=== PATIENT | female | born 1960 | race Caucasian/White ===

== ENCOUNTER → 2018-06-28 07:56 | Outpatient (CLI) | payer BC, SELFPAY ==
--- NOTE | 2018-06-28 08:00 | BI_ITS ---
MAMMOGRAPHY - BILATERAL SCREENING REASON FOR EXAM: Female, 57 years old. Routine annual screening examination. PERTINENT HISTORY: Grandmother with breast cancer. TECHNIQUE: Digital bilateral breast delmy (3D mammographic acquisition) in the CC and MLO projections. 2-D mediolateral oblique (MLO) and craniocaudad (CC) views of both breasts were obtained. CAD: Full Field Digital Mammography with Computer Added Detection was performed. COMPARISON: Comparison is made with prior study dated December 21, 2016 and December 08, 2015. FINDINGS: Breast Composition: The breasts are extremely dense, which lowers the sensitivity of mammography. There are no dominant masses or suspicious calcifications. Once again, a tissue clip marker is seen in the superior retroareolar region of the left breast. Stable appearing right axillary lymph node. No other significant abnormalities are identified. There has been no significant change since the prior study. BI/SCREENING MAMM (CAD), BILAT IMPRESSION: Stable bilateral screening mammogram. Yearly follow-up mammogram recommended. (A) ASSESSMENT CATEGORY: BIRADS Category 2: Benign. A letter regarding these results will be sent to the patient by the facility within 30 days. Approximately 10% of breast cancers are not detected by mammography. A normal mammogram should not delay biopsy of a clinically suspicious abnormality. [id number] Electronically Signed: Adolfo Huynh MD at 9:33 EST Tel [phone], Service support ,
== END ==
PROVIDERS: Family Provider Family Medicine; PCP Family Medicine; Referring Provider Family Medicine; Visit Provider Family Medicine
DX: Z12.31 Encounter for screening mammogram for malignant neoplasm of breast (principal)
CPT/HCPCS: 77063; 77067

== ENCOUNTER → 2018-09-05 14:40 | Outpatient (CLI) | payer BC, SELFPAY ==
[2018-09-05 15:34] LABS: Iron 66 ug/dL (50-170); Iron Binding Capacity,Total 307 ug/dL (250-450); PERCENT IRON SATURATION 21.5 % (15.0-55.0)
== END ==
PROVIDERS: Family Provider Family Medicine; PCP Family Medicine; Referring Provider Family Medicine; Visit Provider Family Medicine
DX: D50.9 Iron deficiency anemia, unspecified (principal)
CPT/HCPCS: 36415; 83540; 83550

== ENCOUNTER → 2018-09-14 09:53 | Outpatient (CLI) | payer BC, SELFPAY ==
--- NOTE | 2018-09-14 09:57 | US_ITS ---
STUDY: ULTRASOUND TRANSVAGINAL CLINICAL: Female, 57 years old. Postmenopausal bleeding TECHNIQUE: Transvaginal COMPARISON: None. FINDINGS: Normal uterine size measuring 8.1 cm in maximal craniocaudal dimension. There are multiple fibroids, the parts consultant notes at least 3. Largest measures 2.6 x 2.2 x 1.9 cm, others measure 1.9 x 1.9 x 1.2 cm, and 1.5 x 1.3 x 1.1 cm. Normal endometrial thickness measuring 5 mm. There are no endometrial masses, and there is no fluid in the endometrial cavity. Normal uterine cervix. Right ovary not visualized. Normal left ovary, measuring 3.0 x 2.5 x 1.7 cm. There are multiple follicles without a dominant cyst. There is no free fluid in the pelvis. Polycystic ovary disease: No. US/Transvaginal Non- IMPRESSION: Sonographically normal endometrium at 5 mm. 3 uterine fibroids No suspicious adnexal mass or free fluid Electronically Signed: Anton Gaspar MD at 12:44 EST , Service support ,
== END ==
PROVIDERS: Family Provider Family Medicine; PCP Family Medicine; Referring Provider Obstetrics & Gynecology Gynecology; Visit Provider Obstetrics & Gynecology Gynecology
DX: N95.0 Postmenopausal bleeding (principal)
CPT/HCPCS: 76830

== ENCOUNTER → 2019-07-26 10:39 | Outpatient (CLI) | payer BC, SELFPAY ==
--- NOTE | 2019-07-26 10:49 | BI_ITS ---
MAMMOGRAPHY - BILATERAL SCREENING 3-D TOMOSYNTHESIS REASON FOR EXAM: Female, 58 years old. FM HX PAT GMA AGE?, CURRENT OTC ESTROVEN AND VAG CREAM USE X 1 MTH, LT NEEDLE BX 10 YRS AGO PERTINENT HISTORY: No significant family history. TECHNIQUE: 2-D mammograms and 3-D Tomosynthesis of the breast (s) were performed. CAD was performed. COMPARISON: June 28, 2018 FINDINGS: The breast composition is heterogeneously dense that can obscure small breast masses. There is a new area of asymmetry with potential mild to moderate associated architectural distortion within the mid to deep slightly outer right breast seen only on right CC tomographic views positioned 6.7 cm deep to the nipple. Recommend further evaluation with conventional focal compression of this region at the posterior fibroglandular margin on the right CC views. Sonographic evaluation may also be needed potentially. There are no suspicious clustered microcalcifications. BI/SCREEN MAMM (CAD) W/MIGUELITO BILAT IMPRESSION: New region of asymmetry with potential associated architectural distortion within the right breast as above. ASSESSMENT CATEGORY: BIRADS Category 0: Incomplete. Need additional imaging evaluation as above. A letter regarding these results will be sent to the patient by the facility within 30 days. FOLLOW UP RECOMMENDATION: Yearly follow up mammogram recommended. (A) Approximately 10% of breast cancers are not detected by mammography. A normal mammogram should not delay biopsy of a clinically suspicious abnormality. Electronically Signed: Cristino Pruitt MD at 15:05 EST , Service support ,
== END ==
PROVIDERS: Family Provider Family Medicine; PCP Family Medicine; Referring Provider Obstetrics & Gynecology Gynecology; Visit Provider Obstetrics & Gynecology Gynecology
DX: Z12.31 Encounter for screening mammogram for malignant neoplasm of breast (principal)
CPT/HCPCS: 77063; 77067

== ENCOUNTER → 2019-07-30 13:57 | Outpatient (CLI) | payer BC, SELFPAY ==
--- NOTE | 2019-07-30 13:59 | BI_ITS ---
MAMMOGRAPHY - UNILATERAL DIAGNOSTIC: RIGHT BREAST REASON FOR EXAM: Female, 58 years old. Abnormal screening mammogram. PERTINENT HISTORY: Non-contributory. TECHNIQUE: Compression spot views of the right breast were obtained in the mediolateral and craniocaudad views. CAD: Full Field Digital Mammography with Computer Added Detection was performed. COMPARISON: Comparison is made with prior mammogram dated July 26, 2011. FINDINGS: Breast Composition: The breasts are heterogeneously dense, which may obscure small masses. There are no dominant masses or suspicious calcifications. No other significant abnormalities are identified. BI/DIAG MAMM W/CAD, UNILAT IMPRESSION: Stable unilateral diagnostic mammogram. One year follow-up mammogram recommended. (A) ASSESSMENT CATEGORY: BIRADS Category 2: Benign. A letter regarding these results will be sent to the patient by the facility within 30 days. Approximately 10% of breast cancers are not detected by mammography. A normal mammogram should not delay biopsy of a clinically suspicious abnormality. Electronically Signed: Adolfo Huynh, at 15:32 EST , Service support ,
--- NOTE | 2019-07-30 13:59 | US_ITS ---
STUDY: ULTRASOUND BREAST - RIGHT REASON FOR EXAM: Female, 58 years old. Right breast asymmetry. TECHNIQUE: Axial and longitudinal images of the RIGHT breast were performed with a high resolution ultrasound transducer. # OF IMAGES: 70 COMPARISON: Comparison is made with prior mammogram done earlier in the day. FINDINGS: RIGHT Breast: There is a 4 mm x 4 mm x 3 mm cyst at the 12:00 position of the breast at 3 cm from the nipple. US/Breast Limited Unilateral IMPRESSION: 4 mm x 4 mm x 3 mm cyst at the 12:00 position of the breast at 3 cm from the nipple. ASSESSMENT CATEGORY: BIRADS Category 2: Benign. A letter regarding these results will be sent to the patient by the facility within 30 days. Electronically Signed: Adolfo Huynh, at 15:35 EST , Service support ,
== END ==
PROVIDERS: Family Provider Family Medicine; PCP Family Medicine; Referring Provider Obstetrics & Gynecology Gynecology; Visit Provider Obstetrics & Gynecology Gynecology
DX: N64.89 Other specified disorders of breast (principal)
CPT/HCPCS: 76641; 76642; 77065

== ENCOUNTER → 2019-09-04 08:39 | Outpatient (CLI) | payer BC, SELFPAY ==
[2019-09-04 09:31] LABS: Absolute Lymphocyte Count 1.71 X10^3/uL (0.83-4.51); Absolute Neutrophil Count 5.4 X10^3/uL (2.0-7.7); Basophil# 0.03 X10^3/uL; Basophil% 0.4 % (0-1); Eosinophil# 0.08 X10^3/uL; Hematocrit 40.1 % (37-47); Hemoglobin 12.6 g/dL (12.0-15.0); Lymphocyte # 1.71 X10^3/ul (4.0); Lymphocyte % 21.5 % (19-41); Mean Corp Hgb Conc 31.4 g/dL (32-36); Mean Corpuscular Hgb 27.9 pg (27.0-32.0); Mean Corpuscular Volume 88.9 fL (81-99); Mean Platelet Vol. 10.9 fl (6.2-12.0); Monocyte% 8.8 % (0-10); NRBC Flagged by Analyzer 0 % (0-5); Neutrophil # 5.38 X10^3/uL (2.7-7.7); Neutrophil % 67.8 % (47-70); Platelet Count 228 K/mm3 (150-450); RBC Distribution Width CV 13.2 % (11.6-14.6); RBC Distribution Width SD 42.8 fl (35.1-43.9); Red Blood Count 4.51 M/mm3 (4.2-5.4); White Blood Count 7.9 K/mm3 (4.4-11.0)
[2019-09-04 10:00] LABS: Color, Urine Yellow (Yellow); Glucose, Dipstick Normal (Normal); Ketone-Dipstick Negative (Negative); Leukocyte Esterase-Dipstick Negative /ul (Negative); Nitrite-Dipstick Negative (Negative); Occult Blood-Urine 10 /ul (Negative); Protein-Dipstick Negative (Negative); Urine Bilirubin Dipstick Negative (Negative); Urine Clarity Clear (Clear); Urine Urobilinogen Normal (Normal)
[2019-09-04 10:03] LABS: AST(SGOT) 28 U/L (15-37); Alanine Aminotransfer ALT/SGPT 53 U/L (13-56); Albumin, Serum 3.6 g/dL (3.2-5.0); Alkaline Phosphatase 81 U/L (45-117); Anion Gap 5 (5-15); BUN 10 mg/dL (7-18); BUN/Creat Ratio 13.3 RATIO (10-20); Calcium,Total 9.2 mg/dL (8.5-10.1); Chloride 109 mmol/L (98-107); Cholesterol 183 mg/dL (200); Creatinine, Serum 0.75 mg/dL (0.55-1.02); EST Glomerular Filtration Rate 84 mL/min (>60); Est Glom Filt Rate - Afr Amer 102 mL/min (>60); Globulin 3.5 g/dL (2.2-4.2); Glucose 102 mg/dL (74-106); High Density Lipoprotein 45 mg/dL; Protein, Total 7.1 g/dL (6.4-8.2); Sodium Level 141 mmol/L (136-145); Triglycerides 118 mg/dL; Very Low Density Lipoprotein 24 mg/dL (5-40)
== END ==
PROVIDERS: PCP Family Medicine; Referring Provider Family Medicine; Visit Provider Family Medicine
DX: Z00.00 Encounter for general adult medical examination without abnormal findings (principal); D50.9 Iron deficiency anemia, unspecified; I10 Essential (primary) hypertension
CPT/HCPCS: 36415; 80053; 80061; 81002; 85025

== ENCOUNTER → 2020-09-10 09:02 | Outpatient (CLI) | payer BC, SELFPAY ==
[2020-09-10 09:59] LABS: Absolute Lymphocyte Count 1.81 X10^3/uL (0.83-4.51); Basophil# 0.03 X10^3/uL; Basophil% 0.4 % (0-1); Eosinophil# 0.08 X10^3/uL; Hematocrit 40.2 % (37-47); Hemoglobin 12.7 g/dL (12.0-15.0); Lymphocyte # 1.81 X10^3/ul (4.0); Lymphocyte % 23.8 % (19-41); Mean Corp Hgb Conc 31.6 g/dL (32-36); Mean Corpuscular Hgb 27.6 pg (27.0-32.0); Mean Corpuscular Volume 87.4 fL (81-99); Mean Platelet Vol. 10.8 fl (6.2-12.0); Monocyte# 0.62 X10^3/uL; Monocyte% 8.1 % (0-10); NRBC Flagged by Analyzer 0 % (0-5); Neutrophil # 5.02 X10^3/uL (2.7-7.7); Neutrophil % 65.9 % (47-70); Platelet Count 257 K/mm3 (150-450); RBC Distribution Width CV 13.2 % (11.6-14.6); RBC Distribution Width SD 42.5 fl (35.1-43.9); White Blood Count 7.6 K/mm3 (4.4-11.0)
[2020-09-10 11:03] LABS: ALB/GLOB Ratio 1.1 RATIO (0.9-2.4); AST(SGOT) 30 U/L (15-37); Alanine Aminotransfer ALT/SGPT 62 U/L (13-56); Albumin, Serum 3.9 g/dL (3.2-5.0); Alkaline Phosphatase 95 U/L (45-117); Anion Gap 6 (5-15); BUN 11 mg/dL (7-18); BUN/Creat Ratio 15.2 RATIO (10-20); Calcium,Total 8.9 mg/dL (8.5-10.1); Chloride 104 mmol/L (98-107); Creatinine, Serum 0.72 mg/dL (0.55-1.02); EST Glomerular Filtration Rate 88 mL/min (>60); Est Glom Filt Rate - Afr Amer 106 mL/min (>60); Globulin 3.5 g/dL (2.2-4.2); Glucose 108 mg/dL (74-106); Potassium 4.1 mmol/L (3.5-5.1); Protein, Total 7.4 g/dL (6.4-8.2); Sodium Level 137 mmol/L (136-145)
== END ==
PROVIDERS: PCP Family Medicine; Visit Provider Family Medicine
DX: D50.9 Iron deficiency anemia, unspecified (principal); I10 Essential (primary) hypertension
CPT/HCPCS: 36415; 80053; 84443; 85025

== ENCOUNTER → 2020-12-30 15:57 | Outpatient (CLI) | payer BC, SELFPAY ==
--- NOTE | 2020-12-30 15:59 | BI_ITS ---
MAMMOGRAPHY - BILATERAL SCREENING REASON FOR EXAM: Female, 60 years old. Routine annual screening examination. PERTINENT HISTORY: Grandmother with breast cancer. History of remote left needle breast biopsy. TECHNIQUE: Digital bilateral breast miguelito (3D mammographic acquisition) in the CC and MLO projections. 2-D mediolateral oblique (MLO) and craniocaudad (CC) views of both breasts were obtained. CAD: Full Field Digital Mammography with Computer Added Detection was performed. COMPARISON: Comparison is made with prior study dated 07/26/2019 and 06/28/2018. FINDINGS: Breast Composition: The breasts are heterogeneously dense, which may obscure small masses. There are no dominant masses or suspicious calcifications. Stable benign-appearing bilateral axillary lymph nodes. No other significant abnormalities are identified. There has been no significant change since the prior study. BI/SCRN MAMM (CAD)W/MIGUELITO BILAT IMPRESSION: Stable bilateral screening mammogram. Yearly follow-up mammogram recommended. (A) ASSESSMENT CATEGORY: BIRADS Category 2: Benign. A letter regarding these results will be sent to the patient by the facility within 30 days. Approximately 10% of breast cancers are not detected by mammography. A normal mammogram should not delay biopsy of a clinically suspicious abnormality. [id number] Electronically Signed: Adolfo Huynh MD at 8:48 EDT , Service support ,
== END ==
PROVIDERS: PCP Family Medicine; Referring Provider Obstetrics & Gynecology Gynecology; Visit Provider Obstetrics & Gynecology Gynecology
DX: Z01.419 Encounter for gynecological examination (general) (routine) without abnormal findings (principal); Z12.31 Encounter for screening mammogram for malignant neoplasm of breast; Z12.4 Encounter for screening for malignant neoplasm of cervix; N90.4 Leukoplakia of vulva; Z80.3 Family history of malignant neoplasm of breast
CPT/HCPCS: 77063; 77067

== ENCOUNTER 2021-08-24 11:08 | Outpatient (CLI) | payer BC, SELFPAY ==
[2021-08-24 13:18] LABS: Absolute Lymphocyte Count 1.83 X10^3/uL (0.83-4.51); Absolute Neutrophil Count 4.1 X10^3/uL (2.0-7.7); Basophil# 0.03 X10^3/uL; Basophil% 0.5 % (0-1); Eosinophil# 0.09 X10^3/uL; Eosinophils% 1.4 % (0-5); Hematocrit 41.3 % (37-47); Lymphocyte # 1.83 X10^3/ul (0.83-4.51); Lymphocyte % 27.8 % (19-41); Mean Corp Hgb Conc 31.5 g/dL (32-36); Monocyte# 0.54 X10^3/uL; Monocyte% 8.2 % (0-10); NRBC Flagged by Analyzer 0 % (0-5); Neutrophil # 4.08 X10^3/uL (2.7-7.7); Neutrophil % 61.8 % (47-70); Platelet Count 264 K/mm3 (150-450); RBC Distribution Width CV 13.3 % (11.6-14.6); RBC Distribution Width SD 43.4 fl (35.1-43.9); Red Blood Count 4.64 M/mm3 (4.2-5.4); White Blood Count 6.6 K/mm3 (4.4-11.0)
[2021-08-24 13:52] LABS: AST(SGOT) 27 U/L (15-37); Alanine Aminotransfer ALT/SGPT 45 U/L (13-56); Alkaline Phosphatase 81 U/L (45-117); Anion Gap 5 (5-15); BUN 10 mg/dL (7-18); BUN/Creat Ratio 14.4 RATIO (10-20); Calcium,Total 9.4 mg/dL (8.5-10.1); Chloride 104 mmol/L (98-107); Cholesterol 172 mg/dL (200); Creatinine, Serum 0.69 mg/dL (0.55-1.02); EST Glomerular Filtration Rate 92 mL/min (>60); Est Glom Filt Rate - Afr Amer 111 mL/min (>60); Globulin 3.9 g/dL (2.2-4.2); Glucose 103 mg/dL (74-106); High Density Lipoprotein 51 mg/dL; Potassium 4.6 mmol/L (3.5-5.1); Protein, Total 7.9 g/dL (6.4-8.2); Sodium Level 139 mmol/L (136-145); Triglycerides 82 mg/dL; Very Low Density Lipoprotein 16 mg/dL (5-40)
== END 2021-08-24 23:59 | disposition short-term general hospital (02) ==
LOC: LAB 11:09
PROVIDERS: PCP Family Medicine; Visit Provider Family Medicine
DX: Z00.00 Encounter for general adult medical examination without abnormal findings (principal); I10 Essential (primary) hypertension; D50.9 Iron deficiency anemia, unspecified
CPT/HCPCS: 36415; 80053; 80061; 85025

== ENCOUNTER → 2022-04-12 | Outpatient (CLI) | payer BC, SELFPAY ==
--- NOTE | 2022-04-12 14:17 | BI_ITS ---
MAMMOGRAPHY - BILATERAL SCREENING 3-D TOMOSYNTHESIS REASON FOR EXAM: Female, 61 years old. SCREENING PERTINENT HISTORY: No significant family history. TECHNIQUE: 2-D mammograms and 3-D Tomosynthesis of the breast (s) were performed. CAD was performed. COMPARISON: [id number] FINDINGS: The breast composition is Extermely dense tissue. Scattered benign calcifications are seen. No dense spiculated masses or suspicious microcalcifications are identified. No architectural distortion is identified. There is no skin thickening or retraction. There has been no significant change since the prior study. BI/SCRN MAMM (CAD)W/MIGUELITO BILAT IMPRESSION: No mammographic signs of malignancy. Routine yearly mammograms recommended. ASSESSMENT CATEGORY: BIRADS Category 1: Negative. A letter regarding these results will be sent to the patient by the facility within 30 days. FOLLOW UP RECOMMENDATION: Yearly follow up mammogram recommended. (A) Approximately 10% of breast cancers are not detected by mammography. A normal mammogram should not delay biopsy of a clinically suspicious abnormality. Electronically Signed: Emmanuel Martinez MD at 15:03 EDT ,
== END | disposition home or self-care (01) ==
LOC: OPBI 14:14
PROVIDERS: PCP Family Medicine; Visit Provider Obstetrics & Gynecology Gynecology
DX: Z01.419 Encounter for gynecological examination (general) (routine) without abnormal findings (principal); Z12.31 Encounter for screening mammogram for malignant neoplasm of breast
CPT/HCPCS: 77063; 77067

== ENCOUNTER 2022-05-26 16:22 | Emergency (ER) | payer BC, SELFPAY ==
[2022-05-26] VITALS (8 sets, daily range): BP systolic 130–167; BP diastolic 68–103; PULSE 91–109; RESP 16–21; TEMP 36.2–37.5; O2SAT 96–99; BMI 29.9
--- NOTE | 2022-05-26 16:50 | EKG12_ITS ---
Test Reason : BACK PAIN/CHEST HEAVINESS Blood Pressure : / mmHG Vent. Rate : 099 BPM Atrial Rate : 099 BPM P-R Int : 158 ms QRS Dur : 084 ms QT Int : 326 ms P-R-T Axes : 045 007 018 degrees QTc Int : 418 ms Normal sinus rhythm Cannot rule out Inferior infarct , age undetermined Cannot rule out Anterior infarct , age undetermined Abnormal ECG Confirmed by KALYAN CARDONA, KELLEY ([id number]), assignment desk editor DB ACOSTA ([id number]) on 05/30/2022 1:16:12 PM Referred By: CARYN Confirmed By:KELLEY BIGGS MD
--- NOTE | 2022-05-26 17:00 | RAD_ITS ---
STUDY: X-RAY CHEST REASON FOR EXAM: Female, 61 years old. Chest pain. Cold for 2 weeks. Coughing today. Weakness and chest heaviness. TECHNIQUE: Single AP portable view of the chest. COMPARISON: None. FINDINGS: The lungs are clear and expanded. There is no demonstrated pleural abnormality. Normal size heart. Normal mediastinum and cecile. Normal visualized pulmonary arteries. Normal visualized aortic arch and descending thoracic aorta. Mild dextroscoliosis of the thoracic spine. Normal visualized ribs, clavicles, and shoulders. There is no demonstrated abnormality of the visualized soft tissue structures of the upper abdomen. RAD/Chest 1 View (Portable) IMPRESSION: No acute cardiopulmonary disease. Electronically Signed: Ozzy Ladd DO at 17:10 EDT ,
[2022-05-26 17:06] LABS: Absolute Lymphocyte Count 2.36 X10^3/uL (0.83-4.51); Basophil# 0.04 X10^3/uL; Basophil% 0.7 % (0-1); Eosinophils% 1.6 % (0-5); Hematocrit 33.3 % (37-47); Hemoglobin 10.9 g/dL (12.0-15.0); Lymphocyte # 2.36 X10^3/ul (0.83-4.51); Lymphocyte % 38.7 % (19-41); Mean Corp Hgb Conc 32.7 g/dL (32-36); Mean Corpuscular Hgb 27.9 pg (27.0-32.0); Mean Corpuscular Volume 85.4 fL (81-99); Mean Platelet Vol. 10.2 fl (6.2-12.0); Monocyte# 0.56 X10^3/uL; Monocyte% 9.2 % (0-10); NRBC Flagged by Analyzer 0 % (0-5); Neutrophil # 2.98 X10^3/uL (2.7-7.7); Neutrophil % 48.8 % (47-70); POSITIVE MORPHOLOGY YES; Platelet Count 170 K/mm3 (150-450); RBC Distribution Width SD 43.5 fl (35.1-43.9); White Blood Count 6.1 K/mm3 (4.4-11.0)
[2022-05-26 17:15] LABS: Differential Indicated SCAN CRITERIA MET
[2022-05-26 17:23] LABS: Anion Gap 6 (5-15); BUN 9 mg/dL (7-18); BUN/Creat Ratio 10.4 RATIO (10-20); Calcium,Total 8.8 mg/dL (8.5-10.1); Chloride 103 mmol/L (98-107); Creatinine, Serum 0.87 mg/dL (0.55-1.02); EST Glomerular Filtration Rate 71 mL/min (>60); Est Glom Filt Rate - Afr Amer 86 mL/min (>60); Estimated Creatinine Clearance 61.88 ml/min; Glucose 111 mg/dL (74-106); Potassium 3.9 mmol/L (3.5-5.1); Sodium Level 137 mmol/L (136-145); Troponin-I HS (w/2H Reflex) 3 pg/mL (3.0-54.0)
--- NOTE | 2022-05-26 17:30 | EDS_ITS ---
HPI History of Present Illness Chief Complaint: General Illness Informant: patient Onset/Context/Timing Onset: Weeks (2) Context: Gradual Onset Timing: Continuous Quality: Weakness Location: Generalized Worsened by: Nothing Relieved by: Nothing Narrative Narrative: Patient presents with generalized weakness that has been getting worse over the last couple weeks. Patient states it is gotten worse over the last day or so. Patient states she feels weak all over. Patient states nothing makes it better and nothing makes it worse. Patient does admit to a cough and some pain in her chest. Patient mitts to some nausea and decreased appetite. Patient denies any vomiting or diarrhea. Patient states she has some pain going up into her neck and into her back. Patient also admits to a headache. Patient denies any fevers or chills. Patient is concerned that this may be pneumonia. [facility] Medical History (Updated 05/26/22 @ 20:[address] Calderon Quinonez DO) Fibromyalgia GERD (gastroesophageal reflux disease) Hypertension Pneumonia Home Medications bupropion HCl 75 mg tablet 75 mg PO BID 02/12/16 [History Last Taken Unknown] duloxetine 60 mg capsule,delayed release (Cymbalta) 30 mg PO DAILY 02/12/16 [History Last Taken Unknown] hydrocodone-acetaminophen 5-325mg 5mg-325mg 1 - 2 tab PO Q4H PRN PRN Pain ##20 02/12/16 [Rx Last Taken Unknown] lansoprazole 30 mg capsule,delayed release (Prevacid) 30 mg PO DAILY 02/12/16 [History Last Taken Unknown] losartan 100 mg tablet 100 mg PO DAILY 02/12/16 [History Last Taken Unknown] Allergy/AdvReac Type Severity Reaction Status Date / Time clarithromycin [From Biaxin] Allergy Other Verified 05/26/22 16:23 Surgical History (Updated 05/26/22 @ 17:[address] Calderon Quinonez DO) History of endometrial ablation Hx of tonsillectomy Hx of tubal ligation Social History Smoking Status: Never smoker ROS ROS ED Constitutional Constitutional ED: Denies chills or fever(s) Eyes Eyes: Denies blurry vision or change in vision ENT ENT ED: Reports rhinorrhea; Denies sore throat Cardiovascular Cardiovascular: Reports chest pain; Denies palpitations Respiratory/Chest Respiratory/Chest: Reports cough; Denies dyspnea Gastrointestinal Gastrointestinal: Reports nausea; Denies vomiting Genitourinary Genitourinary ED: Denies dysuria or hematuria Musculoskeletal Musculoskeletal: Reports back pain and neck pain Integumentary Denies abscess or rash Neurologic Neurologic: Reports headache(s); Denies weakness Allergic/Immunologic Allergic/Immunologic ED: Denies mouth swelling or urticaria EXAM Physical Exam Const Vital Signs: 05/26/22 16:24 05/26/22 17:13 05/26/22 17:14 Temperature 99.5 F H Temperature Source Temporal Pulse Rate 109 H 99 Respiratory Rate 18 18 Respiratory Effort Short of Breath Respiratory Pattern Normal Blood Pressure 167/103 H 144/80 H Blood Pressure Mean 124 101 Pulse Ox 99 98 Oxygen Delivery Method Room Air Room Air 05/26/22 17:55 05/26/22 18:03 05/26/22 18:15 Temperature 97.5 F L 97.2 F L Temperature Source Temporal Temporal Pulse Rate 91 95 97 Respiratory Rate 16 16 16 Respiratory Effort Respiratory Pattern Blood Pressure 149/92 H 130/68 H Blood Pressure Mean 111 88 Pulse Ox 97 98 Oxygen Delivery Method Room Air Room Air 05/26/22 20:00 Temperature Temperature Source Pulse Rate 100 Respiratory Rate 21 H Respiratory Effort Respiratory Pattern Blood Pressure 140/81 H Blood Pressure Mean 100 Pulse Ox 96 Oxygen Delivery Method Room Air Positive well nourished and well developed General Appearance ED: well developed HEENT Reports moist mucous membranes Neck supple and no JVD Resp normal respiratory effort and clear to auscultation bilaterally Cardio regular rate, regular rhythm and no murmurs GI normal to inspection, nondistended, normoactive bowel sounds and non-tender Palpation: soft Extremity normal to inspection General Extremety ED: Negative for edema or tenderness General Extremity: Negative for edema Neuro oriented x3, CN's II-XII intact bilaterally and no sensory deficits noted Sensorium / Orientation: alert Motor Exam: strength 5/5 throughout Psych mental status grossly normal Skin no rashes or lesions noted MDM MDM MDM Narrative Medical decision making narrative: Patient was given a DuoNeb aerosol here. Patient was given IV fluids. EKG was obtained. On my interpretation, it showed a normal sinus rhythm with a rate of 99. IN interval, QRS interval, and QTc intervals were all normal. Fletcher was normal. There are no acute ST or T wave changes. COVID-19 rapid antigen was obtained and was negative. Influenza A and influenza B antigens were obtained and were negative. Portable 1 view chest x-ray was obtained. On my interpretation, lung singh are clear. There is normal cardiac silhouette. Bony thorax is normal. There is no acute process noted. Radiologist also interpreted the x-ray and agrees. CBC shows a mild anemia with a hemoglobin of 10.9 and hematocrit 33.3. Basic metabolic profile was within normal limits. High-sensitivity troponin was 3. 2-hour repeat high-sensitivity troponin was less than 3. Patient has a HEART score of 2. Patient was advised that this is low risk for acute cardiac event. Patient is feeling better on reevaluation. Patient was advised of her findings. Patient was instructed to follow-up with her primary care physician in 5 to 7 days. Patient understood and was agreeable with the plan. All questions were answered. Lab Data Attestation: I reviewed the patient's lab results. Labs: Laboratory Results - last 24 hr 05/26/22 05/26/22 05/26/22 16:51 16:51 19:15 WBC 6.1 RBC 3.90 L Hgb 10.9 L Hct 33.3 L MCV 85.4 MCH 27.9 MCHC 32.7 RDW Std Deviation 43.5 RDW Coeff of Silvio 14.0 Plt Count 170 MPV 10.2 Immature Gran % (Auto) 1.000 H Neut % (Auto) 48.8 Lymph % (Auto) 38.7 Lagrange % (Auto) 9.2 Eos % (Auto) 1.6 Baso % (Auto) 0.7 Absolute Neuts (auto) 3.0 Absolute Lymphs (auto) 2.36 Nucleated RBC % 0 Differential Comment SCANNED Atypical Lymphocytes RARE Sodium 137 Potassium 3.9 Chloride 103 Carbon Dioxide 28.0 Anion Gap 6 BUN 9 Creatinine 0.87 Estim Creat Clear Calc 61.88 Est GFR (MDRD) Af Amer 86 Est GFR (MDRD) Non-Af 71 BUN/Creatinine Ratio 10.4 Glucose 111 H Calcium 8.8 Troponin I High Sens 3 < 3 L Radiography Chest X-Ray - ED: 1 View, Read by ED Physician, Read by Radiologist and No Acute Disease Diagnostic Testing: Clinical Impression(s) from Imaging Studies Chest X-Ray 05/26/22 17:00 IMPRESSION: No acute cardiopulmonary disease. Electronically Signed: Ozzy Ladd DO at 17:10 EDT Reading Location ID and State: [address] [place] [address] Tel [phone], Service support , Discharge Plan Triage Chief Complaint: General Illness ED Provider: Calderon Quinonez Dx/Rx/DC Orders Clinical Impression: Chest pain, Viral illness Instructions: ED Chest Pain, Uncertain Cause, ED Viral Syndrome (Adult) Prescriptions: No Action duloxetine [Cymbalta] 60 MG capsule,delayed release(DR/EC) 30 mg PO DAILY Label Comments: lansoprazole [Prevacid] 30 MG capsule 30 mg PO DAILY bupropion HCl 75 MG tablet 75 mg PO BID losartan 100 MG tablet 100 mg PO DAILY Label Comments: hydrocodone-acetaminophen 1 TABLET tablet 1 - 2 tab PO Q4H PRN PRN (Reason: Pain) Qty: 20 0RF Primary Care Provider: David Nguyễn Referrals: David Nguyễn MD [Primary Care Provider] - 5-7 Days Disposition Disposition: Home, Self Care
[2022-05-26 17:37] LABS: Atypical Lymphocyte RARE %; Differential Comment SCANNED
[2022-05-26] MEDS: Ipratropium/Albuterol Sulfate 3 ML AMPUL.NEB INHALATION (18:01)
[2022-05-26] MEDS: 0.9% Normal Saline 1,000 ML 1000 ML IV (18:05)
[2022-05-26 19:00] LABS: Reflex Troponin-HS? (from REC) Y
[2022-05-26 20:02] LABS: Troponin-I HS < 3 pg/mL (3.0-54.0)
== END 2022-05-26 21:26 | disposition home or self-care (01) ==
PROVIDERS: Emergency Provider Emergency Medicine; PCP Family Medicine; Visit Provider Emergency Medicine
DX: R07.9 Chest pain, unspecified (principal); B34.9 Viral infection, unspecified
CPT/HCPCS: 71045; 80048; 84484; 85025; 87428; 93005; 94640; 96360; 96361; 99285; J7030; A4216

== ENCOUNTER → 2022-05-31 | Outpatient (CLI) | payer BC, SELFPAY ==
[2022-05-31 10:11] LABS: Mucous, Urine 0 SEEN /hpf (<or=2+)
[2022-05-31 12:54] LABS: Color, Urine Yellow (Yellow); Glucose, Dipstick Normal (Normal); Ketone-Dipstick 5 mg/dl (Negative); Leukocyte Esterase-Dipstick 25 /ul (Negative); Nitrite-Dipstick Negative (Negative); Occult Blood-Urine 10 /ul (Negative); Protein-Dipstick 30 mg/dl (Negative); Urine Bilirubin Dipstick Negative (Negative); Urine Clarity Sl. Cloudy (Clear); Urine Urobilinogen Normal (Normal)
[2022-05-31 12:57] LABS: Absolute Lymphocyte Count 4.47 X10^3/uL (0.83-4.51); Absolute Neutrophil Count 3.3 X10^3/uL (2.0-7.7); Basophil# 0.09 X10^3/uL; Basophil% 1.1 % (0-1); Eosinophil# 0.09 X10^3/uL; Eosinophils% 1.1 % (0-5); Hematocrit 36.8 % (37-47); Hemoglobin 11.6 g/dL (12.0-15.0); Lymphocyte # 4.47 X10^3/ul (0.83-4.51); Lymphocyte % 53.1 % (19-41); Mean Corp Hgb Conc 31.5 g/dL (32-36); Mean Corpuscular Volume 85.8 fL (81-99); Mean Platelet Vol. 10.8 fl (6.2-12.0); Monocyte# 0.44 X10^3/uL; Monocyte% 5.2 % (0-10); NRBC Flagged by Analyzer 0 % (0-5); Neutrophil # 3.26 X10^3/uL (2.7-7.7); Neutrophil % 38.7 % (47-70); POSITIVE MORPHOLOGY YES; Platelet Count 200 K/mm3 (150-450); RBC Distribution Width CV 14.5 % (11.6-14.6); Red Blood Count 4.29 M/mm3 (4.2-5.4); White Blood Count 8.4 K/mm3 (4.4-11.0)
[2022-05-31 12:59] LABS: ALB/GLOB Ratio 0.8 RATIO (0.9-2.4); AST(SGOT) 102 U/L (15-37); Alanine Aminotransfer ALT/SGPT 161 U/L (13-56); Albumin, Serum 3.4 g/dL (3.2-5.0); Alkaline Phosphatase 120 U/L (45-117); Anion Gap 8 (5-15); BUN 5 mg/dL (7-18); BUN/Creat Ratio 5.7 RATIO (10-20); Calcium,Total 8.6 mg/dL (8.5-10.1); Chloride 100 mmol/L (98-107); Creatinine, Serum 0.87 mg/dL (0.55-1.02); EST Glomerular Filtration Rate 70 mL/min (>60); Est Glom Filt Rate - Afr Amer 85 mL/min (>60); Globulin 4.2 g/dL (2.2-4.2); Glucose 157 mg/dL (74-106); Potassium 3.5 mmol/L (3.5-5.1); Protein, Total 7.6 g/dL (6.4-8.2); Sodium Level 134 mmol/L (136-145)
[2022-05-31 13:04] LABS: Differential Indicated SCAN CRITERIA MET; Red Blood Cells-Urine 0-5 SEEN /hpf (0-5); Squamous Epithelial Cells - UA 0-5 SEEN /hpf (5-10); White Blood Cells 0-5 SEEN /hpf (0-5)
[2022-05-31 13:05] LABS: Bacteria 1+ /hpf (None Seen)
[2022-05-31 14:20] LABS: Differential Comment SCANNED; Reactive Lymphocyte 1+
== END | disposition home or self-care (01) ==
LOC: BIMLAB 10:10
PROVIDERS: PCP Family Medicine; Visit Provider Physician Assistant
DX: R05.9 Cough, unspecified (principal); B34.9 Viral infection, unspecified; R07.9 Chest pain, unspecified; M54.50 Low back pain, unspecified
CPT/HCPCS: 36415; 80053; 81001; 85025; 87070; 87086; 87205

== ENCOUNTER 2022-06-07 13:17 | Emergency (ER) | payer BC, SELFPAY ==
[2022-06-07 13:18] VITALS: BP 124/79; PULSE 110; RESP 16; TEMP 36.7; O2SAT 96; BMI 33.0
--- NOTE | 2022-06-07 14:29 | CT_ITS ---
STUDY: CT ABDOMEN AND PELVIS WITH CONTRAST REASON FOR EXAM: Female, 61 years old. Elevated LFTs RADIATION DOSAGE (If Supplied By Facility): CTDIvol = ( 15.04 ) mGy, DLP = ( 1088.27 ) mGycm TECHNIQUE: Transaxial images were obtained from the dome of the diaphragm to the symphysis pubis without oral contrast. IV 100mL Isovue-300 was administered. Sagittal and coronal images were reconstructed. Individualized dose optimization techniques were used for this CT. COMPARISON: None. FINDINGS: The visualized lung bases are unremarkable. The visualized portions of the heart are within normal limits. Multiple simple hepatic cysts or small to characterize. Normal gallbladder and extrahepatic biliary system. Prominent spleen. Normal pancreas. Normal bilateral adrenal glands. Multiple simple bilateral renal cortical cysts measuring up to 5.6 cm on the right. No further follow-up required as it appears simple/benign. Normal visualized stomach. Normal small intestine. Increased stool throughout the colon. The appendix is visualized and appears normal. Normal abdominal aorta. Normal inferior vena cava. Normal retroperitoneum. Normal urinary bladder. Uterus normal. There is a small umbilical hernia containing fat. Bilateral pseudoarticulation L5-S1. CT/Abdomen/Pelvis W IV Cont ONLY IMPRESSION: Increased stool. Prominent spleen. Electronically Signed: Cornell Call MD at 16:55 [facility] ,
--- NOTE | 2022-06-07 14:29 | ED.VIS.GI ---
HPI HPI - GI History of Present Illness Chief Complaint: Abd Pain Narrative Narrative: Patient presents from her primary care providers suggestion because of elevated LFTs. She states she was seen in the emergency department for viral illness about a week and a half ago. She has been feeling fatigued and malaise. Her LFTs were elevated at that time. She went to see her primary care provider in follow-up today who told her that her LFTs have been elevated. She complains of left upper quadrant abdominal pain on occasion that has improved. She had a low-grade fever last week. She denies any nausea or vomiting. No exacerbating or alleviating factors to her abdominal pain. However, she has states that she has improved. She denies other symptoms and states she is here for evaluation of her elevated LFTs. [facility] Medical History Arthritis Breast lump Fibromyalgia GERD (gastroesophageal reflux disease) History of blood transfusion Hypertension Overactive bladder Pneumonia Skin cancer Home Medications lansoprazole 30 mg capsule,delayed release (Prevacid) 30 mg PO DAILY 02/12/16 [History Last Taken Unknown] benzonatate 200 mg capsule 200 mg PO TID PRN cough #30 caps 05/31/22 [Rx Last Taken Unknown] levofloxacin 500 mg tablet 500 mg PO DAILY #7 tabs 05/31/22 [Rx Last Taken Unknown] losartan 100 mg-hydrochlorothiazide 12.5 mg tablet 1 tab PO DAILY 05/31/22 [History Last Taken Unknown] phenylephrine HCl 10 mg tablet 10 mg PO Q6H PRN congestion #20 tabs 05/31/22 [Rx Last Taken Unknown] duloxetine 60 mg capsule,delayed release (Cymbalta) 60 mg PO DAILY 06/07/22 [History Last Taken Unknown] Allergy/AdvReac Type Severity Reaction Status Date / Time clarithromycin [From Biaxin] Allergy Other Verified 06/07/22 13:17 Family History Father Alcoholism Arthritis High cholesterol Mother Arthritis High cholesterol Thyroid disorder Grandmother Breast cancer Brother Myocardial infarction Uncle Myocardial infarction Grandfather Myocardial infarction Grandmother Leukemia Surgical History History of endometrial ablation Hx of tonsillectomy Hx of tubal ligation Social History household members: spouse current occupational status: employed 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 Positive malaise and fatigue. HEENT: No sore throat. No neck pain. No loss of vision. No rhinorrhea. Cardiovascular: No chest pain. No palpitations. No pedal edema. Respiratory: No cough, no shortness of breath. Abdominal: Left upper quadrant abdominal pain. No nausea. No vomiting. Genitourinary: No dysuria. No hematuria. Musculoskeletal: No myalgias. No arthralgias. Neurologic: No headaches. No dizziness. No lightheadedness. Skin: No rash. No change in color. Psychiatric: No depression. No anxiety. EXAM Physical Exam Narrative Exam Narrative: Afebrile. Vital signs noted. HEENT: Normocephalic. Atraumatic. PERRL, EOMI. Neck soft and supple. No point tenderness or step off. No scleral icterus. Cardiovascular: Regular rate and rhythm with intermittent tachycardia. No murmurs, rubs, or gallops appreciated. Respiratory: No tachypnea. Lungs clear to auscultation bilaterally. Gastrointestinal: Abdomen soft, nontender, with normoactive bowel sounds. No rebound or guarding. Neurological: Awake. Alert. Nonfocal, nonlateralizing. Skin: No rash. Normal color. No pallor. No jaundice. Musculoskeletal: No pedal edema. Full range of motion extremities. Const Vital Signs: 06/07/22 13:18 Temperature 98.1 F Temperature Source Temporal Pulse Rate 110 H Respiratory Rate 16 Blood Pressure 124/79 H Blood Pressure Mean 94 Pulse Ox 96 Oxygen Delivery Method Room Air MDM MDM MDM Narrative Medical decision making narrative: Comprehensive work-up was pursued. I will obtain CT imaging with IV contrast to evaluate her liver for elevated LFTs. She has slightly elevated white count of 11.1 which I think is nonspecific, hemoglobin stable at 10.5, hematocrit 32.3. Platelet count normal at 222. Electrolyte panel is grossly unremarkable except for her AST elevated at 101 and ALT of 268. Normal alk phos. Lipase normal at 99. Urinalysis is negative for infection. CT of the abdomen and pelvis with IV contrast does show a prominent spleen along with hepatic cysts. At this point in time, I feel she be discharged safely home to follow-up with her primary care provider. She may require other imaging. I feel this can be done as an outpatient. She did mention that given her malaise and fatigue and prominent spleen that she might have mononucleosis. Given that she has had at least 2 weeks of this, I do feel that treatment is still the same with symptomatic treatment and follow-up with her primary care provider. Return instructions to the emergency department were reviewed. Disposition is discharged home in stable condition. Lab Data Attestation: I reviewed the patient's lab results. Labs: Laboratory Results - last 24 hr 06/07/22 06/07/22 06/07/22 14:45 14:45 14:50 WBC 11.1 H RBC 3.81 L Hgb 10.5 L Hct 32.3 L MCV 84.8 MCH 27.6 MCHC 32.5 RDW Std Deviation 46.2 H RDW Coeff of Silvio 15.1 H Plt Count 222 MPV 9.6 Immature Gran % (Auto) 1.200 H Neut % (Auto) 26.0 L Lymph % (Auto) 65.0 H [place] % (Auto) 6.4 Eos % (Auto) 0.6 Baso % (Auto) 0.8 Absolute Neuts (auto) 2.9 Absolute Lymphs (auto) 7.22 H Nucleated RBC % 0 Differential Comment SCANNED Atypical Lymphocytes RARE Reactive Lymphocytes 1+ Sodium 136 Potassium 4.0 Chloride 100 Carbon Dioxide 29.0 Anion Gap 7 BUN 8 Creatinine 0.80 Estim Creat Clear Calc 67.29 Est GFR (MDRD) Af Amer 93 Est GFR (MDRD) Non-Af 77 BUN/Creatinine Ratio 10.0 Glucose 128 H Calcium 8.5 Total Bilirubin 0.40 AST 101 H ALT 268 H Alkaline Phosphatase 113 Total Protein 6.8 Albumin 2.9 L Globulin 3.9 Albumin/Globulin Ratio 0.7 L Lipase 99 Urine Color Yellow Urine Clarity Clear Urine pH 7.0 Ur Specific [place] 1.010 Urine Protein Negative Urine Glucose (UA) Normal Urine Ketones Negative Urine Occult Blood Negative Urine Nitrite Negative Urine Bilirubin Negative Urine Urobilinogen Normal Ur Leukocyte Esterase Negative Urine RBC 0 SEEN Urine WBC 0 SEEN Ur Squamous Epith Cells 0 SEEN Urine Bacteria 0 SEEN Urine Mucus 0 SEEN Radiography Diagnostic Testing: Clinical Impression(s) from Imaging Studies Abdomen/Pelvis CT 06/07/22 14:29 IMPRESSION: Increased stool. Prominent spleen. Electronically Signed: Cornell Call MD at 16:55 EST Reading Location ID and State: [address] [place] [address] , Service support , Discharge Plan Triage Chief Complaint: Abd Pain ED Provider: Thanh Juan Dx/Rx/DC Orders Clinical Impression: Hepatic cyst, Elevated LFTs, Spleen enlargement, Malaise and fatigue Instructions: Tests for Liver Disease, ED Abdominal Pain Unkn Cause Fem Prescriptions: No Action losartan-hydrochlorothiazide 100-12.5 mg tablet 1 tab PO DAILY Label Comments: TAKE 1 TABLET BY MOUTH ONCE DAILY benzonatate 200 mg capsule 200 mg PO TID PRN (Reason: cough) Qty: 30 1RF phenylephrine HCl 10 mg tablet 10 mg PO Q6H PRN (Reason: congestion) Qty: 20 0RF levofloxacin 500 mg tablet 500 mg PO DAILY Qty: 7 0RF lansoprazole [Prevacid] 30 MG capsule 30 mg PO DAILY duloxetine [Cymbalta] 60 mg capsule,delayed release(DR/EC) 60 mg PO DAILY Label Comments: Primary Care Provider: Xiomy Schaffer Referrals: Xiomy Schaffer MD [Primary Care Provider] - 3-5 Days Disposition Disposition: Home, Self Care
[2022-06-07] MEDS: 0.9% Normal Saline 1,000 ML 1000 ML IV (14:47)
[2022-06-07 14:56] LABS: Bacteria 0 SEEN /hpf (None Seen); Mucous, Urine 0 SEEN /hpf (<or=2+); Red Blood Cells-Urine 0 SEEN /hpf (0-5); Squamous Epithelial Cells - UA 0 SEEN /hpf (5-10); White Blood Cells 0 SEEN /hpf (0-5)
[2022-06-07 15:08] LABS: Absolute Lymphocyte Count 7.22 X10^3/uL (0.83-4.51); Absolute Neutrophil Count 2.9 X10^3/uL (2.0-7.7); Basophil# 0.09 X10^3/uL; Basophil% 0.8 % (0-1); Eosinophil# 0.07 X10^3/uL; Eosinophils% 0.6 % (0-5); Hematocrit 32.3 % (37-47); Hemoglobin 10.5 g/dL (12.0-15.0); Lymphocyte # 7.22 X10^3/ul (0.83-4.51); Mean Corp Hgb Conc 32.5 g/dL (32-36); Mean Corpuscular Hgb 27.6 pg (27.0-32.0); Mean Corpuscular Volume 84.8 fL (81-99); Mean Platelet Vol. 9.6 fl (6.2-12.0); Monocyte# 0.71 X10^3/uL; Monocyte% 6.4 % (0-10); NRBC Flagged by Analyzer 0 % (0-5); Neutrophil # 2.88 X10^3/uL (2.7-7.7); POSITIVE DIFFERENTIAL YES; POSITIVE MORPHOLOGY YES; Platelet Count 222 K/mm3 (150-450); RBC Distribution Width CV 15.1 % (11.6-14.6); RBC Distribution Width SD 46.2 fl (35.1-43.9); Red Blood Count 3.81 M/mm3 (4.2-5.4); White Blood Count 11.1 K/mm3 (4.4-11.0)
[2022-06-07 15:08] LABS: Color, Urine Yellow (Yellow); Glucose, Dipstick Normal (Normal); Ketone-Dipstick Negative (Negative); Leukocyte Esterase-Dipstick Negative /ul (Negative); Nitrite-Dipstick Negative (Negative); Occult Blood-Urine Negative /ul (Negative); Protein-Dipstick Negative (Negative); Urine Bilirubin Dipstick Negative (Negative); Urine Clarity Clear (Clear); Urine Urobilinogen Normal (Normal)
[2022-06-07 15:10] LABS: Differential Indicated SCAN CRITERIA MET
[2022-06-07 15:20] LABS: ALB/GLOB Ratio 0.7 RATIO (0.9-2.4); AST(SGOT) 101 U/L (15-37); Alanine Aminotransfer ALT/SGPT 268 U/L (13-56); Albumin, Serum 2.9 g/dL (3.2-5.0); Alkaline Phosphatase 113 U/L (45-117); Anion Gap 7 (5-15); BUN 8 mg/dL (7-18); Calcium,Total 8.5 mg/dL (8.5-10.1); Chloride 100 mmol/L (98-107); EST Glomerular Filtration Rate 77 mL/min (>60); Est Glom Filt Rate - Afr Amer 93 mL/min (>60); Estimated Creatinine Clearance 67.29 ml/min; Globulin 3.9 g/dL (2.2-4.2); Glucose 128 mg/dL (74-106); Lipase 99 U/L (73-393); Protein, Total 6.8 g/dL (6.4-8.2); Sodium Level 136 mmol/L (136-145)
[2022-06-07 16:01] LABS: Atypical Lymphocyte RARE %; Differential Comment SCANNED; Reactive Lymphocyte 1+
== END 2022-06-07 17:41 | disposition home or self-care (01) ==
PROVIDERS: Emergency Provider Emergency Medicine; PCP Internal Medicine; Visit Provider Emergency Medicine
DX: K76.89 Other specified diseases of liver (principal); R16.1 Splenomegaly, not elsewhere classified; R79.89 Other specified abnormal findings of blood chemistry; R53.81 Other malaise; I10 Essential (primary) hypertension; R53.83 Other fatigue
CPT/HCPCS: 74177; 80053; 81001; 83690; 85025; 99283; Q9967

== ENCOUNTER → 2022-06-07 | Outpatient (CLI) | payer BC, SELFPAY ==
[2022-06-07 11:59] LABS: Absolute Lymphocyte Count 8.77 X10^3/uL (0.83-4.51); Absolute Neutrophil Count 3.5 X10^3/uL (2.0-7.7); Basophil% 0.7 % (0-1); Eosinophil# 0.09 X10^3/uL; Eosinophils% 0.7 % (0-5); Hematocrit 36.4 % (37-47); Hemoglobin 11.4 g/dL (12.0-15.0); Lymphocyte # 8.77 X10^3/ul (0.83-4.51); Lymphocyte % 64.6 % (19-41); Mean Corp Hgb Conc 31.3 g/dL (32-36); Mean Corpuscular Hgb 27.4 pg (27.0-32.0); Mean Corpuscular Volume 87.5 fL (81-99); Monocyte# 0.88 X10^3/uL; Monocyte% 6.5 % (0-10); NRBC Flagged by Analyzer 0 % (0-5); Neutrophil # 3.54 X10^3/uL (2.7-7.7); Neutrophil % 26.1 % (47-70); POSITIVE DIFFERENTIAL YES; POSITIVE MORPHOLOGY YES; Platelet Count 232 K/mm3 (150-450); RBC Distribution Width CV 15.3 % (11.6-14.6); RBC Distribution Width SD 48.3 fl (35.1-43.9); Red Blood Count 4.16 M/mm3 (4.2-5.4); White Blood Count 13.6 K/mm3 (4.4-11.0)
[2022-06-07 12:02] LABS: Differential Indicated SCAN CRITERIA MET
[2022-06-07 12:15] LABS: ALB/GLOB Ratio 0.8 RATIO (0.9-2.4); AST(SGOT) 114 U/L (15-37); Alanine Aminotransfer ALT/SGPT 296 U/L (13-56); Albumin, Serum 3.3 g/dL (3.2-5.0); Alkaline Phosphatase 124 U/L (45-117); Anion Gap 6 (5-15); BUN 7 mg/dL (7-18); BUN/Creat Ratio 9.3 RATIO (10-20); Chloride 99 mmol/L (98-107); Creatinine, Serum 0.75 mg/dL (0.55-1.02); EST Glomerular Filtration Rate 84 mL/min (>60); Est Glom Filt Rate - Afr Amer 101 mL/min (>60); Globulin 4.2 g/dL (2.2-4.2); Glucose 114 mg/dL (74-106); Potassium 4.5 mmol/L (3.5-5.1); Protein, Total 7.5 g/dL (6.4-8.2); Sodium Level 135 mmol/L (136-145)
[2022-06-07 12:30] LABS: Reactive Lymphocyte 1+
== END | disposition home or self-care (01) ==
LOC: BIMLAB 09:46
PROVIDERS: PCP Internal Medicine; Referring Provider Internal Medicine; Visit Provider Internal Medicine
DX: R74.8 Abnormal levels of other serum enzymes (principal); R10.84 Generalized abdominal pain
CPT/HCPCS: 36415; 80053; 85025

== ENCOUNTER → 2022-12-08 | Outpatient (CLI) | payer BC, SELFPAY ==
[2022-12-08 15:49] LABS: Absolute Lymphocyte Count 2.44 X10^3/uL (0.83-4.51); Absolute Neutrophil Count 3.3 X10^3/uL (2.0-7.7); Basophil# 0.03 X10^3/uL; Basophil% 0.5 % (0-1); Eosinophil# 0.06 X10^3/uL; Eosinophils% 0.9 % (0-5); Hematocrit 40.9 % (37-47); Hemoglobin 12.7 g/dL (12.0-15.0); Lymphocyte # 2.44 X10^3/ul (0.83-4.51); Lymphocyte % 37.7 % (19-41); Mean Corp Hgb Conc 31.1 g/dL (32-36); Mean Corpuscular Hgb 27.8 pg (27.0-32.0); Mean Corpuscular Volume 89.5 fL (81-99); Mean Platelet Vol. 10.5 fl (6.2-12.0); Monocyte# 0.59 X10^3/uL; Monocyte% 9.1 % (0-10); NRBC Flagged by Analyzer 0 % (0-5); Neutrophil # 3.33 X10^3/uL (2.7-7.7); Neutrophil % 51.5 % (47-70); Platelet Count 291 K/mm3 (150-450); RBC Distribution Width CV 12.9 % (11.6-14.6); RBC Distribution Width SD 42.2 fl (35.1-43.9); Red Blood Count 4.57 M/mm3 (4.2-5.4); White Blood Count 6.5 K/mm3 (4.4-11.0)
[2022-12-08 16:16] LABS: AST(SGOT) 27 U/L (15-37); Alanine Aminotransfer ALT/SGPT 59 U/L (13-56); Albumin, Serum 3.8 g/dL (3.2-5.0); Alkaline Phosphatase 84 U/L (45-117); Anion Gap 9 (5-15); BUN 9 mg/dL (7-18); BUN/Creat Ratio 12.2 RATIO (10-20); Calcium,Total 9.1 mg/dL (8.5-10.1); Chloride 104 mmol/L (98-107); Creatinine, Serum 0.74 mg/dL (0.55-1.02); EST Glomerular Filtration Rate 85 mL/min (>60); Est Glom Filt Rate - Afr Amer 103 mL/min (>60); Globulin 3.7 g/dL (2.2-4.2); Glucose 109 mg/dL (74-106); Potassium 3.9 mmol/L (3.5-5.1); Protein, Total 7.5 g/dL (6.4-8.2); Sodium Level 138 mmol/L (136-145)
[2022-12-08 16:35] LABS: Vitamin D,25 Hydroxy 32.8 ng/mL
[2022-12-12 15:08] LABS: Anti-Centromere B Ab <0.2 AI (0.0-0.9); Anti-Chromatin <0.2 AI (0.0-0.9); Anti-Jo <0.2 AI (0.0-0.9); Anti-Mitochondrial AB <20.0 Units (0.0-20.0); Anti-Scleroderma-70 AB <0.2 AI (0.0-0.9); Anti-dsDNA Ab 1 IU/mL (0-9); CCP IgG Antibodies 0 units (0-19); Cytoplasmic Ab (C-ANCA) <1:20 titer (Neg:<1:20); Perinuclear Ab (P-ANCA) <1:20 titer (Neg:<1:20); RNP Ab <0.2 AI (0.0-0.9); SJOGREN'S Anti-SS-A test < 0.2 AI (0.0-0.9); SJOGREN'S Anti-SS-B test < 0.2 AI (0.0-0.9); Smith Ab <0.2 AI (0.0-0.9)
== END | disposition home or self-care (01) ==
LOC: BIMLAB 14:09
PROVIDERS: PCP Internal Medicine; Referring Provider Internal Medicine; Visit Provider Internal Medicine
DX: R76.8 Other specified abnormal immunological findings in serum (principal); M79.7 Fibromyalgia; I10 Essential (primary) hypertension; R74.8 Abnormal levels of other serum enzymes
CPT/HCPCS: 36415; 80053; 82306; 83516; 85025; 86200; 86225; 86235; 86256

== ENCOUNTER → 2023-05-01 | Outpatient (CLI) | payer SELFPAY ==
[2023-05-01 14:09] LABS: Bacteria 0 SEEN /hpf (None Seen); Mucous, Urine 0 SEEN /hpf (<or=2+); Red Blood Cells-Urine 0 SEEN /hpf (0-5); Squamous Epithelial Cells - UA 0 SEEN /hpf (5-10); White Blood Cells 0 SEEN /hpf (0-5)
[2023-05-01 15:06] LABS: Color, Urine Straw (Yellow); Glucose, Dipstick Normal (Normal); Ketone-Dipstick Negative (Negative); Leukocyte Esterase-Dipstick Negative /ul (Negative); Nitrite-Dipstick Negative (Negative); Occult Blood-Urine Negative /ul (Negative); Protein-Dipstick Negative (Negative); Urine Bilirubin Dipstick Negative (Negative); Urine Clarity Clear (Clear); Urine Urobilinogen Normal (Normal)
== END | disposition home or self-care (01) ==
PROVIDERS: PCP Internal Medicine; Referring Provider Internal Medicine; Visit Provider Internal Medicine
DX: R35.0 Frequency of micturition (principal)
CPT/HCPCS: 81001; 87077; 87086; 87088; 87186

== ENCOUNTER → 2023-11-30 | Outpatient (CLI) | payer BC, SELFPAY ==
[2023-11-30 16:13] LABS: Absolute Lymphocyte Count 2.18 X10^3/uL (0.83-4.51); Absolute Neutrophil Count 4.1 X10^3/uL (2.0-7.7); Basophil# 0.04 X10^3/uL; Basophil% 0.6 % (0-1); Eosinophil# 0.09 X10^3/uL; Eosinophils% 1.3 % (0-5); Hematocrit 39.2 % (37-47); Lymphocyte # 2.18 X10^3/ul (0.83-4.51); Lymphocyte % 30.5 % (19-41); Mean Corp Hgb Conc 30.6 g/dL (32-36); Mean Corpuscular Hgb 27.3 pg (27.0-32.0); Mean Corpuscular Volume 89.1 fL (81-99); Mean Platelet Vol. 10.8 fl (6.2-12.0); Monocyte# 0.66 X10^3/uL; Monocyte% 9.2 % (0-10); NRBC Flagged by Analyzer 0 % (0-5); Neutrophil # 4.14 X10^3/uL (2.7-7.7); Platelet Count 277 K/mm3 (150-450); RBC Distribution Width CV 13.8 % (11.6-14.6); RBC Distribution Width SD 44.9 fl (35.1-43.9); White Blood Count 7.1 K/mm3 (4.4-11.0)
[2023-11-30 16:37] LABS: Vitamin D,25 Hydroxy 31.7 ng/mL
[2023-11-30 16:52] LABS: ALB/GLOB Ratio 1.2 RATIO (0.9-2.4); AST(SGOT) 22 U/L (15-37); Alanine Aminotransfer ALT/SGPT 43 U/L (13-56); Alkaline Phosphatase 82 U/L (45-117); Anion Gap 5 (5-15); BUN 9 mg/dL (7-18); BUN/Creat Ratio 13.2 RATIO (10-20); Calcium,Total 9.4 mg/dL (8.5-10.1); Chloride 103 mmol/L (98-107); Cholesterol 182 mg/dL (200); Creatinine, Serum 0.68 mg/dL (0.55-1.02); EST Glomerular Filtration Rate 93 mL/min (>60); Est Glom Filt Rate - Afr Amer 113 mL/min (>60); Globulin 3.4 g/dL (2.2-4.2); Glucose 107 mg/dL (74-106); High Density Lipoprotein 42 mg/dL; Potassium 3.8 mmol/L (3.5-5.1); Protein, Total 7.4 g/dL (6.4-8.2); Sodium Level 138 mmol/L (136-145); Triglycerides 182 mg/dL; Very Low Density Lipoprotein 36 mg/dL (5-40)
== END | disposition home or self-care (01) ==
LOC: BIMLAB 14:11
PROVIDERS: PCP Internal Medicine; Visit Provider Internal Medicine
DX: I10 Essential (primary) hypertension (principal); R53.82 Chronic fatigue, unspecified; M79.7 Fibromyalgia
CPT/HCPCS: 36415; 80053; 80061; 82306; 85025

== ENCOUNTER → 2023-12-26 | Outpatient (CLI) | payer BC, SELFPAY ==
--- NOTE | 2023-12-26 13:33 | BI_ITS ---
MAMMOGRAPHY - BILATERAL SCREENING REASON FOR EXAM: Female, 63 years old. Routine annual screening examination. PERTINENT HISTORY: Grandmother with breast cancer. History of remote left needle biopsy. TECHNIQUE: Digital bilateral breast miguelito (3D mammographic acquisition) in the CC and MLO projections. 2-D mediolateral oblique (MLO) and craniocaudad (CC) views of both breasts were obtained. CAD: Full Field Digital Mammography with Computer Added Detection was performed. COMPARISON: Comparison is made with prior study of April 12, 2022 and December 30, 2020. FINDINGS: Breast Composition: The breasts are extremely dense, which lowers the sensitivity of mammography. There are no dominant masses or suspicious calcifications. A tissue clip marker is seen in the anterior upper central portion of the left breast. Stable appearance of the fat-containing bilateral axillary lymph nodes. No other significant abnormalities are identified. There has been no significant change since the prior study. BI/SCRN MAMM (CAD)W/MIGUELITO BILAT IMPRESSION: Stable bilateral screening mammogram. Yearly follow-up mammogram recommended. (A) ASSESSMENT CATEGORY: BIRADS Category 2: Benign. A letter regarding these results will be sent to the patient by the facility within 30 days. Approximately 10% of breast cancers are not detected by mammography. A normal mammogram should not delay biopsy of a clinically suspicious abnormality. [id number] Electronically Signed: Adolfo Huynh MD at 14:23 EDT ,
== END | disposition home or self-care (01) ==
LOC: OPBI 13:31
PROVIDERS: PCP Internal Medicine; Referring Provider Obstetrics & Gynecology Gynecology; Visit Provider Obstetrics & Gynecology Gynecology
DX: Z12.31 Encounter for screening mammogram for malignant neoplasm of breast (principal)
CPT/HCPCS: 77063; 77067

== ENCOUNTER → 2024-06-25 | Outpatient (CLI) | payer BC, SELFPAY ==
[2024-06-25 12:10] LABS: Absolute Neutrophil Count 4.3 X10^3/uL (2.0-7.7); Basophil# 0.03 X10^3/uL; Basophil% 0.4 % (0-1); Eosinophil# 0.09 X10^3/uL; Eosinophils% 1.3 % (0-5); Hematocrit 38.6 % (37-47); Lymphocyte % 27.4 % (19-41); Mean Corp Hgb Conc 31.1 g/dL (32-36); Mean Corpuscular Hgb 27.4 pg (27.0-32.0); Mean Corpuscular Volume 88.1 fL (81-99); Monocyte# 0.59 X10^3/uL; Monocyte% 8.5 % (0-10); NRBC Flagged by Analyzer 0 % (0-5); Neutrophil # 4.29 X10^3/uL (2.7-7.7); Neutrophil % 61.8 % (47-70); Platelet Count 272 K/mm3 (150-450); RBC Distribution Width CV 13.3 % (11.6-14.6); RBC Distribution Width SD 43.1 fl (35.1-43.9); Red Blood Count 4.38 M/mm3 (4.2-5.4); White Blood Count 6.9 K/mm3 (4.4-11.0)
[2024-06-25 12:25] LABS: Vitamin B12 382 pg/mL (211-911); Vitamin D,25 Hydroxy 27.2 ng/mL
[2024-06-25 12:36] LABS: ALB/GLOB Ratio 1.1 RATIO (0.9-2.4); AST(SGOT) 27 U/L (15-37); Alanine Aminotransfer ALT/SGPT 62 U/L (13-56); Albumin, Serum 3.9 g/dL (3.2-5.0); Alkaline Phosphatase 87 U/L (45-117); Anion Gap 6 (5-15); BUN 14 mg/dL (7-18); BUN/Creat Ratio 19.3 RATIO (10-20); Calcium,Total 9.2 mg/dL (8.5-10.1); Chloride 106 mmol/L (98-107); Creatinine, Serum 0.72 mg/dL (0.55-1.02); EST Glomerular Filtration Rate 87 mL/min (>60); Est Glom Filt Rate - Afr Amer 105 mL/min (>60); Ferritin 43 ng/mL (8-252); Globulin 3.6 g/dL (2.2-4.2); Glucose 157 mg/dL (74-106); Iron 55 ug/dL (50-170); Iron Binding Capacity,Total 328 ug/dL (250-450); PERCENT IRON SATURATION 16.8 % (15.0-55.0); Potassium 4.2 mmol/L (3.5-5.1); Protein, Total 7.5 g/dL (6.4-8.2); Sodium Level 140 mmol/L (136-145)
[2024-06-25 16:05] LABS: Hemoglobin A1c 6.8 % (3.8-5.6)
== END | disposition home or self-care (01) ==
PROVIDERS: PCP Internal Medicine; Referring Provider Internal Medicine; Visit Provider Internal Medicine
DX: R53.83 Other fatigue (principal); M79.7 Fibromyalgia; K21.9 Gastro-esophageal reflux disease without esophagitis; R73.09 Other abnormal glucose
CPT/HCPCS: 36415; 80053; 82306; 82607; 82728; 83036; 83540; 83550; 84443; 85025

== ENCOUNTER → 2024-07-16 | Outpatient (CLI) | payer BC, SELFPAY | END | disposition home or self-care (01) | PROVIDERS: PCP Internal Medicine; Referring Provider Internal Medicine; Visit Provider Internal Medicine | DX: G47.10 Hypersomnia, unspecified (principal) | CPT/HCPCS: 95806 ==

== ENCOUNTER → 2024-08-13 | Outpatient (CLI) | payer BC, SELFPAY | END | disposition home or self-care (01) | LOC: SL 13:40 | PROVIDERS: PCP Internal Medicine; Visit Provider Internal Medicine | DX: Z00.00 Encounter for general adult medical examination without abnormal findings (principal) ==

== ENCOUNTER → 2024-12-25 | Outpatient (CLI) | payer BC, SELFPAY ==
[2024-12-25 15:49] LABS: Absolute Lymphocyte Count 1.11 X10^3/uL (0.83-4.51); Absolute Neutrophil Count 8.3 X10^3/uL (2.0-7.7); Basophil# 0.02 X10^3/uL; Basophil% 0.2 % (0-1); Eosinophil# 0.01 X10^3/uL; Eosinophils% 0.1 % (0-5); Hematocrit 37.3 % (37-47); Lymphocyte # 1.11 X10^3/ul (0.83-4.51); Lymphocyte % 11.5 % (19-41); Mean Corp Hgb Conc 32.2 g/dL (32-36); Mean Corpuscular Hgb 28.1 pg (27.0-32.0); Mean Corpuscular Volume 87.4 fL (81-99); Mean Platelet Vol. 10.8 fl (6.2-12.0); Monocyte# 0.17 X10^3/uL; Monocyte% 1.8 % (0-10); NRBC Flagged by Analyzer 0 % (0-5); Neutrophil # 8.27 X10^3/uL (2.7-7.7); Neutrophil % 85.6 % (47-70); Platelet Count 286 K/mm3 (150-450); RBC Distribution Width CV 13.5 % (11.6-14.6); RBC Distribution Width SD 42.9 fl (35.1-43.9); Red Blood Count 4.27 M/mm3 (4.2-5.4); White Blood Count 9.7 K/mm3 (4.4-11.0)
[2024-12-25 16:30] LABS: ALB/GLOB Ratio 1.6 RATIO (0.9-2.4); AST(SGOT) 23 U/L (<=31); Alanine Aminotransfer ALT/SGPT 39 U/L (<=34); Albumin, Serum 4.6 g/dL (3.4-4.8); Alkaline Phosphatase 85 U/L (35-104); Anion Gap 14 (5-15); BUN 14 mg/dL (4-19); BUN/Creat Ratio 18.8 RATIO (10-20); Calcium,Total 9.7 mg/dL (7.6-11.0); Carbon Dioxide 22.7 mmol/L (21.0-32.0); Chloride 100 mmol/L (98-108); Creatinine, Serum 0.74 mg/dL (0.70-1.20); EST Glomerular Filtration Rate 90 (>60); Globulin 2.9 g/dL (2.2-4.2); Glucose 242 mg/dL (70-99); Potassium 4.4 mmol/L (3.3-5.1); Protein, Total 7.5 g/dL (5.9-8.4); Sodium Level 136 mmol/L (133-145); Total Bilirubin 0.24 mg/dL (0.00-1.30)
--- OUTSIDE RECORDS SUMMARY | 2024-12-25 21:01 | XMS RPT_ITS | CCD ---
Author Organization [facility] Care Team Providers Care Regulatory Affairs Assistant Name Role Phone David Torres Unavailable Unavailable David Torres Unavailable Unavailable David Torres MD Primary Care Provider David Torres MD Primary Care Provider Dr. David Torres Primary Care Provider Dr. David Torres Referring Provider ROSCOE Fernández Attending Provider Unavailab Dr. Xiomy Munguia Attending Provider Dr. Xiomy Schaffer Primary Care Provider Dr. Xiomy Schaffer Attending Provider [phone] Dr. Xiomy Schaffer Referring Provider DR DAVID TORRES MD Primary Care Physician CHARLIE CARDONA, MIRANDA Attending Unavailable DR DAVID TORRES MD Primary Care Unavailable Dr. Xiomy Schaffer MD Primary Care Provider [phone] Dr. Xiomy Schaffer MD Referring Provider Noreen Travis Attending Provider Steve Han Attending Provider Xiomy Schaffer Attending Unavailable Xiomy Schaffer Referring Unavailable Xiomy Schaffer Primary Care Unavailable Xiomy Schaffer Referring Unavailable Xiomy Schaffer Attending Unavailable Xiomy Schaffer Primary Care Unavailable [place], Xiomy Primary Care Unavailable Sarbjit, Xiomy Attending Unavailable Sarbjit, Xiomy Referring Unavailable Steve Han Attending Unavailable [place], Xiomy Primary Care Unavailable Sarbjit, Xiomy Primary Care Unavailable [place], Xiomy Referring Unavailable Steve Han Attending Unavailable Sarbjit, Xiomy Primary Care Unavailable Sarbjit, Xiomy Referring Unavailable Noreen Bhakta Attending Unavailable [place], Xiomy Primary Care Unavailable [place], Xiomy Attending Unavailable Charlie, Miranda Referring Unavailable Charlie, Miranda Attending Unavailable [place], Xiomy Primary Care Unavailable [place], Xiomy Referring Unavailable Sarbjit, Xiomy Attending Unavailable [place], Xiomy Primary Care Unavailable Allergies Allergy Classification Reported Allergen(s) Allergy Type Date of Onset Reaction(s) Facility (12 sources) Clarithromycin; Translations: [clarithromycin] Drug Allergy 6 Unknown, GI Upset, Nausea and vomiting (disorder) [facility] (1 source) Clarithromycin Drug Allergy [facility] Repository Medications Current Medications Medication Drug Class(es) Dates Sig (Normalized) Sig (Original) celecoxib 50 mg oral capsule (1 source) Nonsteroidal Anti-inflammatory Drug Start: 02-12-2016 Celecoxib (Celebrex) 50 MG capsule Active 50 MG PO NEEDED February 12, 2016 12:00am clobetasol propionate 0.0005 mg/mg topical ointment (1 source) Corticosteroid Start: 11-30-2021 Temovate 0.05% topical ointment Apply 1 felicia, Topical, BID, apply a thin film twice daily for 2 wks then twice a week., # 30 gram(s), 0 Refill(s), Pharmacy: [id number], Ointment, 164, cm, 11/30/21 14:39:00 EDT, Height, 86.6 Start Date: 11/30/21 Status: Ordered DULoxetine 60 mg delayed release oral capsule (20 sources) Serotonin and Norepinephrine Reuptake Inhibitor Start: 11-30-2023 End: 08-12-2024 take 1 capsule by mouth once daily Duloxetine (Cymbalta) 60 mg capsule,delayed release(DR/EC) Active 60 mg PO DAILY August 12, 2024 11:49am Start: 03-16-2022 End: 11-30-2023 DULoxetine 60 mg oral delaye d release capsule Dose : 60 mg = 1 cap(s), Oral, qDay, 0 Refill(s) Start Date: 10/25/23 Status: Ordered Start: 02-28-2022 End: 03-30-2022 take 1 capsule by mouth once daily DULoxetine (CYMBALTA) 30 mg capsule Take 1 capsule by mouth once daily. 30 capsule 0 02/28/2022 03/16/2022 Discontinued Start: 12-02-2021 End: 02-28-2022 DULoxetine (CYMBALTA) 60 mg capsule Start: 02-12-2016 End: 06-07-2022 Duloxetine (Cymbalta) 60 MG capsule,delayed release(DR/EC) Discontinued 30 mg PO DAILY February 12, 2016 12:00am June 07, 2022 10:21am Comment on above: Take 1 capsule by mo [facility] once daily. hydroCHLOROthiazide 12.5 mg / losartan potassium 100 mg oral tablet (15 sources) Thiazide Diuretic, Angiotensin 2 Receptor Janessa Start: 05-31-2022 End: 09-13-2024 Losartan-Hydrochlor othiazide 100-12.5 mg tablet Active 1 {tbl} PO DAILY 90 September 13, 2024 11:09am Start: 05-31-2022 take 1 tablet by phoebe once daily Losartan-Hydrochlorothiazide Active 1 TA BLET PO DAILY May 31, 2022 1:00am Start: 11-24-2020 End: 02-21-2022 take 1 tablet by mouth once daily losartan-hydroCHLOROthiazide (HYZAAR) 100-12.5 mg per tablet Take 1 tablet by mouth once daily 90 tablet 3 02/21/2022 Active Comment on above: Take 1 tablet by phoebe once daily. Take 1 tablet by phoebe once daily lansoprazole 30 mg delayed release oral capsule (18 sources) Proton Pump Inhibitor Start: End: take 1 capsule by mouth once daily Lansoprazole (Prevacid) 30 mg capsule,delayed release(DR/EC) Active 30 mg PO DAILY December 05, 2024 2:27pm Comment on above: Take one(1) capsule daily. Lidocaine (1 source) Antiarrhythmic, Amide Local Anesthetic Start: lidocaine 4% topical cream Apply 1 felicia, Topical, BID, not to exceed 3 applications in 24 hours, thin film, # 15 gram(s), 0 Refill(s), Pharmacy: [id number], Cream, 165.1, cm, 10/25/23 13:51:00 EDT, Height, 89.7, kg, 10/25/23 13:51:00 EDT, Dosing Weight Start Date: 10/26/23 Status: Ordered predniSONE 10 mg oral tablet (2 sources) Start: take 4 tablets by mouth once daily, then take 3 tablets by mouth once daily, then take 2 tablets by mouth once daily, then take 1 tablet by mouth once daily Prednisone 10 mg tablet Active 10 mg PO DAILY December 23, 2024 12:00am 4 tablets daily x3 days, then 3 tablets daily x3 days, then 2 tablets daily x3 days, then 1 tablet daily x3 days Start: 04-02-2024 End: 06-25-2024 take 4 tablets by mouth once daily, then take 3 tablets by mouth once daily, then take 2 tablets by mouth once daily, then take 1 tablet by mouth once daily Prednisone 10 mg tablet Discontinued 10 mg PO DAILY April 02, 2024 12:00am June 25, 2024 9:26am 4 tablets daily x3 days, then 3 tablets daily x3 days, then 2 tablets daily x3 days, then 1 tablet daily x3 days Completed/Discontinued Medications Medication Drug Class(es) Dates Sig (Normalized) Sig (Original) acetaminophen 325 mg / HYDROcodone bitartrate 5 mg oral tablet (6 sources) Opioid Agonist Start: 02-12-2016 End: 05-31-2022 Hydrocodone-Acetami nophen 1 TABLET tablet Discontinued 1 - 2 {tbl} PO EVERY 4 HOURS NEEDED as needed for Pain February 12, 2016 12:00am May 31, 2022 10:38am Start: 02-12-2016 End: 05-31-2022 take 1 tablet by mouth every four hours as needed Hydrocodone-Acetaminophen Discontinued 1 - 2 TABLET PO EVERY 4 HOURS NEEDED February 12, 2016 12:00am May 31, 2022 10:38am amoxicillin 875 mg / clavulanate 125 mg oral tablet (4 sources) Penicillin-class Antibacterial Start: 05-31-2022 End: 05-31-2022 Amoxicillin-Pot Clavulanate 875-125 mg tablet Discontinued 1 {tbl} PO Q12H May 31, 2022 1:00am May 31, 2022 3:57pm Start: 05-31-2022 End: 05-31-2022 take 1 tablet by mouth every twelve hours Amoxicillin-Pot Clavulanate Discontinued 1 TABLET PO Q12H May 31, 2022 1:00am May 31, 2022 3:57pm azithromycin 250 mg oral tablet (5 sources) Macrolide Antimicrobial Start: 03-25-2021 azithromycin (ZITHROMAX) 250 mg tablet Take by mouth. 0 03/25/2021 Active Comment on above: Take by mouth. benzonatate 200 mg oral capsule (4 sources) Non-narcotic Antitussive Start: 05-31-2022 End: 12-06-2022 take 1 capsule by mouth three times daily as needed for cough Benzonatate 200 mg capsule Discontinued 200 mg PO THREE TIMES A DAY as needed for cough May 31, 2022 1:00am December 06, 2022 4:28pm buPROPion hydrochloride 75 mg oral tablet (6 sources) Aminoketone Start: 02-12-2016 End: 05-31-2022 take 1 tablet by mouth twice daily Bupropion Hcl 75 MG tablet Discontinued 75 mg PO TWICE A DAY February 12, 2016 12:00am May 31, 2022 10:39am escitalopram 5 mg oral tablet (2 sources) Serotonin Reuptake Inhibitor Start: 05-01-2023 End: 06-26-2023 take 1 tablet by mouth once daily, then take 2 tablets by mouth once daily Escitalopram Oxalate (Lexapro) 5 mg tablet Discontinued 0 PO DAILY May 01, 2023 12:00am June 26, 2023 12:11pm orally daily; take 5mg daily for 1 week, then increase 10mg daily hydrOXYzine hydrochloride 25 mg oral tablet (1 source) Antihistamine Start: 11-30-2023 End: 06-25-2024 take 1 tablet by mouth three times daily as needed Hydroxyzine Hcl 25 mg tablet Discontinued 25 mg PO THREE TIMES A DAY as needed for itching November 30, 2023 12:00am June 25, 2024 9:26am levoFLOXacin 500 mg oral tablet (4 sources) Quinolone Antimicrobial Start: 05-31-2022 End: 12-06-2022 take 1 tablet by mouth once daily Levofloxacin 500 mg tablet Discontinued 500 mg PO DAILY May 31, 2022 1:00am December 06, 2022 4:28pm losartan potassium 100 mg oral tablet (6 sources) Angiotensin 2 Receptor Janessa Start: 02-12-2016 End: 05-31-2022 take 1 tablet by mouth once daily Losartan 100 MG tablet Discontinued 100 mg PO DAILY February 12, 2016 12:00am May 31, 2022 10:39am naproxen 500 mg oral tablet (5 sources) Nonsteroidal Anti-inflammatory Drug Start: 10-28-2008 NAPROXEN 500 MG TAB Take one(1) tablet twice daily as needed for pain, with food. 0 10/28/2008 Active Comment on above: Take one(1) tablet t wice daily as needed for pain, with food. nitrofurantoin, macrocrystals 25 mg / nitrofurantoin, monohydrate 75 mg oral capsule (2 sources) Nitrofuran Antibacterial Start: 05-03-2023 End: 05-08-2023 take 1 capsule by mouth every twelve hours at mealtime Nitrofurantoin Monohyd/M-Cryst (Macrobid) 100 mg capsule Discontinued 100 mg PO Q12H 10 May 03, 2023 12:00am May 07, 2023 12:00am May 08, 2023 12:04am must administer with a meal/food phenylephrine hydrochloride 10 mg oral tablet (4 sources) alpha-1 Adrenergic Agonist Start: 05-31-2022 End: 12-06-2022 take 1 tablet by mouth every six hours as needed for congestion Phenylephrine Hcl 10 mg tablet Discontinued 10 mg PO EVERY 6 HOURS as needed for congestion May 31, 2022 1:00am December 06, 2022 4:28pm solifenacin succinate 5 mg oral tablet (2 sources) Cholinergic Muscarinic Antagonist Start: 12-06-2022 End: 11-30-2023 take 1 tablet by mouth once daily Solifenacin 5 mg tablet Discontinued 5 mg PO DAILY December 06, 2022 12:00am November 30, 2023 1:36pm valACYclovir 1000 mg oral tablet (1 source) Herpesvirus Nucleoside Analog DNA Polymerase Inhibitor, Herpes Simplex Virus Nucleoside Analog DNA Polymerase Inhibitor, Herpes Zoster Virus Nucleoside Analog DNA Polymerase Inhibitor Start: 10-25-2023 Valtrex 1 g oral tablet Dose : 1 gram(s) = 1 tab(s), Oral, BID, # 20 tab(s), 0 Refill(s), Pharmacy: [id number], Vulvar ulcer Lichen sclerosus of female genitalia, 165.1, cm, 10/25/23 13:51:00 EDT, Height, 89.7, kg, 10/25/23 13:51:00 EDT, Dosing Weight Start Date: 10/25/23 Status: Ordered Problems Active Problems Problem Classification Problem Date Documented Da te Episodic/Chronic Abdominal pain (1 source) Generalized abdominal pain; Translations: [Abdominal pain, generalized] Episodic Administrative/social admission (1 source) Persons encountering health services in other specified circumstances; Translations: [Other reasons for seeking consultation] Episodic Anxiety disorders (6 sources) Anxiety; Translations: [Anxiety disorder, unspecified] Onset: 9 12-10-2021 Chronic Deficiency and other anemia (2 sources) Anemia, unspecified; Translations: [Anemia, unspecified] Episodic Deficiency and other anemia (1 source) Anemia 11-23-2020 Episodic Esophageal disorders (12 sources) Gastroesophageal reflux disease; Translations: [Gastro-esophageal reflux disease without esophagitis] Onset: 7 12-10-2021 Chronic Essential hypertension (13 sources) Benign essential hypertension; Translations: [Essential (primary) hypertension] Onset: 7 12-10-2021 Chronic Genitourinary symptoms and ill-defined conditions (1 source) Frequency of micturition; Translations: [Urinary frequency] 05-01-2023 Episodic Inflammatory diseases of female pelvic organs (2 sources) Ulceration of vulva; Translations: [Ulceration of vulva] Onset: Episodic Malaise and fatigue (2 sources) Chronic fatigue, unspecified; Translations: [Other malaise and fatigue] Onset: 4 05-01-2023 Chronic Mood disorders (1 source) Mood disorders; Translations: [Depression, unspecified] Onset: Nonspecific chest pain (8 sources) Tight chest; Translations: [Other chest pain] Onset: 9 12-10-2021 Episodic Other connective tissue disease (11 sources) Fibromyalgia; Translations: [Fibromyalgia] Onset: 7 12-10-2021 Episodic Other diseases of bladder and urethra (4 sources) Overactive bladder; Translations: [Overactive bladder] 06-01-2022 Chronic Other diseases of bladder and urethra (5 sources) Overactive bladder; Translations: [Hypertonicity of bladder] Onset: 4 Chronic Other female genital disorders (1 source) Lichen sclerosus of female genitalia 11-24-2020 Episodic Other female genital disorders (2 sources) Leukoplakia of vulva; 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] Onset: 4 Episodic Other gastrointestinal disorders (3 sources) Splenomegaly; Translations: [Splenomegaly, not elsewhere classified] 06-15-2022 Episodic Other liver diseases (3 sources) Liver cyst; Translations: [Other specified diseases of liver] 06-15-2022 Chronic Other liver diseases (3 sources) Abnormal levels of other serum enzymes; Translations: [Other nonspecific abnormal serum enzyme levels] Episodic Other skin disorders (1 source) Other seborrheic keratosis; Translations: [Other seborrheic keratosis] Episodic Other upper respiratory disease (2 sources) Nasal discharge; Translations: [Other specified disorders of nose and nasal sinuses] 09-14-2024 Episodic Other upper respiratory disease (2 sources) Nasal congestion; Translations: [Nasal congestion] 09-14-2024 Episodic Other upper respiratory infections (15 sources) Acute pharyngitis; Translations: [Acute pharyngitis, unspecified] Onset: 9 12-10-2021 Episodic Residual codes; unclassified (1 source) Hypersomnia, unspecified; Translations: [Hypersomnia, unspecified] Onset: 5 Chronic Residual codes; unclassified (1 source) Family history of breast cancer 11-24-2020 Episodic Spondylosis; intervertebral disc disorders; other back problems (6 sources) Low back pain; Translations: [Low back pain] Onset: 9 12-10-2021 Episodic Unclassified (1 source) Unknown / UNK(Unknown) Onset: 7 Viral infection (11 sources) Verruca vulgaris; Translations: [Viral wart, unspecified] Onset: 7 04-23-2007 Episodic Past or Other Problems Problem Classification Problem Date Documented Date Episodic/Chronic Allergic reactions (3 sources) Radiation-induced dermatosis; Translations: [Other skin changes due to chronic exposure to nonionizing radiation] Onset: 09-12-2006 09-12-2006 Episodic Deficiency and other anemia (6 sources) Iron deficiency anemia; Translations: [Iron deficiency anemia, unspecified] Onset: 04-04-2017 12-10-2021 Episodic Malaise and fatigue (9 sources) Fatigue; Translations: [Other fatigue] Onset: 09-07-2020 12-10-2021 Episodic Neoplasms of unspecified nature or uncertain behavior (3 sources) Neoplasm of uncertain behavior of skin; Translations: [Neoplasm of uncertain behavior of skin] Onset: 09-12-2006 09-12-2006 Episodic Other and unspecified benign neoplasm (3 sources) Benign neoplasm of skin of trunk; Translations: [Other benign neoplasm of skin of trunk] Onset: 09-12-2006 09-12-2006 Episodic Other circulatory disease (5 sources) Non-neoplastic nevus; Translations: [Nevus, non-neoplastic] Onset: 09-12-2006 09-12-2006 Episodic Other connective tissue disease (4 sources) Fibromyalgia; Translations: [Myalgia and myositis, unspecified] Onset: 10-25-2023 Episodic Other connective tissue disease (1 source) Other symptoms and signs involving the nervous system; Translations: [Other symptoms and signs involving the nervous system] Onset: 06-25-2024 Episodic Other injuries and conditions due to external causes (3 sources) Open wound; Translations: [Other injury of unspecified body region, initial encounter] Onset: 10-24-2006 10-24-2006 Episodic Other lower respiratory disease (1 source) Shortness of breath; Translations: [Shortness of breath] Onset: 06-25-2024 Episodic Other non-epithelial cancer of skin (5 sources) History of malignant neoplasm of skin; Translations: [Personal history of other malignant neoplasm of skin] Onset: 09-12-2006 09-12-2006 Episodic Other screening for suspected conditions (not mental disorders or infectious disease) (9 sources) Patient encounter status; Translations: [Encounter for screening mammogram for malignant neoplasm of breast] Onset: 01-08-2018 12-10-2021 Episodic Other skin disorders (5 sources) Scar conditions and fibrosis of skin; Translations: [Scar conditions and fibrosis of skin] Onset: 09-12-2006 09-12-2006 Episodic Other skin disorders (5 sources) Disorder of skin pigmentation; Translations: [Disorder of pigmentation, unspecified] Onset: 09-12-2006 09-12-2006 Episodic Other skin disorders (5 sources) Actinic keratosis; Translations: [Actinic keratosis] Onset: 04-23-2007 04-23-2007 Episodic Other skin disorders (3 sources) Disorder of skin; Translations: [Hypertrophic disorder of the skin, unspecified] Onset: 04-23-2007 04-23-2007 Episodic Other skin disorders (5 sources) Seborrheic keratosis; Translations: [Other seborrheic keratosis] Onset: 04-23-2007 04-23-2007 Episodic Residual codes; unclassified (5 sources) History of colonoscopy; Translations: [Other specified postprocedural states] Onset: 01-08-2018 12-10-2021 Episodic Unclassified (1 source) D50.9,R05,COUGH Onset: 04-04-2017 Urinary tract infections (3 sources) Urinary tract infectious disease; Translations: [Urinary tract infection, site not specified] Onset: 11-07-2018 12-10-2021 Episodic Results Test Name Value Interpretation Reference Range Facility Urgent Care Visit Reporton 0 12-23-2024 Urgent Care Visit Report [facility] [address], [address] [place] [address] OFFICE VISIT Date of Service: 12/23/24 MR#: [id number] Acct: [id number] Name: VIGNESH YOUNG BRIANNE Rep #: [id number] : 1960 Provider: ROSCOE Vega Age/Sex: 64/F [place] [facility] [place]: Signed Intake Vital Signs 06/25/24 08:26 12/23/24 08:58 Height 5 ft 5 in BP 120/84 H Position Sitting Pulse 91 Temp 97.9 F Temp Source Oral Pulse Oximetry (%) 97 Oxygen Delivery Method room air Intake Visit Reasons: POISON JOSLYN Accompanied by: Self Allergies clarithromycin (From Biaxin) Allergy (Verified 12/23/24 08:57) Other Nurse's Note: Patient has Poison Joslyn that is all over both her arms. Patient states this has been going on for a week. Patient states they are bubbling. [facility] Medical History Skin cancer Breast lump History of blood transfusion Arthritis Overactive bladder GERD (gastroesophageal reflux disease) Fibromyalgia Hypertension Pneumonia Surgical History History of endometrial ablation Hx of tonsillectomy Hx of tubal ligation Family History Father Alcoholism Arthritis High cholesterol Mother Arthritis High cholesterol Thyroid disorder Grandmother Breast cancer Brother Myocardial infarction Uncle Myocardial infarction Grandfather Myocardial infarction Grandmother Leukemia Social History household members: spouse current occupational status: employed 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 Patient states she has used multiple [id number]-hmfizps topical applications without relief of symptoms. She notes pruritic rash to BUE, BLE with excoriations. No complaints of constricted/pruriti c airway or chest pain/shortness of breath/wheeze/dyspn ea on exertion. No other associated symptoms and no other alleviating/aggrava ting factors. ROS Const Constitutional: No other (As above) Exam Const General: cooperative, healthy appearing and no acute distress Nutritional Appearance: average body habitus Orientation: alert, awake and oriented x3 HENMT Head: normal to inspection Ears: hearing grossly normal bilaterally, external ears normal, TM's normal bilaterally and EAC's normal Nose: external nose normal, nares normal, septum normal and no nasal discharge Face and sinus: normal facial exam, sinuses nontender and face symmetric Mouth: oral mucosae normal, lip normal, tongue normal and oropharynx normal Throat: posterior oropharynx normal, tonsils normal, uvula midline and no postnasal drainage Eyes General: appearance normal, both eyes and all related structures Neck Neck: normal visual inspection, full ROM, no lymphadenopathy, no meningeal signs and supple Neck mass: No Thyroid: thyroid normal Lymphatic: no lymphadenopathy noted Chest Chest palpation inspection: normal inspection of the chest Resp Effort Inspection: normal respiratory effort and able to speak in complete sentences Auscultation: Bilateral: Clear to Auscultation Cardio Palpation: normal PMI Rate: regular rate Rhythm: regular rhythm Heart Sounds: S1 normal, S2 normal, no gallops, no murmurs and no rubs Pulses: radial pulses present GI Inspection: normal to inspection Skin General: no rashes or lesions noted Other: Except clustered vesicular rash to BUE, BLE Neuro General: patient alert, patient awake and patient oriented x3 Cognition: normal cognition Speech: speech normal Extrem General: normal to inspection Psych Appearance: grossly normal Mental Status: mental status grossly normal Mood: congruent mood Affect: normal affect Speech and Movement: speech and movement normal Attitude: cooperative Diagnoses Contact dermatitis due to poison joslyn L23.7 Assessment and Plan Assessment and Plan (1) Contact dermatitis due to poison joslyn: Status: Acute Plan: Prednisone as prescribed today. Supportive measures as instructed today. Follow-up with PCP in 3 to 5 days should symptoms not improve, ED sooner should symptoms worsen or any other concerns develop. Patient states acknowledging understanding all the above Coding Level of Care Code Off vis,est,level 3 Assessment and (more content not included)... Normal [facility] - Microbiology an d Antimicrobial susceptibilityOrdered By: Noreen Bhakta on 09-14-2024 SARS-CoV-2 (COVID-19) RNA KIARA+probe Ql (Unsp spec) Not detected [facility] No Panel InformationOrdered By: Noreen Bhakta on 09-14-2024 Influenza Types A,B Rapid (Clinic) Not detected [facility] Urgent Care Visit Reporton 0 09-14-2024 Urgent Care Visit Report [facility] [address], [address] [place] [address] OFFICE VISIT Date of Service: 09/14/24 MR#: [id number] Acct: [id number] Name: VIGNESH YOUNG Rep #: [id number] : 1960 Provider: RAMONA Bhakta Age/Sex: 63/F [place] [facility] [facility] [place] Status: Signed Intake Vital Signs 06/25/24 08:26 09/14/24 13:00 Height 5 ft 5 in BP 140/74 H Blood Pressure Location Lt brachial Position Sitting Respiration 15 Pulse 108 H Pulse Source NIBP Temp 98.1 F Temp Source Oral Pulse Oximetry (%) 97 Oxygen Delivery Method room air Intake Visit Reasons: COUGH, SORE THROAT Chief Complaint: cough, ST, congest, LAZAR, BA Apparel Patternmaker Required: No Is patient in pain?: No Allergies clarithromycin (From Biaxin) Allergy (Verified 09/14/24 13:08) Other Medications ???Medication ???Instructions ???Recorded ???Confirmed ???Type duloxetine 60 mg capsule,delayed 60 mg PO DAILY #90 caps 08/12/24 Rx release (Cymbalta) lansoprazole 30 mg capsule,delayed 30 mg PO DAILY #90 caps 09/13/24 Rx release (Prevacid) losartan 100 1 tab PO DAILY #90 tabs 09/13/24 Rx mg-hydrochlorothiaz sherie 12.5 mg tablet Is last menstrual period known: No Post menopausal: Yes Patient : No Have you fallen in the past year?: No Nurse's Note: cough, ST, congest, LAZAR, BA x 3 days. denies fever PFSH Medical History Skin cancer Breast lump History of blood transfusion Arthritis Overactive bladder GERD (gastroesophageal reflux disease) Fibromyalgia Hypertension Pneumonia Surgical History History of endometrial ablation Hx of tonsillectomy Hx of tubal ligation Family History Father Alcoholism Arthritis High cholesterol Mother Arthritis High cholesterol Thyroid disorder Grandmother Breast cancer Brother Myocardial infarction Uncle Myocardial infarction Grandfather Myocardial infarction Grandmother Leukemia Social History household members: spouse current occupational status: employed 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 [employer] Smoking Status: Never smoker Electronic Cigarette Use: not used alcohol intake: never substance use type: does not use what type of physical activity do you participate in: none do you feel safe at home: Yes HPI HPI Chief Complaint: cough, ST, congest, LAZAR, BA Details: VIGNESH YOUNG, is a 63 F who presents to the office today for cold sx -in office testing covid and flu negative -sx start on Monday -sx ST on Monday really bad, hoarseness, congestion, cough is wet with sputum unsure of color -no fever or chills, sob, myalgias -tried so far otc cough, aleve cold and sx, vicks ROS Const Constitutional: Positive for other (ROS negative x6 except what was placed in HPI) Exam Const General: cooperative, comfortable and no acute distress Orientation: alert, awake and oriented x3 HENMT Head: normal to inspection and normocephalic Ears: hearing grossly normal bilaterally, external ears normal and TM's normal bilaterally Nose: external nose normal and other (+ congestion and rhinorrhea- moderate ) Face and sinus: normal facial exam, sinuses nontender and face symmetric Mouth: oral mucosae normal, lip normal, tongue normal, oropharynx normal and moist mucous membranes Throat: posterior oropharynx normal, tonsils normal, uvula midline and postnasal drainage Neck Neck: normal visual inspection, full ROM and no lymphadenopathy Resp Effort Inspection: normal respiratory effort, able to speak in complete sentences and symmetric chest movement Auscultation: Bilateral: Clear to Auscultation, Left: Clear to Auscultation and Right: Clear to Auscultation Cardio Rate: regular rate Rhythm: regular rhythm Heart Sounds: S1 normal and S2 normal GI Auscultation: normal bowel sounds Palpation: soft Skin General: no rashes or lesions noted and turgor normal Neuro General: patient alert, patient awake and patient oriented x3 Cognition: normal cognition Speech: speech normal Psych Appearance: grossly normal Mental Status: mental status grossly normal Attitude: cooperative Thought Process: normal Thought Content: normal Coding Level of Care Code Off vis,est,level 3 Diagnoses Viral URI with cough J06.9 Nasal congestion R09.81 Rhinorrhea J34.89 PND (post-nasal drip) R09.82 Assessment and Plan Assessment and Plan (1) Viral URI with cough: Status: Acute Plan: -Warm salt water gargles, warm tea with honey, increase fluids, saline nasal spray 2 squirts each nostril every 2 hours as needed, Flonase (more content not included)... Normal [facility] CBC W/Diff, Automatedon 12-0 -2023 Absolute Lymph 1.90 X10 3/uL Normal 0.83-4.51 [facility] Comment on above: Performed By: #### L 501.9520, L503.6550, L506.1000, L100.0100, L503.0105, L503.6030, L500.4050 #### [facility] [address] [place], [address] Absolute Neut 4.3 X10 3/uL Normal 2.0-7.7 [facility] Comment on above: Performed By: #### L 501.9520, L503.6550, L506.1000, L100.0100, L503.0105, L503.6030, L500.4050 #### [facility] [address] [place], [address] Basophils/100 WBC (Bld) 0.4 % Normal 0-1 [facility] Comment on above: Performed By: #### L 501.9520, L503.6550, L506.1000, L100.0100, L503.0105, L503.6030, L500.4050 #### [facility] [address] [place], [address] Eosinophils/100 WBC (Bld) 1.3 % Normal 0-5 [facility] Comment on above: Performed By: #### L 501.9520, L503.6550, L506.1000, L100.0100, L503.0105, L503.6030, L500.4050 #### [facility] [address] [place], [address] Erythrocyte distribution width (RBC) [Ratio] 13.3 % Normal 11.6-14.6 [facility] Comment on above: Performed By: #### L 501.9520, L503.6550, L506.1000, L100.0100, L503.0105, L503.6030, L500.4050 #### [facility] [address] [place], [address] Hematocrit (Bld) [Volume fraction] 38.6 % Normal 37-47 [facility] Comment on above: Performed By: #### L 501.9520, L503.6550, L506.1000, L100.0100, L503.0105, L503.6030, L500.4050 #### [facility] [address] [place], [address] Hemoglobin (Bld) [Mass/Vol] 12.0 g/dL Normal 12.0-15.0 [facility] Comment on above: Performed By: #### L 501.9520, L503.6550, L506.1000, L100.0100, L503.0105, L503.6030, L500.4050 #### [facility] [address] [place], [address] IG% 0.600 Normal 0.0-0.9 [facility] Comment on above: Result Comment: IG% - Immature Granulocytes (promyelocytes, myelocytes and metamyelocytes) > 1% indicates that a LEFT SHIFT is Present. Performed By: #### L 501.9520, L503.6550, L506.1000, L100.0100, L503.0105, L503.6030, L500.4050 #### [facility] [address] [place], [address] Lymphocytes/100 WBC (Bld) 27.4 % Normal 19-41 [facility] Comment on above: Performed By: #### L 501.9520, L503.6550, L506.1000, L100.0100, L503.0105, L503.6030, L500.4050 #### [facility] [address] [place], [address] MCH (RBC) [Entitic mass] 27.4 pg Normal 27.0-32.0 [facility] Comment on above: Performed By: #### L 501.9520, L503.6550, L506.1000, L100.0100, L503.0105, L503.6030, L500.4050 #### [facility] [address] [place], [address] MCHC (RBC) [Mass/Vol] 31.1 g/dL Low 32-36 [facility] Comment on above: Performed By: #### L 501.9520, L503.6550, L506.1000, L100.0100, L503.0105, L503.6030, L500.4050 #### [facility] [address] [place], [address] MCV (RBC) [Entitic vol] 88.1 fL Normal 81-99 [facility] Comment on above: Performed By: #### L 501.9520, L503.6550, L506.1000, L100.0100, L503.0105, L503.6030, L500.4050 #### [facility] [address] [place], [address] Monocytes/100 WBC (Bld) 8.5 % Normal 0-10 [facility] Comment on above: Performed By: #### L 501.9520, L503.6550, L506.1000, L100.0100, L503.0105, L503.6030, L500.4050 #### [facility] [address] [place], [address] Neutrophils/100 WBC (Bld) 61.8 % Normal 47-70 [facility] Comment on above: Performed By: #### L 501.9520, L503.6550, L506.1000, L100.0100, L503.0105, L503.6030, L500.4050 #### [facility] [address] [place], [address] Nucleated RBC (Bld) [#/Vol] 0 10*3/uL Normal 0-5 [facility] Comment on above: Performed By: #### L 501.9520, L503.6550, L506.1000, L100.0100, L503.0105, L503.6030, L500.4050 #### [facility] [address] [place], [address] Platelet mean volume (Bld) [Entitic vol] 11.0 fL Normal 6.2-12.0 [facility] Comment on above: Performed By: #### L 501.9520, L503.6550, L506.1000, L100.0100, L503.0105, L503.6030, L500.4050 #### [facility] [address] [place], [address] Platelets (Bld) [#/Vol] 272 10*3/uL Normal 150-450 [facility] Comment on above: Performed By: #### L 501.9520, L503.6550, L506.1000, L100.0100, L503.0105, L503.6030, L500.4050 #### [facility] [address] [place], [address] RBC (Bld) [#/Vol] 4.38 10*6/uL Normal 4.2-5.4 [facility] Comment on above: Performed By: #### L 501.9520, L503.6550, L506.1000, L100.0100, L503.0105, L503.6030, L500.4050 #### [facility] [address] [place], [address] RDW SD 43.1 fl Normal 35.1-43.9 [facility] Comment on above: Performed By: #### L 501.9520, L503.6550, L506.1000, L100.0100, L503.0105, L503.6030, L500.4050 #### [facility] [address] [place], [address] WBC (Bld) [#/Vol] 6.9 10*3/uL Normal 4.4-11.0 [facility] Comment on above: Performed By: #### L 501.9520, L503.6550, L506.1000, L100.0100, L503.0105, L503.6030, L500.4050 #### [facility] [address] [place], [address] Comprehensive Metabolic Prof ilon 06-25-2024 Albumin [Mass/Vol] 3.9 g/dL Normal 3.2-5.0 [facility] Comment on above: Performed By: #### L 501.9520, L503.6550, L506.1000, L100.0100, L503.0105, L503.6030, L500.4050 #### [facility] [address] [place], [address] Albumin/Globulin [Mass ratio] 1.1 {ratio} Normal 0.9-2.4 [facility] Comment on above: Performed By: #### L 501.9520, L503.6550, L506.1000, L100.0100, L503.0105, L503.6030, L500.4050 #### [facility] [address] [place], [address] ALK P 87 U/L Normal 45-117 [facility] Comment on above: Performed By: #### L 501.9520, L503.6550, L506.1000, L100.0100, L503.0105, L503.6030, L500.4050 #### [facility] [address] [place], [address] ALT [Catalytic activity/Vol] 62 U/L High 13-56 [facility] Comment on above: Performed By: #### L 501.9520, L503.6550, L506.1000, L100.0100, L503.0105, L503.6030, L500.4050 #### [facility] [address] [place], [address] AST [Catalytic activity/Vol] 27 U/L Normal 15-37 [facility] Comment on above: Performed By: #### L 501.9520, L503.6550, L506.1000, L100.0100, L503.0105, L503.6030, L500.4050 #### [facility] [address] [place], [address] Bilirubin [Mass/Vol] 0.40 mg/dL Normal 0.20-1.00 [facility] Comment on above: Result Comment: For patients on eltrombopag therapy, use of Dimension [place] TBIL is not recommended. Performed By: #### L 501.9520, L503.6550, L506.1000, L100.0100, L503.0105, L503.6030, L500.4050 #### [facility] [address] [place], [address] BUN/CRE 19.3 RATIO Normal 10-20 [facility] Comment on above: Performed By: #### L 501.9520, L503.6550, L506.1000, L100.0100, L503.0105, L503.6030, L500.4050 #### [facility] [address] [place], [address] CA,Total 9.2 mg/dL Normal 8.5-10.1 [facility] Comment on above: Performed By: #### L 501.9520, L503.6550, L506.1000, L100.0100, L503.0105, L503.6030, L500.4050 #### [facility] [address] [place], [address] Chloride [Moles/Vol] 106 mmol/L Normal 98-107 [facility] Comment on above: Performed By: #### L 501.9520, L503.6550, L506.1000, L100.0100, L503.0105, L503.6030, L500.4050 #### [facility] [address] [place], [address] CO2 [Moles/Vol] 28.0 mmol/L Normal 21.0-32.0 [facility] Comment on above: Performed By: #### L 501.9520, L503.6550, L506.1000, L100.0100, L503.0105, L503.6030, L500.4050 #### [facility] [address] [place], [address] Creatinine [Mass/Vol] 0.72 mg/dL Normal 0.55-1.02 [facility] Comment on above: Result Comment: The validity of the calculated GFR GFRAA in patients over 70 years has not been determined. Clinical correlation is essential. Performed By: #### L 501.9520, L503.6550, L506.1000, L100.0100, L503.0105, L503.6030, L500.4050 #### [facility] [address] [place], [address] EST GFR - AA 105 mL/min Normal >60 [facility] Comment on above: Result Comment: Afri can [place] GFR Calc Performed By: #### L 501.9520, L503.6550, L506.1000, L100.0100, L503.0105, L503.6030, L500.4050 #### [facility] [address] [place], [address] GAP 6 Normal 5-15 [facility] Comment on above: Performed By: #### L 501.9520, L503.6550, L506.1000, L100.0100, L503.0105, L503.6030, L500.4050 #### [facility] [address] [place], [address] GFR/1.73 sq M.predicted among non-blacks MDRD (S/P/Bld) [Vol rate/Area] 87 mL/min/{1.73_m2} Normal >60 [facility] Comment on above: Result Comment: Non- GFR Calc Performed By: #### L 501.9520, L503.6550, L506.1000, L100.0100, L503.0105, L503.6030, L500.4050 #### [facility] [address] [place], [address] Globulin (S) [Mass/Vol] 3.6 g/dL Normal 2.2-4.2 [facility] Comment on above: Performed By: #### L 501.9520, L503.6550, L506.1000, L100.0100, L503.0105, L503.6030, L500.4050 #### [facility] [address] [place], [address] Glucose [Mass/Vol] 157 mg/dL High 74-106 [facility] Comment on above: Result Comment: Fast ing Glucose result greater than or equal to 126 mg/dL suggests DIABETES MELLITUS per A.D.A. criteria. Performed By: #### L 501.9520, L503.6550, L506.1000, L100.0100, L503.0105, L503.6030, L500.4050 #### [facility] [address] [place], [address] Potassium [Moles/Vol] 4.2 mmol/L Normal 3.5-5.1 [facility] Comment on above: Performed By: #### L 501.9520, L503.6550, L506.1000, L100.0100, L503.0105, L503.6030, L500.4050 #### [facility] [address] [place], [address] Sodium [Moles/Vol] 140 mmol/L Normal 136-145 [facility] Comment on above: Performed By: #### L 501.9520, L503.6550, L506.1000, L100.0100, L503.0105, L503.6030, L500.4050 #### [facility] [address] [place], [address] T PROT 7.5 g/dL Normal 6.4-8.2 [facility] Comment on above: Performed By: #### L 501.9520, L503.6550, L506.1000, L100.0100, L503.0105, L503.6030, L500.4050 #### [facility] [address] [place], [address] Urea nitrogen [Mass/Vol] 14 mg/dL Normal 7-18 [facility] Comment on above: Performed By: #### L 501.9520, L503.6550, L506.1000, L100.0100, L503.0105, L503.6030, L500.4050 #### [facility] [address] [place], [address] Ferritinon 06-25-2024 Ferritin [Mass/Vol] 43 ng/mL Normal 8-252 [facility] Comment on above: Performed By: #### L 501.9520, L503.6550, L506.1000, L100.0100, L503.0105, L503.6030, L500.4050 ####[facility] [id number] [place], [address] Hemoglobin A1con 06-25-2024 HbA1c (Bld) [Mass fraction] 6.8 % High 3.8-5.6 [facility] Comment on above: Order Comment: ADD O N Result Comment: Norm al < 5.7 % Prediabetic 5.7 - 6.4 % Diabetic >or= 6.5 % Please note range changes. Performed By: #### L 501.9985 ####[facility] [id number] [place], [address] Iron+Iron Binding Capacityon 06-25-2024 Iron [Mass/Vol] 55 ug/dL Normal 50-170 [facility] Comment on above: Performed By: #### L 501.9520, L503.6550, L506.1000, L100.0100, L503.0105, L503.6030, L500.4050 #### [facility] [address] [place], [address] IRON SATURATION 16.8 Normal 15.0-55.0 [facility] Comment on above: Performed By: #### L 501.9520, L503.6550, L506.1000, L100.0100, L503.0105, L503.6030, L500.4050 #### [facility] [address] [place], [address] TIBC 328 ug/dL Normal 250-450 [facility] Comment on above: Performed By: #### L 501.9520, L503.6550, L506.1000, L100.0100, L503.0105, L503.6030, L500.4050 #### [facility] [address] [place], [address] Thyroid Stim Hormone (TSH)on 06-25-2024 TSH 1.370 uIU/mL Normal 0.358-3.740 [facility] Comment on above: Performed By: #### L 501.9520, L503.6550, L506.1000, L100.0100, L503.0105, L503.6030, L500.4050 #### [facility] [address] [place], [address] Vitamin B12on 06-25-2024 Cobalamin (Vitamin B12) [Mass/Vol] 382 pg/mL Normal 211-911 [facility] Comment on above: Performed By: #### L 501.9520, L503.6550, L506.1000, L100.0100, L503.0105, L503.6030, L500.4050 #### [facility] [address] [place], [address] Vitamin D,25 Hydroxyon 06-25 Vitamin D 25-OH 27.2 ng/mL Normal [facility] Comment on above: Result Comment: Lilia min D 25(OH) Status Range Deficiency <20 ng/mL (50nmol/L) Insufficiency 20 - 30 ng/mL (50 - 75 nmol/L) Sufficiency 30 - 100 ng/mL (75 - 250 nmol/L) Toxicity >100 ng/mL (>250 nmol/L) Performed By: #### L 501.9520, L503.6550, L506.1000, L100.0100, L503.0105, L503.6030, L500.4050 #### [facility] [address] [place], [address] Internal Medicine Office Vis itodarcy 06-24-2024 Internal Medicine Office Visit [facility] [place], [place] [address] OFFICE VISIT Date of Service: 06/25/24 MR#: [id number] Acct: [id number] Name: VIGNESH YOUNG BRIANNE Rep #: [id number] : 1960 Provider: Dr. 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 Accompanied by: Self Is patient in pain?: No Allergies clarithromycin (From Biaxin) Allergy (Verified 06/25/24 08:21) Other Medications ???Medication ???Instructions ???Recorded ???Confirmed ???Type duloxetine 60 mg capsule,delayed 60 mg PO DAILY #90 caps 11/30/23 06/25/24 Rx release (Cymbalta) losartan 100 1 tab PO DAILY #90 tabs 11/30/23 06/25/24 Rx mg-hydrochlorothiaz sherie 12.5 mg tablet lansoprazole 30 mg capsule,delayed 30 mg PO DAILY #90 caps 06/06/24 06/25/24 Rx release (Prevacid) PFSH Medical History Skin cancer Breast lump History of blood transfusion Arthritis Overactive bladder GERD (gastroesophageal reflux disease) Fibromyalgia Hypertension Pneumonia Surgical History History of endometrial ablation Hx of tonsillectomy Hx of tubal ligation Family History Father Alcoholism Arthritis High cholesterol Mother Arthritis High cholesterol Thyroid disorder Grandmother Breast cancer Brother Myocardial infarction Uncle Myocardial infarction Grandfather Myocardial infarction Grandmother Leukemia Social History household members: spouse current occupational status: employed 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 She is up to date on her routine blood work.??? She reports she is up to date on her screening. She isn't due for any immunizations.??? She doesn't smoke and does not need refills today.??? She reports she is trying to eat healthy and isn't very active due to fatigue. She doesn't check her blood pressure at home.??? She reports she misplaced her home cuff, but just ordered a new one. She is taking her medications as prescribed without any problems.??? She has not been watching her salt intake. She reports her heartburn is usually well controlled on her prevacid. She does still get occasional symptoms for which she will take a second dose or a tums which does help. It is typically related to what she ate or drank. She reports that she has been doing well on the cymbalta for her fibromyalgia and mood. She thinks the fibromyalgia may be getting a bit worse. She reports certain clothing seems to irritate her and she will get an occasional sharp pain throughout her body. She is hesitant to adjust her medication. She feels her mood has been doing alright. She does continue to grieve the loss of her son. She reports she does still have some urinary symptoms, but doesn't feel it is as bad as it was. She does feel that this is also related to her diet. She also continues to have itching, but states it isn't as bad as it was. The atarax did seem to help. The patient has concerns about fatigue. She reports it has been going on for about 1-2 months, but feels it is getting worse. She reports she is tried all day and just doesn't feel good. She reports she has been taking tylenol PM for a couple of weeks, which does help her sleep, but she is still tired when she wakes up. She states when she doesn't take it, she is up due to aching/pain. She doesn't nap, but reports in the afternoons, she will need to take some caffeine to feel better. She reports she has had to call off of work a couple of times. The patient does snore and does wake up gasping for air. She has had a sleep study many years ago, which was normal. She reports she does do better with sleeping on her side. ROS Const Constitutional: Positive for fatigue, snoring and weight change (7 pound weight gain); No body ache, chills, excessive sweating, fever(s), frequent falls, headache(s), weakness or change (more content not included)... Normal [facility] Urgent Care Visit Reporton 0 04-02-2024 Urgent Care Visit Report [facility] [address], [address] [place] [address] OFFICE VISIT Date of Service: 04/02/24 MR#: [id number] Acct: [id number] Name: VIGNESH YOUNG Rep #: [id number] : 1960 Provider: ROSCOE Vega Age/Sex: 63/F [place] [facility] [place] Status: Signed Intake Vital Signs 11/30/23 13:38 04/02/24 08:35 Height 5 ft 5 in 5 ft 5 in Weight: 197 lb 203 lb 2 oz BMI 32.8 33.7 BP 128/84 H 128/82 H Blood Pressure Location Lt brachial Position Sitting Respiration 14 Pulse 74 99 Pulse Source Monitor Temp 97.3 F L 98.4 F Temp Source Temporal Temporal Pulse Oximetry (%) 98 98 Oxygen Delivery Method room air room air Intake Visit Reasons: POISON JOSLYN Is patient in pain?: No Allergies clarithromycin (From Biaxin) Allergy (Verified 04/02/24 08:32) Other Medications ???Medication ???Instructions ???Recorded ???Confirmed ???Type duloxetine 60 mg capsule,delayed 60 mg PO DAILY #90 caps 11/30/23 04/02/24 Rx release (Cymbalta) hydroxyzine HCl 25 mg tablet 25 mg PO TID PRN itching #20 tabs 11/30/23 11/30/23 Rx lansoprazole 30 mg capsule,delayed 30 mg PO DAILY #90 caps 11/30/23 11/30/23 Rx release (Prevacid) losartan 100 1 tab PO DAILY #90 tabs 11/30/23 04/02/24 Rx mg-hydrochlorothiaz sherie 12.5 mg tablet prednisone 10 mg tablet 10 mg PO DAILY #30 tabs 04/02/24 04/02/24 Rx PFSH Medical History Arthritis Breast lump Fibromyalgia GERD (gastroesophageal reflux disease) History of blood transfusion Hypertension Overactive bladder Pneumonia Skin cancer Surgical History History of endometrial ablation Hx of tonsillectomy Hx of tubal ligation Family History Father Alcoholism Arthritis High cholesterol Mother Arthritis High cholesterol Thyroid disorder Grandmother Breast cancer Brother Myocardial infarction Uncle Myocardial infarction Grandfather Myocardial infarction Grandmother Leukemia Social History household members: spouse current occupational status: employed 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 Patient states she has used multiple mxab-qxe-xaxrunn topical applications as well as oral Benadryl without relief of symptoms. She notes pruritic rash to BUE, BLE with excoriations. No complaints of constricted/pruriti c airway or chest pain/shortness of breath/wheeze/dyspn ea on exertion. No other associated symptoms and no other alleviating/aggrava ting factors. ROS Const Constitutional: No other (As above) Exam Const General: cooperative, healthy appearing and no acute distress Nutritional Appearance: average body habitus Orientation: alert, awake and oriented x3 HENMT Head: normal to inspection Ears: hearing grossly normal bilaterally, external ears normal, TM's normal bilaterally and EAC's normal Nose: external nose normal, nares normal, septum normal and no nasal discharge Face and sinus: normal facial exam, sinuses nontender and face symmetric Mouth: oral mucosae normal, lip normal, tongue normal and oropharynx normal Throat: posterior oropharynx normal, tonsils normal, uvula midline and no postnasal drainage Eyes General: appearance normal, both eyes and all related structures Neck Neck: normal visual inspection, full ROM, no lymphadenopathy, no meningeal signs and supple Neck mass: No Thyroid: thyroid normal Lymphatic: no lymphadenopathy noted Chest Chest palpation inspection: normal inspection of the chest Resp Effort Inspection: normal respiratory effort and able to speak in complete sentences Auscultation: Bilateral: Clear to Auscultation Cardio Palpation: normal PMI Rate: regular rate Rhythm: regular rhythm Heart Sounds: S1 normal, S2 normal, no gallops, no murmurs and no rubs Pulses: radial pulses present GI Inspection: normal to inspection Skin General: no rashes or lesions noted Other: Except clustered vesicular rash to BUE, BLE Neuro General: patient alert, patient awake and patient oriented x3 Cognition: normal cognition Speech: speech normal Extrem General: normal to inspection Psych Appearance: grossly normal Mental Status: mental statu (more content not included)... Normal [facility] SCRN MAMM (CAD)W/KERWIN BILATo n 12-26-2023 SCRN MAMM (CAD)W/KERWIN BILAT [facility] Imaging Services [address] [place] [address] SCRN MAMM (CAD)W/KERWIN BILAT MR#: [id number] Acct: [id number] Name: VIGNESH YOUNG BRIANNE Rep #: [id number] : 1960 F 63 From: Adolfo araiza MD PCP: Dr. Xiomy Schaffer MD Status: REG [facility] Study: SCRN MAMM (CAD)W/KERWIN BILAT Date of Exam: 11/14 Exam# [id number] Ordering Dr: Miranda Guerra MD -[id number] MAMMOGRAPHY - BILATERAL SCREENING REASON FOR EXAM: Female, 63 years old. Routine annual screening examination. PERTINENT HISTORY: Grandmother with breast cancer. History of remote left needle biopsy. TECHNIQUE: Digital bilateral breast kerwin (3D mammographic acquisition) in the CC and MLO projections. 2-D mediolateral oblique (MLO) and craniocaudad (CC) views of both breasts were obtained. CAD: Full Field Digital Mammography with Computer Added Detection was performed. COMPARISON: Comparison is made with prior study of April 12, 2022 and December 30, 2020. FINDINGS: Breast Composition: The breasts are extremely dense, which lowers the sensitivity of mammography. There are no dominant masses or suspicious calcifications. A tissue clip marker is seen in the anterior upper central portion of the left breast. Stable appearance of the fat-containing bilateral axillary lymph nodes. No other significant abnormalities are identified. There has been no significant change since the prior study. BI/SCRN MAMM (CAD)W/KERWIN BILAT IMPRESSION: Stable bilateral screening mammogram. Yearly follow-up mammogram recommended. (A) ASSESSMENT CATEGORY: BIRADS Category 2: Benign. A letter regarding these results will be sent to the patient by the facility within 30 days. Approximately 10% of breast cancers are not detected by mammography. A normal mammogram should not delay biopsy of a clinically suspicious abnormality. [id number] Electronically Signed: Adolfo Huynh MD at 14:23 EDT Reading Location ID and State: [facility] / [place] , Service support , CC: Dr. Xiomy Schaffer MD; Dr. 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 It has not been cleared or approved by the U.S. Food and Drug Administration. The FDA has determined that such clearance or approval is not necessary. This test is used for clinical purposes. It should not be regarded as investigational or research. Performed At: [facility] [id number] Rah Hope MD Ph:[phone] Performed By: #### 1 [id number] #### [facility] [address] [address] LABORATORYOrdered By: Miner P CONTRIBUTOR_SYSTEM on 10-25-2023 HSV-1 DNA (LC) Positive Invalid Interpretation Code Negative AO Sendouts SS HSV-2 DNA (LC) Negative Invalid Interpretation Code Negative [facility] Comment on above: Result Comment: This test was developed and its performance characteristics determined by [facility]. It has not been cleared or approved by the U.S. Food and Drug Administration. The FDA has determined that such clearance or approval is not necessary. This test is used for clinical purposes. It should not be regarded as investigational or research. Performed At: [facility] [id number] Rah Hope MD Ph:[phone] Basophil percentageOrdered B y: Xiomy Sarbjit on 05-01-2023 Basophil percentage 0 SEEN /hpf 0-5 [facility] Bilirubin Test strip Ql (U)O rdered By: Xiomy Sarbjit on 05-01-2023 Bilirubin Ql (U) Negative Negative [facility] Culture, urineOrdered By: Al ycia Sarbjit on 05-01-2023 Bacteria identified Cx Nom (U) Staphylococcus epidermidis [facility] Ketones Test strip Ql (U)Ord ered By: Xiomy Sarbjit on 05-01-2023 Ketones Ql (U) Negative Negative [facility] Mucus LM Ql (Urine sed)Order ed By: Xiomy [place] on 05-01-2023 Mucus Ql (Urine sed) 0 SEEN /hpf [facility] Nitrite Test strip Ql (U)Ord ered By: Xiomy Sarbjit on 05-01-2023 Nitrite Ql (U) Negative Negative [facility] Protein Test strip Ql (U)Ord ered By: Xiomy [place] on 05-01-2023 Protein Ql (U) Negative Negative [facility] Squamous epithelial cells de tection in urine sediment by light microscopyOrdered By: Xiomy Schaffer on 05-01-2023 Epithelial cells.squamous LM Ql (Urine sed) 0 SEEN /hpf 5-10 [facility] Urine blood detectionOrdered By: Xiomy Schaffer on 05-01-2023 RBC Ql (U) Negative Negative [facility] RBC Ql (U) 0 SEEN /hpf 0-5 [facility] Urine clarityOrdered By: Buck Schaffer on 05-01-2023 Clarity (U) Clear Clear [facility] Urine color determinationOrd ered By: Xiomy Schaffer on 05-01-2023 Color (U) Straw Yellow [facility] Urine glucose detectionOrder ed By: Xiomy Schaffer on 05-01-2023 Glucose Ql (U) Normal mg/dl Normal [facility] Urine leukocyte esterase det ection by dipstickOrdered By: Xiomy Schaffer on 05-01-2023 Leukocyte esterase Test strip Ql (U) Negative Negative [facility] Urine pHOrdered By: Xiomy floyd on 05-01-2023 pH (U) 7.0 [pH] 5.0 - 8.0 [facility] Urine sediment bacteria coun t by microscopy (number/high power field)Ordered By: Xiomy Schaffer on 05-01-2023 Bacteria LM.HPF (Urine sed) [#/Area] 0 /[HPF] None Seen [facility] Urine specific gravity measu rementOrdered By: Xiomy Schaffer on 05-01-2023 Specific gravity (U) [Rel density] 1.010 1.002-1.030 [facility] Urobilinogen Auto test strip Ql (U)Ordered By: Xiomy Schaffer on 05-01-2023 Urobilinogen Ql (U) Normal mg/dl Normal [facility] Absolute lymphocyte counton 06-07-2022 Lymphocytes Auto (Unsp spec) [#/Vol] 7.22 10*3/uL 0.83-4.51 [facility] Work Phone: Lymphocytes Auto (Unsp spec) [#/Vol] 8.77 10*3/uL 0.83-4.51 [facility] Work Phone: [phone] Basophil percentageon 2021 Basophil percentage 0 SEEN /hpf 0-5 [facility] Work Phone: [phone] Basophils/100 WBC (Bld) 0.8 % 0-1 [facility] Work Phone: [phone] Bilirubin [Mass/Vol] 0.40 mg/dL 0.20-1.00 [facility] Work Phone: Comment on above: For patients on eltr ombopag therapy, use of Dimension [place] TBIL is not recommended. Chloride [Moles/Vol] 100 mmol/L 98-107 [facility] Work Phone: Eosinophils/100 WBC (Bld) 0.6 % 0-5 [facility] Work Phone: Glucose [Mass/Vol] 128 mg/dL 74-106 [facility] Work Phone: Comment on above: Fasting Glucose resu lt greater than or equal to 126 mg/dL suggests DIABETES MELLITUS per A.D.A. criteria. Neutrophils (Bld) [#/Vol] 2.9 10*3/uL 2.0-7.7 [facility] Work Phone: Neutrophils/100 WBC (Bld) 26.0 % 47-70 [facility] Work Phone: Potassium [Moles/Vol] 4.0 mmol/L 3.5-5.1 [facility] Work Phone: [phone] Protein [Mass/Vol] 6.8 g/dL 6.4-8.2 [facility] Work Phone: [phone] Sodium [Moles/Vol] 136 mmol/L 136-145 [facility] Work Phone: [phone] WBC (Bld) [#/Vol] 11.1 10*3/uL 4.4-11.0 [facility] Work Phone: Basophils/100 WBC (Bld) 0.7 % 0-1 [facility] Work Phone: Bilirubin [Mass/Vol] 0.50 mg/dL 0.20-1.00 [facility] Work Phone: Comment on above: For patients on eltr ombopag therapy, use of Dimension [place] TBIL is not recommended. Chloride [Moles/Vol] 99 mmol/L 98-107 [facility] Work Phone: Eosinophils/100 WBC (Bld) 0.7 % 0-5 [facility] Work Phone: Glucose [Mass/Vol] 114 mg/dL 74-106 [facility] Work Phone: Comment on above: Fasting Glucose resu lt from 100 to 125 mg/dL suggests IMPAIRED HOMEOSTASIS per A.D.A. criteria. Neutrophils (Bld) [#/Vol] 3.5 10*3/uL 2.0-7.7 [facility] Work Phone: Neutrophils/100 WBC (Bld) 26.1 % 47-70 [facility] Work Phone: Potassium [Moles/Vol] 4.5 mmol/L 3.5-5.1 [facility] Work Phone: Protein [Mass/Vol] 7.5 g/dL 6.4-8.2 [facility] Work Phone: Sodium [Moles/Vol] 135 mmol/L 136-145 [facility] Work Phone: [phone] WBC (Bld) [#/Vol] 13.6 10*3/uL 4.4-11.0 [facility] Work Phone: Bilirubin Test strip Ql (U)o n 06-07-2022 Bilirubin Ql (U) Negative Negative [facility] Work Phone: Blood erythrocytes count (nu mber/volume)on 06-07-2022 RBC (Bld) [#/Vol] 3.81 10*6/uL 4.2-5.4 [facility] Work Phone: RBC (Bld) [#/Vol] 4.16 10*6/uL 4.2-5.4 [facility] Work Phone: Blood hemoglobin measurement (mass/volume)on 06-07-2022 Hemoglobin (Bld) [Mass/Vol] 10.5 g/dL 12.0-15.0 [facility] Work Phone: Hemoglobin (Bld) [Mass/Vol] 11.4 g/dL 12.0-15.0 [facility] Work Phone: Blood lymphocytes/100 leukoc yteson 06-07-2022 Lymphocytes/100 WBC (Bld) 65.0 % - [facility] Work Phone: Lymphocytes/100 WBC (Bld) 64.6 % [facility] Work Phone: Blood manual differential co mment interpretation (narrative result)on 06-07-2022 Manual differential comment Sesar (Bld) [Interp] SCANNED [facility] Work Phone: Comment on above: LYMPHOCYTOSIS NOTED Manual differential comment Sesar (Bld) [Interp] COMMENT [facility] Work Phone: Comment on above: LYMPHOCYTOSIS. Blood monocytes/100 leukocyt eson 06-07-2022 Monocytes/100 WBC (Bld) 6.4 % 0-10 [facility] Work Phone: Monocytes/100 WBC (Bld) 6.5 % 0-10 [facility] Work Phone: Blood platelet mean volumeon 06-07-2022 Platelet mean volume (Bld) [Entitic vol] 9.6 fL 6.2-12.0 [facility] Work Phone: Platelet mean volume (Bld) [Entitic vol] 10.0 fL 6.2-12.0 [facility] Work Phone: Determination of erythrocyte mean corpuscular volume (MCV)on 06-07-2022 MCV (RBC) [Entitic vol] 84.8 fL 81-99 [facility] Work Phone: MCV (RBC) [Entitic vol] 87.5 fL 81-99 [facility] Work Phone: Hematocrit Auto (Bld) [Volum e fraction]on 06-07-2022 Hematocrit (Bld) [Volume fraction] 32.3 % 37-47 [facility] Work Phone: Hematocrit (Bld) [Volume fraction] 36.4 % 37-47 [facility] Work Phone: Ketones Test strip Ql (U)on 06-07-2022 Ketones Ql (U) Negative Negative [facility] Work Phone: Laboratory - Chemistry and C hemistry - challengeon 06-07-2022 ALP [Catalytic activity/Vol] 113 U/L 45-117 [facility] Work Phone: [phone] ALT [Catalytic activity/Vol] 268 U/L - [facility] Work Phone: CO2 [Moles/Vol] 29.0 mmol/L 21.0-32.0 [facility] Work Phone: Globulin (S) [Mass/Vol] 3.9 g/dL 2.2-4.2 [facility] Work Phone: [phone] Lipase [Catalytic activity/Vol] 99 U/L 73-393 [facility] Work Phone: Urea nitrogen/Creatinine [Mass ratio] 10.0 mg/mg 10-20 [facility] Work Phone: ALP [Catalytic activity/Vol] 124 U/L 45-117 [facility] Work Phone: ALT [Catalytic activity/Vol] 296 U/L 13-56 [facility] Work Phone: CO2 [Moles/Vol] 30.0 mmol/L 21.0-32.0 [facility] Work Phone: Globulin (S) [Mass/Vol] 4.2 g/dL 2.2-4.2 [facility] Work Phone: Urea nitrogen/Creatinine [Mass ratio] 9.3 mg/mg 10-20 [facility] Work Phone: Laboratory - Hematology and Cell countson 06-07-2022 Erythrocyte distribution width (RBC) [Entitic vol] 46.2 fL 35.1-43.9 [facility] Work Phone: [phone] Erythrocyte distribution width (RBC) [Ratio] 15.1 % 11.6-14.6 [facility] Work Phone: [phone] Immature granulocytes/100 WBC (Bld) 1.200 % 0.0-0.9 [facility] Work Phone: [phone] Comment on above: IG% - Immature Granu locytes (promyelocytes, myelocytes and metamyelocytes) > 1% indicates that a LEFT SHIFT is Present. MCH (RBC) [Entitic mass] 27.6 pg 27.0-32.0 [facility] Work Phone: [phone] Nucleated RBC/100 WBC (Bld) [Ratio] 0 % 0-5 [facility] Work Phone: [phone] Erythrocyte distribution width (RBC) [Entitic vol] 48.3 fL 35.1-43.9 [facility] Work Phone: [phone] Erythrocyte distribution width (RBC) [Ratio] 15.3 % 11.6-14.6 [facility] Work Phone: [phone] Immature granulocytes/100 WBC (Bld) 1.400 % 0.0-0.9 [facility] Work Phone: Comment on above: IG% - Immature Granu locytes (promyelocytes, myelocytes and metamyelocytes) > 1% indicates that a LEFT SHIFT is Present. MCH (RBC) [Entitic mass] 27.4 pg 27.0-32.0 [facility] Work Phone: Nucleated RBC/100 WBC (Bld) [Ratio] 0 % 0-5 [facility] Work Phone: MCHC Auto (RBC) [Mass/Vol]on 06-07-2022 MCHC (RBC) [Mass/Vol] 32.5 g/dL [facility] Work Phone: MCHC (RBC) [Mass/Vol] 31.3 g/dL [facility] Work Phone: Mucus LM Ql (Urine sed)on Mucus Ql (Urine sed) 0 SEEN /hpf [facility] Work Phone: Nitrite Test strip Ql (U)on 06-07-2022 Nitrite Ql (U) Negative Negative [facility] Work Phone: No Panel Informationon 06-07 Atypical Lymphocytes RARE % [facility] Work Phone: Estimated Creatinine Clearance Calc 67.29 ml/min [facility] Work Phone: Estimated GFR (MDRD) Amer 93 mL/min >60 [facility] Work Phone: Comment on above: GFR Calc Estimated GFR (MDRD) Non-Af Amer 77 mL/min >60 [facility] Work Phone: Comment on above: Non- GFR Calc Reactive Lymphocytes 1+ [facility] Work Phone: Estimated GFR (MDRD) Amer 101 mL/min >60 [facility] Work Phone: Comment on above: GFR Calc Estimated GFR (MDRD) Non-Af Amer 84 mL/min >60 [facility] Work Phone: Comment on above: Non- GFR Calc Reactive Lymphocytes 1+ [facility] Work Phone: Platelets bldon 06-07-2022 Platelets (Bld) [#/Vol] 222 10*3/uL 150-450 [facility] Work Phone: Platelets (Bld) [#/Vol] 232 10*3/uL 150-450 [facility] Work Phone: Protein Test strip Ql (U)on 06-07-2022 Protein Ql (U) Negative Negative [facility] Work Phone: Serum or plasma albumin zeeshan urement (mass/volume)on 06-07-2022 Albumin [Mass/Vol] 2.9 g/dL 3.2-5.0 [facility] Work Phone: Albumin [Mass/Vol] 3.3 g/dL 3.2-5.0 [facility] Work Phone: Serum or plasma albumin/glob ulin mass ratioon 06-07-2022 Albumin/Globulin [Mass ratio] 0.7 {ratio} 0.9-2.4 [facility] Work Phone: Albumin/Globulin [Mass ratio] 0.8 {ratio} 0.9-2.4 [facility] Work Phone: Serum or plasma calcium zeeshan urement (mass/volume)on 06-07-2022 Calcium [Mass/Vol] 8.5 mg/dL 8.5-10.1 [facility] Work Phone: Calcium [Mass/Vol] 9.0 mg/dL 8.5-10.1 [facility] Work Phone: Serum or plasma creatinine m easurement (mass/volume)on 06-07-2022 Creatinine [Mass/Vol] 0.80 mg/dL 0.55-1.02 [facility] Work Phone: Comment on above: The validity of the calculated GFR & GFRAA in patients over 70 years has not been determined. Clinical correlation is essential. Creatinine [Mass/Vol] 0.75 mg/dL 0.55-1.02 [facility] Work Phone: Comment on above: The validity of the calculated GFR & GFRAA in patients over 70 years has not been determined. Clinical correlation is essential. Serum or plasma urea nitroge n measurement (mass/volume)on 06-07-2022 Urea nitrogen [Mass/Vol] 8 mg/dL - [facility] Work Phone: Urea nitrogen [Mass/Vol] 7 mg/dL 02-07 [facility] Work Phone: Squamous epithelial cells de tection in urine sediment by light microscopyon 06-07-2022 Epithelial cells.squamous LM Ql (Urine sed) 0 SEEN /hpf 5-10 [facility] Work Phone: Thin prep Papanicolaou smear with manual screeningon 06-07-2022 Thin prep Papanicolaou smear with manual screening 101 U/L [facility] Work Phone: Thin prep Papanicolaou smear with manual screening 7 12-05 [facility] Work Phone: Thin prep Papanicolaou smear with manual screening 114 U/L [facility] Work Phone: Thin prep Papanicolaou smear with manual screening 6 12-05 [facility] Work Phone: Urine blood detectionon 05-24 RBC Ql (U) Negative Negative [facility] Work Phone: RBC Ql (U) 0 SEEN /hpf 0-5 [facility] Work Phone: Urine clarityon 06-07-2022 Clarity (U) Clear Clear [facility] Work Phone: Urine color determinationon 06-07-2022 Color (U) Yellow Yellow [facility] Work Phone: Urine glucose detectionon Glucose Ql (U) Normal mg/dl Normal [facility] Work Phone: Urine leukocyte esterase det ection by dipstickon 06-07-2022 Leukocyte esterase Test strip Ql (U) Negative Negative [facility] Work Phone: Urine pHon 06-07-2022 pH (U) 7.0 [pH] 5.0 - 8.0 [facility] Work Phone: Urine sediment bacteria coun t by microscopy (number/high power field)on 06-07-2022 Bacteria LM.HPF (Urine sed) [#/Area] 0 /[HPF] None Seen [facility] Work Phone: Urine specific gravity measu rementon 06-07-2022 Specific gravity (U) [Rel density] 1.010 1.002-1.030 [facility] Work Phone: Urobilinogen Auto test strip Ql (U)on 06-07-2022 Urobilinogen Ql (U) Normal mg/dl Normal [facility] Work Phone: Absolute lymphocyte counton 05-31-2022 Lymphocytes Auto (Unsp spec) [#/Vol] 4.47 10*3/uL 0.83-4.51 [facility] Work Phone: Basophil percentageon 2021 Basophil percentage 0-5 SEEN /hpf 0-5 [facility] Work Phone: Basophils/100 WBC (Bld) 1.1 % 0-1 [facility] Work Phone: Bilirubin [Mass/Vol] 0.40 mg/dL 0.20-1.00 [facility] Work Phone: Comment on above: For patients on eltr ombopag therapy, use of Dimension [place] TBIL is not recommended. Chloride [Moles/Vol] 100 mmol/L 98-107 [facility] Work Phone: Eosinophils/100 WBC (Bld) 1.1 % 0-5 [facility] Work Phone: Glucose [Mass/Vol] 157 mg/dL 74-106 [facility] Work Phone: Comment on above: Fasting Glucose resu lt greater than or equal to 126 mg/dL suggests DIABETES MELLITUS per A.D.A. criteria. Neutrophils (Bld) [#/Vol] 3.3 10*3/uL 2.0-7.7 [facility] Work Phone: Neutrophils/100 WBC (Bld) 38.7 % 47-70 [facility] Work Phone: Potassium [Moles/Vol] 3.5 mmol/L 3.5-5.1 [facility] Work Phone: [phone] Protein [Mass/Vol] 7.6 g/dL 6.4-8.2 [facility] Work Phone: Sodium [Moles/Vol] 134 mmol/L 136-145 [facility] Work Phone: WBC (Bld) [#/Vol] 8.4 10*3/uL 4.4-11.0 [facility] Work Phone: Bilirubin Test strip Ql (U)o n 05-31-2022 Bilirubin Ql (U) Negative Negative [facility] Work Phone: Blood erythrocytes count (nu mber/volume)on 05-31-2022 RBC (Bld) [#/Vol] 4.29 10*6/uL 4.2-5.4 [facility] Work [facility]: Blood hemoglobin measurement (mass/volume)on 05-31-2022 Hemoglobin (Bld) [Mass/Vol] 11.6 g/dL 12.0-15.0 [facility] Work Phone: Blood lymphocytes/100 leukoc yteson 05-31-2022 Lymphocytes/100 WBC (Bld) 53.1 % 19-41 [facility] Work Phone: Blood manual differential co mment interpretation (narrative result)on 05-31-2022 Manual differential comment Sesar (Bld) [Interp] SCANNED [facility] Work Phone: Blood monocytes/100 leukocyt eson 05-31-2022 Monocytes/100 WBC (Bld) 5.2 % 0-10 [facility] Work Phone: Blood platelet mean volumeon 05-31-2022 Platelet mean volume (Bld) [Entitic vol] 10.8 fL 6.2-12.0 [facility] Work Phone: Determination of erythrocyte mean corpuscular volume (MCV)on 05-31-2022 MCV (RBC) [Entitic vol] 85.8 fL 81-99 [facility] Work Phone: Hematocrit Auto (Bld) [Volum e fraction]on 05-31-2022 Hematocrit (Bld) [Volume fraction] 36.8 % 37-47 [facility] Work Phone: Ketones Test strip Ql (U)on 05-31-2022 Ketones Ql (U) 5 mg/dl Negative [facility] Work Phone: Laboratory - Chemistry and C hemistry - challengeon 05-31-2022 ALP [Catalytic activity/Vol] 120 U/L 45-117 [facility] Work Phone: ALT [Catalytic activity/Vol] 161 U/L 13-56 [facility] Work Phone: CO2 [Moles/Vol] 26.0 mmol/L 21.0-32.0 [facility] Work Phone: Globulin (S) [Mass/Vol] 4.2 g/dL 2.2-4.2 [facility] Work Phone: Urea nitrogen/Creatinine [Mass ratio] 5.7 mg/mg 10-20 [facility] Work Phone: Laboratory - Hematology and Cell countson 05-31-2022 Erythrocyte distribution width (RBC) [Entitic vol] 45.0 fL 35.1-43.9 [facility] Work Phone: Erythrocyte distribution width (RBC) [Ratio] 14.5 % 11.6-14.6 [facility] Work Phone: Immature granulocytes/100 WBC (Bld) 0.800 % 0.0-0.9 [facility] Work Phone: Comment on above: IG% - Immature Granu locytes (promyelocytes, myelocytes and metamyelocytes) > 1% indicates that a LEFT SHIFT is Present. MCH (RBC) [Entitic mass] 27.0 pg 27.0-32.0 [facility] Work Phone: Nucleated RBC/100 WBC (Bld) [Ratio] 0 % 0-5 [facility] Work Phone: MCHC Auto (RBC) [Mass/Vol]on 05-31-2022 MCHC (RBC) [Mass/Vol] 31.5 g/dL 32-36 [facility] Work Phone: Mucus LM Ql (Urine sed)on Mucus Ql (Urine sed) 0 SEEN /hpf [facility] Work Phone: Nitrite Test strip Ql (U)on 05-31-2022 Nitrite Ql (U) Negative Negative [facility] Work Phone: No Panel Informationon 05-31 Estimated GFR (MDRD) Amer 85 mL/min >60 [facility] Work Phone: Comment on above: GFR Calc Estimated GFR (MDRD) Non-Af Amer 70 mL/min >60 [facility] Work Phone: Comment on above: Non- GFR Calc Reactive Lymphocytes 1+ [facility] Work Phone: Platelets bldon 05-31-2022 Platelets (Bld) [#/Vol] 200 10*3/uL 150-450 [facility] Work Phone: Protein Test strip Ql (U)on 05-31-2022 Protein Ql (U) 30 mg/dl Negative [facility] Work Phone: Serum or plasma albumin zeeshan urement (mass/volume)on 05-31-2022 Albumin [Mass/Vol] 3.4 g/dL 3.2-5.0 [facility] Work Phone: Serum or plasma albumin/glob ulin mass ratioon 05-31-2022 Albumin/Globulin [Mass ratio] 0.8 {ratio} 0.9-2.4 [facility] Work Phone: Serum or plasma calcium zeeshan urement (mass/volume)on 05-31-2022 Calcium [Mass/Vol] 8.6 mg/dL 8.5-10.1 [facility] Work Phone: Serum or plasma creatinine m easurement (mass/volume)on 05-31-2022 Creatinine [Mass/Vol] 0.87 mg/dL 0.55-1.02 [facility] Work Phone: Comment on above: The validity of the calculated GFR & GFRAA in patients over 70 years has not been determined. Clinical correlation is essential. Serum or plasma urea nitroge n measurement (mass/volume)on 05-31-2022 Urea nitrogen [Mass/Vol] 5 mg/dL 7-18 [facility] Work Phone: Squamous epithelial cells de tection in urine sediment by light microscopyon 05-31-2022 Epithelial cells.squamous LM Ql (Urine sed) 0-5 SEEN /hpf 5-10 [facility] Work Phone: Thin prep Papanicolaou smear with manual screeningon 05-31-2022 Thin prep Papanicolaou smear with manual screening 102 U/L 15-37 [facility] Work Phone: Thin prep Papanicolaou smear with manual screening 8 5-15 [facility] Work Phone: Urine blood detectionon RBC Ql (U) 10 /ul Negative [facility] Work Phone: RBC Ql (U) 0-5 SEEN /hpf 0-5 [facility] Work Phone: Urine clarityon 05-31-2022 Clarity (U) Sl. Cloudy Clear [facility] Work Phone: Urine color determinationon 05-31-2022 Color (U) Yellow Yellow [facility] Work Phone: Urine glucose detectionon Glucose Ql (U) Normal mg/dl Normal [facility] Work Phone: Urine leukocyte esterase det ection by dipstickon 05-31-2022 Leukocyte esterase Test strip Ql (U) 25 /ul Negative [facility] Work Phone: Urine pHon 05-31-2022 pH (U) 7.0 [pH] 5.0 - 8.0 [facility] Work Phone: Urine sediment bacteria coun t by microscopy (number/high power field)on 05-31-2022 Bacteria LM.HPF (Urine sed) [#/Area] 1 /[HPF] None Seen [facility] Work Phone: Urine specific gravity measu rementon 05-31-2022 Specific gravity (U) [Rel density] 1.010 1.002-1.030 [facility] Work Phone: Urobilinogen Auto test strip Ql (U)on 05-31-2022 Urobilinogen Ql (U) Normal mg/dl Normal [facility] Work Phone: Absolute lymphocyte counton 05-26-2022 Lymphocytes Auto (Unsp spec) [#/Vol] 2.36 10*3/uL 0.83-4.51 [facility] Work Phone: Basophil percentageon 2021 Basophils/100 WBC (Bld) 0.7 % 0-1 [facility] Work Phone: Chloride [Moles/Vol] 103 mmol/L 98-107 [facility] Work Phone: Eosinophils/100 WBC (Bld) 1.6 % 0-5 [facility] Work Phone: Glucose [Mass/Vol] 111 mg/dL 74-106 [facility] Work Phone: Comment on above: Fasting Glucose resu lt from 100 to 125 mg/dL suggests IMPAIRED HOMEOSTASIS per A.D.A. criteria. Neutrophils (Bld) [#/Vol] 3.0 10*3/uL 2.0-7.7 [facility] Work Phone: Neutrophils/100 WBC (Bld) 48.8 % 47-70 [facility] Work Phone: Potassium [Moles/Vol] 3.9 mmol/L 3.5-5.1 [facility] Work Phone: Sodium [Moles/Vol] 137 mmol/L 136-145 [facility] Work Phone: WBC (Bld) [#/Vol] 6.1 10*3/uL 4.4-11.0 [facility] Work Phone: Blood erythrocytes count (nu mber/volume)on 05-26-2022 RBC (Bld) [#/Vol] 3.90 10*6/uL 4.2-5.4 [facility] Work [facility]: Blood hemoglobin measurement (mass/volume)on 05-26-2022 Hemoglobin (Bld) [Mass/Vol] 10.9 g/dL 12.0-15.0 [facility] Work Phone: Blood lymphocytes/100 leukoc yteson 05-26-2022 Lymphocytes/100 WBC (Bld) 38.7 % 19-41 [facility] Work Phone: Blood manual differential co mment interpretation (narrative result)on 05-26-2022 Manual differential comment Sesar (Bld) [Interp] SCANNED [facility] Work Phone: Blood monocytes/100 leukocyt eson 05-26-2022 Monocytes/100 WBC (Bld) 9.2 % 0-10 [facility] Work Phone: Blood platelet mean volumeon 05-26-2022 Platelet mean volume (Bld) [Entitic vol] 10.2 fL 6.2-12.0 [facility] Work Phone: Determination of erythrocyte mean corpuscular volume (MCV)on 05-26-2022 MCV (RBC) [Entitic vol] 85.4 fL 81-99 [facility] Work Phone: Hematocrit Auto (Bld) [Volum e fraction]on 05-26-2022 Hematocrit (Bld) [Volume fraction] 33.3 % 37-47 [facility] Work Phone: Laboratory - Chemistry and C hemistry - challengeon 05-26-2022 CO2 [Moles/Vol] 28.0 mmol/L 21.0-32.0 [facility] Work Phone: Urea nitrogen/Creatinine [Mass ratio] 10.4 mg/mg 10-20 [facility] Work Phone: Laboratory - Hematology and Cell countson 05-26-2022 Erythrocyte distribution width (RBC) [Entitic vol] 43.5 fL 35.1-43.9 [facility] Work Phone: Erythrocyte distribution width (RBC) [Ratio] 14.0 % 11.6-14.6 [facility] Work Phone: Immature granulocytes/100 WBC (Bld) 1.000 % 0.0-0.9 [facility] Work Phone: Comment on above: IG% - Immature Granu locytes (promyelocytes, myelocytes and metamyelocytes) > 1% indicates that a LEFT SHIFT is Present. MCH (RBC) [Entitic mass] 27.9 pg 27.0-32.0 [facility] Work Phone: Nucleated RBC/100 WBC (Bld) [Ratio] 0 % 0-5 [facility] Work Phone: MCHC Auto (RBC) [Mass/Vol]on 05-26-2022 MCHC (RBC) [Mass/Vol] 32.7 g/dL 32-36 [facility] Work [facility]: No Panel Informationon 05-26 Troponin I High Sensitivity < 3 pg/mL 3.0-54.0 [facility] Work Phone: Comment on above: Please Note: [place] t Units and Gender Specific Reference Ranges. For more information see Policy Stat Procedure [place] High Sensitivity Troponin (TNIH) and attachments. Atypical Lymphocytes RARE % [facility] Work Phone: Estimated Creatinine Clearance Calc 61.88 ml/min [facility] Work Phone: Estimated GFR (MDRD) Amer 86 mL/min >60 [facility] Work Phone: Comment on above: GFR Calc Estimated GFR (MDRD) Non-Af Amer 71 mL/min >60 [facility] Work Phone: Comment on above: Non- GFR Calc Platelets bldon 05-26-2022 Platelets (Bld) [#/Vol] 170 10*3/uL 150-450 [facility] Work Phone: Serum or plasma calcium zeeshan urement (mass/volume)on 05-26-2022 Calcium [Mass/Vol] 8.8 mg/dL 8.5-10.1 [facility] Work Phone: Serum or plasma creatinine m easurement (mass/volume)on 05-26-2022 Creatinine [Mass/Vol] 0.87 mg/dL 0.55-1.02 [facility] Work Phone: Comment on above: The validity of the calculated GFR & GFRAA in patients over 70 years has not been determined. Clinical correlation is essential. Serum or plasma urea nitroge n measurement (mass/volume)on 05-26-2022 Urea nitrogen [Mass/Vol] 9 mg/dL 7-18 [facility] Work Phone: Thin prep Papanicolaou smear with manual screeningon 05-26-2022 Thin prep Papanicolaou smear with manual screening 6 5-15 [facility] Work Phone: LIPID PANEL (OUTSIDE)on Cholesterol [Mass/Vol] 172 mg/dL [facility] Cholesterol in HDL [Mass/Vol] 51 mg/dL [facility] Cholesterol in LDL [Mass/Vol] 105 mg/dL [facility] LDL:HDL Ratio [facility] Non-HDL Cholesterol [facility] TC:HDL Ratio [facility] Triglyceride [Mass/Vol] 82 mg/dL C [facility] VLDL Cholesterol [facility] IRON PANELon 01-09-2018 Iron 52 ug/dL Normal 50-170 [facility] Comment on above: Result Comment: Shey ents treated with metal-binding drugs (e.g.deferoxamine)may have depressed iron values, as chelated iron may notproperly react in the Siemens iron assay. Performed By: #### L [id number] ####[facility] [id number] [place], [place] [address]Zy# [phone] IRON SAT 15 % Low 22-44 [facility]: Performed By: #### L 500.12757 ####[facility] [id number] [place], [place] [address]Bi# [phone] TIBC 356 UG/DL Normal 221-481 [facility] Comment on above: Performed By: #### L [id number] ####[facility] [id number] [place] [address]Hx# [phone] CBC W/DIFFon 01-08-2018 BASO ABS 0.00 K/CU MM Normal 0-0.2 [facility] Comment on above: Performed By: #### L [id number] ####[facility] [id number] [place], [place] [address]Rf# [phone] Basophils/100 WBC Auto (Bld) 0.5 % Normal 0-2 [facility] Comment [facility] above: Performed By: #### L [id number] ####[facility] [id number] [place], [place] [address]Li# [phone] EOS ABS 0.10 K/CU MM Normal 0-0.5 [facility] Comment on above: Performed By: #### L 200.56013 ####[facility] [id number] [place], [place] [address]Ok# [phone] Eosinophils/100 leukocytes 1.4 % Normal 0-5 [facility] Comment [facility] above: Performed By: #### L 200.15586 ####[facility] [id number] [place], [place] [address]An# [phone] Erythrocyte distribution width Auto Ratio (RBC) 12.8 % Normal 11-14.5 [facility] Comment on above: Performed By: #### L 200.66586 ####[facility] [id number] [place], [place] [address]Vp# [phone] Erythrocytes (RBC) 4.42 M/CU MM Normal 3.90-5.30 [facility] Comment on above: Performed By: #### L 200.78446 ####[facility] [id number] [place] [address]Td# [phone] Erythrocytes (RBC) 0.0 % Normal Less than 1 [facility] Comment on above: Performed By: #### L 200.73906 ####[facility] [id number] [place] [address]Hn# [phone] Hematocrit (HCT) 39.9 % Normal 35.0-47.0 [facility] Comment on above: Performed By: #### L 200.04335 ####[facility] [id number] [place] [address]Pm# [phone] Hemoglobin mass conc (Bld) 12.5 g/dL Normal 11.5-15.5 [facility] Comment on above: Performed By: #### L 200.92713 ####[facility] [id number] [place] [address]Au# [phone] IMMATR GRAN ABS 0.00 K/CU MM Normal Less than 2 [facility] Comment on above: Performed By: #### L 200.74135 ####[facility] [id number] [place] [address]Yz# [phone] IMMATURE GRAN % 0.3 % Normal Less than 2 [facility] Comment on above: Performed By: #### L 200.93489 ####[facility] [id number] [place] [address]Qb# [phone] Lymphocytes 1.90 K/CU MM Normal 0.9-4.4 [facility] Comment on above: Performed By: #### L 200.04543 ####[facility] [id number] [place], [place] [address]Vv# [phone] Lymphocytes/100 leukocytes 23.9 % Normal 20-40 [facility] Comment on above: Performed By: #### L 200.02955 ####[facility] [id number] [place], [place] [id number]# [phone] MCHC mass conc (RBC) 31.3 g/dL Low 32.0-36.0 [facility] Comment on above: Performed By: #### L 200.05871 ####[facility] [id number] [place] [address]Zr# [phone] MCV 90.3 fL Normal 80.0-99.0 [facility] Comment on above: Performed By: #### L 200.90857 ####[facility] [id number] [place], [place] [address]Ph# [phone] MONO ABS 0.80 K/CU MM Normal 0.1-1.1 [facility] Comment on above: Performed By: #### L 200.85932 ####[facility] [id number] [place], [place] [address]Lo# [phone] Monocytes/100 leukocytes 9.8 % Normal 2-10 [facility] Comment on above: Performed By: #### L 200.20437 ####[facility] [id number] [place] [address]Cd# [phone] Neutrophils 5.00 K/CU MM Normal 2.0-8.3 [facility] Comment on above: Performed By: #### L 200.32128 ####[facility] [id number] [place] [address]Vb# [phone] Neutrophils/100 WBC Auto (Bld) 64.1 % Normal 45-75 [facility] Comment on above: Performed By: #### L 200.04607 ####[facility] [id number] [place], [place] [address]Bt# [phone] Platelet mean volume (PMV) 11.2 fL Normal 9.4-12.4 [facility] Comment on above: Performed By: #### L 200.98172 ####[facility] [id number] [place], [place] [address]Ho# [phone] Platelets 242 K/CU MM Normal 150-450 [facility] Comment on above: Performed By: #### L 200.45472 ####[facility] [id number] [place], [place] [address]Uc# [phone] WBC (Leukocytes) 7.7 K/CU MM Normal 4.5-11.0 [facility] Comment on above: Performed By: #### L 200.37396 ####[facility] [id number] [place], [place] [address]Xl# [phone] CHEST PA/AP AND LATERALon [facility] CHEST PA/AP & LATERALOrdering Physician: David Torres MD04/04/2017 11:16 AMCHEST PA AND LATERALClinical Statement: Cough, chest heaviness, chest pain, shortness ofbreathComparison: NoneFINDINGS: The heart size and mediastinal contours are within normallimits. The lungs are clear and well-expanded. There is no acuteinfiltrate, venous congestion, or pleural effusion. There is mildthoracic scoliosis.IMPRESSIO N:No radiographically acute cardiopulmonary process. ---- Electronic Signature on File ----Signed By: Cas Young [email or web address].htmDictated: 04/04/2017 11:53 AMSigned: 04/04/2017 11:54 AM Reported By: CAS YOUNG M.D. Signed By: CAS YOUNG M.D. Normal [facility] IRONon 04-04-2017 Iron 91 ug/dL Normal 50-170 [facility] Comment on above: Result Comment: Shey ents treated with metal-binding drugs (e.g.deferoxamine)may have depressed iron values, as chelated iron may notproperly react in the Siemens iron assay. Performed By: #### L 500.83223 ####[facility] [id number] [place], [place] [address]Nh# [phone] Culture, urine Bacteria identified Cx Nom (U) Culture exhibits no growth. [facility] Work Phone: Gram stain for investigation of transfusion reaction Microscopic observation Gram stain Nom (Unsp spec) [facility] Work Phone: No Panel Information SARS-CoV-2 & FLU Antigen (Rapid) [facility] Work Phone: Vital Signs Date Time Vital Sign Value Performing Clinician Faci lity 12-23-2024 08:58-0400 Body temperature 97.9 [degF] Dr. Xiomy Schaffer MD Work Phone: [facility] 12-23-2024 08:58-0400 Diastolic blood pressure 84 mm[Hg] Dr. Xiomy Schaffer MD Work Phone: [facility] 12-23-2024 08:58-0400 Heart rate 91 /min Dr. Xiomy Schaffer MD Work Phone: [facility] 12-23-2024 08:58-0400 SaO2% (BldA) [Mass fraction] 97 % Dr. Xiomy Schaffer MD Work Phone: [facility] 12-23-2024 08:58-0400 Systolic blood pressure 120 mm[Hg] Dr. Xiomy Schaffer MD Work Phone: [facility] 09-14-2024 13:00-0500 Body temperature 98.1 [degF] Dr. Xiomy Schaffer MD Work Phone: [facility] 09-14-2024 13:00-0500 Diastolic blood pressure 74 mm[Hg] Dr. Xiomy Schaffer MD Work Phone: [facility] 09-14-2024 13:00-0500 Heart rate 108 /min Dr. Xiomy Schaffer MD Work Phone: [facility] 09-14-2024 13:00-0500 Respiratory rate 15 /min Dr. Xiomy Schaffer MD Work Phone: [facility] 09-14-2024 13:00-0500 SaO2% (BldA) [Mass fraction] 97 % Dr. Xiomy Schaffer MD Work Phone: [facility] 09-14-2024 13:00-0500 Systolic blood pressure 140 mm[Hg] Dr. Xiomy Schaffer MD Work Phone: [facility] 05-01-2023 12:59-0400 Body height 165.[address] Xiomy Schaffer Work Phone: [facility] 05-01-2023 12:59-0400 Body mass index (BMI) [Ratio] 33.1 kg/m2 Dr. Xiomy Schaffer Work Phone: [facility] 05-01-2023 12:59-0400 Body temperature 97.1 [degF] Dr. Xiomy Schaffer Work Phone: [facility] 05-01-2023 12:59-0400 Body weight 90.[address] Xiomy Schaffer Work Phone: [facility] 05-01-2023 12:59-0400 Diastolic blood pressure 74 mm[Hg] Dr. Xiomy Schaffer Work Phone: [facility] 05-01-2023 12:59-0400 Heart rate 84 /min Dr. Xiomy Schaffer Work Phone: [facility] 05-01-2023 12:59-0400 Respiratory rate 16 /min Dr. Xiomy Schaffer Work Phone: [facility] 05-01-2023 12:59-0400 SaO2% (BldA) [Mass fraction] 96 % Dr. Xiomy Schaffer Work Phone: [facility] 05-01-2023 12:59-0400 Systolic blood pressure 108 mm[Hg] Dr. Xiomy Schaffer Work Phone: [facility] 06-07-2022 13:18-0500 Body height 165.[address] David Torres Work Phone: [facility] Work Phone: 06-07-2022 13:18-0500 Body mass index (BMI) [Ratio] 33 kg/m2 Dr. David Torres Work Phone: [facility] Work Phone: 06-07-2022 13:18-0500 Body temperature 98.1 [degF] Dr. David Torres Work Phone: [facility] Work Phone: 06-07-2022 13:18-0500 Body weight [address] David Torres Work Phone: [facility] Work Phone: 06-07-2022 13:18-0500 Diastolic blood pressure 79 mm[Hg] Dr. David Torres Work Phone: [facility] Work Phone: 06-07-2022 13:18-0500 Heart rate 110 /min Dr. David Torres Work Phone: [facility] Work Phone: 06-07-2022 13:18-0500 Respiratory rate 16 /min Dr. David Torres Work Phone: [facility] Work Phone: 06-07-2022 13:18-0500 SaO2% (BldA) [Mass fraction] 96 % Dr. David Torres Work Phone: [facility] Work Phone: 06-07-2022 13:18-0500 Systolic blood pressure 124 mm[Hg] Dr. David Torres Work Phone: [facility] Work Phone: 06-07-2022 08:16-0500 Body temperature 95.6 [degF] Dr. David Torres Work Phone: [facility] Work Phone: 06-07-2022 08:16-0500 Body weight 90.[address] David Torres Work Phone: [facility] Work Phone: 06-07-2022 08:16-0500 Diastolic blood pressure 78 mm[Hg] Dr. David Torres Work Phone: [facility] Work Phone: 06-07-2022 08:16-0500 Heart rate 110 /min Dr. David Torres Work Phone: [facility] Work Phone: 06-07-2022 08:16-0500 Respiratory rate 16 /min Dr. David Torres Work Phone: [facility] Work Phone: 06-07-2022 08:16-0500 SaO2% (BldA) [Mass fraction] 97 % Dr. David Torres Work Phone: [facility] Work Phone: 06-07-2022 08:16-0500 Systolic blood pressure 116 mm[Hg] Dr. David Torres Work Phone: [facility] Work Phone: 05-31-2022 09:29-0500 Body height 165.[address] David Torres Work Phone: [facility] Work Phone: 05-31-2022 09:29-0500 Body mass index (BMI) [Ratio] 32.5 kg/m2 Dr. David Torres Work Phone: [facility] Work Phone: 05-31-2022 09:29-0500 Body temperature 97.7 [degF] Dr. Davdi Torres Work Phone: [facility] Work Phone: 05-31-2022 09:29-0500 Body weight 88.[address] David Torres Work Phone: [facility] Work Phone: 05-31-2022 09:29-0500 Diastolic blood pressure 64 mm[Hg] Dr. David Torres Work Phone: [facility] Work Phone: 05-31-2022 09:29-0500 Heart rate 111 /min Dr. David Torres Work Phone: [facility] Work Phone: 05-31-2022 09:29-0500 Respiratory rate 20 /min Dr. David Torres Work Phone: [facility] Work Phone: 05-31-2022 09:29-0500 SaO2% (BldA) [Mass fraction] 97 % Dr. David Torres Work Phone: [facility] Work Phone: 05-31-2022 09:29-0500 Systolic blood pressure 130 mm[Hg] Dr. David Torres Work Phone: [facility] Work Phone: 05-26-2022 21:25-0400 Diastolic blood pressure 81 mm[Hg] [facility] Work Phone: 05-26-2022 21:25-0400 Heart rate 104 /min [facility] Work Phone: 05-26-2022 21:25-0400 Respiratory rate 16 /min [facility] Work Phone: 05-26-2022 21:25-0400 SaO2% (BldA) [Mass fraction] 96 % [facility] Work Phone: 05-26-2022 21:25-0400 Systolic blood pressure 140 mm[Hg] [facility] Work Phone: 05-26-2022 18:15-0400 Body temperature 97.2 [degF] [facility] Work Phone: 05-26-2022 16:24-0400 Body height 165.1 cm [facility] Work Phone: 05-26-2022 16:24-0400 Body mass index (BMI) [Ratio] 29.9 kg/m2 [facility] Work Phone: 05-26-2022 16:24-0400 Body weight 81.64 kg [facility] Work Phone: 02-28-2022 15:24-0400 Body height 165.1 cm David Torres MD Work Phone: [facility] 02-28-2022 15:24-0400 Body temperature 97.3 [degF] David Torres MD Work Phone: [facility] 02-28-2022 15:24-0400 Body weight 88 kg David Torres MD Work Phone: [facility] 02-28-2022 15:24-0400 Diastolic blood pressure 80 mm[Hg] David Torres MD Work Phone: [facility] 02-28-2022 15:24-0400 Heart rate 102 /min David Torres MD Work Phone: [facility] 02-28-2022 15:24-0400 Respiratory rate 14 /min David Torres MD Work Phone: [facility] 02-28-2022 15:24-0400 SaO2% (BldA) [Mass fraction] 97 % David Torres MD Work Phone: [facility] 02-28-2022 15:24-0400 Systolic blood pressure 122 mm[Hg] David Torres MD Work Phone: [facility] 08-01-2019 13:45-0500 Body weight 82.56 kg David Torres MD Work Phone: [facility] 08-01-2019 13:45-0500 Diastolic blood pressure 80 mm[Hg] David Torres MD Work Phone: [facility] 08-01-2019 13:45-0500 Heart rate 78 /min David Torres MD Work Phone: [facility] 08-01-2019 13:45-0500 Respiratory rate 16 /min David Torres MD Work Phone: [facility] 08-01-2019 13:45-0500 SaO2% (BldA) [Mass fraction] 100 % David Torres MD Work Phone: [facility] 08-01-2019 13:45-0500 Systolic blood pressure 140 mm[Hg] David Torres MD Work Phone: [facility] Encounters Encounter Date Encounter Type Care Provider Facility Start: 12-23-2024 End: 12-23-2024 Patient encounter procedure Steve Cash PA [facility] Work Phone: Start: 12-23-2024 End: 12-23-[address] 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 -[facility] Work Phone: Start: 09-14-2024 End: 09-14-2024 ambulatory Xiomy Sarbjit Facility:[facility] Start: 09-05-2024 Encounter for genera l adult medical examination without abnormal findings Xiomy Schaffer [facility] Start: 08-13-2024 End: 08-13-2024 ambulatory Xiomy Sarbjit Facility:[facility] Start: 07-26-2024 ambulatory Xiomy Sarbjit Facility :[facility] Start: 07-16-2024 End: 07-16-2024 ambulatory Xiomy [place] Facility:[facility] Start: 06-25-2024 End: 06-25-2024 ambulatory Xiomy [place] Facility:[facility] Start: 06-25-2024 End: 06-25-2024 ambulatory Xiomy Schaffer Facility:[facility] Start: 04-02-2024 End: 04-02-2024 ambulatory Xiomy Schaffer Facility:[facility] Start: 12-26-2023 End: 12-26-2023 ambulatory Miranda Guerra Facility:[facility] Start: 10-25-2023 End: 10-30-2023 ambulatory MIRANDA GUERRA MD Facility:[facility] Start: 10-25-2023 End: 10-29-2023 Outreach Lab MIRANDA GUERRA MD [facility] Start: 05-01-2023 End: 05-01-[address] Xiomy Schaffer Work Phone: [facility] Work Phone: Start: 05-01-2023 End: 05-01-[address] Xiomy Schaffer Work Phone: [facility] Work Phone: Start: 06-07-2022 End: 06-07-2022 Emergency department patient visit Dr. David Torres Work Phone: [facility]Emergency Department Start: 06-07-[address] [facility] Start: 06-07-2022 End: 06-07-[address] David Torres Work Phone: [facility] Start: 05-31-2022 End: 05-31-[address] David Torres Work Phone: [facility] Work Phone: Start: 05-31-2022 End: 05-31-[address] [facility] Start: 05-31-2022 End: 05-31-[address] David Torres Work Phone: [facility] Start: 05-26-2022 End: 05-26-2022 Emergency department patient visit [facility] Start: 04-12-2022 End: 04-12-2022 ambulatory [facility] Work Phone: Start: 04-12-2022 End: 04-12-2022 Patient encounter procedure [facility]Outpatient Breast Imaging Start: 03-15-2022 Telephone encounter David Torres MD Work Phone: [facility] Comment on above: Patient Update Start: 02-28-2022 End: 02-28-2022 Office outpatient visit 15 minutes David Torres MD Work Phone: [facility] Comment on above: Benign essential HTN (Primary Dx); Fibromyalgia; Other iron deficiency anemia Start: 02-25-2022 Chart abstracting David Torres MD Work Phone: [facility] Start: 02-21-2022 Refill David Byrd MD Work Phone: [facility] Comment on above: Refill Request Start: 12-10-2021 Chart abstracting David Torres MD Work Phone: [facility] Start: 01-08-2018 Ambulatory David Torres Facilit y:[facility] Start: 04-04-2017 Ambulatory David Torres Facilit y:[facility] Procedures Date Procedure Procedure Detail Performing Clinician Start: 05-01-[address] Roberto Schaffer Work Phone: Start: 06-07-2022 Computed tomography of abdomen and pelvis with intravenous contrast Dr. David Torres Work Phone: Start: 05-26-2022 Plain chest X-ray Start: 04-12-2022 Screening mammography Start: 08-24-2021 Lipid panel David Torres MD Work Phone: Start: 04-16-2018 Colonoscopy David galeas MD Work Phone: Biopsy of vulva MIRANDA GUERRA MD Dilation and curettage STEVO GUERRA MD Endometrial ablation MIRANDA GUERRA MD Investigation of transfusion reaction Dr. David Torres Work Phone: Ligation of fallopian tube Kim GUERRA MD Respiratory microbia l culture Dr. David Torres Work Phone: SARS-CoV-2 & FLU Ant igen (Rapid) Urine culture Dr. David galeas Work Phone: Plan of Treatment Date Care Activity Detail Author Start: 04-16-2028 Colonoscopy COLONOSCOPY [facility] Start: 04-16-2028 COLORECTAL CANCER SCREENING COLORECTAL CANCER SCREENING [facility] Start: 08-24-2026 LIPID SCREEN LIPID SCREEN [facility] Start: 02-28-2023 ANNUAL PCP TEAM CHRONIC DISEASE VISIT ANNUAL PCP TEAM CHRONIC DISEASE VISIT [facility] Start: 05-26-2022 End: 05-26-2022 [facility] Work Phone: Start: 03-24-2022 Influenza vaccination INFLUENZA (#1) [facility] Start: 11-23-2021 COVID-19 VACCINE (4 - Booster for Pfizer series) COVID-19 VACCINE (4 - Booster for Pfizer series) [facility] Start: 09-22-2011 SHINGRIX VACCINE (1 of 2) SHINGRIX VACCINE (1 of 2) [facility] Start: 2006 COLOGUARD (FIT-DNA) COLOGUARD (FIT-DNA) [facility] Start: 2006 Colonoscopy COLONOSCOPY [facility] Start: 2006 COLORECTAL CANCER SCREENING COLORECTAL CANCER SCREENING [facility] Start: [address] COLONOGRAPHY [facility] Start: 2006 DIABETES SCREEN DIABETES SCREEN [facility] Start: 2006 FECAL OCCULT BLOOD FECAL OCCULT BLOOD [facility] Start: 2006 LIPID SCREEN LIPID SCREEN [facility] Start: 2006 SIGMOIDOSCOPY SIGMOIDOSCOPY [facility] Start: 2001 Mammography MAMMOGRAM [facility] Start: 09-22-1991 HPV TESTING HPV TESTING [facility] Start: 1982 PAP TESTING PAP TESTING [facility] Start: 1980 Urine microalbumin profile DTAP,TDAP,TD (1 - Tdap) [facility] Start: 09-22-1979 BP CONTROLLED (<130/80) BP CONTROLLED (<130/80) [facility] Start: 09-22-1979 HEPATITIS C SCREENING HEPATITIS C SCREENING [facility] Start: 09-22-1979 HIV SCREENING HIV SCREENING [facility] Start: 1973 Adult depression screening assessment DEPRESSION SCREENING [facility] Start: 1966 COVID-19 VACCINE (#1) COVID-19 VACCINE (#1) [facility] Start: 03-24-1962 COVID-19 VACCINE (#1) COVID-19 VACCINE (#1) [facility] CT Abdomen and Pelvi s W contrast IV [facility] Work Phone: Patient Education [facility] Work Phone: Patient referral [facility] Work Phone: [facility] Immunizations Immunization Date Immunization Notes Care Provider [facility] 05-07-2024 Seasonal, quadrivale nt, recombinant, injectable influenza vaccine, preservative free Dr. Xiomy Schaffer MD Work Phone: [facility] 03-05-[address] Xiomy Schaffer MD Work Phone: [facility] 08-08-2023 influenza, injectabl e, quadrivalent, preservative free Dr. Xiomy Schaffer MD Work Phone: [facility] 03-26-2023 Pneumococcal Vaccine PCV20 (Prevnar 20) Dr. Xiomy Schaffer Work Phone: [facility] 05-05-2022 influenza, injectabl e, quadrivalent, preservative free Dr. Xiomy Schaffer Work Phone: [facility] 05-05-2022 influenza, seasonal, injectable Dr. David Torres Work Phone: [facility] Work Phone: 05-05-2022 Seasonal, quadrivale nt, recombinant, injectable influenza vaccine, preservative free Dr. Xiomy Schaffer Work Phone: [facility] 05-05-[address] David Torres Work Phone: [facility] 03-22-2022 Covid (Pfizer) Dr. David romero Work Phone: [facility] 07-26-2021 Covid (Pfizer) Dr. David romero Work Phone: [facility] 05-09-2021 influenza (aIIV4) vaccine, age 65+ yr, quadrivalent, PF (FLUAD QUADRIVALENT) David Torres MD Work Phone: [facility] 05-09-2021 influenza, injectabl e, quadrivalent, preservative free Dr. Xiomy Schaffer Work Phone: [facility] 05-09-2021 influenza, seasonal, injectable Dr. David Torres Work Phone: [facility] Work Phone: 05-09-2021 Seasonal, quadrivale nt, recombinant, injectable influenza vaccine, preservative free Dr. Xiomy Schaffer Work Phone: [facility] 11-04-2020 Covid (Pfizer) Dr. David romero Work Phone: [facility] 10-15-2020 Covid (Pfizer) Dr. David romero Work Phone: [facility] 05-07-2020 influenza, injectabl e, quadrivalent, preservative free Dr. Xiomy Schaffer Work Phone: [facility] 05-07-2020 influenza, seasonal, injectable Dr. David Torres Work Phone: [facility] Work Phone: 05-07-2020 Seasonal, quadrivale nt, recombinant, injectable influenza vaccine, preservative free Dr. Xiomy Schaffer Work Phone: [facility] 05-01-2019 influenza, injectabl e, quadrivalent, preservative free Dr. Xiomy Schaffer Work Phone: [facility] 05-01-2019 influenza, seasonal, injectable Dr. David Torres Work Phone: [facility] Work Phone: 05-01-2019 Seasonal, quadrivale nt, recombinant, injectable influenza vaccine, preservative free David Torres MD Work Phone: [facility] 05-12-2018 influenza, injectabl e, quadrivalent, preservative free David Torres MD Work Phone: [facility] 05-12-2018 influenza, seasonal, injectable Dr. David Torres Work Phone: [facility] Work Phone: 07-06-2017 pneumococcal polysaccharide vaccine, 23 valent David Torres MD Work Phone: [facility] 05-09-2017 influenza, injectabl e, quadrivalent, preservative free David Torres MD Work Phone: [facility] 05-20-2009 novel influenza-H1N1 -09, preservative-free, injectable Dr. David Torres Work Phone: [facility] 04-22-2009 influenza, injectabl e, quadrivalent, preservative free Dr. Xiomy Schaffer Work Phone: [facility] 04-22-2009 influenza, seasonal, injectable Dr. David Torres Work Phone: [facility] Work Phone: 05-29-2007 influenza, injectabl e, quadrivalent, preservative free Dr. Xiomy Schaffer Work Phone: [facility] 05-29-2007 influenza, seasonal, injectable Dr. David Torres Work Phone: [facility] Work Phone: Payers Date Payer Category Payer Self-pay [id number] 2021 Unknown ANTHEM BLUE ACCE SS PPO [id number] 2021-Present [phone] [address] [place] [address] PPO [id number] 2021 Unknown [id number] 2016 Unknown [id number] 2016 Unknown [id number] 2016 Unknown [id number] 2005 Unknown ANTHEM BLUE CARD PPO OOS [id number] 2005-Present [phone] [address] [place] [id number] PPO [id number] 1961 Unknown [id number] Unknown [id number] Unknown [id number] Unknown [id number] Unknown [id number] Unknown [id number] Unknown [id number] Unknown [id number] Unknown [id number] Unknown [id number] Social History Date Type Detail Facility Start: 11-23-2020 End: 05-01-2023 Tobacco smoking status NHIS Never smoked tobacco [facility] Start: 12-10-2021 Alcohol intake 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 (finding) [facility] Start: 1960 Sex Assigned At Not on file [facility] Start: 02-18-2022 End: 02-28-2022 Exposure to SARS-CoV-2 (event) Not sure [facility] Start: 02-12-2016 End: 05-01-2023 Tobacco smoking status NHIS Unknown if ever smoked [facility] Start: 1960 Sex Assigned At Female W [facility] Mental Status Date Assessment Result Facility 05-26-2022 Cognitive function Level Of Cons ciousness Awake;Alert;Appropriate;Follow s Commands [facility] Work Phone: Clinical Notes 09-07-2020 to 12-23-2024 Note Date & Type Note Facility 12-23-2024 Progress note [facility] 12-23-2024 Progress note Note Date/Time December 23, 2024 9:10am [facility] [address], [address] [place] [address] OFFICE VISIT Date of Service: 12/23/24 MR#: [id number] Acct: [id number] Name: VIGNESH YOUNG BRIANNE Rep #: [id number] : 1960 Provider: ROSCOE Vega Age/Sex: 64/F [place] [facility] [place]: Signed Intake Vital Signs 06/25/24 08:26 12/23/24 08:58 Height 5 ft 5 in BP 120/84 H Position Sitting Pulse 91 Temp 97.9 F Temp Source Oral Pulse Oximetry (%) 97 Oxygen Delivery Method room air Intake Visit Reasons: POISON JOSLYN Accompanied by: Self Allergies clarithromycin (From Biaxin) Allergy (Verified 12/23/24 08:57) Other Nurse's Note: Patient has Poison Joslyn that is all over both her arms. Patient states this has been going on for a week. Patient states they are bubbling. [facility] Medical History Skin cancer Breast lump History of blood transfusion Arthritis Overactive bladder GERD (gastroesophageal reflux disease) Fibromyalgia Hypertension Pneumonia Surgical History History of endometrial ablation Hx of tonsillectomy Hx of tubal ligation Family History Father Alcoholism Arthritis High cholesterol Mother Arthritis High cholesterol Thyroid disorder Grandmother Breast cancer Brother Myocardial infarction Uncle Myocardial infarction Grandfather Myocardial infarction Grandmother Leukemia Social History household members: spouse current occupational status: employed 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 Patient states she has used multiple [id number] topical applications without relief of symptoms. She notes pruritic rash to BUE, BLE with excoriations. No complaints of constricted/pruritic airway or chest pain/shortness of breath/wheeze/dyspnea on exertion. No other associated symptoms and no other alleviating/aggravating factors. ROS Const Constitutional: No other (As above) Exam Const General: cooperative, healthy appearing and no acute distress Nutritional Appearance: average body habitus Orientation: alert, awake and oriented x3 HENMT Head: normal to inspection Ears: hearing grossly normal bilaterally, external ears normal, TM's normal bilaterally and EAC's normal Nose: external nose normal, nares normal, septum normal and no nasal discharge Face and sinus: normal facial exam, sinuses nontender and face symmetric Mouth: oral mucosae normal, lip normal, tongue normal and oropharynx normal Throat: posterior oropharynx normal, tonsils normal, uvula midline and no postnasal drainage Eyes General: appearance normal, both eyes and all related structures Neck Neck: normal visual inspection, full ROM, no lymphadenopathy, no meningeal signsand supple Neck mass: No Thyroid: thyroid normal Lymphatic: no lymphadenopathy noted Chest Chest palpation & inspection: normal inspection of the chest Resp Effort & Inspection: normal respiratory effort and able to speak in complete sentences Auscultation: Bilateral: Clear to Auscultation Cardio Palpation: normal PMI Rate: regular rate Rhythm: regular rhythm Heart Sounds: S1 normal, S2 normal, no gallops, no murmurs and no rubs Pulses: radial pulses present GI Inspection: normal to inspection Skin General: no rashes or lesions noted Other: Except clustered vesicular rash to BUE, BLE Neuro General: patient alert, patient awake and patient oriented x3 Cognition: normal cognition Speech: speech normal Extrem General: normal to inspection Psych Appearance: grossly normal Mental Status: mental status grossly normal Mood: congruent mood Affect: normal affect Speech and Movement: speech and movement normal Attitude: cooperative Diagnoses Contact dermatitis due to poison joslyn L23.7 Assessment and Plan Assessment and Plan (1) Contact dermatitis due to poison joslyn: Status: Acute Plan: Prednisone as prescribed today. Supportive measures as instructed today. Follow-up with PCP in 3 to 5 days should symptoms not improve, ED sooner shouldsymptoms worsen or any other concerns develop. Patient states acknowledging understanding all the above Coding Level of Care Code Off vis,est,level 3 Assessment and Plan Assessment and Plan Medications: New prednisone 4 tablets daily x3 days, then 3 tablets daily x3 days, then 2 tablets daily x3 days, then 1 tablet daily x3 days 10 mg PO DAILY 30 tabs 0RF 12/23/24 0910 <Electronically signed by Steve MALHOTRA> Date _ Steve MALHOTRA Cosigner Signature: Date (if applicable) CC: ~ [facility] Work Phone: 1(813) 582-125003-25-2025 NotePatient Outreach ([facility]AM[facility]) VIGNESH YOUNG ([id number]) 1960 F Date Time Provider Department 10/15/24 DAVID TORRES During your visit today, we recorded the following information about you: Allergies As of Date: 10/15/2024 Noted Allergy Reaction CLARITHROMYCIN 08/16/2005 16 - Unknown 8 - GI Upset Date Reviewed: 11/18/2008 Reviewed by: aMrcy Chen - Reviewed Visit Diagnosis:Encounter for screening mammogram for breast cancer [Z12.31] Order(s):GABI FARLEY [[id number]] Order #: [id number] FUTURE Prescriptions as of 11/15/2024 - lansoprazole (PREVACID) 30 mg capsule Take 1 capsule by mouth once daily. - DULoxetine (CYMBALTA) 60 mg capsule Take 1 capsule by mouth once daily. - losartan-hydroCHLOROthiazide (HYZAAR) 100-12.5 mg per tablet Take 1 tablet by mouth once daily Problem List As Of Date 10/15/2024 Noted Resolved Benign neoplasm of skin of trunk, except scrotu*09/12/2006 02/28/2022 Neoplasm of uncertain behavior of skin [D48.5] 09/12/2006 02/28/2022 SCAR AND FIBROSIS OF SKIN [L90.5] 09/12/2006 PERS HX SKIN MALIGNANCY NEC [Z85.828] 09/12/2006 Other chronic dermatitis due to solar radiation*09/12/2006 02/28/2022 SOLAR LENGINES///DYSCHROMIA OTHER [L81.9] 09/12/2006 ERWIN ANGIOMA///NEVUS, NON-NEOPLASTIC [I78.1] 09/12/2006 Open wound(s) (multiple) of unspecified site(s)*10/24/2006 02/28/2022 ACTINIC KERATOSIS [L57.0] 04/23/2007 Unspecified hypertrophic and atrophic condition*04/23/2007 02/28/2022 VIRAL WARTS NOS [B07.9] 04/23/2007 SEBORRHEIC KERATOSIS NOS [L82.1] 04/23/2007 Acute pharyngitis [J02.9] 08/15/2018 02/28/2022 Acute upper respiratory infection [J06.9] 08/01/2018 02/28/2022 Anxiety [F41.9] 02/12/2019 Benign essential HTN [I10] 04/04/2017 Chest tightness [R07.89] 02/12/2019 02/28/2022 Fatigue [R53.83] 09/07/2020 02/28/2022 Fibromyalgia [M79.7] 04/04/2017 Gastroesophageal reflux disease [K21.9] 04/04/2017 Iron deficiency anemia [D50.9] 04/04/2017 Low back pain [M54.50] 11/07/2018 Status post colonoscopy [Z98.890] 01/08/2018 Urinary tract infection [N39.0] 11/07/2018 02/28/2022 Viral pharyngitis [J02.9] 01/01/2019 02/28/2022 Visit for screening mammogram [Z12.31] 01/08/2018 Encounter Status:Closed by Agent Ace PRODUSER on 11/15/24[facility] 09-14-2024 Evaluation note* Diagnosis Onset Date Resolution Status Admit Date Nasal congestion acute September 14, 2024 12:31pm PND (post-nasal drip) acute Feb ruary 2024 12:31pm Rhinorrhea acute September 14, 2024 12:31pm Viral URI with cough acute Febr uary 2024 12:31pm [facility] Work Phone: 1(310) 776-477004-03-2024 Evaluation + Plan note Future Scheduled Tests Radiology* MA Mammo Screening Bilateral w/ Kerwin 10/25/23 [facility] 08-24-2022 Miscellaneous Notes* Telephone Encounter - Cyndy Cantrell LPN - 03/16/2022 3:11 PM EDT Patient notified of medication changed back to 60 mg Cyndy Cantrell LPN March 16, 2022 3:12 PM * Telephone Encounter - David Torres MD - 03/16/2022 2:32 PM EDT Changed back to 60mg qd * Telephone Encounter - Cyndy Cantrell LPN - 03/16/2022 2:24 PM EDT Patient is requesting for Cymbalta to be increased back to the 60 mg Cyndy Cantrell LPN March 16, 2022 2:24 PM * Telephone Encounter - David Torres MD - 03/15/2022 3:49 PM EDT Maybe from reduction in cymbalta. * Telephone Encounter - Cyndy Cantrell LPN - 03/15/2022 10:28 AM EDT Patient called into office stated that you recently decreased her Cymbalta to 30 mg from 60 mg. Stated that she has been having body aches and hurting all over. Stated you told her to call office if any issues Cyndy Cantrell LPN March 15, 2022 10:31 AM documented in [facility] History of Present illness Narrative* David Torres MD - 02/28/2022 9:58 PM EDT This note was created using Mobile365 (fka InphoMatch)ter. Subjective Vignesh Young is a 61 year old female who presents today for follow-up for multiple medical problems. See list. Her chronic medical problems are stable. Her blood pressure is under excellent control on her current medicines. Cymbalta is working well for her fibromyalgia symptoms. Her mood has been stable. She reports she would like to wean off of the Cymbalta as her bath steward told her that it may be the reason that she may be having some vaginal odor. Review of Systems Constitutional: Negative. HENT: Negative. Eyes: Negative. Respiratory: Negative. Cardiovascular: Negative. Gastrointestinal: Negative. Endocrine: Negative. Genitourinary: Negative. Musculoskeletal: Negative. Skin: Negative. Allergic/Immunologic: Negative. Neurological: Negative. Hematological: Negative. Psychiatric/Behavioral: Negative. Objective BP 122/80 (BP Site: Left Arm, BP Cuff Size: Large Adult) Pulse 102 Temp 36.3 C (97.3 F) (Temporal) Resp 14 Ht 165.1 cm (5' 5) Wt 88 kg (194 lb) SpO2 97% BMI 32.28 kg/m Physical Exam Vitals reviewed. Constitutional: Appearance: Normal appearance. HENT: Head: Normocephalic and atraumatic. Nose: Nose normal. Eyes: Extraocular Movements: Extraocular movements intact. Pupils: Pupils are equal, round, and reactive to light. Cardiovascular: Rate and Rhythm: Normal rate and regular rhythm. Pulmonary: Effort: Pulmonary effort is normal. Breath sounds: Normal breath sounds. Abdominal: General: Bowel sounds are normal. Palpations: Abdomen is soft. Musculoskeletal: General: Normal range of motion. Cervical back: Normal range of motion and neck supple. Skin: General: Skin is warm and dry. Capillary Refill: Capillary refill takes less than 2 seconds. Neurological: General: No focal deficit present. Mental Status: She is alert and oriented to person, place, and time. Mental status is at baseline. Psychiatric: Mood and Affect: Mood normal. Behavior: Behavior normal. Assessment and Plan Vignesh was seen today for 6 month exam. Diagnoses and all orders for this visit: Benign essential HTN Fibromyalgia Other iron deficiency anemia Other orders - DULoxetine (CYMBALTA) 30 mg capsule; Take 1 capsule by mouth once daily. Continue present medications with the exception of Cymbalta. Patient to wean off of Cymbalta over the course of the next 4 weeks. Monitor for improvement in vaginal odor. documented in this encounterOhio[facility]-2022 Miscellaneous Notes* Telephone Encounter - Cyndy Cantrell LPN - 02/21/2022 9:42 AM EDT Pending Prescriptions Disp Refills LOSARTAN 100 MG-HYDROCHLOROTHIAZIDE 12.5 MG TABLET 90 tablet 3 Sig: Take 1 tablet by mouth once daily YADIRA: Yes Cyndy Cantrell LPN February 21, 2022 9:42 AM documented in this encounterOhiohealth [facility]02-15-2021 History of Past illness Narrative* Problem Noted Date Resolved Date Fatigue 09/07/2020 02/28/2022 Chest tightness 02/12/2019 02/28/2022 Viral pharyngitis 01/01/2019 02/28/2022 Urinary tract infection 11/07/2018 02/29/20 Acute pharyngitis 08/15/2018 02/28/2022 Acute upper respiratory infection 08/01/2018 02/28/2022 Unspecified hypertrophic and atrophic condition of skin 04/23/2007 02/28/2022 Open wound(s) (multiple) of unspecified site(s), without mention of complication 10/24/2006 02/28/2022 Benign neoplasm of skin of trunk, except scrotum 09/12/2006 02/28/2022 Neoplasm of uncertain behavior of skin 7 02/28/2022 Other chronic dermatitis due to solar radiation 09/12/2006 02/28/2022 documented as of this encounter (statuses as of 03/01/2022) [facility]02[facility]21 History of Past illness Narrative* Problem Noted Date Resolved Date Fatigue 09/07/2020 02/28/2022 Chest tightness 02/12/2019 02/28/2022 Viral pharyngitis 01/01/2019 02/28/2022 Urinary tract infection 11/07/2018 02/29/20 Acute pharyngitis 08/15/2018 02/28/2022 Acute upper respiratory infection 08/01/2018 02/28/2022 Unspecified hypertrophic and atrophic condition of skin 04/23/2007 02/28/2022 Open wound(s) (multiple) of unspecified site(s), without mention of complication 10/24/2006 02/28/2022 Benign neoplasm of skin of trunk, except scrotum 09/12/2006 02/28/2022 Neoplasm of uncertain behavior of skin 7 02/28/2022 Other chronic dermatitis due to solar radiation 09/12/2006 02/28/2022 documented as of this encounter (statuses as of 03/16/2022) [facility] note* Diagnosis Benign essential HTN- Primary Essential hypertension, benign Fibromyalgia Mylagia and myositis, unspecified Other iron deficiency anemia documented in this encounter [facility] noteNo assessment information availableWFirelands [facility] Work Phone: Evaluation note* Diagnosis Onset Date Resolution Status Overactive bladder acute Fatigue noneactive Acute sinusitis noneactive Anemia noneactive Elevated liver enzymes nonea ksive [facility] Work Phone: Evaluation note* Diagnosis Onset Date Resolution Status Overactive bladder acute Fatigue noneactive Acute sinusitis noneactive Anemia noneactive Elevated liver enzymes nonea ctive Essential hypertension acute Fibromyalgia acute GERD (gastroesophageal reflux disease) acute Overactive bladder acute Establishing care with new doctor, encounter for noneactive Generalized abdominal pain n oneactive Seborrheic keratosis noneact zack Elevated liver enzymes nonea ctive Viral illness noneactive [facility] Work Phone: Evaluation note* Diagnosis Onset Date Resolution Status Essential hypertension acute Fibromyalgia acute GERD (gastroesophageal reflux disease) acute Overactive bladder acute Chronic fatigue noneactive Urinary frequency noneactive Bilateral low back pain without sciatica noneactive [facility] Work Phone: Hospital course Narrative No data available for this section [facility] Discharge instructions No data available for this section [facility] Progress note No data available for this section [facility] Reason for referral (narrative)No reason for referral information [facility] Work Phone: Summary Purpose Family History No Family History Records Found Relationship Condition Age at Onset Recorded Date/T lorie father Alcoholism Unknown Arthritis Unknown High blood cholesterol Unknown mother Arthritis Unknown Disorder of thyroid Unknown grandmother Malignant neoplasm of breast Unknown brother Myocardial infarction Unknown uncle Myocardial infarction Unknown grandfather Myocardial infarction Unknown grandmother Leukemia Unknown Advance Directives No Advanced Directives Records Found Advance Directive Response Recorded Date/ Time Living Will No February 12, 2016 11:45am Power of Import Coordination And Production Head No February 11 11:45am Advance Directive Response Recorded Date/ Time Living Will No May 26 5:14pm Power of Import Coordination And Production Head No May 26, 2022 5:14pm Advance Directive Response Recorded Date/ Time Living Will No May 26 4:14pm Power of Import Coordination And Production Head No May 26, 2022 4:14pm Advance Directive Response Recorded Date/ Time Living Will No June 07, 2 022 1:25pm Power of Import Coordination And Production Head No June 07, 2022 1:25pm Advance Directive Response Recorded Date/ Time Living Will No June 07, 2 022 2:25pm Power of Import Coordination And Production Head No June 07, 2022 2:25pm Chief Complaint and Reason for Visit Chief Complaint SCREENING Chief Complaint SCREENING GENERAL ILLNESS Chief Complaint SCREENING GENERAL ILLNESS CONGESTION/COVID - Reason for Visit Overactive bladder Fatigue Acute sinusitis Anemia Elevated liver enzymes Chief Complaint SCREENING GENERAL ILLNESS CONGESTION/COVID - 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 EST CARE - PPW HERE ABD PAIN Reason for Visit Overactive bladder Fatigue Acute sinusitis Anemia Elevated liver enzymes Essential hypertension Fibromyalgia GERD (gastroesophageal reflux disease) Overactive bladder Establishing care with new doctor, encounter for Generalized abdominal pain Seborrheic keratosis Elevated liver enzymes Viral illness Chief Complaint UTI SYMPTOMS Reason for Visit Essential hypertensi on Fibromyalgia GERD (gastroesophageal reflux disease) Overactive bladder Chronic fatigue Urinary frequency Bilateral low back pain without sciatica Chief Complaint Admit Date COUGH, SORE THROAT September 14, 2024 12:31pm POISON JOSLYN December 23, 2024 8:58a m Reason for Visit Admit Date Nasal congestion September 14, 2024 12:31pm PND (post-nasal drip) September 14 12:31pm Rhinorrhea September 14, 2024 12:31pm Viral URI with cough September 14, 2024 12:31pm Additional Source Comments INFORMATION SOURCE (unrecogn ized section and content) DATE CREATED AUTHOR 01/17/2018 [facility] DATE CREATED AUTHOR AUTHOR'S ORGANIZ ATION 11/01/2023 [facility] ([place] DATE CREATED AUTHOR AUTHOR'S ORGANIZ ATION 11/16/2024 [facility] DATE CREATED AUTHOR AUTHOR'S ORGANIZ ATION [facility]/23/2024 [facility] Source Comments (unrecognize d section and content) In the event this informatio n is protected by the Federal Confidentiality of Alcohol and Drug Abuse Patient Records regulations: The Federal rules restrict any use of the information to criminally investigate or prosecute any alcohol or drug abuse patient.[facility] Center[facility] the event this information is protected by the Federal Confidentiality of Alcohol and Drug Abuse Patient Records regulations: The Federal rules restrict any use of the information to criminally investigate or prosecute any alcohol or drug abuse patient.[facility] Center[facility] the event this information is protected by the Federal Confidentiality of Alcohol and Drug Abuse Patient Records regulations: The Federal rules restrict any use of the information to criminally investigate or prosecute any alcohol or drug abuse patient.[facility] Center[facility] the event this information is protected by the Federal Confidentiality of Alcohol and Drug Abuse Patient Records regulations: The Federal rules restrict any use of the information to criminally investigate or prosecute any alcohol or drug abuse patient.[facility] CenterIn the event this information is protected by the Federal Confidentiality of Alcohol and Drug Abuse Patient Records regulations: The Federal rules restrict any use of the information to criminally investigate or prosecute any alcohol or drug abuse patient.[facility] Care Teams (unrecognized sec tion and content) Regulatory Affairs Assistant Relationship Specialty Start Date End Date David Torres MD PCP - General 10/27/08 Regulatory Affairs Assistant Relationship Specialty Start Date End Date David Torres MD PCP - General 10/27/08 Regulatory Affairs Assistant Relationship Specialty Start Date End Date David Torres MD PCP - General 10/27/08 Team Status: Active Member Role Status Dates Dr. David Torres MD Family Provider Active Dr. Xiomy Schaffer MD Primary Care Provider Active Team Status: Inactive Member Role Status Dates Dr. Xiomy Schaffer MD Primary Care Pro vider, Attending Provider, Referring Provider Active Team Status: Inactive Member Role Status Dates Dr. Xiomy Schaffer MD Primary Care Provider Active Start: September 14, 2024 End: September 14, 2024 Dr. Xiomy Schaffer MD Referring Provider Active Start: September 14, 2024 End: September 14, 2024 RAMONA Potts Attending Provider Active Start: September 14, 2024 End: September 14, 2024 Team Status: Inactive Member Role Status Dates Dr. Xiomy Schaffer MD Primary Care Provider Active Start: December 23, 2024 End: December 23, 2024 Dr. Xiomy Schaffer MD Referring Provider Active Start: December 23, 2024 End: December 23, 2024 Steve MALHOTRA, PA Attending Provider Active Start: December 23, 2024 End: December 23, 2024 Reason for Visit (unrecogniz ed section and content) Reason Comments Refill Request Reason Comments 6 Month Exam F/unit(s) htn and ot her medical problems pt wants to stop taking Cymbalta Reason Comments Patient Update Goals (unrecognized section and content) Goals may be documented in a n alternate sectionGoals may be documented in an alternate sectionGoals may be documented in an alternate sectionGoals may be documented in an alternate sectionGoals may be documented in an alternate section No data available for this sectionGoals may be documented in an alternate section FOR RECORDS PERTAINING TO PATIENTS WHO ARE OR HAVE BEEN ENROLLED IN A CHEMICAL DEPENDENCY/SUBSTANCEABUSE PROGRAM, SOME INFORMATION MAY BE OMITTED. This clinical summary was aggregated from multiple sources. Caution should be exercised in using it in the provision of clinical care. This summary normalizes information from multiple sources, and as a consequence, information in this document may materially change the coding, format and clinical context of patient data. In addition, data may be omitted in some cases. CLINICAL DECISIONS SHOULD BE BASED ON THE PRIMARY CLINICAL RECORDS. [employer] provides no warranty or guarantee of the accuracy or completeness of information in this document.
== END | disposition home or self-care (01) ==
LOC: BIMLAB 12:22
PROVIDERS: PCP Internal Medicine; Referring Provider Physician Assistant; Visit Provider Physician Assistant
DX: I10 Essential (primary) hypertension (principal)
CPT/HCPCS: 36415; 80053; 83036; 85025

== ENCOUNTER → 2025-02-03 | Outpatient (CLI) | payer BC, SELFPAY ==
--- NOTE | 2025-02-03 15:28 | BI_ITS ---
EXAM: SCRN MAMM (CAD)W/MIGUELITO BILAT DATE: 02/03/2025 CLINICAL HISTORY: F, Age 64 y/o , SCREENING TECHNIQUE: SCRN MAMM (CAD)W/MIGUELITO BILAT COMPARISON: Prior exam(s) were compared FINDINGS: TISSUE DENSITY: The breasts are heterogeneously dense, which may obscure small masses. Bilateral Breast Mammographic Findings: No suspicious masses, calcifications or other abnormalities are identified. BI/SCRN MAMM (CAD)W/MIGUELITO BILAT IMPRESSION: No mammographic evidence of malignancy in either breast OVERALL FINAL ASSESSMENT BI-RADS 1: NEGATIVE. RECOMMENDATION: Routine annual follow-up in 1 Year A letter with findings and recommendations will be mailed to the patient. Reading Location: [id number]
--- OUTSIDE RECORDS SUMMARY | 2025-02-03 23:00 | XMS RPT_ITS | CCD ---
Author Organization [facility] ion Partnership [facility] Care Team Providers Care Manager Strategic Development Name Role Phone David Torres Unavailable Unavailable David Torres Unavailable Unavailable David Torres MD Primary Care Provider David Torres MD Primary Care Provider Dr. David Torres Primary Care Provider Dr. David Torres Referring Provider ROSCOE Fernández Attending Provider Unavailab Dr. Xiomy Munguia Attending Provider [phone] Dr. Xiomy Schaffer Primary Care Provider Dr. Xiomy Schaffer Attending Provider [phone] Dr. Xiomy Schaffer Referring Provider [phone] BRIAN CARDONA, DR WHEELER Primary Care Physician [phone] CHARLIE CARDONA, STELLA Attending Unavailable DR DAVID TORRES MD Primary Care Unavailable Dr. Xiomy Schaffer MD Primary Care Provider [phone] Dr. Xiomy Schaffer MD Referring Provider Noreen Travis Attending Provider Steve Han Attending Provider Bert Mejía Attending Provider Bert Mejía Referring Provider Xiomy Schaffer Primary Care Unavailable Xiomy Schaffer Attending Unavailable Sarbjit, Xiomy Primary Care Unavailable Steve Han Attending Unavailable Valrico, Xiomy Referring Unavailable Sarbjit, Xiomy Primary Care Unavailable Noreen Bhakta Attending Unavailable Valrico, Xiomy Referring Unavailable Sarbjit, Xiomy Primary Care Unavailable Sarbjit, Xiomy Attending Unavailable Valrico, Xiomy Referring Unavailable Sarbjit, Xiomy Primary Care Unavailable Sarbjit, Xiomy Attending Unavailable Sarbjit, Xiomy Referring Unavailable Valrico, Xiomy Primary Care Unavailable Sarbjit, Xiomy Attending Unavailable Sarbjit, Xiomy Referring Unavailable WayBert Hancock Referring Unavailable Wayt PA, Bert Attending Unavailable Valrico, Xiomy Primary Care Unavailable Valrico, Xiomy Primary Care Unavailable Valrico, Xiomy Attending Unavailable Richie MALHOTRA, Bert Attending Unavailable Cesart ROSCOE, Bert Referring Unavailable Sarbjit, Xiomy Primary Care Unavailable Valrico, Xiomy Primary Care Unavailable Steve Han Attending Unavailable Sarbjit, Xiomy Referring Unavailable Wayt Bert MALHOTRA Attending Unavailable Valrico, Xiomy Referring Unavailable Valrico, Xiomy Primary Care Unavailable Allergies Allergy Classification Reported Allergen(s) Allergy Type Date of Onset Reaction(s) Facility (14 sources) Clarithromycin; Translations: [clarithromycin] Drug Allergy 6 Unknown, GI Upset, Nausea and vomiting (disorder) [facility] (1 source) Clarithromycin Drug Allergy 5 [facility] Repository Medications Current Medications Medication Drug Class(es) Dates Sig (Normalized) Sig (Original) celecoxib 50 mg oral capsule (1 source) Nonsteroidal Anti-inflammatory Drug Start: 02-12-2016 Celecoxib (Celebrex) 50 MG capsule Active 50 MG PO NEEDED February 12, 2016 12:00am cholecalciferol 1.25 mg oral capsule (1 source) Vitamin D Start: 12-25-2024 take 1 capsule by mouth every week Cholecalciferol (Vitamin D3) 1,250 mcg (50,000 unit) capsule Active 1250 ug PO EVERY WEEK December 25, 2024 12:00am clobetasol propionate 0.0005 mg/mg topical ointment (1 source) Corticosteroid Start: 11-30-2021 Temovate 0.05% topical ointment Apply 1 felicia, Topical, BID, apply a thin film twice daily for 2 wks then twice a week., # 30 gram(s), 0 Refill(s), Pharmacy: [id number], Ointment, 164, cm, 11/30/21 14:39:00 EDT, Height, 86.6 Start Date: 11/30/21 Status: Ordered Fezolinetant (2 sources) Start: 12-25-2024 take 1 tablet by mouth once daily Fezolinetant (Veozah) 45 mg tablet Active 45 mg PO daily December 25, 2024 12:00am Lidocaine (1 source) Antiarrhythmic, Amide Local Anesthetic Start: 10-26-2023 lidocaine 4% topical cream Apply 1 felicia, Topical, BID, not to exceed 3 applications in 24 hours, thin film, # 15 gram(s), 0 Refill(s), Pharmacy: [id number], Cream, 165.1, cm, 10/25/23 13:51:00 EDT, Height, 89.7, kg, 10/25/23 13:51:00 EDT, Dosing Weight Start Date: 10/26/23 Status: Ordered predniSONE 10 mg oral tablet (6 sources) Start: 12-23-2024 take 4 tablets by mouth once daily, [...] / HYDROcodone bitartrate 5 mg oral tablet (8 sources) Opioid Agonist Start: 02-12-2016 End: 05-31-2022 [...] mg / clavulanate 125 mg oral tablet (6 sources) Penicillin-class Antibacterial Start: 05-31-2022 End: 05-31-2022 [...] by mouth. benzonatate 200 mg oral capsule (6 sources) Non-narcotic Antitussive Start: 05-31-2022 End: 12-06-2022 take 1 capsule by mouth three times daily as needed for cough Benzonatate 200 mg capsule Discontinued 200 mg PO THREE TIMES A DAY as needed for cough May 31, 2022 1:00am December 06, 2022 4:28pm buPROPion hydrochloride 75 mg oral tablet (8 sources) Aminoketone Start: 02-12-2016 End: 05-31-2022 take 1 tablet by mouth twice daily Bupropion Hcl 75 MG tablet Discontinued 75 mg PO TWICE A DAY February 12, 2016 12:00am May 31, 2022 10:39am DULoxetine 60 mg delayed release oral capsule (20 sources) Serotonin and Norepinephrine Reuptake Inhibitor Start: 03-16-2022 End: 12-25-2024 take 1 capsule by mouth once daily Duloxetine (Cymbalta) 60 mg capsule,delayed release(DR/EC) Discontinued 60 mg PO DAILY August 12, 2024 11:49am December 25, 2024 12:07pm Start: 02-28-2022 End: 03-30-2022 take 1 capsule [...] on above: Take 1 capsule by mo [facility] once daily. escitalopram 5 mg oral tablet (4 sources) Serotonin Reuptake Inhibitor Start: End: take 1 tablet by mouth once daily, then take 2 tablets by mouth once daily Escitalopram Oxalate (Lexapro) 5 mg tablet Discontinued 0 PO DAILY May 01, 2023 12:00am June 26, 2023 12:11pm orally daily; take 5mg daily for 1 week, then increase 10mg daily hydroCHLOROthiazide 12.5 mg / losartan potassium 100 mg oral tablet (20 sources) Thiazide Diuretic, Angiotensin 2 Receptor Janessa Start: End: Losartan-Hydrochlor othiazide 100-12.5 mg tablet Discontinued 1 {tbl} PO DAILY September 13, 2024 11:09am December 25, 2024 12:07pm Start: 05-31-2022 take 1 tablet by phoebe [...] Take 1 tablet by phoebe once daily hydrOXYzine hydrochloride 25 mg oral tablet (3 sources) Antihistamine Start: End: take 1 tablet by mouth three times daily as needed Hydroxyzine Hcl 25 mg tablet Discontinued 25 mg PO THREE TIMES A DAY as needed for itching November 30, 2023 12:00am June 25, 2024 9:26am lansoprazole 30 mg delayed release oral capsule (20 sources) Proton Pump Inhibitor Start: End: take 1 capsule by mouth once daily Lansoprazole (Prevacid) 30 mg capsule,delayed release(DR/EC) Discontinued 30 mg PO DAILY December 05, 2024 2:27pm December 25, 2024 12:07pm Comment on above: Take one(1) capsule daily. levoFLOXacin 500 mg oral tablet (6 sources) Quinolone Antimicrobial Start: End: take 1 tablet by mouth once daily Levofloxacin 500 mg tablet Discontinued 500 mg PO DAILY May 31, 2022 1:00am December 06, 2022 4:28pm losartan potassium 100 mg oral tablet (8 sources) Angiotensin 2 Receptor Janessa Start: End: take 1 tablet by mouth once daily Losartan 100 MG tablet Discontinued 100 mg PO DAILY February 12, 2016 12:00am May 31, 2022 10:39am naproxen 500 mg oral tablet (5 sources) Nonsteroidal Anti-inflammatory Drug Start: NAPROXEN 500 MG TAB Take one(1) tablet twice daily as needed for pain, with food. 0 10/28/2008 Active Comment on above: Take one(1) tablet t wice daily as needed for pain, with food. nitrofurantoin, macrocrystals 25 mg / nitrofurantoin, monohydrate 75 mg oral capsule (4 sources) Nitrofuran Antibacterial Start: End: take 1 capsule by mouth every twelve hours at mealtime Nitrofurantoin Monohyd/M-Cryst (Macrobid) 100 mg capsule Discontinued 100 mg PO Q12H 10 May 03, 2023 12:00am May 07, 2023 12:00am May 08, 2023 12:04am must administer with a meal/food phenylephrine hydrochloride 10 mg oral tablet (6 sources) alpha-1 Adrenergic Agonist Start: End: take 1 tablet by mouth every six hours as needed for congestion Phenylephrine Hcl 10 mg tablet Discontinued 10 mg PO EVERY 6 HOURS as needed for congestion May 31, 2022 1:00am December 06, 2022 4:28pm solifenacin succinate 5 mg oral tablet (4 sources) Cholinergic Muscarinic Antagonist Start: End: take 1 tablet by mouth once daily Solifenacin 5 mg tablet Discontinued 5 mg PO DAILY December 06, 2022 12:00am November 30, 2023 1:36pm valACYclovir 1000 mg oral tablet (1 source) Herpesvirus Nucleoside Analog DNA Polymerase Inhibitor, Herpes Simplex Virus Nucleoside Analog DNA Polymerase Inhibitor, Herpes Zoster Virus Nucleoside Analog DNA Polymerase Inhibitor Start: Valtrex 1 g oral tablet Dose : 1 gram(s) = 1 tab(s), Oral, BID, # 20 tab(s), 0 Refill(s), Pharmacy: [id number], Vulvar ulcer Lichen sclerosus of [...] (1 source) Anemia 11-23-2020 Episodic Esophageal disorders (14 sources) Gastroesophageal reflux disease; Translations: [Gastro-esophageal reflux disease without esophagitis] Onset: 7 12-10-2021 Chronic Essential hypertension (16 sources) Benign essential hypertension; Translations: [Essential (primary) hypertension] Onset: 7 12-10-2021 Chronic Genitourinary symptoms and ill-defined conditions (1 source) Frequency of micturition; Translations: [Urinary frequency] 05-01-2023 Episodic Inflammatory diseases of female pelvic organs (2 sources) Ulceration of vulva; Translations: [Ulceration of vulva] Onset: 4 Episodic Malaise and fatigue (2 sources) Chronic fatigue, unspecified; Translations: [Other malaise and fatigue] Onset: 4 05-01-2023 Chronic Mood disorders (1 source) Mood disorders; Translations: [Depression, unspecified] Onset: 4 Nonspecific chest pain (10 sources) Tight chest; Translations: [Other chest pain] Onset: 9 12-10-2021 Episodic Nutritional deficiencies (2 sources) Vitamin D deficiency; Translations: [Vitamin D deficiency, unspecified] 12-25-2024 Chronic Other connective tissue disease (14 sources) Fibromyalgia; Translations: [Fibromyalgia] Onset: 7 12-10-2021 Episodic Other diseases of bladder and urethra (6 sources) Overactive bladder; Translations: [Overactive bladder] 06-01-2022 Chronic Other diseases of bladder and urethra (5 sources) Overactive bladder; Translations: [Hypertonicity of bladder] Onset: 4 Chronic Other female genital disorders (1 source) Lichen sclerosus of female genitalia 11-24-2020 Episodic Other female genital disorders (2 sources) Leukoplakia of vulva; 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] Onset: 4 Episodic Other gastrointestinal disorders (5 sources) Splenomegaly; Translations: [Splenomegaly, not elsewhere classified] 06-15-2022 Episodic Other liver diseases (5 sources) Liver cyst; Translations: [Other specified diseases of liver] 06-15-2022 Chronic Other liver diseases (3 sources) Abnormal levels of other serum enzymes; Translations: [Other nonspecific abnormal serum enzyme levels] Episodic Other screening for suspected conditions (not mental disorders or infectious disease) (15 sources) Patient encounter status; Translations: [Encounter for screening mammogram for malignant neoplasm of breast] Onset: 8 12-10-2021 Episodic Other skin disorders (1 source) Other seborrheic keratosis; Translations: [Other seborrheic keratosis] Episodic Other skin disorders (2 sources) Excessive sweating; Translations: [Generalized hyperhidrosis] 12-25-2024 Episodic Other upper respiratory disease (6 sources) Nasal discharge; Translations: [Other specified disorders of nose and nasal sinuses] 09-14-2024 Episodic Other upper respiratory disease (6 sources) Nasal congestion; Translations: [Nasal congestion] 09-14-2024 Episodic Other upper respiratory infections (20 sources) Acute pharyngitis; Translations: [Acute pharyngitis, unspecified] Onset: 9 12-10-2021 Episodic Residual codes; unclassified (2 sources) Obstructive sleep apnea syndrome; Translations: [Obstructive sleep apnea (adult) (pediatric)] 12-25-2024 Chronic Residual codes; unclassified (1 source) Hypersomnia, unspecified; Translations: [Hypersomnia, unspecified] Onset: Chronic Residual codes; unclassified (1 source) Family history of breast cancer 11-24-2020 Episodic Spondylosis; intervertebral disc disorders; other back problems (6 sources) Low back pain; Translations: [Low back pain] Onset: 9 12-10-2021 Episodic Unclassified (1 source) Unknown / UNK(Unknown) Onset: 7 Viral infection (13 sources) Verruca vulgaris; Translations: [Viral wart, unspecified] [...] Onset: 04-04-2017 12-10-2021 Episodic Malaise and fatigue (11 sources) Fatigue; Translations: [Other fatigue] Onset: 09-07-2020 [...] 09-12-2006 Episodic Other skin disorders (5 sources) Scar [...] Test Name Value Interpretation Reference Range Facility Absolute lymphocyte countOrd ered By: Bert Quiroz on 12-25-2024 Lymphocytes Auto (Unsp spec) [#/Vol] 1.11 10*3/uL 0.83-4.51 [facility] Absolute neutrophil countOrd ered By: Bert Quiroz on 12-25-2024 Neutrophils (Bld) [#/Vol] 8.3 10*3/uL High 2.0-7.7 [facility] Anion gap in Serum or Plasma Ordered By: Bert Quiroz on 12-25-2024 Anion gap [Moles/Vol] 14 mmol/L 5-15 [facility] Automated lymphocyte count a s percentage of total leukocytesOrdered By: Bert Quiroz on 12-25-2024 Lymphocytes/100 WBC Auto (Unsp spec) 11.5 % Low 19-41 [facility] BUN/creatinine ratioOrdered By: Bert Quiroz on 12-25-2024 Urea nitrogen/Creatinine [Mass ratio] 18.8 mg/mg 10-20 [facility] Basophil percentageOrdered B y: Bert Quiroz on 12-25-2024 Basophils/100 WBC (Bld) 0.2 % 0-[address] [facility] Bilirubin, totalOrdered By: Bert Quiroz on 12-25-2024 Bilirubin [Mass/Vol] 0.24 mg/dL 0.00-1.30 [facility] CBC W/Diff, Automatedon Absolute Lymph 1.11 X10 3/uL Normal 0.83-4.51 [facility] Comment on above: Performed By: #### L 500.4050, L501.9985, L100.0100 #### [facility] [address] [place], [place], [id number] Absolute Neut 8.3 X10 3/uL High 2.0-7.7 [facility] Comment on above: Performed By: #### L 500.4050, [id number], L100.0100 #### [facility] [address] [place], [address] Basophils/100 WBC (Bld) 0.2 % Normal 0-[address] [facility] Comment on above: Performed By: #### L 500.4050, [id number], L100.0100 #### [facility] [address] [place], [address] Eosinophils/100 WBC (Bld) 0.1 % Normal 0-5 [facility] Comment on above: Performed By: #### L 500.4050, [id number], L100.0100 #### [facility] [address] [place], [address] Erythrocyte distribution width (RBC) [Ratio] 13.5 % Normal 11.6-14.6 [facility] Comment on above: Performed By: #### L 500.4050, [id number], L100.0100 #### [facility] [address] [place], [address] Hematocrit (Bld) [Volume fraction] 37.3 % Normal 37-47 [facility] Comment on above: Performed By: #### L 500.4050, [id number], L100.0100 #### [facility] [address] [place], [address] Hemoglobin (Bld) [Mass/Vol] 12.0 g/dL Normal 12.0-15.0 [facility] Comment on above: Performed By: #### L 500.4050, [id number], L100.0100 #### [facility] [address] [place], [address] IG% 0.800 Normal 0.0-0.9 [facility] Comment on above: Result Comment: IG% - Immature Granulocytes (promyelocytes, myelocytes and metamyelocytes) > 1% indicates that a LEFT SHIFT is Present. Performed By: #### L 500.4050, L501.9985, L100.0100 #### [facility] [address] [place], [address] Lymphocytes/100 WBC (Bld) 11.5 % Low 19-41 [facility] Comment on above: Performed By: #### L 500.4050, [id number], L100.0100 #### [facility] [address] [place], [address] MCH (RBC) [Entitic mass] 28.1 pg Normal 27.0-32.0 [facility] Comment on above: Performed By: #### L 500.4050, [id number], L100.0100 #### [facility] [address] [place], [address] MCHC (RBC) [Mass/Vol] 32.2 g/dL Normal 32-36 [facility] Comment on above: Performed By: #### L 500.4050, [id number], L100.0100 #### [facility] [address] [place], [address] MCV (RBC) [Entitic vol] 87.4 fL Normal 81-[address] [facility] Comment on above: Performed By: #### L 500.4050, [id number], L100.0100 #### [facility] [address] [place], [address] Monocytes/100 WBC (Bld) 1.8 % Normal 0-[address] [facility] Comment on above: Performed By: #### L 500.4050, [id number], L100.0100 #### [facility] [address] [place], [address] Neutrophils/100 WBC (Bld) 85.6 % High 47-70 [facility] Comment on above: Performed By: #### L 500.4050, [id number], L100.0100 #### [facility] [address] [place], [address] Nucleated RBC (Bld) [#/Vol] 0 10*3/uL Normal 0-5 [facility] Comment on above: Performed By: #### L 500.4050, [id number], L100.0100 #### [facility] [address] [place], [address] Platelet mean volume (Bld) [Entitic vol] 10.8 fL Normal 6.2-12.0 [facility] Comment on above: Performed By: #### L 500.4050, [id number], L100.0100 #### [facility] [address] [place], [address] Platelets (Bld) [#/Vol] 286 10*3/uL Normal 150-450 [facility] Comment on above: Performed By: #### L 500.4050, [id number], L100.0100 #### [facility] [address] [place], [address] RBC (Bld) [#/Vol] 4.27 10*6/uL Normal 4.2-5.4 [facility] Comment on above: Performed By: #### L 500.4050, [id number], L100.0100 #### [facility] [address] [place], [address] RDW SD 42.9 fl Normal 35.1-43.9 [facility] Comment on above: Performed By: #### L 500.4050, [id number], L100.0100 #### [facility] [address] [place], [address] WBC (Bld) [#/Vol] 9.7 10*3/uL Normal 4.4-11.0 [facility] Comment on above: Performed By: #### L 500.4050, [id number], L100.0100 #### [facility] [address] [place], [address] Carbon dioxide, total [Moles /volume] in Central venous bloodOrdered By: Bert Quiroz on 12-25-2024 CO2 [Moles/Vol] 22.7 mmol/L 21.0-32.0 [facility] Chloride assayOrdered By: Soila Quiroz on 12-25-2024 Chloride [Moles/Vol] 100 mmol/L 98-108 [facility] ilon 12-25-2024 Albumin [Mass/Vol] 4.6 g/dL Normal 3.4-4.8 [facility] Comment on above: Performed By: #### L 500.4050, [id number], L100.0100 #### [facility] [address] [place], [address] Albumin/Globulin [Mass ratio] 1.6 {ratio} Normal 0.9-2.4 [facility] Comment on above: Performed By: #### L 500.4050, [id number], L100.0100 #### [facility] [address] [place], [address] ALK PHOS 85 U/L Normal 35-104 [facility] Comment on above: Performed By: #### L 500.4050, [id number], L100.0100 #### [facility] [address] [place], [address] ALT [Catalytic activity/Vol] 39 U/L High <=34 [facility] Comment on above: Performed By: #### L 500.4050, [id number], L100.0100 #### [facility] [address] [place], [address] AST [Catalytic activity/Vol] 23 U/L Normal <=31 [facility] Comment on above: Performed By: #### L 500.4050, [id number], L100.0100 #### [facility] [address] [place], [address] Bilirubin [Mass/Vol] 0.24 mg/dL Normal 0.00-1.30 [facility] Comment on above: Performed By: #### L 500.4050, [id number], L100.0100 #### [facility] [address] [place], [address] BUN/CRE 18.8 RATIO Normal 10-20 [facility] Comment on above: Performed By: #### L 500.4050, [id number], L100.0100 #### [facility] [address] [place], [address] Calcium [Mass/Vol] 9.7 mg/dL Normal 7.6-11.0 [facility] Comment on above: Performed By: #### L 500.4050, [id number], L100.0100 #### [facility] [address] [place], [address] Chloride [Moles/Vol] 100 mmol/L Normal 98-108 [facility] Comment on above: Performed By: #### L 500.4050, [id number], L100.0100 #### [facility] [address] [place], [address] CO2 [Moles/Vol] 22.7 mmol/L Normal 21.0-32.0 [facility] Comment on above: Performed By: #### L 500.4050, [id number], L100.0100 #### [facility] [address] [place], [address] Creatinine [Mass/Vol] 0.74 mg/dL Normal 0.70-1.20 [facility] Comment on above: Performed By: #### L 500.4050, [id number], L100.0100 #### [facility] [address] [place], [address] GAP 14 Normal 5-15 [facility] Comment on above: Performed By: #### L 500.4050, [id number], L100.0100 #### [facility] [address] [place], [address] GFR/1.73 sq M.predicted among non-blacks MDRD (S/P/Bld) [Vol rate/Area] 90 mL/min/{1.73_m2} Normal >60 [facility] Comment on above: Result Comment: mL/m in/1.73m2 CKD-EPI Creatinine Equation (2020) Performed By: #### L 500.4050, [id number], L100.0100 #### [facility] [address] [place], [address] Globulin (S) [Mass/Vol] 2.9 g/dL Normal 2.2-4.2 [facility] Comment on above: Performed By: #### L 500.4050, [id number], L100.0100 #### [facility] [address] [place], [address] Glucose [Mass/Vol] 242 mg/dL High 70-99 [facility] Comment on above: Performed By: #### L 500.4050, [id number], L100.0100 #### [facility] [address] [place], [address] Potassium [Moles/Vol] 4.4 mmol/L Normal 3.3-5.1 [facility] Comment on above: Performed By: #### L 500.4050, [id number], L100.0100 #### [facility] [address] [place], [address] Sodium [Moles/Vol] 136 mmol/L Normal 133-145 [facility] Comment on above: Performed By: #### L 500.4050, [id number], L100.0100 #### [facility] [address] [place], [address] T PROT 7.5 g/dL Normal 5.9-8.4 [facility] Comment on above: Performed By: #### L 500.4050, [id number], L100.0100 #### [facility] [address] [place], [address] Urea nitrogen [Mass/Vol] 14 mg/dL Normal 4-19 [facility] Comment on above: Performed By: #### L 500.4050, [id number], L100.0100 #### [facility] [address] [place], [address] Eosinophil percentageOrdered By: Bert Quiroz on 12-25-2024 Eosinophils/100 WBC (Bld) 0.1 % 0-5 [facility] Erythrocyte distribution wid th ratioOrdered By: Bert Quiroz on 12-25-2024 Erythrocyte distribution width (RBC) [Ratio] 13.5 % 11.6-14.6 [facility] Erythrocyte distribution wid th standard deviationOrdered By: Bert Quiroz on 12-25-2024 Erythrocyte distribution width (RBC) [Ratio] 42.9 fl 35.1-43.9 [facility] Glomerular filtration rate ( GFR) estimation/1.73 sq m using serum, plasma, or whole bOrdered By: Bert Quiroz on 12-25-2024 GFR/1.73 sq M.predicted among non-blacks MDRD (S/P/Bld) [Vol rate/Area] 90 mL/min/{1.73_m2} >60 [facility] Comment on above: mL/min/1.73m2 CKD-EP I Creatinine Equation (2020) Hematocrit Auto (Bld) [Volum e fraction]Ordered By: Bert Quiroz on 12-25-2024 Hematocrit (Bld) [Volume fraction] 37.3 % 37-47 [facility] Hemoglobin A1con 12-25-2024 HbA1c (Bld) [Mass fraction] 7.0 % High <=5.6 [facility] Comment on above: Result Comment: Norm al < 5.7 % Prediabetic 5.7 - 6.4 % Diabetic >or= 6.5 % Please note range changes. Performed By: #### L 500.4050, [id number], L100.0100 #### [facility] [address] [place], [address] Hemoglobin A1c percentageOrd ered By: Bert Quiroz on 12-25-2024 HbA1c (Bld) [Mass fraction] 7.0 % High <5.7 [facility] Comment on above: Normal < 5.7 % Predi abetic 5.7 - 6.4 % Diabetic >or= 6.5 % Please note range changes. Hemoglobin measurementOrdere d By: Bert Quiroz on 12-25-2024 Hemoglobin (Bld) [Mass/Vol] 12.0 g/dL 12.0-15.0 [facility] Immature granulocytes/100 WB C Auto (Bld)Ordered By: Bert Quiroz on 12-25-2024 Immature granulocytes/100 WBC (Bld) 0.800 % 0.0-0.9 [facility] Comment on above: IG% - Immature Granu locytes (promyelocytes, myelocytes and metamyelocytes) > 1% indicates that a LEFT SHIFT is Present. Internal Medicine Office Vis iton 12-25-2024 Internal Medicine Office Visit [facility] [place] [address] [place] [address] OFFICE VISIT Date of Service: 12/25/24 MR#: [id number] Acct: [id number] Name: VIGNESH YOUNG Rep #: [id number] : 1960 Provider: ROSCOE Gallegos Age/Sex: 64/F Location: [facility] Status: Signed Intake Vital Signs 06/25/24 08:26 12/25/24 11:48 Height 5 ft 5 in 5 ft 5 in Weight: 201 lb BMI 33.4 BP 122/84 H Blood Pressure Location Lt brachial Position Sitting Respiration 18 Pulse 88 Pulse Source Monitor Temp 98.1 F Temp Source Temporal Pulse Oximetry (%) 97 Oxygen Delivery Method room air Intake Visit Reasons: ACUTE MED FU AND SLEEP APNEA FOLLOW UP Cardiac Nurse Required: No Is patient in pain?: No Allergies clarithromycin (From Biaxin) Allergy (Verified 12/23/24 08:57) Other Medications ???Medication ???Instructions ???Recorded ???Confirmed ???Type prednisone 10 mg tablet 10 mg PO DAILY #30 tabs 12/23/24 0 12/25/24 Rx cholecalciferol (vitamin D3) 1,250 1,250 mcg PO QWEEK #12 caps 11/1512/25/24 Rx mcg (50,000 unit) capsule duloxetine 60 mg capsule,delayed 60 mg PO DAILY #90 caps 12/25/24 0 12/25/24 Rx release (Cymbalta) fezolinetant 45 mg tablet (Veozah) 45 mg PO QDAY #14 tabs 12/25/24 12/25/24 Rx lansoprazole 30 mg capsule,delayed 30 mg PO DAILY #90 caps 12/25/24 12/25/24 Rx release (Prevacid) losartan 100 1 tab PO DAILY #90 tabs 12/25/24 0 12/25/24 Rx mg-hydrochlorothiaz sherie 12.5 mg tablet Nurse's Note: * Pt is still having issues w/ sleep. Pt states she is still tired and has not really noticed a difference w/ fatigue. Pt states she thinks she has apneic episodes throughout the day, just sitting there, does not have to exert herself, or be doing anything. Does not have SOB otherwise. but denies falling asleep throughout the day. Pt got a new mask and has been using it for over a month and has still not seen a difference. * Pt states she has had a lot of diaphoresis, and thinks her temp can not get regulated she states she is always hot and was told to get thyroid checked, pt states that she will just be sitting there and drips beads of sweat. * Pt needs everything refilled for 90 days. 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 Patient states that she was told that she cannot get refills until she made an appointment. Patient overall feels well without any significant concerns or complaints. Patient does have a history of obstructive sleep apnea. She has been trying to figure out appropriate masks and other CPAP supplies and that she still has some apneic events at night. She has been trying to use her CPAP faithfully and states that she really does not think she is seeing a huge improvement in her overall fatigue level. Patient does complain of sweats regularly. She states that she is always hot and always sweating / uncomfortably hot. She states that she was never really sure if this was fibromyalgia or if this is possibly related to menopause but she states that it is just something that really is bothersome. Patient has been on Cymbalta for a very long time for her fibromyalgia. She states that in the past she has tried to go off this a couple of different times and states that 1 time it was just too rapidly and the other time once she was off of it she just started to have a lot of her aches and pains from her fibromyalgia and therefore she has been back on this and that this is the thing that has helped her fibromyalgia the most. Patient does have pretty long history of blood (more content not included)... Normal [facility] - Chemistry and C hemistry - challengeOrdered By: Bert Quiroz on 12-25-2024 AST [Catalytic activity/Vol] 23 U/L <32 [facility] MCV (mean corpuscular volume ) determinationOrdered By: Bert Quiroz on 12-25-2024 MCV (RBC) [Entitic vol] 87.4 fL 81-[address] [facility] Mean corpuscular hemoglobin (MCH) determinationOrdered By: Bert Quiroz on 12-25-2024 MCH (RBC) [Entitic mass] 28.1 pg 27.0-32.0 [facility] Mean corpuscular hemoglobin concentration (MCHC) determinationOrdered By: Bert Quiroz on 12-25-2024 MCHC (RBC) [Mass/Vol] 32.2 g/dL 32-36 [facility] Mean platelet volume determi nationOrdered By: Bert Quiroz on 12-25-2024 Platelet mean volume (Bld) [Entitic vol] 10.8 fL 6.2-12.0 [facility] Monocyte percentageOrdered B y: Bert Quiroz on 12-25-2024 Monocytes/100 WBC (Bld) 1.8 % 0-[address] [facility] Neutrophil percentageOrdered By: Bert Quiroz on 12-25-2024 Neutrophils/100 WBC (Bld) 85.6 % High 47-70 [facility] Nucleated red blood cell per centageOrdered By: Bert Quiroz on 12-25-2024 Nucleated RBC/100 WBC (Bld) [Ratio] 0 % 0-5 [facility] Platelet countOrdered By: Soila Quiroz on 12-25-2024 Platelets (Bld) [#/Vol] 286 10*3/uL 150-450 [facility] Potassium measurement (mass/ volume)Ordered By: Bert Quiroz on 12-25-2024 Potassium (Unsp spec) [Mass/Vol] 4.4 mmol/L 3.3-5.1 [facility] RBC Auto (Bld) [#/Vol]Ordere d By: Bert Quiroz on 12-25-2024 RBC (Bld) [#/Vol] 4.27 10*6/uL 4.2-5.4 [facility] Serum creatinine measurement (mass/volume)Ordered By: Bert Quiroz on 12-25-2024 Creatinine [Mass/Vol] 0.74 mg/dL 0.70-1.20 [facility] Serum globulin measurementOr dered By: Bert Quiroz on 12-25-2024 Globulin (S) [Mass/Vol] 2.9 g/dL 2.2-4.2 [facility] Serum glucose measurement (m ass/volume)Ordered By: Bert Quiroz on 12-25-2024 Glucose [Mass/Vol] 242 mg/dL High 70-99 [facility] Serum or plasma alanine claudio otransferase (ALT) measurementOrdered By: Bert Quiroz on 12-25-2024 ALT [Catalytic activity/Vol] 39 U/L High <35 [facility] Serum or plasma albumin zeeshan urement (mass/volume)Ordered By: Bert Quiroz on 12-25-2024 Albumin [Mass/Vol] 4.6 g/dL 3.4-4.8 [facility] Serum or plasma albumin/glob ulin mass ratioOrdered By: Bert Quiroz on 12-25-2024 Albumin/Globulin [Mass ratio] 1.6 {ratio} 0.9-2.4 [facility] Serum or plasma alkaline kami sphatase measurementOrdered By: Bert Quiroz on 12-25-2024 ALP [Catalytic activity/Vol] 85 U/L 35-104 [facility] Serum or plasma calcium zeeshan urement (mass/volume)Ordered By: Bert Quiroz on 12-25-2024 Calcium [Mass/Vol] 9.7 mg/dL 7.6-11.0 [facility] Serum or plasma urea nitroge n measurement (mass/volume)Ordered By: Bert Quiroz on 12-25-2024 Urea nitrogen [Mass/Vol] 14 mg/dL 4-19 [facility] Sodium levelOrdered By: Filiberto Quiroz on 12-25-2024 Sodium [Moles/Vol] 136 mmol/L 133-145 [facility] Total proteinOrdered By: Russel Quiroz on 12-25-2024 Protein [Mass/Vol] 7.5 g/dL 5.9-8.4 [facility] White blood cell (WBC) count Ordered By: Bert Quiroz on 12-25-2024 WBC (Bld) [#/Vol] 9.7 10*3/uL 4.4-11.0 [facility] Urgent Care Visit Reporton 0 12-23-2024 Urgent Care Visit Report [facility] [address], [address] [place] [address] OFFICE VISIT Date of Service: 12/23/24 MR#: [id number] Acct: [id number] Name: VIGNESH YOUNG Rep #: [id number] : 1960 Provider: ROSCOE Vega Age/Sex: 64/F Location: [facility] Status: Signed Intake Vital Signs 06/25/24 08:26 [...] a week. Patient states they are bubbling. 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 Patient states she has used multiple [id number]-fof-[id number] topical applications without relief of symptoms. She [...] Assessment and (more content not included)... Normal [facility] - Microbiology an d Antimicrobial susceptibilityOrdered By: Noreen Bhakta on 09-14-2024 SARS-CoV-2 (COVID-19) RNA KIARA+probe Ql (Unsp spec) Not detected [facility] No Panel InformationOrdered By: Noreen Bhakta on 09-14-2024 Influenza Types A,B Rapid (Clinic) Not detected [facility] Urgent Care Visit Reporton 0 09-14-2024 Urgent Care Visit Report [facility] [address], [address] [place] [address] OFFICE VISIT Date of Service: 09/14/24 MR#: [id number] Acct: [id number] Name: VIGNESH YOUNG BRIANNE Rep #: [id number] : 1960 Provider: RAMONA Bhakta Age/Sex: 63/F Location: [facility] Status: Signed Intake Vital Signs 06/25/24 08:26 09/14/24 13:00 Height 5 ft 5 in BP 140/74 H Blood Pressure Location Lt brachial Position Sitting Respiration 15 Pulse 108 H Pulse Source NIBP Temp 98.1 F Temp Source Oral Pulse Oximetry (%) 97 Oxygen Delivery Method room air Intake Visit Reasons: COUGH, SORE THROAT Chief Complaint: cough, ST, congest, LAZAR, BA Cardiac Nurse Required: No Is patient in pain?: No [...] 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 Normal [facility] CBC W/Diff, Automatedon 12-0 -2023 Absolute Lymph 1.90 X10 3/uL Normal 0.83-4.51 [facility] Comment on above: Performed By: #### L 500.4050, L501.9520, L503.6550, L506.1000, L100.0100, L503.0105, L503.6030 #### [facility] [address] [place], [address] Absolute Neut 4.3 X10 3/uL Normal 2.0-7.7 [facility] Comment on above: Performed By: #### L 500.4050, L501.9520, L503.6550, L506.1000, L100.0100, L503.0105, L503.6030 #### [facility] [address] [place], [address] Basophils/100 WBC (Bld) 0.4 % Normal 0-[address] [facility] Comment on above: Performed By: #### L 500.4050, L501.9520, L503.6550, L506.1000, L100.0100, L503.0105, L503.6030 #### [facility] [address] [place], [address] Eosinophils/100 WBC (Bld) 1.3 % Normal 0-5 [facility] Comment on above: Performed By: #### L 500.4050, L501.9520, L503.6550, L506.1000, L100.0100, L503.0105, L503.6030 #### [facility] [address] [facility] [place], [address] Erythrocyte distribution width (RBC) [Ratio] 13.3 % Normal 11.6-14.6 [facility] Comment on above: Performed By: #### L 500.4050, L501.9520, L503.6550, L506.1000, L100.0100, L503.0105, L503.6030 #### [facility] [address] [facility] [place], [address] Hematocrit (Bld) [Volume fraction] 38.6 % Normal 37-47 [facility] Comment on above: Performed By: #### L 500.4050, L501.9520, L503.6550, L506.1000, L100.0100, L503.0105, L503.6030 #### [facility] [address] [facility] [place], [address] Hemoglobin (Bld) [Mass/Vol] 12.0 g/dL Normal 12.0-15.0 [facility] Comment on above: Performed By: #### L 500.4050, L501.9520, L503.6550, L506.1000, L100.0100, L503.0105, L503.6030 #### [facility] [address] [place], [address] IG% 0.600 Normal 0.0-0.9 [facility] Comment on above: Result Comment: IG% - Immature Granulocytes (promyelocytes, myelocytes and metamyelocytes) > 1% indicates that a LEFT SHIFT is Present. Performed By: #### L 500.4050, L501.9520, L503.6550, L506.1000, L100.0100, L503.0105, L503.6030 #### [facility] [address] [place], [address] Lymphocytes/100 WBC (Bld) 27.4 % Normal 19-41 [facility] Comment on above: Performed By: #### L 500.4050, L501.9520, L503.6550, L506.1000, L100.0100, L503.0105, L503.6030 #### [facility] [address] [place], [address] MCH (RBC) [Entitic mass] 27.4 pg Normal 27.0-32.0 [facility] Comment on above: Performed By: #### L 500.4050, L501.9520, L503.6550, L506.1000, L100.0100, L503.0105, L503.6030 #### [facility] [address] [place], [address] MCHC (RBC) [Mass/Vol] 31.1 g/dL Low 32-36 [facility] Comment on above: Performed By: #### L 500.4050, L501.9520, L503.6550, L506.1000, L100.0100, L503.0105, L503.6030 #### [facility] [address] [place], [address] MCV (RBC) [Entitic vol] 88.1 fL Normal 81-[address] [facility] Comment on above: Performed By: #### L 500.4050, L501.9520, L503.6550, L506.1000, L100.0100, L503.0105, L503.6030 #### [facility] [address] [place], [address] Monocytes/100 WBC (Bld) 8.5 % Normal 0-10 [facility] Comment on above: Performed By: #### L 500.4050, L501.9520, L503.6550, L506.1000, L100.0100, L503.0105, L503.6030 #### [facility] [address] [place], [address] Neutrophils/100 WBC (Bld) 61.8 % Normal 47-70 [facility] Comment on above: Performed By: #### L 500.4050, L501.9520, L503.6550, L506.1000, L100.0100, L503.0105, L503.6030 #### [facility] [address] [place], [address] Nucleated RBC (Bld) [#/Vol] 0 10*3/uL Normal 0-5 [facility] Comment on above: Performed By: #### L 500.4050, L501.9520, L503.6550, L506.1000, L100.0100, L503.0105, L503.6030 #### [facility] [address] [place], [address] Platelet mean volume (Bld) [Entitic vol] 11.0 fL Normal 6.2-12.0 [facility] Comment on above: Performed By: #### L 500.4050, L501.9520, L503.6550, L506.1000, L100.0100, L503.0105, L503.6030 #### [facility] [address] [place], [address] Platelets (Bld) [#/Vol] 272 10*3/uL Normal 150-450 [facility] Comment on above: Performed By: #### L 500.4050, L501.9520, L503.6550, L506.1000, L100.0100, L503.0105, L503.6030 #### [facility] [address] [place], [address] RBC (Bld) [#/Vol] 4.38 10*6/uL Normal 4.2-5.4 [facility] Comment on above: Performed By: #### L 500.4050, L501.9520, L503.6550, L506.1000, L100.0100, L503.0105, L503.6030 #### [facility] [address] [place], [address] RDW SD 43.1 fl Normal 35.1-43.9 [facility] Comment on above: Performed By: #### L 500.4050, L501.9520, L503.6550, L506.1000, L100.0100, L503.0105, L503.6030 #### [facility] [address] [place], [address] WBC (Bld) [#/Vol] 6.9 10*3/uL Normal 4.4-11.0 [facility] Comment on above: Performed By: #### L 500.4050, L501.9520, L503.6550, L506.1000, L100.0100, L503.0105, L503.6030 #### [facility] [address] [place], [address] Comprehensive Metabolic Prof ilon 06-25-2024 Albumin [Mass/Vol] 3.9 g/dL Normal 3.2-5.0 [facility] Comment on above: Performed By: #### L 500.4050, L501.9520, L503.6550, L506.1000, L100.0100, L503.0105, L503.6030 ####[facility] [address] [place], [address] Albumin/Globulin [Mass ratio] 1.1 {ratio} Normal 0.9-2.4 [facility] Comment on above: Performed By: #### L 500.4050, L501.9520, L503.6550, L506.1000, L100.0100, L503.0105, L503.6030 ####[facility] [address] [place], [address] ALK P 87 U/L Normal 45-117 [facility] Comment on above: Performed By: #### L 500.4050, L501.9520, L503.6550, L506.1000, L100.0100, L503.0105, L503.6030 ####[facility] [address] [place], [address] ALT [Catalytic activity/Vol] 62 U/L High 13-56 [facility] Comment on above: Performed By: #### L 500.4050, L501.9520, L503.6550, L506.1000, L100.0100, L503.0105, L503.6030 ####[facility] [address] [place], [address] AST [Catalytic activity/Vol] 27 U/L Normal 15-37 [facility] Comment on above: Performed By: #### L 500.4050, L501.9520, L503.6550, L506.1000, L100.0100, L503.0105, L503.6030 ####[facility] [address] [place], [address] Bilirubin [Mass/Vol] 0.40 mg/dL Normal 0.20-1.00 [facility] Comment on above: Result Comment: For patients on eltrombopag therapy, use of Dimension [place] TBIL is not recommended. Performed By: #### L 500.4050, L501.9520, L503.6550, L506.1000, L100.0100, L503.0105, L503.6030 ####[facility] [address] [place], [address] BUN/CRE 19.3 RATIO Normal 10-20 [facility] Comment on above: Performed By: #### L 500.4050, L501.9520, L503.6550, L506.1000, L100.0100, L503.0105, L503.6030 ####[facility] [address] [place], [address] CA,Total 9.2 mg/dL Normal 8.5-10.1 [facility] Comment on above: Performed By: #### L 500.4050, L501.9520, L503.6550, L506.1000, L100.0100, L503.0105, L503.6030 ####[facility] [address] [place], [address] Chloride [Moles/Vol] 106 mmol/L Normal 98-107 [facility] Comment on above: Performed By: #### L 500.4050, L501.9520, L503.6550, L506.1000, L100.0100, L503.0105, L503.6030 ####[facility] [address] [place], [address] CO2 [Moles/Vol] 28.0 mmol/L Normal 21.0-32.0 [facility] Comment on above: Performed By: #### L 500.4050, L501.9520, L503.6550, L506.1000, L100.0100, L503.0105, L503.6030 ####[facility] [address] [place], [address] Creatinine [Mass/Vol] 0.72 mg/dL Normal 0.55-1.02 [facility] Comment on above: Result Comment: The validity of the calculated GFR GFRAA in patients over 70 years has not been determined. Clinical correlation is essential. Performed By: #### L 500.4050, L501.9520, L503.6550, L506.1000, L100.0100, L503.0105, L503.6030 ####[facility] [address] [place], [address] EST GFR - AA 105 mL/min Normal >60 [facility] Comment on above: Result Comment: Afri can [place] GFR Calc Performed By: #### L 500.4050, L501.9520, L503.6550, L506.1000, L100.0100, L503.0105, L503.6030 ####[facility] [address] [place], [address] GAP 6 Normal 5-15 [facility] Comment on above: Performed By: #### L 500.4050, L501.9520, L503.6550, L506.1000, L100.0100, L503.0105, L503.6030 ####[facility] [address] [place], [place], [address]46) GFR/1.73 sq M.predicted among non-blacks MDRD (S/P/Bld) [Vol rate/Area] 87 mL/min/{1.73_m2} Normal >60 [facility] Comment on above: Result Comment: Non- GFR Calc Performed By: #### L 500.4050, L501.9520, L503.6550, L506.1000, L100.0100, L503.0105, L503.6030 ####[facility] [address] [place], [address] Globulin (S) [Mass/Vol] 3.6 g/dL Normal 2.2-4.2 [facility] Comment on above: Performed By: #### L 500.4050, L501.9520, L503.6550, L506.1000, L100.0100, L503.0105, L503.6030 ####[facility] [address] [place], [address] Glucose [Mass/Vol] 157 mg/dL High 74-106 [facility] Comment on above: Result Comment: Fast ing Glucose result greater than or equal to 126 mg/dL suggests DIABETES MELLITUS per A.D.A. criteria. Performed By: #### L 500.4050, L501.9520, L503.6550, L506.1000, L100.0100, L503.0105, L503.6030 ####[facility] [address] [place], [address] Potassium [Moles/Vol] 4.2 mmol/L Normal 3.5-5.1 [facility] Comment on above: Performed By: #### L 500.4050, L501.9520, L503.6550, L506.1000, L100.0100, L503.0105, L503.6030 ####[facility] [address] [place], [address] Sodium [Moles/Vol] 140 mmol/L Normal 136-145 [facility] Comment on above: Performed By: #### L 500.4050, L501.9520, L503.6550, L506.1000, L100.0100, L503.0105, L503.6030 ####[facility] [address] [place], [address] T PROT 7.5 g/dL Normal 6.4-8.2 [facility] Comment on above: Performed By: #### L 500.4050, L501.9520, L503.6550, L506.1000, L100.0100, L503.0105, L503.6030 ####[facility] [address] [place], [address] Urea nitrogen [Mass/Vol] 14 mg/dL Normal 7-18 [facility] Comment on above: Performed By: #### L 500.4050, L501.9520, L503.6550, L506.1000, L100.0100, L503.0105, L503.6030 ####[facility] [address] [place], [address] Ferritinon 06-25-2024 Ferritin [Mass/Vol] 43 ng/mL Normal 8-252 [facility] Comment on above: Performed By: #### L 500.4050, L501.9520, L503.6550, L506.1000, L100.0100, L503.0105, L503.6030 ####[facility] [address] [place], [address] Hemoglobin A1con 06-25-2024 HbA1c (Bld) [Mass fraction] 6.8 % High 3.8-5.6 [facility] Comment on above: Order Comment: ADD O N Result Comment: Norm al < 5.7 % Prediabetic 5.7 - 6.4 % Diabetic >or= 6.5 % Please note range changes. Performed By: #### L 501.9932 #### [facility] [address] [place], [address] Iron+Iron Binding Capacityon 06-25-2024 Iron [Mass/Vol] 55 ug/dL Normal 50-170 [facility] Comment on above: Performed By: #### L 500.4050, L501.9520, L503.6550, L506.1000, L100.0100, L503.0105, L503.6030 ####[facility] [address] [place], [address] IRON SATURATION 16.8 Normal 15.0-55.0 [facility] Comment on above: Performed By: #### L 500.4050, L501.9520, L503.6550, L506.1000, L100.0100, L503.0105, L503.6030 ####[facility] [address] [place], [address] TIBC 328 ug/dL Normal 250-450 [facility] Comment on above: Performed By: #### L 500.4050, L501.9520, L503.6550, L506.1000, L100.0100, L503.0105, L503.6030 ####[facility] [address] [place], [address] Thyroid Stim Hormone (TSH)on 06-25-2024 TSH 1.370 uIU/mL Normal 0.358-3.740 [facility] Comment on above: Performed By: #### L 500.4050, L501.9520, L503.6550, L506.1000, L100.0100, L503.0105, L503.6030 ####[facility] [address] [place], [address] Vitamin B12on 06-25-2024 Cobalamin (Vitamin B12) [Mass/Vol] 382 pg/mL Normal 211-911 [facility] Comment on above: Performed By: #### L 500.4050, L501.9520, L503.6550, L506.1000, L100.0100, L503.0105, L503.6030 ####[facility] [address] [place], [address] Vitamin D,25 Hydroxyon 06-25 Vitamin D 25-OH 27.2 ng/mL Normal [facility] Comment on above: Result Comment: Lilia min D 25(OH) Status Range Deficiency <20 ng/mL (50nmol/L) Insufficiency 20 - 30 ng/mL (50 - 75 nmol/L) Sufficiency 30 - 100 ng/mL (75 - 250 nmol/L) Toxicity >100 ng/mL (>250 nmol/L) Performed By: #### L 500.4050, L501.9520, L503.6550, L506.1000, L100.0100, L503.0105, L503.6030 ####[facility] [address] [place], [address] Internal Medicine Office Vis gideon 06-24-2024 Internal Medicine Office Visit [facility] [address] [place] [address] [place] [address] OFFICE VISIT Date of Service: 06/25/24 MR#: [id number] Acct: [id number] Name: VIGNESH YOUNG BRIANNE Rep #: [id number] : 1960 Provider: Dr. 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 Normal [facility]gent [facility] Visit Reporton 0 04-02-2024 Urgent Care Visit Report [facility] 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 Patient states she has used multiple [id number] topical applications as well as oral Benadryl [...] habitus Orientation: alert, awake and oriented x3 HENTN Head: normal to inspection Ears: hearing grossly [...] mental statu (more content not included)... Normal [facility] PCRHSVon 10-31-2023 HSV 1/2 Source Swab Normal [facility] ([place]) Comment on above: Performed By: #### 1 [id number] #### [address] [address] PCRHSVon 10-29-2023 HSV-1 DNA Positive Abnormal Negative [facility] ([place]) Comment on above: Performed By: #### 1 [id number] #### [address] [address] HSV-2 DNA Negative Normal Negative [facility] ([place]) Comment on above: Result Comment: This test was developed and its performance characteristics determined by [facility]. It has not been cleared or approved by the U.S. Food and Drug Administration. The FDA has determined that such clearance or approval is not necessary. This test is used for clinical purposes. It should not be regarded as investigational or research. Performed At: [employer] [address] [id number] Rah Hope MD Ph:[phone] Performed By: #### 1 [id number] #### [address] [address] LABORATORYOrdered By: Mode [employer] CONTRIBUTOR_SYSTEM on 10-25-2023 HSV-1 DNA (LC) Positive Invalid Interpretation Code Negative AO Sendouts SS HSV-2 DNA (LC) Negative Invalid Interpretation Code Negative AO Sendouts SS Comment on above: Result Comment: This test was developed and its performance characteristics determined by [facility]. It has not been cleared or approved by the U.S. Food and Drug Administration. The FDA has determined that such clearance or approval is not necessary. This test is used for clinical purposes. It should not be regarded as investigational or research. Performed At: [address] [id number] Rah Hope MD Ph:[phone] Basophil percentageOrdered B y: Xiomy Schaffer on 05-01-2023 Basophil percentage 0 SEEN /hpf 0-5 [facility] Bilirubin Test strip Ql (U)O rdered By: Xiomy Sarbjit on 05-01-2023 Bilirubin Ql (U) Negative Negative [facility] Culture, urineOrdered By: Al ycia Valrico on 05-01-2023 Bacteria identified Cx Nom (U) Staphylococcus epidermidis [facility] Ketones Test strip Ql (U)Ord ered By: Xiomytomy Schaffer on 05-01-2023 Ketones Ql (U) Negative Negative [facility] Mucus LM Ql (Urine sed)Order ed By: Xiomy Sarbjit on 05-01-2023 Mucus Ql (Urine sed) 0 SEEN [facility] Nitrite Test [facility] Ql (U)Ord ered By: Xiomy Schaffer on 05-01-2023 Nitrite Ql (U) Negative Negative [facility] Protein Test strip Ql (U)Ord ered By: Xiomy Schaffer on 05-01-2023 Protein Ql (U) Negative Negative [facility] Squamous epithelial cells de tection in urine sediment by light microscopyOrdered By: Xiomy Schaffer on 05-01-2023 Epithelial cells.squamous LM Ql (Urine sed) 0 SEEN /hpf 5-10 [facility] Urine blood detectionOrdered By: Xiomy Schaffer on 05-01-2023 RBC Ql (U) Negative Negative [facility] RBC Ql (U) 0 SEEN /hpf 0-5 [facility] Urine clarityOrdered By: Buck Schaffer on 05-01-2023 Clarity (U) Clear Clear [facility] Urine color determinationOrd ered By: Xiomy Schaffer on 05-01-2023 Color (U) Straw Yellow [facility] Urine glucose detectionOrder ed By: Xiomy Schaffer on 05-01-2023 Glucose Ql (U) Normal mg/dl Normal [facility] Urine leukocyte esterase det ection by dipstickOrdered By: Xiomy Schaffer on 05-01-2023 Leukocyte esterase Test strip Ql (U) Negative Negative [facility] Urine pHOrdered By: Xiomy floyd on 05-01-2023 pH (U) 7.0 [pH] 5.0 - 8.0 [facility] Urine sediment bacteria coun t by microscopy (number/high power field)Ordered By: Xiomy Schaffer on 05-01-2023 Bacteria LM.HPF (Urine sed) [#/Area] 0 /[HPF] None Seen [facility] Urine specific gravity measu rementOrdered By: Xiomy Schaffer on 05-01-2023 Specific gravity (U) [Rel density] 1.010 1.002-1.030 [facility] Urobilinogen Auto test strip Ql (U)Ordered By: Xiomy Schaffer on 05-01-2023 Urobilinogen Ql (U) Normal mg/dl Normal [facility] Absolute lymphocyte counton 06-07-2022 Lymphocytes Auto (Unsp spec) [#/Vol] 7.22 10*3/uL 0.83-4.51 [facility] Work Phone: [phone] Lymphocytes Auto (Unsp spec) [#/Vol] 8.77 10*3/uL 0.83-4.51 [facility] Work Phone: [phone] Basophil percentageon 2021 Basophil percentage 0 SEEN /hpf 0-5 [facility] Work Phone: [phone] Basophils/100 WBC (Bld) 0.8 % 0-[address] [facility] Work Phone: [phone] Bilirubin [Mass/Vol] 0.40 mg/dL 0.20-1.00 [facility] Work Phone: [phone] Comment on above: For patients on eltr ombopag therapy, use of Dimension [place] TBIL is not recommended. Chloride [Moles/Vol] 100 mmol/L 98-107 [facility] Work Phone: Eosinophils/100 WBC (Bld) 0.6 % 0-5 [facility] Work Phone: Glucose [Mass/Vol] 128 mg/dL 74-106 [facility] Work Phone: Comment on above: Fasting Glucose resu lt greater than or equal to 126 mg/dL suggests DIABETES MELLITUS per A.D.A. criteria. Neutrophils (Bld) [#/Vol] 2.9 10*3/uL 2.0-7.7 [facility] Work Phone: Neutrophils/100 WBC (Bld) 26.0 % 47-70 [facility] Work Phone: [phone] Potassium [Moles/Vol] 4.0 mmol/L 3.5-5.1 [facility] Work Phone: [phone] Protein [Mass/Vol] 6.8 g/dL 6.4-8.2 [facility] Work Phone: [phone] Sodium [Moles/Vol] 136 mmol/L 136-145 [facility] Work Phone: [phone] WBC (Bld) [#/Vol] 11.1 10*3/uL 4.4-11.0 [facility] Work Phone: [phone] Basophils/100 WBC (Bld) 0.7 % 0-[address] [facility] Work Phone: [phone] Bilirubin [Mass/Vol] 0.50 mg/dL 0.20-1.00 [facility] Work Phone: [phone] Comment on above: For patients on eltr ombopag therapy, use of Dimension [place] TBIL is not recommended. Chloride [Moles/Vol] 99 mmol/L 98-107 [facility] Work Phone: Eosinophils/100 WBC (Bld) 0.7 % 0-5 [facility] Work Phone: Glucose [Mass/Vol] 114 mg/dL 74-106 [facility] Work Phone: Comment on above: Fasting Glucose resu lt from 100 to 125 mg/dL suggests IMPAIRED HOMEOSTASIS per A.D.A. criteria. Neutrophils (Bld) [#/Vol] 3.5 10*3/uL 2.0-7.7 [facility] Work Phone: [phone] Neutrophils/100 WBC (Bld) 26.1 % 47-70 [facility] Work Phone: [phone] Potassium [Moles/Vol] 4.5 mmol/L 3.5-5.1 [facility] Work Phone: [phone] Protein [Mass/Vol] 7.5 g/dL 6.4-8.2 [facility] Work Phone: [phone] Sodium [Moles/Vol] 135 mmol/L 136-145 [facility] Work Phone: [phone] WBC (Bld) [#/Vol] 13.6 10*3/uL 4.4-11.0 [facility] Work Phone: [phone] Bilirubin Test strip Ql (U)o n 06-07-2022 Bilirubin Ql (U) Negative Negative [facility] Work Phone: Blood erythrocytes count (nu mber/volume)on 06-07-2022 RBC (Bld) [#/Vol] 3.81 10*6/uL 4.2-5.4 [facility] Work Phone: RBC (Bld) [#/Vol] 4.16 10*6/uL 4.2-5.4 [facility] Work Phone: Blood hemoglobin measurement (mass/volume)on 06-07-2022 Hemoglobin (Bld) [Mass/Vol] 10.5 g/dL 12.0-15.0 [facility] Work Phone: Hemoglobin (Bld) [Mass/Vol] 11.4 g/dL 12.0-15.0 [facility] Work Phone: Blood lymphocytes/100 leukoc yteson 06-07-2022 Lymphocytes/100 WBC (Bld) 65.0 % 19-41 [facility] Work Phone: Lymphocytes/100 WBC (Bld) 64.6 % [facility] Work Phone: Blood manual differential co mment interpretation (narrative result)on 06-07-2022 Manual differential comment Sesar (Bld) [Interp] SCANNED [facility] Work Phone: Comment on above: LYMPHOCYTOSIS NOTED Manual differential comment Sesar (Bld) [Interp] COMMENT [facility] Work Phone: Comment on above: LYMPHOCYTOSIS. Blood monocytes/100 leukocyt eson 06-07-2022 Monocytes/100 WBC (Bld) 6.4 % 0-[address] [facility] Work Phone: Monocytes/100 WBC (Bld) 6.5 % 0-[address] [facility] Work Phone: Blood platelet mean volumeon 06-07-2022 Platelet mean volume (Bld) [Entitic vol] 9.6 fL 6.2-12.0 [facility] Work Phone: Platelet mean volume (Bld) [Entitic vol] 10.0 fL 6.2-12.0 [facility] Work Phone: Determination of erythrocyte mean corpuscular volume (MCV)on 06-07-2022 MCV (RBC) [Entitic vol] 84.8 fL 81-[address] [facility] Work Phone: MCV (RBC) [Entitic vol] 87.5 fL 81-[address] [facility] Work Phone: Hematocrit Auto (Bld) [Volum e fraction]on 06-07-2022 Hematocrit (Bld) [Volume fraction] 32.3 % 37-47 [facility] Work Phone: Hematocrit (Bld) [Volume fraction] 36.4 % 37-47 [facility] Work Phone: Ketones Test strip Ql (U)on 06-07-2022 Ketones Ql (U) Negative Negative [facility] Work Phone: Laboratory - Chemistry and C hemistry - challengeon 06-07-2022 ALP [Catalytic activity/Vol] 113 U/L 45-117 [facility] Work Phone: ALT [Catalytic activity/Vol] 268 U/L 13-56 [facility] Work Phone: CO2 [Moles/Vol] 29.0 mmol/L 21.0-32.0 [facility] Work Phone: Globulin (S) [Mass/Vol] 3.9 g/dL 2.2-4.[address] [facility] Work Phone: Lipase [Catalytic activity/Vol] 99 U/L 73-393 [facility] Work Phone: Urea nitrogen/Creatinine [Mass ratio] 10.0 mg/mg 10-20 [facility] Work Phone: ALP [Catalytic activity/Vol] 124 U/L 45-117 [facility] Work Phone: ALT [Catalytic activity/Vol] 296 U/L 13-56 [facility] Work Phone: [phone] CO2 [Moles/Vol] 30.0 mmol/L 21.0-32.0 [facility] Work Phone: Globulin (S) [Mass/Vol] 4.2 g/dL 2.2-4.[address] [facility] Work Phone: [phone] Urea nitrogen/Creatinine [Mass ratio] 9.3 mg/mg 10-20 [facility] Work Phone: Laboratory - Hematology and Cell countson 06-07-2022 Erythrocyte distribution width (RBC) [Entitic vol] 46.2 fL 35.1-43.9 [facility] Work Phone: [phone] Erythrocyte distribution width (RBC) [Ratio] 15.1 % 11.6-14.6 [facility] Work Phone: [phone] Immature granulocytes/100 WBC (Bld) 1.200 % 0.0-0.9 [facility] Work Phone: Comment on above: IG% - Immature Granu locytes (promyelocytes, myelocytes and metamyelocytes) > 1% indicates that a LEFT SHIFT is Present. MCH (RBC) [Entitic mass] 27.6 pg 27.0-32.0 [facility] Work Phone: [phone] Nucleated RBC/100 WBC (Bld) [Ratio] 0 % 0-5 [facility] Work Phone: [phone] Erythrocyte distribution width (RBC) [Entitic vol] 48.3 fL 35.1-43.9 [facility] Work Phone: Erythrocyte distribution width (RBC) [Ratio] 15.3 % 11.6-14.6 [facility] Work Phone: Immature granulocytes/100 WBC (Bld) 1.400 % 0.0-0.9 [facility] Work Phone: Comment on above: IG% - Immature Granu locytes (promyelocytes, myelocytes and metamyelocytes) > 1% indicates that a LEFT SHIFT is Present. MCH (RBC) [Entitic mass] 27.4 pg 27.0-32.0 [facility] Work Phone: Nucleated RBC/100 WBC (Bld) [Ratio] 0 % 0-5 [facility] Work Phone: MCHC Auto (RBC) [Mass/Vol]on 06-07-2022 MCHC (RBC) [Mass/Vol] 32.5 g/dL [facility] Work Phone: MCHC (RBC) [Mass/Vol] 31.3 g/dL -36 [facility] Work Phone: Mucus LM Ql (Urine sed)on Mucus Ql (Urine sed) 0 SEEN /hpf [facility] Work Phone: Nitrite Test strip Ql (U)on 06-07-2022 Nitrite Ql (U) Negative Negative [facility] Work Phone: No Panel Informationon 06-07 Atypical Lymphocytes RARE % [facility] Work Phone: Estimated Creatinine Clearance Calc 67.29 ml/min [facility] Work Phone: Estimated GFR (MDRD) Amer 93 mL/min >60 [facility] Work Phone: Comment on above: GFR Calc Estimated GFR (MDRD) Non-Af Amer 77 mL/min >60 [facility] Work Phone: Comment on above: Non- GFR Calc Reactive Lymphocytes 1+ [facility] Work Phone: Estimated GFR (MDRD) Amer 101 mL/min >60 [facility] Work Phone: Comment on above: GFR Calc Estimated GFR (MDRD) Non-Af Amer 84 mL/min >60 [facility] Work Phone: Comment on above: Non- GFR Calc Reactive Lymphocytes 1+ [facility] Work Phone: Platelets bldon 06-07-2022 Platelets (Bld) [#/Vol] 222 10*3/uL 150-450 [facility] Work Phone: Platelets (Bld) [#/Vol] 232 10*3/uL 150-450 [facility] Work Phone: Protein Test strip Ql (U)on 06-07-2022 Protein Ql (U) Negative Negative [facility] Work Phone: Serum or plasma albumin zeeshan urement (mass/volume)on 06-07-2022 Albumin [Mass/Vol] 2.9 g/dL 3.2-5.0 [facility] Work Phone: Albumin [Mass/Vol] 3.3 g/dL 3.2-5.0 [facility] Work Phone: Serum or plasma albumin/glob ulin mass ratioon 06-07-2022 Albumin/Globulin [Mass ratio] 0.7 {ratio} 0.9-2.4 [facility] Work Phone: Albumin/Globulin [Mass ratio] 0.8 {ratio} 0.9-2.4 [facility] Work Phone: Serum or plasma calcium zeeshan urement (mass/volume)on 06-07-2022 Calcium [Mass/Vol] 8.5 mg/dL 8.5-10.1 [facility] Work Phone: Calcium [Mass/Vol] 9.0 mg/dL 8.5-10.1 [facility] Work Phone: Serum or plasma creatinine m easurement (mass/volume)on 06-07-2022 Creatinine [Mass/Vol] 0.80 mg/dL 0.55-1.02 [facility] Work Phone: Comment on above: The validity of the calculated GFR & GFRAA in patients over 70 years has not been determined. Clinical correlation is essential. Creatinine [Mass/Vol] 0.75 mg/dL 0.55-1.02 [facility] Work Phone: Comment on above: The validity of the calculated GFR & GFRAA in patients over 70 years has not been determined. Clinical correlation is essential. Serum or plasma urea nitroge n measurement (mass/volume)on 06-07-2022 Urea nitrogen [Mass/Vol] 8 mg/dL 02-07 [facility] Work Phone: Urea nitrogen [Mass/Vol] 7 mg/dL 02-07 [facility] Work Phone: Squamous epithelial cells de tection in urine sediment by light microscopyon 06-07-2022 Epithelial cells.squamous LM Ql (Urine sed) 0 SEEN /hpf 5- [facility] Work Phone: Thin prep Papanicolaou smear with manual screeningon 06-07-2022 Thin prep Papanicolaou smear with manual screening 101 U/L [facility] Work Phone: Thin prep Papanicolaou smear with manual screening 7 12-05 [facility] Work Phone: Thin prep Papanicolaou smear with manual screening 114 U/L [facility] Work Phone: Thin prep Papanicolaou smear with manual screening 6 12-05 [facility] Work Phone: Urine blood detectionon 05-24 RBC Ql (U) Negative Negative [facility] Work Phone: RBC Ql (U) 0 SEEN /hpf 0-5 [facility] Work Phone: Urine clarityon 06-07-2022 Clarity (U) Clear Clear [facility] Work Phone: Urine color determinationon 06-07-2022 Color (U) Yellow Yellow [facility] Work Phone: Urine glucose detectionon Glucose Ql (U) Normal mg/dl Normal [facility] Work Phone: Urine leukocyte esterase det ection by dipstickon 06-07-2022 Leukocyte esterase Test strip Ql (U) Negative Negative [facility] Work Phone: Urine pHon 06-07-2022 pH (U) 7.0 [pH] 5.0 - 8.0 [facility] Work Phone: Urine sediment bacteria coun t by microscopy (number/high power field)on 06-07-2022 Bacteria LM.HPF (Urine sed) [#/Area] 0 /[HPF] None Seen [facility] Work Phone: Urine specific gravity measu rementon 06-07-2022 Specific gravity (U) [Rel density] 1.010 1.002-1.030 [facility] Work Phone: Urobilinogen Auto test strip Ql (U)on 06-07-2022 Urobilinogen Ql (U) Normal mg/dl Normal [facility] Work Phone: Absolute lymphocyte counton 05-31-2022 Lymphocytes Auto (Unsp spec) [#/Vol] 4.47 10*3/uL 0.83-4.51 [facility] Work Phone: Basophil percentageon 2021 Basophil percentage 0-5 SEEN /hpf 0-5 [facility] Work Phone: Basophils/100 WBC (Bld) 1.1 % 0-[address] [facility] Work Phone: Bilirubin [Mass/Vol] 0.40 mg/dL 0.20-1.00 [facility] Work Phone: Comment on above: For patients on eltr ombopag therapy, use of Dimension [place] TBIL is not recommended. Chloride [Moles/Vol] 100 mmol/L 98-107 [facility] Work Phone: Eosinophils/100 WBC (Bld) 1.1 % 0-5 [facility] Work Phone: Glucose [Mass/Vol] 157 mg/dL 74-106 [facility] Work Phone: Comment on above: Fasting Glucose resu lt greater than or equal to 126 mg/dL suggests DIABETES MELLITUS per A.D.A. criteria. Neutrophils (Bld) [#/Vol] 3.3 10*3/uL 2.0-7.7 [facility] Work Phone: Neutrophils/100 WBC (Bld) 38.7 % 47-70 [facility] Work Phone: Potassium [Moles/Vol] 3.5 mmol/L 3.5-5.1 [facility] Work Phone: Protein [Mass/Vol] 7.6 g/dL 6.4-8.2 [facility] Work Phone: Sodium [Moles/Vol] 134 mmol/L 136-145 [facility] Work Phone: WBC (Bld) [#/Vol] 8.4 10*3/uL 4.4-11.0 [facility] Work Phone: Bilirubin Test strip Ql (U)o n 05-31-2022 Bilirubin Ql (U) Negative Negative [facility] Work Phone: Blood erythrocytes count (nu mber/volume)on 05-31-2022 RBC (Bld) [#/Vol] 4.29 10*6/uL 4.2-5.4 [facility] Work Phone: Blood hemoglobin measurement (mass/volume)on 05-31-2022 Hemoglobin (Bld) [Mass/Vol] 11.6 g/dL 12.0-15.0 [facility] Work Phone: Blood lymphocytes/100 leukoc yteson 05-31-2022 Lymphocytes/100 WBC (Bld) 53.1 % 19-41 [facility] Work Phone: Blood manual differential co mment interpretation (narrative result)on 05-31-2022 Manual differential comment Sesar (Bld) [Interp] SCANNED [facility] Work Phone: Blood monocytes/100 leukocyt eson 05-31-2022 Monocytes/100 WBC (Bld) 5.2 % 0-[address] [facility] Work Phone: Blood platelet mean volumeon 05-31-2022 Platelet mean volume (Bld) [Entitic vol] 10.8 fL 6.2-12.0 [facility] Work Phone: Determination of erythrocyte mean corpuscular volume (MCV)on 05-31-2022 MCV (RBC) [Entitic vol] 85.8 fL 81-[address] [facility] Work Phone: Hematocrit Auto (Bld) [Volum e fraction]on 05-31-2022 Hematocrit (Bld) [Volume fraction] 36.8 % 37-47 [facility] Work Phone: Ketones Test strip Ql (U)on 05-31-2022 Ketones Ql (U) 5 mg/dl Negative [facility] Work Phone: Laboratory - Chemistry and C hemistry - challengeon 05-31-2022 ALP [Catalytic activity/Vol] 120 U/L 45-117 [facility] Work Phone: ALT [Catalytic activity/Vol] 161 U/L 13-56 [facility] Work Phone: CO2 [Moles/Vol] 26.0 mmol/L 21.0-32.0 [facility] Work Phone: Globulin (S) [Mass/Vol] 4.2 g/dL 2.2-4.[address] [facility] Work Phone: Urea nitrogen/Creatinine [Mass ratio] 5.7 mg/mg 10-20 [facility] Work Phone: Laboratory - Hematology and Cell countson 05-31-2022 Erythrocyte distribution width (RBC) [Entitic vol] 45.0 fL 35.1-43.9 [facility] Work Phone: Erythrocyte distribution width (RBC) [Ratio] 14.5 % 11.6-14.6 [facility] Work Phone: Immature granulocytes/100 WBC (Bld) 0.800 % 0.0-0.9 [facility] Work Phone: Comment on above: IG% - Immature Granu locytes (promyelocytes, myelocytes and metamyelocytes) > 1% indicates that a LEFT SHIFT is Present. MCH (RBC) [Entitic mass] 27.0 pg 27.0-32.0 [facility] Work Phone: Nucleated RBC/100 WBC (Bld) [Ratio] 0 % 0-5 [facility] Work Phone: MCHC Auto (RBC) [Mass/Vol]on 05-31-2022 MCHC (RBC) [Mass/Vol] 31.5 g/dL 32-36 [facility] Work Phone: Mucus LM Ql (Urine sed)on Mucus Ql (Urine sed) 0 SEEN /hpf [facility] Work Phone: Nitrite Test strip Ql (U)on 05-31-2022 Nitrite Ql (U) Negative Negative [facility] Work Phone: No Panel Informationon 05-31 Estimated GFR (MDRD) Amer 85 mL/min >60 [facility] Work Phone: Comment on above: GFR Calc Estimated GFR (MDRD) Non-Af Amer 70 mL/min >60 [facility] Work Phone: Comment on above: Non- GFR Calc Reactive Lymphocytes 1+ [facility] Work Phone: Platelets bldon 05-31-2022 Platelets (Bld) [#/Vol] 200 10*3/uL 150-450 [facility] Work Phone: Protein Test strip Ql (U)on 05-31-2022 Protein Ql (U) 30 mg/dl Negative [facility] Work Phone: Serum or plasma albumin zeeshan urement (mass/volume)on 05-31-2022 Albumin [Mass/Vol] 3.4 g/dL 3.2-5.0 [facility] Work Phone: Serum or plasma albumin/glob ulin mass ratioon 05-31-2022 Albumin/Globulin [Mass ratio] 0.8 {ratio} 0.9-2.4 [facility] Work Phone: Serum or plasma calcium zeeshan urement (mass/volume)on 05-31-2022 Calcium [Mass/Vol] 8.6 mg/dL 8.5-10.1 [facility] Work Phone: Serum or plasma creatinine m easurement (mass/volume)on 05-31-2022 Creatinine [Mass/Vol] 0.87 mg/dL 0.55-1.02 [facility] Work Phone: Comment on above: The validity of the calculated GFR & GFRAA in patients over 70 years has not been determined. Clinical correlation is essential. Serum or plasma urea nitroge n measurement (mass/volume)on 05-31-2022 Urea nitrogen [Mass/Vol] 5 mg/dL 7-18 [facility] Work Phone: Squamous epithelial cells de tection in urine sediment by light microscopyon 05-31-2022 Epithelial cells.squamous LM Ql (Urine sed) 0-5 SEEN /hpf 5-10 [facility] Work Phone: Thin prep Papanicolaou smear with manual screeningon 05-31-2022 Thin prep Papanicolaou smear with manual screening 102 U/L 15-37 [facility] Work Phone: Thin prep Papanicolaou smear with manual screening 8 5-15 [facility] Work Phone: Urine blood detectionon RBC Ql (U) 10 /ul Negative [facility] Work Phone: RBC Ql (U) 0-5 SEEN /hpf 0-5 [facility] Work Phone: Urine clarityon 05-31-2022 Clarity (U) Sl. Cloudy Clear [facility] Work Phone: Urine color determinationon 05-31-2022 Color (U) Yellow Yellow [facility] Work Phone: Urine glucose detectionon Glucose Ql (U) Normal mg/dl Normal [facility] Work Phone: Urine leukocyte esterase det ection by dipstickon 05-31-2022 Leukocyte esterase Test strip Ql (U) 25 /ul Negative [facility] Work Phone: Urine pHon 05-31-2022 pH (U) 7.0 [pH] 5.0 - 8.0 [facility] Work Phone: Urine sediment bacteria coun t by microscopy (number/high power field)on 05-31-2022 Bacteria LM.HPF (Urine sed) [#/Area] 1 /[HPF] None Seen [facility] Work Phone: Urine specific gravity measu rementon 05-31-2022 Specific gravity (U) [Rel density] 1.010 1.002-1.030 [facility] Work Phone: Urobilinogen Auto test strip Ql (U)on 05-31-2022 Urobilinogen Ql (U) Normal mg/dl Normal [facility] Work Phone: Absolute lymphocyte counton 05-26-2022 Lymphocytes Auto (Unsp spec) [#/Vol] 2.36 10*3/uL 0.83-4.51 [facility] Work Phone: Basophil percentageon 2021 Basophils/100 WBC (Bld) 0.7 % 0-[address] [facility] Work Phone: Chloride [Moles/Vol] 103 mmol/L 98-107 [facility] Work Phone: Eosinophils/100 WBC (Bld) 1.6 % 0-5 [facility] Work Phone: Glucose [Mass/Vol] 111 mg/dL 74-106 [facility] Work Phone: Comment on above: Fasting Glucose resu lt from 100 to 125 mg/dL suggests IMPAIRED HOMEOSTASIS per A.D.A. criteria. Neutrophils (Bld) [#/Vol] 3.0 10*3/uL 2.0-7.7 [facility] Work Phone: Neutrophils/100 WBC (Bld) 48.8 % 47-70 [facility] Work Phone: Potassium [Moles/Vol] 3.9 mmol/L 3.5-5.1 [facility] Work Phone: [phone] Sodium [Moles/Vol] 137 mmol/L 136-145 [facility] Work Phone: [phone] WBC (Bld) [#/Vol] 6.1 10*3/uL 4.4-11.0 [facility] Work Phone: Blood erythrocytes count (nu mber/volume)on 05-26-2022 RBC (Bld) [#/Vol] 3.90 10*6/uL 4.2-5.4 [facility] Work Phone: Blood hemoglobin measurement (mass/volume)on 05-26-2022 Hemoglobin (Bld) [Mass/Vol] 10.9 g/dL 12.0-15.0 [facility] Work Phone: Blood lymphocytes/100 leukoc yteson 05-26-2022 Lymphocytes/100 WBC (Bld) 38.7 % 19-41 [facility] Work Phone: Blood manual differential co mment interpretation (narrative result)on 05-26-2022 Manual differential comment Sesar (Bld) [Interp] SCANNED [facility] Work Phone: Blood monocytes/100 leukocyt eson 05-26-2022 Monocytes/100 WBC (Bld) 9.2 % 0-[address] [facility] Work Phone: Blood platelet mean volumeon 05-26-2022 Platelet mean volume (Bld) [Entitic vol] 10.2 fL 6.2-12.0 [facility] Work Phone: Determination of erythrocyte mean corpuscular volume (MCV)on 05-26-2022 MCV (RBC) [Entitic vol] 85.4 fL 81-[address] [facility] Work Phone: Hematocrit Auto (Bld) [Volum e fraction]on 05-26-2022 Hematocrit (Bld) [Volume fraction] 33.3 % 37-47 [facility] Work Phone: Laboratory - Chemistry and C hemistry - challengeon 05-26-2022 CO2 [Moles/Vol] 28.0 mmol/L 21.0-32.0 [facility] Work Phone: Urea nitrogen/Creatinine [Mass ratio] 10.4 mg/mg 10-20 [facility] Work Phone: Laboratory - Hematology and Cell countson 05-26-2022 Erythrocyte distribution width (RBC) [Entitic vol] 43.5 fL 35.1-43.9 [facility] Work Phone: Erythrocyte distribution width (RBC) [Ratio] 14.0 % 11.6-14.6 [facility] Work Phone: Immature granulocytes/100 WBC (Bld) 1.000 % 0.0-0.9 [facility] Work Phone: Comment on above: IG% - Immature Granu locytes (promyelocytes, myelocytes and metamyelocytes) > 1% indicates that a LEFT SHIFT is Present. MCH (RBC) [Entitic mass] 27.9 pg 27.0-32.0 [facility] Work Phone: Nucleated RBC/100 WBC (Bld) [Ratio] 0 % 0-5 [facility] Work Phone: MCHC Auto (RBC) [Mass/Vol]on 05-26-2022 MCHC (RBC) [Mass/Vol] 32.7 g/dL 32-36 [facility] Work Phone: No Panel Informationon 05-26 Troponin I High Sensitivity < 3 pg/mL 3.0-54.0 [facility] Work Phone: Comment on above: Please Note: [place] t Units and Gender Specific Reference Ranges. For more information see Policy Stat Procedure [place] High Sensitivity Troponin (TNIH) and attachments. Atypical Lymphocytes RARE % [facility] Work Phone: Estimated Creatinine Clearance Calc 61.88 ml/min [facility] Work Phone: Estimated GFR (MDRD) Amer 86 mL/min >60 [facility] Work Phone: Comment on above: GFR Calc Estimated GFR (MDRD) Non-Af Amer 71 mL/min >60 [facility] Work Phone: Comment on above: Non- GFR Calc Platelets bldon 05-26-2022 Platelets (Bld) [#/Vol] 170 10*3/uL 150-450 [facility] Work Phone: Serum or plasma calcium zeeshan urement (mass/volume)on 05-26-2022 Calcium [Mass/Vol] 8.8 mg/dL 8.5-10.1 [facility] Work Phone: Serum or plasma creatinine m easurement (mass/volume)on 05-26-2022 Creatinine [Mass/Vol] 0.87 mg/dL 0.55-1.02 [facility] Work Phone: Comment on above: The validity of the calculated GFR & GFRAA in patients over 70 years has not been determined. Clinical correlation is essential. Serum or plasma urea nitroge n measurement (mass/volume)on 05-26-2022 Urea nitrogen [Mass/Vol] 9 mg/dL 7-18 [facility] Work Phone: Thin prep Papanicolaou smear with manual screeningon 05-26-2022 Thin prep Papanicolaou smear with manual screening 6 5-15 [facility] Work Phone: LIPID PANEL (OUTSIDE)on Cholesterol [Mass/Vol] 172 mg/dL [facility] Cholesterol in HDL [Mass/Vol] 51 mg/dL [facility] Cholesterol in LDL [Mass/Vol] 105 mg/dL [facility] LDL:HDL Ratio [facility] Non-HDL Cholesterol [facility] TC:HDL Ratio [facility] Triglyceride [Mass/Vol] 82 mg/dL [facility] VLDL Cholesterol [facility] IRON PANELon 01-09-2018 Iron 52 ug/dL Normal 50-170 [facility] Comment on above: Result Comment: Shey ents treated with metal-binding drugs (e.g.deferoxamine)may have depressed iron values, as chelated iron may notproperly react in the Siemens iron assay. Performed By: #### L 500.39778 ####[facility] [id number] [place], [place] [address]Gt# [phone] IRON SAT 15 % Low 22-44 [facility] Comment on above: Performed By: #### L 500.30625 ####[facility] [id number] [place], [place] [address]Sv# [phone] TIBC 356 UG/DL Normal 221-481 [facility] Comment on above: Performed By: #### L 500.49699 ####[facility] [id number] [place], [place] [address]Rv# [phone] CBC W/DIFFon 01-08-2018 BASO ABS 0.00 K/CU MM Normal 0-0.2 [facility] Comment on above: Performed By: #### L 200.02700 ####[facility] [id number] [place], [place] [address]Mg# [phone] Basophils/100 WBC Auto (Bld) 0.5 % Normal 0-2 [facility] Comment on above: Performed By: #### L 200.83129 ####[facility] [id number] [place], [place] [address]Nt# [phone] EOS ABS 0.10 K/CU MM Normal 0-0.5 [facility] Comment on above: Performed By: #### L 200.71174 ####[facility] [id number] [place], [place] [address]Zz# [phone] Eosinophils/100 leukocytes 1.4 % Normal 0-5 [facility] Comment on above: Performed By: #### L 200.01334 ####[facility] [id number] [place], [place] [address]Ny# [phone] Erythrocyte distribution width Auto Ratio (RBC) 12.8 % Normal 11-14.5 [facility] Comment on above: Performed By: #### L 200.18543 ####[facility] [id number] [place] [address]Iu# [phone] Erythrocytes (RBC) 4.42 M/CU MM Normal 3.90-5.30 [facility] Comment on above: Performed By: #### L 200.13321 ####[facility] [id number] [place] [address]Sr# [phone] Erythrocytes (RBC) 0.0 % Normal Less than 1 [facility] Comment on above: Performed By: #### L 200.06367 ####[facility] [id number] [place] [address]Gz# [phone] Hematocrit (HCT) 39.9 % Normal 35.0-47.0 [facility] Comment on above: Performed By: #### L 200.52885 ####[facility] [id number] [place] [address]Fc# [phone] Hemoglobin mass conc (Bld) 12.5 g/dL Normal 11.5-15.5 [facility] Comment on above: Performed By: #### L 200.05115 ####[facility] [id number] [place] [address]Qv# [phone] IMMATR GRAN ABS 0.00 K/CU MM Normal Less than 2 [facility] Comment on above: Performed By: #### L 200.03535 ####[facility] [id number] [place] [address]Nd# [phone] IMMATURE GRAN % 0.3 % Normal Less than 2 [facility] Comment on above: Performed By: #### L 200.98493 ####[facility] [id number] [place], [place] [address]Iq# [phone] Lymphocytes 1.90 K/CU MM Normal 0.9-4.4 [facility] Comment on above: Performed By: #### L 200.62726 ####[facility] [id number] [place], [place] [address]Oz# [phone] Lymphocytes/100 leukocytes 23.9 % Normal 20-40 [facility] Comment on above: Performed By: #### L 200.11757 ####[facility] [id number] [place], [place] [address]Fp# [phone] MCHC mass conc (RBC) 31.3 g/dL Low 32.0-36.0 [facility] Comment on above: Performed By: #### L 200.83419 ####[facility] [id number] [place] [address]Gk# [phone] MCV 90.3 fL Normal 80.0-99.0 [facility] Comment on above: Performed By: #### L 200.65407 ####[facility] [id number] [place], [place] [address]Wo# [phone] MONO ABS 0.80 K/CU MM Normal 0.1-1.1 [facility] Comment on above: Performed By: #### L 200.20084 ####[facility] [id number] [place], [place] [address]Bh# [phone] Monocytes/100 leukocytes 9.8 % Normal 2-10 [facility] Comment on above: Performed By: #### L 200.55438 ####[facility] [id number] [place], [place] [address]Pr# [phone] Neutrophils 5.00 K/CU MM Normal 2.0-8.3 [facility] Comment on above: Performed By: #### L 200.65481 ####[facility] [id number] [place] [address]Pc# [phone] Neutrophils/100 WBC Auto (Bld) 64.1 % Normal 45-75 [facility] Comment on above: Performed By: #### L 200.35326 ####[facility] [id number] [place], [place] [address]Qb# [phone] Platelet mean volume (PMV) 11.2 fL Normal 9.4-12.4 [facility] Comment on above: Performed By: #### L 200.33786 ####[facility] [id number] [place], [place] [address]Ad# [phone] Platelets 242 K/CU MM Normal 150-450 [facility] Comment on above: Performed By: #### L 200.74350 ####[facility] [id number] [place], [place] [address]Pu# [phone] WBC (Leukocytes) 7.7 K/CU MM Normal 4.5-11.0 [facility] Comment on above: Performed By: #### L 200.09960 ####[facility] [id number] [place], [place] [address]In# [phone] CHEST PA/AP AND LATERALon [facility] CHEST PA/AP & LATERALOrdering Physician: David Torres [...] M.D. Signed By: CAS YOUNG M.D. Normal [facility] IRONon 04-04-2017 Iron 91 ug/dL Normal 50-170 [facility] Comment on above: Result Comment: Shey ents treated with metal-binding drugs (e.g.deferoxamine)may have depressed iron values, as chelated iron may notproperly react in the Siemens iron assay. Performed By: #### L 500.64201 ####[facility] [id number] [place], [place] [address]Yf# [phone] Culture, urine Bacteria identified Cx Nom (U) Culture exhibits no growth. [facility] Work Phone: Gram stain for investigation of transfusion reaction Microscopic observation Gram stain Nom (Unsp spec) [facility] Work Phone: No Panel Information SARS-CoV-2 & FLU Antigen (Rapid) [facility] Work Phone: Vital Signs Date Time Vital Sign Value Performing Clinician Faci lity 12-25-2024 11:48-0400 Body height 165.[address] Xiomy Schaffer MD Work Phone: [facility] 12-25-2024 11:48-0400 Body mass index (BMI) [Ratio] 33.4 kg/m2 Dr. Xiomy Schaffer MD Work Phone: [facility] 12-25-2024 11:48-0400 Body temperature 98.1 [degF] Dr. Xiomy Schaffer MD Work Phone: [facility] 12-25-2024 11:48-0400 Body weight 91.[address] Xiomy Schaffer MD Work Phone: [facility] 12-25-2024 11:48-0400 Diastolic blood pressure 84 mm[Hg] Dr. Xiomy Schaffer MD Work Phone: [facility] 12-25-2024 11:48-0400 Heart rate 88 /min Dr. Xiomy Schaffer MD Work Phone: [facility] 12-25-2024 11:48-0400 Respiratory rate 18 /min Dr. Xiomy Schaffer MD Work Phone: [facility] 12-25-2024 11:48-0400 SaO2% (BldA) [Mass fraction] 97 % Dr. Xiomy Schaffer MD Work Phone: [facility] 12-25-2024 11:48-0400 Systolic blood pressure 122 mm[Hg] Dr. Xiomy Schaffer MD Work Phone: [facility] 12-23-2024 08:58-0400 Body temperature 97.9 [degF] Dr. Xiomy Schaffer MD Work Phone: [facility] 12-23-2024 08:58-0400 Diastolic blood pressure 84 mm[Hg] Dr. Xiomy Schaffer MD Work Phone: [facility] 12-23-2024 08:58-0400 Heart rate 91 /min Dr. Xiomy Schaffer MD Work Phone: [facility] 12-23-2024 08:58-0400 SaO2% (BldA) [Mass fraction] 97 % Dr. Xiomy Schaffer MD Work Phone: [facility] 12-23-2024 08:58-0400 Systolic blood pressure 120 mm[Hg] Dr. Xiomy Schaffer MD Work Phone: [facility] 09-14-2024 13:00-0500 Body temperature 98.1 [degF] Dr. Xiomy Schaffer MD Work Phone: [facility] 09-14-2024 13:00-0500 Diastolic blood pressure 74 mm[Hg] Dr. Xiomy Schaffer MD Work Phone: [facility] 09-14-2024 13:00-0500 Heart rate 108 /min Dr. Xiomy Schaffer MD Work Phone: [facility] 09-14-2024 13:00-0500 Respiratory rate 15 /min Dr. Xiomy Schaffer MD Work Phone: [facility] 09-14-2024 13:00-0500 SaO2% (BldA) [Mass fraction] 97 % Dr. Xiomy Schaffer MD Work Phone: [facility] 09-14-2024 13:00-0500 Systolic blood pressure 140 mm[Hg] Dr. Xiomy Schaffer MD Work Phone: [facility] 05-01-2023 12:59-0400 Body height 165.[address] Xiomy Schaffer Work Phone: [facility] 05-01-2023 12:59-0400 Body mass index (BMI) [Ratio] 33.1 kg/m2 Dr. Xiomy Schaffer Work Phone: [facility] 05-01-2023 12:59-0400 Body temperature 97.1 [degF] Dr. Xiomy Schaffer Work Phone: [facility] 05-01-2023 12:59-0400 Body weight 90.[address] Xiomy Schaffer Work Phone: [facility] 05-01-2023 12:59-0400 Diastolic blood pressure 74 mm[Hg] Dr. Xiomy Schaffer Work Phone: [facility] 05-01-2023 12:59-0400 Heart rate 84 /min Dr. Xiomy Schaffer Work Phone: [facility] 05-01-2023 12:59-0400 Respiratory rate 16 /min Dr. Xiomy Schaffer Work Phone: [facility] 05-01-2023 12:59-0400 SaO2% (BldA) [Mass fraction] 96 % Dr. Xiomy Schaffer Work Phone: [facility] 05-01-2023 12:59-0400 Systolic blood pressure 108 mm[Hg] Dr. Xiomy Schaffer Work Phone: [facility] 06-07-2022 13:18-0500 Body height 165.[address] David Torres Work Phone: [facility] Work Phone: 06-07-2022 13:18-0500 Body mass index (BMI) [Ratio] 33 kg/m2 Dr. David Torres Work Phone: [facility] Work Phone: 06-07-2022 13:18-0500 Body temperature 98.1 [degF] Dr. David Torres Work Phone: [facility] Work Phone: 06-07-2022 13:18-0500 Body weight [address] David Torres Work Phone: [facility] Work Phone: 06-07-2022 13:18-0500 Diastolic blood pressure 79 mm[Hg] Dr. David Torres Work Phone: [facility] Work Phone: 06-07-2022 13:18-0500 Heart rate 110 /min Dr. David Torres Work Phone: [facility] Work Phone: 06-07-2022 13:18-0500 Respiratory rate 16 /min Dr. David Torres Work Phone: [facility] Work Phone: 06-07-2022 13:18-0500 SaO2% (BldA) [Mass fraction] 96 % Dr. David Torres Work Phone: [facility] Work Phone: 06-07-2022 13:18-0500 Systolic blood pressure 124 mm[Hg] Dr. David Torres Work Phone: [facility] Work Phone: 06-07-2022 08:16-0500 Body temperature 95.6 [degF] Dr. David Torres Work Phone: [facility] Work Phone: 06-07-2022 08:16-0500 Body weight 90.[address] David Torres Work Phone: [facility] Work Phone: 06-07-2022 08:16-0500 Diastolic blood pressure 78 mm[Hg] Dr. David Torres Work Phone: [facility] Work Phone: 06-07-2022 08:16-0500 Heart rate 110 /min Dr. David Torres Work Phone: [facility] Work Phone: 06-07-2022 08:16-0500 Respiratory rate 16 /min Dr. David Torres Work Phone: [facility] Work Phone: 06-07-2022 08:16-0500 SaO2% (BldA) [Mass fraction] 97 % Dr. David Torres Work Phone: [facility] Work Phone: 06-07-2022 08:16-0500 Systolic blood pressure 116 mm[Hg] Dr. David Torres Work Phone: [facility] Work Phone: 05-31-2022 09:29-0500 Body height 165.[address] David Torres Work Phone: [facility] Work Phone: 05-31-2022 09:29-0500 Body mass index (BMI) [Ratio] 32.5 kg/m2 Dr. David Torres Work Phone: [facility] Work Phone: 05-31-2022 09:29-0500 Body temperature 97.7 [degF] Dr. David Torres Work Phone: [facility] Work Phone: 05-31-2022 09:29-0500 Body weight 88.[address] David Torres Work Phone: [facility] Work Phone: 05-31-2022 09:29-0500 Diastolic blood pressure 64 mm[Hg] Dr. David Torres Work Phone: [facility] Work Phone: 05-31-2022 09:29-0500 Heart rate 111 /min Dr. David Torres Work Phone: [facility] Work Phone: 05-31-2022 09:29-0500 Respiratory rate 20 /min Dr. David Torres Work Phone: [facility] Work Phone: 05-31-2022 09:29-0500 SaO2% (BldA) [Mass fraction] 97 % Dr. David Torres Work Phone: [facility] Work Phone: 05-31-2022 09:29-0500 Systolic blood pressure 130 mm[Hg] Dr. David Torres Work Phone: [facility] Work Phone: 05-26-2022 21:25-0400 Diastolic blood pressure 81 mm[Hg] [facility] Work Phone: 05-26-2022 21:25-0400 Heart rate 104 /min [facility] Work Phone: 05-26-2022 21:25-0400 Respiratory rate 16 /min [facility] Work Phone: 05-26-2022 21:25-0400 SaO2% (BldA) [Mass fraction] 96 % [facility] Work Phone: 05-26-2022 21:25-0400 Systolic blood pressure 140 mm[Hg] [facility] Work Phone: 05-26-2022 18:15-0400 Body temperature 97.2 [degF] [facility] Work Phone: 05-26-2022 16:24-0400 Body height 165.1 cm [facility] Work Phone: 05-26-2022 16:24-0400 Body mass index (BMI) [Ratio] 29.9 kg/m2 [facility] Work Phone: 05-26-2022 16:240400 Body weight 81.64 kg [facility] Work Phone: 02-28-2022 15:24-0400 Body height 165.1 cm David Torres MD Work Phone: [facility] 02-28-2022 15:24-0400 Body temperature 97.3 [degF] David Torres MD Work Phone: [facility] 02-28-2022 15:24-0400 Body weight 88 kg David Torres MD Work Phone: [facility] 02-28-2022 15:24-0400 Diastolic blood pressure 80 mm[Hg] David Torres MD Work Phone: [facility] 02-28-2022 15:24-0400 Heart rate 102 /min David Torres MD Work Phone: [facility] 02-28-2022 15:24-0400 Respiratory rate 14 /min David Torres MD Work Phone: [facility] 02-28-2022 15:24-0400 SaO2% (BldA) [Mass fraction] 97 % David Torres MD Work Phone: [facility] 02-28-2022 15:24-0400 Systolic blood pressure 122 mm[Hg] David Torres MD Work Phone: [facility] 08-01-2019 13:45-0500 Body weight 82.56 kg David Torres MD Work Phone: [facility] 08-01-2019 13:45-0500 Diastolic blood pressure 80 mm[Hg] David Torres MD Work Phone: [facility] 08-01-2019 13:45-0500 Heart rate 78 /min David Torres MD Work Phone: [facility] 08-01-2019 13:45-0500 Respiratory rate 16 /min David Torres MD Work Phone: [facility] 08-01-2019 13:45-0500 SaO2% (BldA) [Mass fraction] 100 % David Torres MD Work Phone: [facility] 08-01-2019 13:45-0500 Systolic blood pressure 140 mm[Hg] David Torres MD Work Phone: [facility] Encounters Encounter Date Encounter Type Care Provider Facility Start: 02-03-2025 ambulatory Bert MALHOTRA [facility] y:[facility] Start: 12-25-2024 End: 12-25-2024 Patient encounter procedure Bert MALHOTRA -[facility] Work Phone: Start: 12-25-2024 End: 12-25-[address] Xiomy Schaffer MD Work Phone: [facility] Work Phone: Start: 12-25-2024 End: 12-25-2024 ambulatory Bert MALHOTRA Facility:[facility] Start: 12-23-2024 End: 12-23-2024 Patient encounter procedure Steve Cash [facility] -[facility] Work Phone: Start: 12-23-2024 End: 12-23-[address] Xiomy Schaffer MD Work Phone: [facility] Work Phone: Start: 09-14-2024 End: 09-14-2024 Patient encounter procedure Noreen REYESC -[facility] Work Phone: Start: 09-14-2024 End: 09-14-2024 ambulatory Xiomy Schaffer Facility:[facility] Start: 09-05-2024 Encounter for genera l adult medical examination without abnormal findings Xiomy Schaffer [facility] Start: 08-13-2024 End: 08-13-2024 ambulatory Xiomy Valrico Facility:[facility] Start: 07-26-2024 ambulatory Xiomy Valrico Facility :[facility] Start: 07-16-2024 End: 07-16-2024 ambulatory Xiomy Valrico Facility:[facility] Start: 06-25-2024 End: 06-25-2024 ambulatory Xiomy Valrico Facility:[facility] Start: 06-25-2024 End: 06-25-2024 ambulatory Xiomy Valrico Facility:[facility] Start: 04-02-2024 End: 04-02-2024 ambulatory Xiomy Valrico Facility:[facility] Start: 10-25-2023 End: 10-30-2023 ambulatory STELLA GUERRA MD Facility:[facility] Start: 10-25-2023 End: 10-29-2023 Outreach Lab STELLA GUERRA MD [facility] Start: 05-01-2023 End: 05-01-[address] Xiomy Schaffer Work Phone: [facility] Work Phone: Start: 05-01-2023 End: 05-01-[address] Xiomy Schaffer Work Phone: [facility] Work Phone: Start: 06-07-2022 End: 06-07-2022 Emergency department patient visit Dr. David Torres Work Phone: [facility]gency Department Start: 06-07-[address] David Torres Work Phone: [facility] Start: 06-07-2022 End: 06-07-[address] David Torres Work Phone: [facility] Start: 05-31-2022 End: 05-31-[address] David Torres Work Phone: [facility] Work Phone: Start: 05-31-2022 End: 05-31-[address] David Torres Work Phone: [facility] Start: 05-31-2022 End: 05-31-[address] David Torres Work Phone: [facility] Start: 05-26-2022 End: 05-26-2022 Emergency department patient visit [facility] Start: 04-12-2022 End: 04-12-2022 ambulatory [facility] Work Phone: Start: 04-12-2022 End: 04-12-2022 Patient encounter procedure [facility] Start: 03-15-2022 Telephone encounter David Torres MD Work Phone: [facility] Comment on above: Patient Update Start: 02-28-2022 End: 02-28-2022 Office outpatient visit 15 minutes David Torres MD Work Phone: [facility] Comment on above: Benign essential HTN (Primary Dx); Fibromyalgia; Other iron deficiency anemia Start: 02-25-2022 Chart abstracting David Torres MD Work Phone: [facility] Start: 02-21-2022 Refill David Byrd MD Work Phone: [facility] Comment on above: Refill Request Start: 12-10-2021 Chart abstracting David Torres MD Work Phone: [facility] Start: 01-08-2018 Ambulatory David Torres Facilit y:[facility] Start: 04-04-2017 Ambulatory David Torres Facilit y:[facility] Procedures Date Procedure Procedure Detail Performing Clinician Start: 05-01-[address] Roberto Schaffer Work Phone: Start: 06-07-2022 Computed tomography of abdomen and pelvis with intravenous contrast Dr. David Torres Work Phone: Start: 05-26-2022 Plain chest X-ray Start: 04-12-2022 Screening mammography Start: 08-24-2021 Lipid panel David Torres MD Work Phone: Start: 04-16-2018 Colonoscopy David galeas MD Work Phone: Biopsy of vulva STELLA GUERRA MD Dilation and curettage STEVO GUERRA MD Endometrial ablation STELLA GUERRA MD Investigation of transfusion reaction Dr. David Torres Work Phone: Ligation of fallopian tube Kim GUERRA MD Respiratory microbia l culture Dr. David Torres Work Phone: SARS-CoV-2 & FLU Ant igen (Rapid) Urine culture Dr. David galeas Work Phone: Plan of Treatment Date Care Activity Detail Author Start: 04-16-2028 Colonoscopy COLONOSCOPY [facility] Start: 04-16-2028 COLORECTAL CANCER SCREENING COLORECTAL CANCER SCREENING [facility] Start: 08-24-2026 LIPID SCREEN LIPID SCREEN [facility] Start: 12-25-2024 CBC W Auto Differential panel - Blood [facility] Start: 12-25-2024 Comprehensive metabolic 2000 panel - Serum or Plasma [facility] Start: 12-25-2024 Hemoglobin A1c/Hemoglobin.total in Blood [facility] Start: 02-28-2023 ANNUAL PCP TEAM CHRONIC DISEASE VISIT ANNUAL PCP TEAM CHRONIC DISEASE VISIT [facility] Start: 05-26-2022 End: 05-26-2022 [facility] [facility] Work Phone: Start: 03-24-2022 Influenza vaccination INFLUENZA (#1) [facility] Start: 11-23-2021 COVID-19 VACCINE (4 - Booster for Pfizer series) COVID-19 VACCINE (4 - Booster for Pfizer series) [facility] Start: 09-22-2011 SHINGRIX VACCINE (1 of 2) SHINGRIX VACCINE (1 of 2) [facility] Start: 2006 COLOGUARD (FIT-DNA) COLOGUARD (FIT-DNA) [facility] Start: 2006 Colonoscopy COLONOSCOPY [facility] Start: 2006 COLORECTAL CANCER SCREENING COLORECTAL CANCER SCREENING [facility] Start: [address] COLONOGRAPHY [facility] Start: 2006 DIABETES SCREEN DIABETES SCREEN [facility] Start: 2006 FECAL OCCULT BLOOD FECAL OCCULT BLOOD [facility] Start: 2006 LIPID SCREEN LIPID SCREEN [facility] Start: 2006 SIGMOIDOSCOPY SIGMOIDOSCOPY [facility] Start: 2001 Mammography MAMMOGRAM [facility] Start: 09-22-1991 HPV TESTING HPV TESTING [facility] Start: 1982 PAP TESTING PAP TESTING [facility] Start: 1980 Urine microalbumin profile DTAP,TDAP,TD (1 - Tdap) [facility] Start: 09-22-1979 BP CONTROLLED (<130/80) BP CONTROLLED (<130/80) [facility] Start: 09-22-1979 HEPATITIS C SCREENING HEPATITIS C SCREENING [facility] Start: 09-22-1979 HIV SCREENING HIV SCREENING [facility] Start: 1973 Adult depression screening assessment DEPRESSION SCREENING [facility] Start: 1966 COVID-19 VACCINE (#1) COVID-19 VACCINE (#1) [facility] Start: 03-24-1962 COVID-19 VACCINE (#1) COVID-19 VACCINE (#1) [facility] Alanine aminotransfe rase [Enzymatic activity/volume] in Serum or Plasma [facility] Albumin [Mass/volume ] in Serum or Plasma [facility] Alkaline phosphatase [Enzymatic activity/volume] in Serum or Plasma [facility] Anion gap in Serum o r Plasma [facility] Bilirubin, total measurement [facility] BUN/Creatinine ratio [facility] Calcium [Mass/volume ] in Serum or Plasma [facility] Carbon dioxide, tota l [Moles/volume] in Central venous blood [facility] Creatinine [Mass/vol ume] in Serum or Plasma [facility] CT Abdomen and Pelvi s W contrast IV [facility] Work Phone: Erythrocyte mean corpuscular volume determination [facility] Glucose [Mass/volume ] in Serum or Plasma [facility] Hematocrit [Volume Fraction] of Blood [facility] Hemoglobin [Mass/vol ume] in Blood [facility] Leukocytes [#/volume ] in Blood [facility] Mean corpuscular hem oglobin concentration determination [facility] Mean corpuscular hem oglobin determination [facility] Measurement of renal function [facility] MG Breast - bilatera l Screening [facility] Neutrophil count [facility] Neutrophil percent differential count [facility] Patient Education [facility] Work Phone: Patient referral [facility] Work Phone: Platelets [#/volume] in Blood [facility] Potassium measurement [facility] Red blood cell count [facility] Red cell distributio n width determination [facility] Serum chloride measurement [facility] Sodium measurement [facility] Total protein measurement [facility] Urea nitrogen [Mass/ volume] in Serum or Plasma [facility] Immunizations Immunization Date Immunization Notes Care Provider [facility] 05-07-2024 Seasonal, quadrivale nt, recombinant, injectable influenza vaccine, preservative free Dr. Xiomy Schaffer MD Work Phone: [facility] 03-05-[address] Xiomy Schaffer MD Work Phone: [facility] 08-08-2023 influenza, injectabl e, quadrivalent, preservative free Dr. Xiomy Schaffer MD Work Phone: [facility] 03-26-2023 Pneumococcal Vaccine PCV20 (Prevnar 20) Dr. Xiomy Schaffer Work Phone: [facility] 05-05-2022 influenza, injectabl e, quadrivalent, preservative free Dr. Xiomy Schaffer Work Phone: [facility] 05-05-2022 influenza, seasonal, injectable Dr. David Torres Work Phone: [facility] Work Phone: 05-05-2022 Seasonal, quadrivale nt, recombinant, injectable influenza vaccine, preservative free Dr. Xiomy Schaffer Work Phone: [facility] 05-05-[address] David Torres Work Phone: [facility] 03-22-2022 Covid (Pfizer) Dr. David romero Work Phone: [facility] 07-26-2021 Covid (Pfizer) Dr. David romero Work Phone: [facility] 05-09-2021 influenza (aIIV4) vaccine, age 65+ yr, quadrivalent, PF (FLUAD QUADRIVALENT) David Torres MD Work Phone: [facility] 05-09-2021 influenza, injectabl e, quadrivalent, preservative free Dr. Xiomy Schaffer Work Phone: [facility] 05-09-2021 influenza, seasonal, injectable Dr. David Torres Work Phone: [facility] Work Phone: 05-09-2021 Seasonal, quadrivale nt, recombinant, injectable influenza vaccine, preservative free Dr. Xiomy Schaffer Work Phone: [facility] 11-04-2020 Covid (Pfizer) Dr. David romero Work Phone: [facility] 10-15-2020 Covid (Pfizer) Dr. David ormero Work Phone: [facility] 05-07-2020 influenza, injectabl e, quadrivalent, preservative free Dr. Xiomy Schaffer Work Phone: [facility] 05-07-2020 influenza, seasonal, injectable Dr. David Torres Work Phone: [facility] Work Phone: 05-07-2020 Seasonal, quadrivale nt, recombinant, injectable influenza vaccine, preservative free Dr. Xiomy Schaffer Work Phone: [facility] 05-01-2019 influenza, injectabl e, quadrivalent, preservative free Dr. Xiomy Schaffer Work Phone: [facility] 05-01-2019 influenza, seasonal, injectable Dr. David Torres Work Phone: [facility] Work Phone: 05-01-2019 Seasonal, quadrivale nt, recombinant, injectable influenza vaccine, preservative free David Torres MD Work Phone: [facility] 05-12-2018 influenza, injectabl e, quadrivalent, preservative free David Torres MD Work Phone: [facility] 05-12-2018 influenza, seasonal, injectable Dr. David Torres Work Phone: [facility] Work Phone: 07-06-2017 pneumococcal polysaccharide vaccine, 23 valent David Torres MD Work Phone: [facility] 05-09-2017 influenza, injectabl e, quadrivalent, preservative free David Torres MD Work Phone: [facility] 05-20-2009 novel influenza-H1N1 -09, preservative-free, injectable Dr. David Torres Work Phone: [facility] 04-22-2009 influenza, injectabl e, quadrivalent, preservative free Dr. Xiomy Schaffer Work Phone: [facility] 04-22-2009 influenza, seasonal, injectable Dr. David Torres Work Phone: [facility] Work Phone: 05-29-2007 influenza, injectabl e, quadrivalent, preservative free Dr. Xiomy Schaffer Work Phone: [facility] 05-29-2007 influenza, seasonal, injectable Dr. David Torres Work Phone: [facility] Work Phone: Payers Date Payer Category Payer Self-pay [id number] 2021 Unknown ANTHEM BLUE ACCE SS PPO [id number] 2021-Present [phone] [address] [place] [id number] PPO [id number] 2021 Unknown [id number] 2016 Unknown [id number] 2016 Unknown [id number] 2016 Unknown [id number] 2005 Unknown ANTHEM BLUE CARD PPO OOS [id number] 2005-Present [phone] [address] [place] [address] PPO [id number] 1961 Unknown [id number] Unknown [id number] Unknown [id number] Unknown [id number] Unknown [id number] Unknown [id number] Unknown [id number] Unknown [id number] Unknown [id number] Unknown [id number] Unknown [id number] Unknown [id number] Social History Date Type Detail Facility Start: 11-23-2020 End: 05-01-2023 Tobacco smoking status NHIS Never smoked tobacco [facility] Start: 12-10-2021 Alcohol intake 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 Mental Status Date Assessment Result Facility 05-26-2022 Cognitive function Level Of Cons ciousness Awake;Alert;Appropriate;Follow s Commands [facility] Work Phone: Clinical Notes 09-07-2020 to 12-23-2024 Note Date & Type Note Facility 12-23-2024 Progress note [facility] 12-23-2024 Progress note Note Date/Time December 23, 2024 9:10am [facility] [address], [address] [place], [place] [address] OFFICE VISIT Date of Service: 12/23/24 MR#: [id number] Acct: [id number] Name: VIGNESH YOUNG BRIANNE Rep #: [id number] : 1960 Provider: ROSCOE Vega Age/Sex: 64/F Location: [facility] Status: Signed Intake Vital Signs 06/25/24 08:26 [...] a week. Patient states they are bubbling. 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 Patient states she has used multiple [id number] topical applications without relief of symptoms. She [...] signed by Steve MALHOTRA> Date _ Steve Wise Signature: Date (if applicable) CC: ~ [facility] Work Phone: 1(557) 734-189703-25-2025 NotePatient Outreach (FAMMAS) VIGNESH YOUNG ([id number]) 1960 F Date Time Provider Department 10/15/24 DAVID TORRES During your visit today, we recorded the following information about you: Allergies As of Date: 10/15/2024 Noted Allergy Reaction CLARITHROMYCIN 08/16/2005 16 - Unknown 8 - GI Upset Date Reviewed: 11/18/2008 Reviewed by: Marcy Chen - Reviewed Visit Diagnosis:Encounter for screening mammogram for breast cancer [Z12.31] Order(s):[facility] SCREENING [facility] [[id number]] Order #: [id number] FUTURE Prescriptions as of 11/15/2024 - lansoprazole [...] screening mammogram [Z12.31] 01/08/2018 Encounter Status:Closed by DAVY PAYTONUSER on 11/15/24[facility] 09-14-2024 Evaluation note* Diagnosis Onset Date Resolution Status Admit Date Nasal congestion acute September 14, 2024 12:31pm PND (post-nasal drip) acute Feb ruary 2024 12:31pm Rhinorrhea acute September 14, 2024 12:31pm Viral URI with cough acute Febr uary 2024 12:31pm [facility] Work Phone: 1(220) 820-268502-22-2025 Evaluation note* Diagnosis Onset Date Resolution Status Admit Date Nasal congestion acute September 14, 2024 12:31pm PND (post-nasal drip) acute Feb ruary 2024 12:31pm Rhinorrhea acute September 14, 2024 12:31pm Viral URI with cough acute Febr uary 2024 12:31pm Breast cancer screening acute J 2024 11:28am Essential hypertension acute Ju 2024 11:28am Fibromyalgia acute December 25 11:28am LEVY (obstructive sleep apnea) acute December 25, 2024 11:28am Sweats, sweating, excessive acute December 25, 2024 11:28am Vitamin D deficiency acute December 25, 2024 11:28am [facility] Work Phone: 1(634) 372-226304-03-2024 Evaluation + Plan note Future Scheduled Tests Radiology* DC Mammo Screening Bilateral w/ Kerwin 10/25/23 [facility] 08-24-2022 Miscellaneous Notes* Telephone Encounter - Cyndy [...] 15, 2022 10:31 AM [facility] History of Present illness Narrative* David Torres MD - 02/28/2022 9:58 PM EDT This note was created using [employer]. Subjective Vignesh Young is a 61 year old female who presents today for follow-up for multiple medical problems. See list. Her chronic medical problems are stable. Her blood pressure is under excellent control on her current medicines. Cymbalta is working well for her fibromyalgia symptoms. Her mood has been stable. 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 [facility] Miscellaneous Notes* Telephone Encounter - Cyndy Cantrell LPN - 02/21/2022 9:42 AM EDT Pending Prescriptions Disp Refills LOSARTAN 100 MG-HYDROCHLOROTHIAZIDE 12.5 MG TABLET 90 tablet 3 Sig: Take 1 tablet by mouth once daily YADIRA: Yes Cyndy Cantrell LPN February 21, 2022 9:42 AM documented in [facility] encounterC[facility] History of Past illness Narrative* Problem Noted [...] of this encounter (statuses as of 03/01/2022) [facility] History of Past illness Narrative* Problem Noted Date Resolved Date Fatigue 09/07/2020 02/28/2022 Chest tightness 02/12/2019 02/28/2022 Viral pharyngitis 01/01/2019 02/28/2022 Urinary tract infection 11/07/2018 02/29/20 22 Acute pharyngitis 08/15/2018 02/28/2022 Acute upper respiratory [...] of this encounter (statuses as of 03/16/2022) [facility] Diagnosis Benign essential HTN- Primary Essential hypertension, benign Fibromyalgia Mylagia and myositis, unspecified Other iron deficiency anemia documented in this encounter [facility] noteNo assessment information availableWSt. [facility] Work Phone: Evaluation note* Diagnosis Onset Date Resolution Status Overactive bladder acute Fatigue noneactive Acute sinusitis noneactive Anemia noneactive Elevated liver enzymes nonea ctive [facility] Work Phone: Evaluation note* Diagnosis Onset Date Resolution Status Overactive bladder acute Fatigue noneactive Acute sinusitis noneactive Anemia noneactive Elevated liver enzymes nonea ctive Essential hypertension acute Fibromyalgia acute GERD (gastroesophageal reflux disease) acute Overactive bladder acute Establishing care with new doctor, encounter for noneactive Generalized abdominal pain n oneactive Seborrheic keratosis noneact zack Elevated liver enzymes nonea ctive Viral illness noneactive [facility] Work Phone: Evaluation note* Diagnosis Onset Date Resolution Status Essential hypertension acute Fibromyalgia acute GERD (gastroesophageal reflux disease) acute Overactive bladder acute Chronic fatigue noneactive Urinary frequency noneactive Bilateral low back pain without sciatica noneactive [facility] Work Phone: Hospital course Narrative No data available for this section [facility] Discharge instructions No data available for this section [facility] Progress note No data available for this section [facility] Reason for referral (narrative)No reason for referral information [facility] Work Phone: Summary Purpose Family History No [...] No February 12, 2016 11:45am Power of Edi Manager No February 11 6 11:45am Advance Directive Response Recorded Date/ Time Living Will No May 26 5:14pm Power of Edi Manager No May 26, 2022 5:14pm Advance Directive Response Recorded Date/ Time Living Will No May 26 4:14pm Power of Edi Manager No May 26, 2022 4:14pm Advance Directive Response Recorded Date/ Time Living Will No June 07, 022 1:25pm Power of Edi Manager No June 07, 2022 1:25pm Advance Directive Response Recorded Date/ Time Living Will No November 15th, 2 022 2:25pm Power of Edi Manager No June 07, 2022 2:25pm Chief Complaint and Reason for Visit Chief Complaint SCREENING Chief Complaint SCREENING GENERAL ILLNESS Chief Complaint SCREENING GENERAL ILLNESS CONGESTION/COVID - Reason for Visit Overactive bladder Fatigue Acute sinusitis Anemia Elevated liver enzymes Chief Complaint SCREENING GENERAL ILLNESS 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 CARE - PPW HERE ABD PAIN [...] URI with cough September 14, 2024 12:31pm Chief Complaint Admit Date COUGH, SORE THROAT September 14, 2024 12:31pm POISON JOSLYN December 23, 2024 8:58a m ACUTE MED FU AND SLEEP APNEA FOLLOW UP J 2024 11:28am Reason for Visit Admit Date Nasal congestion September 14, 2024 12:31pm PND (post-nasal drip) September 14 12:31pm Rhinorrhea September 14, 2024 12:31pm Viral URI with cough September 14, 2024 12:31pm Breast cancer screening December 25, 2024 1 1:28am Essential hypertension December 25, 2024 11 :28am Fibromyalgia December 25, 2024 11:28 am LEVY (obstructive sleep apnea) December 25, 2024 11:28am Sweats, sweating, excessive December 25 11:28am Vitamin D deficiency December 25, 2024 11:2 8am Additional Source Comments INFORMATION SOURCE (unrecogn ized section and content) DATE CREATED AUTHOR 01/17/2018 [facility] Pema Uribe DATE CREATED AUTHOR AUTHOR'S FIRO BEASLEY 11/01/2023 [facility] ([place]) DATE CREATED AUTHOR AUTHOR'S ORGANIZ ATION 11/16/2024 [facility] DATE CREATED AUTHOR AUTHOR'S ORGANIZ ATION 02/01/2025 [facility] Source Comments (unrecognize d section and content) In the event this informatio n is protected by the Federal Confidentiality of Alcohol and Drug Abuse Patient Records regulations: The Federal rules restrict any use of the information to criminally investigate or prosecute any alcohol or drug abuse patient.[facility] FoundationIn the event this information is protected by the Federal Confidentiality of Alcohol and Drug Abuse Patient Records regulations: The Federal rules restrict any use of the information to criminally investigate or prosecute any alcohol or drug abuse patient.[facility] FoundationIn the event this information is protected by the Federal Confidentiality of Alcohol and Drug Abuse Patient Records regulations: The Federal rules restrict any use of the information to criminally investigate or prosecute any alcohol or drug abuse patient.[facility] FoundationIn the event this information is protected by the Federal Confidentiality of Alcohol and Drug Abuse Patient Records regulations: The Federal rules restrict any use of the information to criminally investigate or prosecute any alcohol or drug abuse patient.[facility] FoundationIn the event this information is protected by the Federal Confidentiality of Alcohol and Drug Abuse Patient Records regulations: The Federal rules restrict any use of the information to criminally investigate or prosecute any alcohol or drug abuse patient.[facility] Care Teams (unrecognized sec tion and content) Manager Strategic Development Relationship Specialty Start Date End Date David Torres MD PCP - General 10/27/08 Manager Strategic Development Relationship Specialty Start Date End Date David Torres MD PCP - General 10/27/08 Manager Strategic Development Relationship Specialty Start Date End Date David [...] September 14, 2024 End: September 14, 2024 Noreen Livia , COMPUTER APPLICATION DEVELOPER-C Attending Provider Active Start: September 14, 2024 End: September 14, 2024 Team Status: Inactive Member Role Status Dates Dr. Xiomy Schaffer MD Primary Care Provider Active Start: December 23, 2024 End: December 23, 2024 Dr. Xiomy Schaffer MD Referring Provider Active Start: December 23, 2024 End: December 23, 2024 ROSCOE Melo Attending Provider Active Start: December 23, 2024 End: December 23, 2024 Team Status: Inactive Member Role Status Dates Dr. Xiomy Schaffer MD Primary Care Provider Active Start: December 25, 2024 End: December 25, 2024 Dr. Xiomy Schaffer MD Referring Provider Active Start: December 25, 2024 End: December 25, 2024 ROSCOE Licona Attending Provider Active St art: December 25, 2024 End: December 25, 2024 Team Status: Active Member Role Status Dates Dr. Xiomy Schaffer MD Primary Care Provider Active Start: December 25, 2024 ROSCOE Licona Attending Provider Active St art: December 25, 2024 ROSCOE Licona Referring Provider Active St art: December 25, 2024 Team Status: Inactive Member Role Status Dates Dr. Xiomy Schaffer MD Primary Care Provider Active Start: December 25, 2024 End: December 25, 2024 ROSCOE Licona Attending Provider Active St art: December 25, 2024 End: December 25, 2024 ROSCOE Licona Referring Provider Active St art: December 25, 2024 End: December 25, 2024 Reason for Visit (unrecogniz ed section [...] BE BASED ON THE PRIMARY CLINICAL RECORDS. [facility]. provides no warranty or guarantee of the accuracy or completeness of information in this document.
== END | disposition home or self-care (01) ==
LOC: OPBI 15:24
PROVIDERS: PCP Internal Medicine; Referring Provider Physician Assistant; Visit Provider Physician Assistant
DX: Z12.31 Encounter for screening mammogram for malignant neoplasm of breast (principal)
CPT/HCPCS: 77063; 77067

== ENCOUNTER 2025-06-04 15:29 | Outpatient (RCR) | payer BC, SELFPAY | END 2025-06-22 23:59 | LOC: NS 15:29 | PROVIDERS: PCP Internal Medicine; Referring Provider Internal Medicine; Visit Provider Internal Medicine | DX: Z71.3 Dietary counseling and surveillance (principal); E11.9 Type 2 diabetes mellitus without complications | CPT/HCPCS: 97802 ==

== ENCOUNTER 2025-07-08 13:44 | Outpatient (RCR) | payer BC, SELFPAY | END 2025-07-23 23:59 | LOC: NS 13:44 | PROVIDERS: PCP Internal Medicine; Referring Provider Internal Medicine; Visit Provider Internal Medicine | DX: Z71.3 Dietary counseling and surveillance (principal); E11.9 Type 2 diabetes mellitus without complications | CPT/HCPCS: 97803 ==

== ENCOUNTER → 2025-07-23 | Outpatient (CLI) | payer BC, SELFPAY ==
--- NOTE | 2025-07-23 08:33 | RAD_ITS ---
PROCEDURE: ELBOW MIN 3 VIEWS 07/23/2025 REASON FOR EXAM: PAIN Right elbow pain and numbness along the posterior aspect. Injury 2 months ago. TECHNIQUE: Procedure Code: RADEL Modality: DX Procedure: ELBOW MIN 3 VIEWS Laterality: Right COMPARISON: None FINDINGS: Bones: There are no fractures or dislocations. Joints: There is a subtle anterior fat pad sign. This could be an indication of an occult fracture. No discrete fractures are seen. Soft tissues: No appreciable soft tissue swelling is noted. Other: No radiopaque foreign bodies are seen. No radiopaque hardware is noted. RAD/Elbow min 3 Views IMPRESSION: Very subtle anterior fat pad sign which could be an indication of an occult fra cture. If symptoms continue or worsen, follow-up x-ray or MRI examination may be of value for further evaluation. Reading Location: [id number]
--- OUTSIDE RECORDS SUMMARY | 2025-07-23 08:34 | XMS RPT_ITS | CCD ---
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 [facility] Comment on above: Performed By: #### L 500.4050, L501.9985, L100.0100 ####[facility] [address] [place], [address] Bilirubin [Mass/Vol] 0.24 mg/dL Normal 0.00-1.30 [facility] Comment on above: Performed By: #### L 500.4050, L501.9985, L100.0100 ####[facility] [address] [place], [address] BUN/CRE 18.8 RATIO Normal 10-20 [facility] Comment on above: Performed By: #### L 500.4050, L501.9985, L100.0100 ####[facility] [address] [place], [address] Calcium [Mass/Vol] 9.7 mg/dL Normal 7.6-11.0 [facility] Comment on above: Performed By: #### L 500.4050, L501.9985, L100.0100 ####[facility] [address] [place], [address] Chloride [Moles/Vol] 100 mmol/L Normal 98-108 [facility] Comment on above: Performed By: #### L 500.4050, L501.9985, L100.0100 ####[facility] [address] [place], [address] CO2 [Moles/Vol] 22.7 mmol/L Normal 21.0-32.0 [facility] Comment on above: Performed By: #### L 500.4050, L501.9985, L100.0100 ####[facility] [address] [place], [address] Creatinine [Mass/Vol] 0.74 mg/dL Normal 0.70-1.20 [facility] Comment on above: Performed By: #### L 500.4050, L501.9985, L100.0100 ####[facility] [address] [place], [address] GAP 14 Normal 5-15 [facility] Comment on above: Performed By: #### L 500.4050, L501.9985, L100.0100 ####[facility] [address] [place], [address] GFR/1.73 sq M.predicted among non-blacks MDRD (S/P/Bld) [Vol rate/Area] 90 mL/min/{1.73_m2} Normal >60 [facility] Comment on above: Result Comment: mL/m in/1.73m2 CKD-EPI Creatinine Equation (2020) Performed By: #### L 500.4050, L501.9985, L100.0100 ####[facility] [address] [place], [address] Globulin (S) [Mass/Vol] 2.9 g/dL Normal 2.2-4.2 [facility] Comment on above: Performed By: #### L 500.4050, L501.9985, L100.0100 ####[facility] [address] [place], [address] Glucose [Mass/Vol] 242 mg/dL High 70-99 [facility] Comment on above: Performed By: #### L 500.4050, L501.9985, L100.0100 ####[facility] [address] [place], [address] Potassium [Moles/Vol] 4.4 mmol/L Normal 3.3-5.1 [facility] Comment on above: Performed By: #### L 500.4050, L501.9985, L100.0100 ####[facility] [address] [place], [address] Sodium [Moles/Vol] 136 mmol/L Normal 133-145 [facility] Comment on above: Performed By: #### L 500.4050, L501.9985, L100.0100 ####[facility] [address] [place], [address] T PROT 7.5 g/dL Normal 5.9-8.4 [facility] Comment on above: Performed By: #### L 500.4050, L501.9985, L100.0100 ####[facility] [address] [place], [address] Urea nitrogen [Mass/Vol] 14 mg/dL Normal 4-19 [facility] Comment on above: Performed By: #### L 500.4050, L501.9985, L100.0100 ####[facility] [address] [place], [address] Eosinophil percentageOrdered By: Bert Quiroz on 12-25-2024 Eosinophils/100 WBC (Bld) 0.1 % 0-5 [facility] Erythrocyte distribution wid th ratioOrdered By: Bert Quiroz on 12-25-2024 Erythrocyte distribution width (RBC) [Ratio] 13.5 % 11.6-14.6 [facility] Erythrocyte distribution wid th standard deviationOrdered By: Bert Quiroz on 12-25-2024 Erythrocyte distribution width (RBC) [Ratio] 42.9 fl 35.1-43.9 [facility] Glomerular filtration rate ( GFR) estimation/1.73 sq m using serum, plasma, or whole bOrdered By: Bert Quiroz on 12-25-2024 GFR/1.73 sq M.predicted among non-blacks MDRD (S/P/Bld) [Vol rate/Area] 90 mL/min/{1.73_m2} >60 [facility] Comment on above: mL/min/1.73m2 CKD-EP I Creatinine Equation (2020) Hematocrit Auto (Bld) [Volum e fraction]Ordered By: Bert Quiroz on 12-25-2024 Hematocrit (Bld) [Volume fraction] 37.3 % 37-47 [facility] Hemoglobin A1con 12-25-2024 HbA1c (Bld) [Mass fraction] 7.0 % High <=5.6 [facility] Comment on above: Result Comment: Norm al < 5.7 % Prediabetic 5.7 - 6.4 % Diabetic >or= 6.5 % Please note range changes. Performed By: #### L 500.4050, L501.9985, L100.0100 ####[facility] [address] [place], [address] Hemoglobin A1c percentageOrd ered By: Bert Quiroz on 12-25-2024 HbA1c (Bld) [Mass fraction] 7.0 % High <5.7 [facility] Comment on above: Normal < 5.7 % Predi abetic 5.7 - 6.4 % Diabetic >or= 6.5 % Please note range changes. Hemoglobin measurementOrdere d By: Bert Quiroz on 12-25-2024 Hemoglobin (Bld) [Mass/Vol] 12.0 g/dL 12.0-15.0 [facility] Immature granulocytes/100 WB C Auto (Bld)Ordered By: Bert Quiroz on 12-25-2024 Immature granulocytes/100 WBC (Bld) 0.800 % 0.0-0.9 [facility] Comment on above: IG% - Immature Granu locytes (promyelocytes, myelocytes and metamyelocytes) > 1% indicates that a LEFT SHIFT is Present. 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 Normal [facility] - Chemistry and C hemistry - challengeOrdered By: Bert Quiroz on 12-25-2024 AST [Catalytic activity/Vol] 23 U/L <32 [facility] MCV (mean corpuscular volume ) determinationOrdered By: Bert Quiroz on 12-25-2024 MCV (RBC) [Entitic vol] 87.4 fL 81-99 [facility] Mean corpuscular hemoglobin (MCH) determinationOrdered By: Bert Quiroz on 12-25-2024 MCH (RBC) [Entitic mass] 28.1 pg 27.0-32.0 [facility] Mean corpuscular hemoglobin concentration (MCHC) determinationOrdered By: Bert Quiroz on 12-25-2024 MCHC (RBC) [Mass/Vol] 32.2 g/dL 32-36 [facility] Mean platelet volume determi nationOrdered By: Bert Quiroz on 12-25-2024 Platelet mean volume (Bld) [Entitic vol] 10.8 fL 6.2-12.0 [facility] Monocyte percentageOrdered B y: Bert Quiroz on 12-25-2024 Monocytes/100 WBC (Bld) 1.8 % 0-10 [facility] Neutrophil percentageOrdered By: Bert Quiroz on 12-25-2024 Neutrophils/100 WBC (Bld) 85.6 % High 47-70 [facility] Nucleated red blood cell per centageOrdered By: Bert Quiroz on 12-25-2024 Nucleated RBC/100 WBC (Bld) [Ratio] 0 % 0-5 [facility] Platelet countOrdered By: Soila ttnola Quiroz on 12-25-2024 Platelets (Bld) [#/Vol] 286 10*3/uL 150-450 [facility] Potassium measurement (mass/ volume)Ordered By: Bert Quiroz on 12-25-2024 Potassium (Unsp spec) [Mass/Vol] 4.4 mmol/L 3.3-5.1 [facility] RBC Auto (Bld) [#/Vol]Ordere d By: Bert Quiroz on 12-25-2024 RBC (Bld) [#/Vol] 4.27 10*6/uL 4.2-5.4 [facility] Serum creatinine measurement (mass/volume)Ordered By: Bert Quiroz on 12-25-2024 Creatinine [Mass/Vol] 0.74 mg/dL 0.70-1.20 [facility] Serum globulin measurementOr dered By: Bert Quiroz on 12-25-2024 Globulin (S) [Mass/Vol] 2.9 g/dL 2.2-4.2 [facility] Serum glucose measurement (m ass/volume)Ordered By: Bert Quiroz on 12-25-2024 Glucose [Mass/Vol] 242 mg/dL High 70-99 [facility] Serum or plasma alanine claudio otransferase (ALT) measurementOrdered By: Bert Quiroz on 12-25-2024 ALT [Catalytic activity/Vol] 39 U/L High <35 [facility] Serum or plasma albumin zeeshan urement (mass/volume)Ordered By: Bert Quiroz on 12-25-2024 Albumin [Mass/Vol] 4.6 g/dL 3.4-4.8 [facility] Serum or plasma albumin/glob ulin mass ratioOrdered By: Bert Quiroz on 12-25-2024 Albumin/Globulin [Mass ratio] 1.6 {ratio} 0.9-2.4 [facility] Serum or plasma alkaline kami sphatase measurementOrdered By: Bert Quiroz on 12-25-2024 ALP [Catalytic activity/Vol] 85 U/L 35-104 [facility] Serum or plasma calcium zeeshan urement (mass/volume)Ordered By: Bert Quiroz on 12-25-2024 Calcium [Mass/Vol] 9.7 mg/dL 7.6-11.0 [facility] Serum or plasma urea nitroge n measurement (mass/volume)Ordered By: Bert Quiroz on 12-25-2024 Urea nitrogen [Mass/Vol] 14 mg/dL 4-19 [facility] Sodium levelOrdered By: Filiberto nola Richie on 12-25-2024 Sodium [Moles/Vol] 136 mmol/L 133-145 [facility] Total proteinOrdered By: Russel suraj Richie on 12-25-2024 Protein [Mass/Vol] 7.5 g/dL 5.9-8.4 [facility] White blood cell (WBC) count Ordered By: Bert Quiroz on 12-25-2024 WBC (Bld) [#/Vol] 9.7 10*3/uL 4.4-11.0 [facility] Urgent Care Visit Reporton 0 12-23-2024 Urgent Care Visit Report [facility] [address], [address] [place] [address] OFFICE VISIT Date of Service: 12/23/24 MR#: [id number] Acct: [id number] Name: VIGNESH YOUNG BRIANNE Rep #: [id number] : 1960 Provider: ROSCOE Vega Age/Sex: 64/F Location: [facility] [place] Status: Signed Intake Vital Signs 06/25/24 08:26 12/23/24 08:58 Height 5 ft 5 in BP 120/84 H Position Sitting Pulse 91 Temp 97.9 F Temp Source Oral Pulse Oximetry (%) 97 Oxygen Delivery Method room air Intake Visit Reasons: POISON KAE Accompanied by: Self Allergies clarithromycin (From Biaxin) Allergy (Verified 12/23/24 08:57) Other Nurse's Note: Patient has Poison Kae that is all over both her arms. Patient states this has been going on for a week. Patient states they are bubbling. 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 Patient states she has used multiple [id number] topical applications without relief of symptoms. She [...] cooperative Diagnoses Contact dermatitis due to poison kae L23.7 Assessment and Plan Assessment and Plan (1) Contact dermatitis due to poison kae: Status: Acute Plan: Prednisone as prescribed today. Supportive measures as instructed today. Follow-up with PCP in 3 to 5 days should symptoms not improve, ED sooner should symptoms worsen or any other concerns develop. Patient states acknowledging understanding all the above Coding Level of Care Code Off vis,est,level 3 Assessment and (more content not included)... Normal [facility] - Microbiology an d Antimicrobial susceptibilityOrdered By: Noreen Bhakta on 09-14-2024 SARS-CoV-2 (COVID-19) RNA KIARA+probe Ql (Unsp spec) Not detected [facility] No Panel InformationOrdered By: Noreen Bhakta on 09-14-2024 Influenza Types A,B Rapid (Clinic) Not detected [facility] Urgent Care Visit Reporton 0 09-14-2024 Urgent Care Visit Report [facility] [address], [address] [place] [address] OFFICE VISIT Date of Service: 09/14/24 MR#: [id number] Acct: [id number] Name: VIGNESH YOUNG BRIANNE Rep #: [id number] : 1960 Provider: RAMONA Bhakta Age/Sex: 63/F Location: [facility] [place] Status: Signed Intake Vital Signs 06/25/24 08:26 09/14/24 13:00 Height 5 ft 5 in BP 140/74 H Blood Pressure Location Lt brachial Position Sitting Respiration 15 Pulse 108 H Pulse Source NIBP Temp 98.1 F Temp Source Oral Pulse Oximetry (%) 97 Oxygen Delivery Method room air Intake Visit Reasons: COUGH, SORE THROAT Chief Complaint: cough, ST, congest, LAZAR, BA 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 Normal [facility] CBC W/Diff, Automatedon 12-0 Absolute Lymph 1.90 X10 3/uL Normal 0.83-4.51 [facility] Comment on above: Performed By: #### L 500.4050, L501.9520, L503.6550, L506.1000, L100.0100, L503.0105, L503.6030 #### [facility] [address] [place], [address] Absolute Neut 4.3 X10 3/uL Normal 2.0-7.7 [facility] Comment on above: Performed By: #### L 500.4050, L501.9520, L503.6550, L506.1000, L100.0100, L503.0105, L503.6030 #### [facility] [address] [place], [address] Basophils/100 WBC (Bld) 0.4 % Normal 0-1 [facility] Comment on above: Performed By: #### L 500.4050, L501.9520, L503.6550, L506.1000, L100.0100, L503.0105, L503.6030 #### [facility] [address] [place], [address] Eosinophils/100 WBC (Bld) 1.3 % Normal 0-5 [facility] Comment on above: Performed By: #### L 500.4050, L501.9520, L503.6550, L506.1000, L100.0100, L503.0105, L503.6030 #### [facility] [address] [place], [address] Erythrocyte distribution width (RBC) [Ratio] 13.3 % Normal 11.6-14.6 [facility] Comment on above: Performed By: #### L 500.4050, L501.9520, L503.6550, L506.1000, L100.0100, L503.0105, L503.6030 #### [facility] [address] [place], [address] Hematocrit (Bld) [Volume fraction] 38.6 % Normal 37-47 [facility] Comment on above: Performed By: #### L 500.4050, L501.9520, L503.6550, L506.1000, L100.0100, L503.0105, L503.6030 #### [facility] [address] [place], [address] Hemoglobin (Bld) [Mass/Vol] 12.0 g/dL Normal 12.0-15.0 [facility] Comment on above: Performed By: #### L 500.4050, L501.9520, L503.6550, L506.1000, L100.0100, L503.0105, L503.6030 #### [facility] [address] [place], [address] IG% 0.600 Normal 0.0-0.9 [facility] Comment on above: Result Comment: IG% - Immature Granulocytes (promyelocytes, myelocytes and metamyelocytes) > 1% indicates that a LEFT SHIFT is Present. Performed By: #### L 500.4050, L501.9520, L503.6550, L506.1000, L100.0100, L503.0105, L503.6030 #### [facility] [address] [place], [address] Lymphocytes/100 WBC (Bld) 27.4 % Normal 19-41 [facility] Comment on above: Performed By: #### L 500.4050, L501.9520, L503.6550, L506.1000, L100.0100, L503.0105, L503.6030 #### [facility] [address] [place], [address] MCH (RBC) [Entitic mass] 27.4 pg Normal 27.0-32.0 [facility] Comment on above: Performed By: #### L 500.4050, L501.9520, L503.6550, L506.1000, L100.0100, L503.0105, L503.6030 #### [facility] [address] [place], [address] MCHC (RBC) [Mass/Vol] 31.1 g/dL Low 32-36 [facility] Comment on above: Performed By: #### L 500.4050, L501.9520, L503.6550, L506.1000, L100.0100, L503.0105, L503.6030 #### [facility] [address] [place], [address] MCV (RBC) [Entitic vol] 88.1 fL Normal 81-99 [facility] Comment on above: Performed By: #### L 500.4050, L501.9520, L503.6550, L506.1000, L100.0100, L503.0105, L503.6030 #### [facility] [address] [place], [address] Monocytes/100 WBC (Bld) 8.5 % Normal 0-10 [facility] Comment on above: Performed By: #### L 500.4050, L501.9520, L503.6550, L506.1000, L100.0100, L503.0105, L503.6030 #### [facility] [address] [place], [address] Neutrophils/100 WBC (Bld) 61.8 % Normal 47-70 [facility] Comment on above: Performed By: #### L 500.4050, L501.9520, L503.6550, L506.1000, L100.0100, L503.0105, L503.6030 #### [facility] [address] [place], [address] Nucleated RBC (Bld) [#/Vol] 0 10*3/uL Normal 0-5 [facility] Comment on above: Performed By: #### L 500.4050, L501.9520, L503.6550, L506.1000, L100.0100, L503.0105, L503.6030 #### [facility] [address] [place], [address] Platelet mean volume (Bld) [Entitic vol] 11.0 fL Normal 6.2-12.0 [facility] Comment on above: Performed By: #### L 500.4050, L501.9520, L503.6550, L506.1000, L100.0100, L503.0105, L503.6030 #### [facility] [address] [place], [address] Platelets (Bld) [#/Vol] 272 10*3/uL Normal 150-450 [facility] Comment on above: Performed By: #### L 500.4050, L501.9520, L503.6550, L506.1000, L100.0100, L503.0105, L503.6030 #### [facility] [address] [place], [address] RBC (Bld) [#/Vol] 4.38 10*6/uL Normal 4.2-5.4 [facility] Comment on above: Performed By: #### L 500.4050, L501.9520, L503.6550, L506.1000, L100.0100, L503.0105, L503.6030 #### [facility] [address] [place], [address] RDW SD 43.1 fl Normal 35.1-43.9 [facility] Comment on above: Performed By: #### L 500.4050, L501.9520, L503.6550, L506.1000, L100.0100, L503.0105, L503.6030 #### [facility] [address] [place], [address] WBC (Bld) [#/Vol] 6.9 10*3/uL Normal 4.4-11.0 [facility] Comment on above: Performed By: #### L 500.4050, L501.9520, L503.6550, L506.1000, L100.0100, L503.0105, L503.6030 #### [facility] [address] [place], [address] Comprehensive Metabolic Prof ilon 06-25-2024 Albumin [Mass/Vol] 3.9 g/dL Normal 3.2-5.0 [facility] Comment on above: Performed By: #### L 500.4050, L501.9520, L503.6550, L506.1000, L100.0100, L503.0105, L503.6030 #### [facility] [address] [place], [address] Albumin/Globulin [Mass ratio] 1.1 {ratio} Normal 0.9-2.4 [facility] Comment on above: Performed By: #### L 500.4050, L501.9520, L503.6550, L506.1000, L100.0100, L503.0105, L503.6030 #### [facility] [address] [place], [address] ALK P 87 U/L Normal 45-117 [facility] Comment on above: Performed By: #### L 500.4050, L501.9520, L503.6550, L506.1000, L100.0100, L503.0105, L503.6030 #### [facility] [address] [place], [address] ALT [Catalytic activity/Vol] 62 U/L High 13-56 [facility] Comment on above: Performed By: #### L 500.4050, L501.9520, L503.6550, L506.1000, L100.0100, L503.0105, L503.6030 #### [facility] [address] [place], [address] AST [Catalytic activity/Vol] 27 U/L Normal 15-37 [facility] Comment on above: Performed By: #### L 500.4050, L501.9520, L503.6550, L506.1000, L100.0100, L503.0105, L503.6030 #### [facility] [address] [place], [address] Bilirubin [Mass/Vol] 0.40 mg/dL Normal 0.20-1.00 [facility] Comment on above: Result Comment: For patients on eltrombopag therapy, use of Dimension Saucier TBIL is not recommended. Performed By: #### L 500.4050, L501.9520, L503.6550, L506.1000, L100.0100, L503.0105, L503.6030 #### [facility] [address] [place], [address] BUN/CRE 19.3 RATIO Normal 10-20 [facility] Comment on above: Performed By: #### L 500.4050, L501.9520, L503.6550, L506.1000, L100.0100, L503.0105, L503.6030 #### [facility] [address] [place], [address] CA,Total 9.2 mg/dL Normal 8.5-10.1 [facility] Comment on above: Performed By: #### L 500.4050, L501.9520, L503.6550, L506.1000, L100.0100, L503.0105, L503.6030 #### [facility] [address] [place], [address] Chloride [Moles/Vol] 106 mmol/L Normal 98-107 [facility] Comment on above: Performed By: #### L 500.4050, L501.9520, L503.6550, L506.1000, L100.0100, L503.0105, L503.6030 #### [facility] [address] [place], [address] CO2 [Moles/Vol] 28.0 mmol/L Normal 21.0-32.0 [facility] Comment on above: Performed By: #### L 500.4050, L501.9520, L503.6550, L506.1000, L100.0100, L503.0105, L503.6030 #### [facility] [address] [place], [address] Creatinine [Mass/Vol] 0.72 mg/dL Normal 0.55-1.02 [facility] Comment on above: Result Comment: The validity of the calculated GFR GFRAA in patients over 70 years has not been determined. Clinical correlation is essential. Performed By: #### L 500.4050, L501.9520, L503.6550, L506.1000, L100.0100, L503.0105, L503.6030 #### [facility] [address] [place], [address] EST GFR - AA 105 mL/min Normal >60 [facility] Comment on above: Result Comment: Afri can Jordanian GFR Calc Performed By: #### L 500.4050, L501.9520, L503.6550, L506.1000, L100.0100, L503.0105, L503.6030 #### [facility] [address] [place], [address] GAP 6 Normal 5-15 [facility] Comment on above: Performed By: #### L 500.4050, L501.9520, L503.6550, L506.1000, L100.0100, L503.0105, L503.6030 #### [facility] [address] [place], [address] GFR/1.73 sq M.predicted among non-blacks MDRD (S/P/Bld) [Vol rate/Area] 87 mL/min/{1.73_m2} Normal >60 [facility] Comment on above: Result Comment: Non- GFR Calc Performed By: #### L 500.4050, L501.9520, L503.6550, L506.1000, L100.0100, L503.0105, L503.6030 #### [facility] [address] [place], [address] Globulin (S) [Mass/Vol] 3.6 g/dL Normal 2.2-4.2 [facility] Comment on above: Performed By: #### L 500.4050, L501.9520, L503.6550, L506.1000, L100.0100, L503.0105, L503.6030 #### [facility] [address] [place], [address] Glucose [Mass/Vol] 157 mg/dL High 74-106 [facility] Comment on above: Result Comment: Fast ing Glucose result greater than or equal to 126 mg/dL suggests DIABETES MELLITUS per A.D.A. criteria. Performed By: #### L 500.4050, L501.9520, L503.6550, L506.1000, L100.0100, L503.0105, L503.6030 #### [facility] [address] [place], [address] Potassium [Moles/Vol] 4.2 mmol/L Normal 3.5-5.1 [facility] Comment on above: Performed By: #### L 500.4050, L501.9520, L503.6550, L506.1000, L100.0100, L503.0105, L503.6030 #### [facility] [address] [place], [address] Sodium [Moles/Vol] 140 mmol/L Normal 136-145 [facility] Comment on above: Performed By: #### L 500.4050, L501.9520, L503.6550, L506.1000, L100.0100, L503.0105, L503.6030 #### [facility] [address] [place], [address] T PROT 7.5 g/dL Normal 6.4-8.2 [facility] Comment on above: Performed By: #### L 500.4050, L501.9520, L503.6550, L506.1000, L100.0100, L503.0105, L503.6030 #### [facility] [address] [place], [address] Urea nitrogen [Mass/Vol] 14 mg/dL Normal 7-18 [facility] Comment on above: Performed By: #### L 500.4050, L501.9520, L503.6550, L506.1000, L100.0100, L503.0105, L503.6030 #### [facility] [address] [place], [address] Ferritinon 06-25-2024 Ferritin [Mass/Vol] 43 ng/mL Normal 8-252 [facility] Comment on above: Performed By: #### L 500.4050, L501.9520, L503.6550, L506.1000, L100.0100, L503.0105, L503.6030 ####[facility] [address] [place], [address] Hemoglobin A1con 06-25-2024 HbA1c (Bld) [Mass fraction] 6.8 % High 3.8-5.6 [facility] Comment on above: Order Comment: ADD O N Result Comment: Norm al < 5.7 % Prediabetic 5.7 - 6.4 % Diabetic >or= 6.5 % Please note range changes. Performed By: #### L 501.9985 ####[facility] [address] [place], [address] Iron+Iron Binding Capacityon 06-25-2024 Iron [Mass/Vol] 55 ug/dL Normal 50-170 [facility] Comment on above: Performed By: #### L 500.4050, L501.9520, L503.6550, L506.1000, L100.0100, L503.0105, L503.6030 #### [facility] [address] [place], [address] IRON SATURATION 16.8 Normal 15.0-55.0 [facility] Comment on above: Performed By: #### L 500.4050, L501.9520, L503.6550, L506.1000, L100.0100, L503.0105, L503.6030 #### [facility] [address] [place], [address] TIBC 328 ug/dL Normal 250-450 [facility] Comment on above: Performed By: #### L 500.4050, L501.9520, L503.6550, L506.1000, L100.0100, L503.0105, L503.6030 #### [facility] [address] [place], [address] Thyroid Stim Hormone (TSH)on 06-25-2024 TSH 1.370 uIU/mL Normal 0.358-3.740 [facility] Comment on above: Performed By: #### L 500.4050, L501.9520, L503.6550, L506.1000, L100.0100, L503.0105, L503.6030 #### [facility] [address] [place], [address] Vitamin B12on 06-25-2024 Cobalamin (Vitamin B12) [Mass/Vol] 382 pg/mL Normal 211-911 [facility] Comment on above: Performed By: #### L 500.4050, L501.9520, L503.6550, L506.1000, L100.0100, L503.0105, L503.6030 #### [facility] [address] [place], [place], [address] Vitamin D,25 Hydroxyon 06-25 Vitamin D 25-OH 27.2 ng/mL Normal [facility] Comment on above: Result Comment: Lilia min D 25(OH) Status Range Deficiency <20 ng/mL (50nmol/L) Insufficiency 20 - 30 ng/mL (50 - 75 nmol/L) Sufficiency 30 - 100 ng/mL (75 - 250 nmol/L) Toxicity >100 ng/mL (>250 nmol/L) Performed By: #### L 500.4050, L501.9520, L503.6550, L506.1000, L100.0100, L503.0105, L503.6030 #### [facility] [address] [place], [address] Internal Medicine Office Vis iton 06-24-2024 Internal Medicine Office Visit [facility] [address] [place] [address] [place] [address] OFFICE VISIT Date of Service: 06/25/24 MR#: [id number] Acct: [id number] Name: VIGNESH YOUNG BRIANNE Rep #: [id number] : 1960 Provider: Dr. 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 Normal [facility] PCRHSVon 10-31-2023 HSV 1/2 Source Swab Normal [facility] ([place] Comment on above: Performed By: #### 1 [id number] #### [address] [address] PCRVon 10-29-2023 HSV-1 DNA Positive Abnormal Negative [facility] ([place] Comment on above: Performed By: #### 1 [id number] #### [address] [address] HSV-2 DNA Negative Normal Negative [facility] ([place] Comment on above: Result Comment: This test was developed and its performance characteristics determined by [employer]. It has not been cleared or approved by the U.S. Food and Drug Administration. The FDA has determined that such clearance or approval is not necessary. This test is used for clinical purposes. It should not be regarded as investigational or research. Performed At: [address] [id number] Rah Hope MD Ph:[phone] Performed By: #### 1 [address] #### [facility] [address], [place] [address] LABORATORYOrdered By: ZENT CONTRIBUTOR_SYSTEM on 10-25-2023 HSV-1 DNA (LC) Positive Invalid Interpretation Code Negative AO [facility]outs SS HSV-2 DNA (LC) Negative Invalid Interpretation Code Negative [facility] Comment on above: Result Comment: This test was developed and its performance characteristics determined by [employer]. It has not been cleared or approved by the U.S. Food and Drug Administration. The FDA has determined that such clearance or approval is not necessary. This test is used for clinical purposes. It should not be regarded as investigational or research. Performed At: [address] [id number] Rah Hope MD Ph:[phone] Basophil percentageOrdered B y: Xiomy Schaffer on 05-01-2023 Basophil percentage 0 SEEN /hpf 0-5 [facility] Bilirubin Test strip Ql (U)O rdered By: Xiomy Schaffer on 05-01-2023 Bilirubin Ql (U) Negative Negative [facility] Culture, urineOrdered By: Al ycia [place] on 05-01-2023 Bacteria identified Cx Nom (U) Staphylococcus epidermidis [facility] Ketones Test strip Ql (U)Ord ered By: Xiomytomy Schaffer on 05-01-2023 Ketones Ql (U) Negative Negative [facility] Mucus LM Ql (Urine sed)Order ed By: Xiomytomy Schaffer on 05-01-2023 Mucus Ql (Urine sed) 0 SEEN /hpf [facility] Nitrite Test strip Ql (U)Ord ered By: Xiomy [place] on 05-01-2023 Nitrite Ql (U) Negative Negative [facility] Protein Test strip Ql (U)Ord ered By: Xiomy Schaffer on 05-01-2023 Protein Ql (U) Negative Negative [facility] Squamous epithelial cells de tection in urine sediment by light microscopyOrdered By: Xiomy Schaffer on 05-01-2023 Epithelial cells.squamous LM Ql (Urine sed) 0 SEEN /hpf 5-10 [facility] Urine blood detectionOrdered By: Xiomy Schaffer on 05-01-2023 RBC Ql (U) Negative Negative [facility] RBC Ql (U) 0 SEEN /hpf 0-5 [facility] Urine clarityOrdered By: Buck Schaffer on 05-01-2023 Clarity (U) Clear Clear [facility] Urine color determinationOrd ered By: Xiomy Schaffer on 05-01-2023 Color (U) Straw Yellow [facility] Urine glucose detectionOrder ed By: Xiomy Schaffer on 05-01-2023 Glucose Ql (U) Normal mg/dl Normal [facility] Urine leukocyte esterase det ection by dipstickOrdered By: Xiomy Schaffer on 05-01-2023 Leukocyte esterase Test strip Ql (U) Negative Negative [facility] Urine pHOrdered By: Xiomy floyd on 05-01-2023 pH (U) 7.0 [pH] 5.0 - 8.0 [facility] Urine sediment bacteria coun t by microscopy (number/high power field)Ordered By: Xiomy Schaffer on 05-01-2023 Bacteria LM.HPF (Urine sed) [#/Area] 0 /[HPF] None Seen [facility] Urine specific gravity measu rementOrdered By: Xiomy Schaffer on 05-01-2023 Specific gravity (U) [Rel density] 1.010 1.002-1.030 [facility] Urobilinogen Auto test strip Ql (U)Ordered By: Xiomy Schaffer on 05-01-2023 Urobilinogen Ql (U) Normal mg/dl Normal [facility] Absolute lymphocyte counton 06-07-2022 Lymphocytes Auto (Unsp spec) [#/Vol] 7.22 10*3/uL 0.83-4.51 [facility] Work Phone: Lymphocytes Auto (Unsp spec) [#/Vol] 8.77 10*3/uL 0.83-4.51 [facility] Work Phone: [phone] Basophil percentageon 2021 Basophil percentage 0 SEEN /hpf 0-5 [facility] Work Phone: [phone] Basophils/100 WBC (Bld) 0.8 % 0-1 [facility] Work Phone: [phone] Bilirubin [Mass/Vol] 0.40 mg/dL 0.20-1.00 [facility] Work Phone: Comment on above: For patients on eltr ombopag therapy, use of Dimension [employer]ucier TBIL is not recommended. Chloride [Moles/Vol] 100 mmol/L 98-107 [facility] Work Phone: Eosinophils/100 WBC (Bld) 0.6 % 0-5 [facility] Work Phone: Glucose [Mass/Vol] 128 mg/dL 74-106 [facility] Work Phone: Comment on above: Fasting Glucose resu lt greater than or equal to 126 mg/dL suggests DIABETES MELLITUS per A.D.A. criteria. Neutrophils (Bld) [#/Vol] 2.9 10*3/uL 2.0-7.7 [facility] Work Phone: Neutrophils/100 WBC (Bld) 26.0 % 47-70 [facility] Work Phone: Potassium [Moles/Vol] 4.0 mmol/L 3.5-5.1 [facility] Work Phone: Protein [Mass/Vol] 6.8 g/dL 6.4-8.2 [facility] Work Phone: Sodium [Moles/Vol] 136 mmol/L 136-145 [facility] Work Phone: WBC (Bld) [#/Vol] 11.1 10*3/uL 4.4-11.0 [facility] Work Phone: Basophils/100 WBC (Bld) 0.7 % 0-1 [facility] Work Phone: Bilirubin [Mass/Vol] 0.50 mg/dL 0.20-1.00 [facility] Work Phone: Comment on above: For patients on eltr ombopag therapy, use of Dimension [place]uc[place] TBIL is not recommended. Chloride [Moles/Vol] 99 mmol/L 98-107 [facility] Work Phone: Eosinophils/100 WBC (Bld) 0.7 % 0-5 [facility] Work Phone: Glucose [Mass/Vol] 114 mg/dL 74-106 [facility] Work Phone: Comment on above: Fasting Glucose resu lt from 100 to 125 mg/dL suggests IMPAIRED HOMEOSTASIS per A.D.A. criteria. Neutrophils (Bld) [#/Vol] 3.5 10*3/uL 2.0-7.7 [facility] Work Phone: Neutrophils/100 WBC (Bld) 26.1 % 47-70 [facility] Work Phone: Potassium [Moles/Vol] 4.5 mmol/L 3.5-5.1 [facility] Work Phone: Protein [Mass/Vol] 7.5 g/dL 6.4-8.2 [facility] Work Phone: Sodium [Moles/Vol] 135 mmol/L 136-145 [facility] Work Phone: WBC (Bld) [#/Vol] 13.6 10*3/uL 4.4-11.0 [facility] Work Phone: Bilirubin Test strip Ql (U)o n 06-07-2022 Bilirubin Ql (U) Negative Negative [facility] Work Phone: Blood erythrocytes count (nu mber/volume)on 06-07-2022 RBC (Bld) [#/Vol] 3.81 10*6/uL 4.2-5.4 [facility] Work Phone: RBC (Bld) [#/Vol] 4.16 10*6/uL 4.2-5.4 [facility] Work Phone: Blood hemoglobin measurement (mass/volume)on 06-07-2022 Hemoglobin (Bld) [Mass/Vol] 10.5 g/dL 12.0-15.0 [facility] Work Phone: Hemoglobin (Bld) [Mass/Vol] 11.4 g/dL 12.0-15.0 [facility] Work Phone: Blood lymphocytes/100 leukoc yteson 06-07-2022 Lymphocytes/100 WBC (Bld) 65.0 % 19-41 [facility] Work Phone: Lymphocytes/100 WBC (Bld) 64.6 % [facility] Work Phone: Blood manual differential co mment interpretation (narrative result)on 06-07-2022 Manual differential comment Sesar (Bld) [Interp] SCANNED [facility] Work Phone: Comment on above: LYMPHOCYTOSIS NOTED Manual differential comment Sesar (Bld) [Interp] COMMENT [facility] Work Phone: Comment on above: LYMPHOCYTOSIS. Blood monocytes/100 leukocyt eson 06-07-2022 Monocytes/100 WBC (Bld) 6.4 % 0-10 [facility] Work Phone: Monocytes/100 WBC (Bld) 6.5 % 0-10 [facility] Work Phone: Blood platelet mean volumeon 06-07-2022 Platelet mean volume (Bld) [Entitic vol] 9.6 fL 6.2-12.0 [facility] Work Phone: Platelet mean volume (Bld) [Entitic vol] 10.0 fL 6.2-12.0 [facility] Work Phone: Determination of erythrocyte mean corpuscular volume (MCV)on 06-07-2022 MCV (RBC) [Entitic vol] 84.8 fL 81-99 [facility] Work Phone: MCV (RBC) [Entitic vol] 87.5 fL 81-99 [facility] Work Phone: Hematocrit Auto (Bld) [Volum e fraction]on 06-07-2022 Hematocrit (Bld) [Volume fraction] 32.3 % 37-47 [facility] Work Phone: Hematocrit (Bld) [Volume fraction] 36.4 % 37-47 [facility] Work Phone: Ketones Test strip Ql (U)on 06-07-2022 Ketones Ql (U) Negative Negative [facility] Work Phone: Laboratory - Chemistry and C hemistry - challengeon 06-07-2022 ALP [Catalytic activity/Vol] 113 U/L 45-117 [facility] Work Phone: ALT [Catalytic activity/Vol] 268 U/L 13-56 [facility] Work Phone: CO2 [Moles/Vol] 29.0 mmol/L 21.0-32.0 [facility] Work Phone: Globulin (S) [Mass/Vol] 3.9 g/dL 2.2-4.2 [facility] Work Phone: Lipase [Catalytic activity/Vol] 99 U/L 73-393 [facility] Work Phone: Urea nitrogen/Creatinine [Mass ratio] 10.0 mg/mg 10-20 [facility] Work Phone: ALP [Catalytic activity/Vol] 124 U/L 45-117 [facility] Work Phone: ALT [Catalytic activity/Vol] 296 U/L 13-56 [facility] Work Phone: CO2 [Moles/Vol] 30.0 mmol/L 21.0-32.0 [facility] Work Phone: Globulin (S) [Mass/Vol] 4.2 g/dL 2.2-4.2 [facility] Work Phone: [phone] Urea nitrogen/Creatinine [Mass ratio] 9.3 mg/mg 10-20 [facility] Work Phone: Laboratory - Hematology and Cell countson 06-07-2022 Erythrocyte distribution width (RBC) [Entitic vol] 46.2 fL 35.1-43.9 [facility] Work Phone: [phone] Erythrocyte distribution width (RBC) [Ratio] 15.1 % 11.6-14.6 [facility] Work Phone: [phone] Immature granulocytes/100 WBC (Bld) 1.200 % 0.0-0.9 [facility] Work Phone: Comment on above: IG% - Immature Granu locytes (promyelocytes, myelocytes and metamyelocytes) > 1% indicates that a LEFT SHIFT is Present. MCH (RBC) [Entitic mass] 27.6 pg 27.0-32.0 [facility] Work Phone: [phone] Nucleated RBC/100 WBC (Bld) [Ratio] 0 % 0-5 [facility] Work Phone: [phone] Erythrocyte distribution width (RBC) [Entitic vol] 48.3 fL 35.1-43.9 [facility] Work Phone: Erythrocyte distribution width (RBC) [Ratio] 15.3 % 11.6-14.6 [facility] Work Phone: Immature granulocytes/100 WBC (Bld) 1.400 % 0.0-0.9 [facility] Work Phone: Comment on above: IG% - Immature Granu locytes (promyelocytes, myelocytes and metamyelocytes) > 1% indicates that a LEFT SHIFT is Present. MCH (RBC) [Entitic mass] 27.4 pg 27.0-32.0 [facility] Work Phone: Nucleated RBC/100 WBC (Bld) [Ratio] 0 % 0-5 [facility] Work Phone: MCHC Auto (RBC) [Mass/Vol]on 06-07-2022 MCHC (RBC) [Mass/Vol] 32.5 g/dL [facility] Work Phone: MCHC (RBC) [Mass/Vol] 31.3 g/dL -36 [facility] Work Phone: Mucus LM Ql (Urine sed)on Mucus Ql (Urine sed) 0 SEEN /hpf [facility] Work Phone: Nitrite Test strip Ql (U)on 06-07-2022 Nitrite Ql (U) Negative Negative [facility] Work Phone: No Panel Informationon 06-07 Atypical Lymphocytes RARE % [facility] Work Phone: Estimated Creatinine Clearance Calc 67.29 ml/min [facility] Work Phone: Estimated GFR (MDRD) Amer 93 mL/min >60 [facility] Work Phone: Comment on above: GFR Calc Estimated GFR (MDRD) Non-Af Amer 77 mL/min >60 [facility] Work Phone: Comment on above: Non- GFR Calc Reactive Lymphocytes 1+ [facility] Work Phone: Estimated GFR (MDRD) Amer 101 mL/min >60 [facility] Work Phone: Comment on above: GFR Calc Estimated GFR (MDRD) Non-Af Amer 84 mL/min >60 [facility] Work Phone: Comment on above: Non- GFR Calc Reactive Lymphocytes 1+ [facility] Work Phone: Platelets bldon 06-07-2022 Platelets (Bld) [#/Vol] 222 10*3/uL 150-450 [facility] Work Phone: Platelets (Bld) [#/Vol] 232 10*3/uL 150-450 [facility] Work Phone: Protein Test strip Ql (U)on 06-07-2022 Protein Ql (U) Negative Negative [facility] Work Phone: Serum or plasma albumin zeeshan urement (mass/volume)on 06-07-2022 Albumin [Mass/Vol] 2.9 g/dL 3.2-5.0 [facility] Work Phone: Albumin [Mass/Vol] 3.3 g/dL 3.2-5.0 [facility] Work Phone: Serum or plasma albumin/glob ulin mass ratioon 06-07-2022 Albumin/Globulin [Mass ratio] 0.7 {ratio} 0.9-2.4 [facility] Work Phone: Albumin/Globulin [Mass ratio] 0.8 {ratio} 0.9-2.4 [facility] Work Phone: Serum or plasma calcium zeeshan urement (mass/volume)on 06-07-2022 Calcium [Mass/Vol] 8.5 mg/dL 8.5-10.1 [facility] Work Phone: Calcium [Mass/Vol] 9.0 mg/dL 8.5-10.1 [facility] Work Phone: Serum or plasma creatinine m easurement (mass/volume)on 06-07-2022 Creatinine [Mass/Vol] 0.80 mg/dL 0.55-1.02 [facility] Work Phone: Comment on above: The validity of the calculated GFR & GFRAA in patients over 70 years has not been determined. Clinical correlation is essential. Creatinine [Mass/Vol] 0.75 mg/dL 0.55-1.02 [facility] Work Phone: Comment on above: The validity of the calculated GFR & GFRAA in patients over 70 years has not been determined. Clinical correlation is essential. Serum or plasma urea nitroge n measurement (mass/volume)on 06-07-2022 Urea nitrogen [Mass/Vol] 8 mg/dL - [facility] Work Phone: Urea nitrogen [Mass/Vol] 7 mg/dL 02-07 [facility] Work Phone: Squamous epithelial cells de tection in urine sediment by light microscopyon 06-07-2022 Epithelial cells.squamous LM Ql (Urine sed) 0 SEEN /hpf 5-10 [facility] Work Phone: Thin prep Papanicolaou smear with manual screeningon 06-07-2022 Thin prep Papanicolaou smear with manual screening 101 U/L [facility] Work Phone: Thin prep Papanicolaou smear with manual screening 7 12-05 [facility] Work Phone: Thin prep Papanicolaou smear with manual screening 114 U/L [facility] Work Phone: Thin prep Papanicolaou smear with manual screening 6 12-05 [facility] Work Phone: Urine blood detectionon 05-24 RBC Ql (U) Negative Negative [facility] Work Phone: RBC Ql (U) 0 SEEN /hpf 0-5 [facility] Work Phone: Urine clarityon 06-07-2022 Clarity (U) Clear Clear [facility] Work Phone: Urine color determinationon 06-07-2022 Color (U) Yellow Yellow [facility] Work Phone: Urine glucose detectionon Glucose Ql (U) Normal mg/dl Normal [facility] Work Phone: Urine leukocyte esterase det ection by dipstickon 06-07-2022 Leukocyte esterase Test strip Ql (U) Negative Negative [facility] Work Phone: Urine pHon 06-07-2022 pH (U) 7.0 [pH] 5.0 - 8.0 [facility] Work Phone: Urine sediment bacteria coun t by microscopy (number/high power field)on 06-07-2022 Bacteria LM.HPF (Urine sed) [#/Area] 0 /[HPF] None Seen [facility] Work Phone: Urine specific gravity measu rementon 06-07-2022 Specific gravity (U) [Rel density] 1.010 1.002-1.030 [facility] Work Phone: Urobilinogen Auto test strip Ql (U)on 06-07-2022 Urobilinogen Ql (U) Normal mg/dl Normal [facility] Work Phone: Absolute lymphocyte counton 05-31-2022 Lymphocytes Auto (Unsp spec) [#/Vol] 4.47 10*3/uL 0.83-4.51 [facility] Work Phone: Basophil percentageon 2021 Basophil percentage 0-5 SEEN /hpf 0-5 [facility] Work Phone: Basophils/100 WBC (Bld) 1.1 % 0-1 [facility] Work Phone: Bilirubin [Mass/Vol] 0.40 mg/dL 0.20-1.00 [facility] Work Phone: Comment on above: For patients on eltr ombopag therapy, use of Dimension [place]uc[employer] TBIL is not recommended. Chloride [Moles/Vol] 100 mmol/L 98-107 [facility] Work Phone: Eosinophils/100 WBC (Bld) 1.1 % 0-5 [facility] Work Phone: Glucose [Mass/Vol] 157 mg/dL 74-106 [facility] Work Phone: Comment on above: Fasting Glucose resu lt greater than or equal to 126 mg/dL suggests DIABETES MELLITUS per A.D.A. criteria. Neutrophils (Bld) [#/Vol] 3.3 10*3/uL 2.0-7.7 [facility] Work Phone: Neutrophils/100 WBC (Bld) 38.7 % 47-70 [facility] Work Phone: Potassium [Moles/Vol] 3.5 mmol/L 3.5-5.1 [facility] Work Phone: [phone] Protein [Mass/Vol] 7.6 g/dL 6.4-8.2 [facility] Work Phone: Sodium [Moles/Vol] 134 mmol/L 136-145 [facility] Work Phone: WBC (Bld) [#/Vol] 8.4 10*3/uL 4.4-11.0 [facility] Work Phone: Bilirubin Test strip Ql (U)o n 05-31-2022 Bilirubin Ql (U) Negative Negative [facility] Work Phone: Blood erythrocytes count (nu mber/volume)on 05-31-2022 RBC (Bld) [#/Vol] 4.29 10*6/uL 4.2-5.4 [facility] Work Phone: Blood hemoglobin measurement (mass/volume)on 05-31-2022 Hemoglobin (Bld) [Mass/Vol] 11.6 g/dL 12.0-15.0 [facility] Work Phone: Blood lymphocytes/100 leukoc yteson 05-31-2022 Lymphocytes/100 WBC (Bld) 53.1 % 19-41 [facility] Work Phone: Blood manual differential co mment interpretation (narrative result)on 05-31-2022 Manual differential comment Sesar (Bld) [Interp] SCANNED [facility] Work Phone: Blood monocytes/100 leukocyt eson 11-08-2022 Monocytes/100 WBC (Bld) 5.2 % 0-10 [facility] Work Phone: Blood platelet mean volumeon 05-31-2022 Platelet mean volume (Bld) [Entitic vol] 10.8 fL 6.2-12.0 [facility] Work Phone: Determination of erythrocyte mean corpuscular volume (MCV)on 05-31-2022 MCV (RBC) [Entitic vol] 85.8 fL 81-99 [facility] Work Phone: Hematocrit Auto (Bld) [Volum e fraction]on 05-31-2022 Hematocrit (Bld) [Volume fraction] 36.8 % 37-47 [facility] Work Phone: Ketones Test strip Ql (U)on 05-31-2022 Ketones Ql (U) 5 mg/dl Negative [facility] Work Phone: Laboratory - Chemistry and C hemistry - challengeon 05-31-2022 ALP [Catalytic activity/Vol] 120 U/L 45-117 [facility] Work Phone: ALT [Catalytic activity/Vol] 161 U/L 13-56 [facility] Work Phone: CO2 [Moles/Vol] 26.0 mmol/L 21.0-32.0 [facility] Work Phone: Globulin (S) [Mass/Vol] 4.2 g/dL 2.2-4.2 [facility] Work Phone: Urea nitrogen/Creatinine [Mass ratio] 5.7 mg/mg 10-20 [facility] Work Phone: Laboratory - Hematology and Cell countson 05-31-2022 Erythrocyte distribution width (RBC) [Entitic vol] 45.0 fL 35.1-43.9 [facility] Work Phone: Erythrocyte distribution width (RBC) [Ratio] 14.5 % 11.6-14.6 [facility] Work Phone: Immature granulocytes/100 WBC (Bld) 0.800 % 0.0-0.9 [facility] Work Phone: Comment on above: IG% - Immature Granu locytes (promyelocytes, myelocytes and metamyelocytes) > 1% indicates that a LEFT SHIFT is Present. MCH (RBC) [Entitic mass] 27.0 pg 27.0-32.0 [facility] Work Phone: Nucleated RBC/100 WBC (Bld) [Ratio] 0 % 0-5 [facility] Work Phone: MCHC Auto (RBC) [Mass/Vol]on 05-31-2022 MCHC (RBC) [Mass/Vol] 31.5 g/dL 32-36 [facility] Work Phone: Mucus LM Ql (Urine sed)on Mucus Ql (Urine sed) 0 SEEN /hpf [facility] Work Phone: Nitrite Test strip Ql (U)on 05-31-2022 Nitrite Ql (U) Negative Negative [facility] Work Phone: No Panel Informationon 05-31 Estimated GFR (MDRD) Amer 85 mL/min >60 [facility] Work Phone: Comment on above: GFR Calc Estimated GFR (MDRD) Non-Af Amer 70 mL/min >60 [facility] Work Phone: Comment on above: Non- GFR Calc Reactive Lymphocytes 1+ [facility] Work Phone: Platelets bldon 05-31-2022 Platelets (Bld) [#/Vol] 200 10*3/uL 150-450 [facility] Work Phone: Protein Test strip Ql (U)on 05-31-2022 Protein Ql (U) 30 mg/dl Negative [facility] Work Phone: Serum or plasma albumin zeeshan urement (mass/volume)on 05-31-2022 Albumin [Mass/Vol] 3.4 g/dL 3.2-5.0 [facility] Work Phone: Serum or plasma albumin/glob ulin mass ratioon 05-31-2022 Albumin/Globulin [Mass ratio] 0.8 {ratio} 0.9-2.4 [facility] Work Phone: Serum or plasma calcium zeeshan urement (mass/volume)on 05-31-2022 Calcium [Mass/Vol] 8.6 mg/dL 8.5-10.1 [facility] Work Phone: Serum or plasma creatinine m easurement (mass/volume)on 05-31-2022 Creatinine [Mass/Vol] 0.87 mg/dL 0.55-1.02 [facility] Work Phone: Comment on above: The validity of the calculated GFR & GFRAA in patients over 70 years has not been determined. Clinical correlation is essential. Serum or plasma urea nitroge n measurement (mass/volume)on 05-31-2022 Urea nitrogen [Mass/Vol] 5 mg/dL 7-18 [facility] Work Phone: Squamous epithelial cells de tection in urine sediment by light microscopyon 05-31-2022 Epithelial cells.squamous LM Ql (Urine sed) 0-5 SEEN /hpf 5-10 [facility] Work Phone: Thin prep Papanicolaou smear with manual screeningon 05-31-2022 Thin prep Papanicolaou smear with manual screening 102 U/L 15-37 [facility] Work Phone: Thin prep Papanicolaou smear with manual screening 8 5-15 [facility] Work Phone: Urine blood detectionon - RBC Ql (U) 10 /ul Negative [facility] Work Phone: RBC Ql (U) 0-5 SEEN /hpf 0-5 [facility] Work Phone: Urine clarityon 05-31-2022 Clarity (U) Sl. Cloudy Clear [facility] Work Phone: Urine color determinationon 05-31-2022 Color (U) Yellow Yellow [facility] Work Phone: Urine glucose detectionon Glucose Ql (U) Normal mg/dl Normal [facility] Work Phone: Urine leukocyte esterase det ection by dipstickon 05-31-2022 Leukocyte esterase Test strip Ql (U) 25 /ul Negative [facility] Work Phone: Urine pHon 05-31-2022 pH (U) 7.0 [pH] 5.0 - 8.0 [facility] Work Phone: Urine sediment bacteria coun t by microscopy (number/high power field)on 05-31-2022 Bacteria LM.HPF (Urine sed) [#/Area] 1 /[HPF] None Seen [facility] Work Phone: Urine specific gravity measu rementon 05-31-2022 Specific gravity (U) [Rel density] 1.010 1.002-1.030 [facility] Work Phone: Urobilinogen Auto test strip Ql (U)on 05-31-2022 Urobilinogen Ql (U) Normal mg/dl Normal [facility] Work Phone: Absolute lymphocyte counton 05-26-2022 Lymphocytes Auto (Unsp spec) [#/Vol] 2.36 10*3/uL 0.83-4.51 [facility] Work Phone: Basophil percentageon 2021 Basophils/100 WBC (Bld) 0.7 % 0-1 [facility] Work Phone: Chloride [Moles/Vol] 103 mmol/L 98-107 [facility] Work Phone: Eosinophils/100 WBC (Bld) 1.6 % 0-5 [facility] Work Phone: Glucose [Mass/Vol] 111 mg/dL 74-106 [facility] Work Phone: Comment on above: Fasting Glucose resu lt from 100 to 125 mg/dL suggests IMPAIRED HOMEOSTASIS per A.D.A. criteria. Neutrophils (Bld) [#/Vol] 3.0 10*3/uL 2.0-7.7 [facility] Work Phone: Neutrophils/100 WBC (Bld) 48.8 % 47-70 [facility] Work Phone: Potassium [Moles/Vol] 3.9 mmol/L 3.5-5.1 [facility] Work Phone: Sodium [Moles/Vol] 137 mmol/L 136-145 [facility] Work Phone: WBC (Bld) [#/Vol] 6.1 10*3/uL 4.4-11.0 [facility] Work Phone: Blood erythrocytes count (nu mber/volume)on 05-26-2022 RBC (Bld) [#/Vol] 3.90 10*6/uL 4.2-5.4 [facility] Work Phone: Blood hemoglobin measurement (mass/volume)on 05-26-2022 Hemoglobin (Bld) [Mass/Vol] 10.9 g/dL 12.0-15.0 [facility] Work Phone: [phone] Blood lymphocytes/100 leukoc yteson 05-26-2022 Lymphocytes/100 WBC (Bld) 38.7 % 19-41 [facility] Work Phone: Blood manual differential co mment interpretation (narrative result)on 05-26-2022 Manual differential comment Sesar (Bld) [Interp] SCANNED [facility] Work Phone: Blood monocytes/100 leukocyt eson 05-26-2022 Monocytes/100 WBC (Bld) 9.2 % 0-10 [facility] Work Phone: Blood platelet mean volumeon 05-26-2022 Platelet mean volume (Bld) [Entitic vol] 10.2 fL 6.2-12.0 [facility] Work Phone: Determination of erythrocyte mean corpuscular volume (MCV)on 05-26-2022 MCV (RBC) [Entitic vol] 85.4 fL 81-99 [facility] Work Phone: Hematocrit Auto (Bld) [Volum e fraction]on 05-26-2022 Hematocrit (Bld) [Volume fraction] 33.3 % 37-47 [facility] Work Phone: Laboratory - Chemistry and C hemistry - challengeon 05-26-2022 CO2 [Moles/Vol] 28.0 mmol/L 21.0-32.0 [facility] Work Phone: Urea nitrogen/Creatinine [Mass ratio] 10.4 mg/mg 10-20 [facility] Work Phone: Laboratory - Hematology and Cell countson 05-26-2022 Erythrocyte distribution width (RBC) [Entitic vol] 43.5 fL 35.1-43.9 [facility] Work Phone: Erythrocyte distribution width (RBC) [Ratio] 14.0 % 11.6-14.6 [facility] Work Phone: Immature granulocytes/100 WBC (Bld) 1.000 % 0.0-0.9 [facility] Work Phone: Comment on above: IG% - Immature Granu locytes (promyelocytes, myelocytes and metamyelocytes) > 1% indicates that a LEFT SHIFT is Present. MCH (RBC) [Entitic mass] 27.9 pg 27.0-32.0 [facility] Work Phone: Nucleated RBC/100 WBC (Bld) [Ratio] 0 % 0-5 [facility] Work Phone: MCHC Auto (RBC) [Mass/Vol]on 05-26-2022 MCHC (RBC) [Mass/Vol] 32.7 g/dL 32-36 [facility] Work Phone: No Panel Informationon 05-26 Troponin I High Sensitivity < 3 pg/mL 3.0-54.0 [facility] Work Phone: Comment on above: Please Note: [place] t Units and Gender Specific Reference Ranges. For more information see Policy Stat Procedure [place] High Sensitivity Troponin (TNIH) and attachments. Atypical Lymphocytes RARE % [facility] Work Phone: Estimated Creatinine Clearance Calc 61.88 ml/min [facility] Work Phone: Estimated GFR (MDRD) Amer 86 mL/min >60 [facility] Work Phone: Comment on above: GFR Calc Estimated GFR (MDRD) Non-Af Amer 71 mL/min >60 [facility] Work Phone: Comment on above: Non- GFR Calc Platelets bldon 05-26-2022 Platelets (Bld) [#/Vol] 170 10*3/uL 150-450 [facility] Work Phone: Serum or plasma calcium zeeshan urement (mass/volume)on 05-26-2022 Calcium [Mass/Vol] 8.8 mg/dL 8.5-10.1 [facility] Work Phone: Serum or plasma creatinine m easurement (mass/volume)on 05-26-2022 Creatinine [Mass/Vol] 0.87 mg/dL 0.55-1.02 [facility] Work Phone: Comment on above: The validity of the calculated GFR & GFRAA in patients over 70 years has not been determined. Clinical correlation is essential. Serum or plasma urea nitroge n measurement (mass/volume)on 05-26-2022 Urea nitrogen [Mass/Vol] 9 mg/dL 7-18 [facility] Work Phone: Thin prep Papanicolaou smear with manual screeningon 05-26-2022 Thin prep Papanicolaou smear with manual screening 6 5-15 [facility] Work Phone: LIPID PANEL (OUTSIDE)on Cholesterol [Mass/Vol] 172 mg/dL [facility] Cholesterol in HDL [Mass/Vol] 51 mg/dL [facility] Cholesterol in LDL [Mass/Vol] 105 mg/dL [facility] LDL:HDL Ratio [facility] Non-HDL Cholesterol [facility] TC:HDL Ratio [facility] Triglyceride [Mass/Vol] 82 mg/dL C [facility] VLDL Cholesterol [facility] IRON PANELon 01-09-2018 Iron 52 ug/dL Normal 50-170 [facility] Comment on above: Result Comment: Shey ents treated with metal-binding drugs (e.g.deferoxamine)may have depressed iron values, as chelated iron may notproperly react in the Siemens iron assay. Performed By: #### L [id number] ####[facility] [id number] [place], [place] [address]Wm# [phone] IRON SAT 15 % Low 22-44 [facility] Comment on above: Performed By: #### L 500.45704 ####[facility] [id number] [place], [place] [address]Ri# [phone] TIBC 356 UG/DL Normal 221-481 [facility] Comment on above: Performed By: #### L [id number] ####[facility] [id number] [place], [place] [address]Yq# [phone] CBC W/DIFFon 01-08-2018 BASO ABS 0.00 K/CU MM Normal 0-0.2 [facility] Comment on above: Performed By: #### L [id number] ####[facility] [id number] [place], [place] [address]Vi# [phone] Basophils/100 WBC Auto (Bld) 0.5 % Normal 0-2 [facility] Comment on above: Performed By: #### L 200.53796 ####[facility] [id number] [place], [place] [address]Bg# [phone] EOS ABS 0.10 K/CU MM Normal 0-0.5 [facility] Comment on above: Performed By: #### L [id number] ####[facility] [id number] [place], [place] [address]Md# [phone] Eosinophils/100 leukocytes 1.4 % Normal 0-5 [facility] Comment on above: Performed By: #### L 200.22353 ####[facility] [id number] [place], [place] [address]Oy# [phone] Erythrocyte distribution width Auto Ratio (RBC) 12.8 % Normal 11-14.5 [facility] Comment on above: Performed By: #### L 200.45389 ####[facility] [id number] [place] [address]Wa# [phone] Erythrocytes (RBC) 4.42 M/CU MM Normal 3.90-5.30 [facility] Comment on above: Performed By: #### L 200.99309 ####[facility] [id number] [place] [address]Do# [phone] Erythrocytes (RBC) 0.0 % Normal Less than 1 [facility] Comment on above: Performed By: #### L 200.47411 ####[facility] [id number] [place] [address]Xi# [phone] Hematocrit (HCT) 39.9 % Normal 35.0-47.0 [facility] Comment on above: Performed By: #### L 200.21124 ####[address] [address]Xj# [phone] Hemoglobin mass conc (Bld) 12.5 g/dL Normal 11.5-15.5 [facility] Comment on above: Performed By: #### L 200.86317 ####[facility] [id number] [place] [address]Vf# [phone] IMMATR GRAN ABS 0.00 K/CU MM Normal Less than 2 [facility] Comment on above: Performed By: #### L 200.84065 ####[facility] [id number] [place] [address]Ju# [phone] IMMATURE GRAN % 0.3 % Normal Less than 2 [facility] Comment on above: Performed By: #### L 200.05215 ####[facility] [id number] [place], [place] [address]Ry# [phone] Lymphocytes 1.90 K/CU MM Normal 0.9-4.4 [facility] Comment on above: Performed By: #### L 200.66690 ####[facility] [id number] [place], [place] [address]Od# [phone] Lymphocytes/100 leukocytes 23.9 % Normal 20-40 [facility] Comment on above: Performed By: #### L 200.47205 ####[facility] [id number] [place], [place] [address]Wj# [phone] MCHC mass conc (RBC) 31.3 g/dL Low 32.0-36.0 [facility] Comment on above: Performed By: #### L 200.31086 ####[facility] [id number] [place], [place] [address]Ph# [phone] MCV 90.3 fL Normal 80.0-99.0 [facility] Comment on above: Performed By: #### L 200.12062 ####[facility] [id number] [place], [place] [address]Qs# [phone] MONO ABS 0.80 K/CU MM Normal 0.1-1.1 [facility] [place] Comment on above: Performed By: #### L 200.15513 ####[facility] [id number] [place], [place] [address]Ol# [phone] Monocytes/100 leukocytes 9.8 % Normal 2-10 [facility] Comment on above: Performed By: #### L 200.33865 ####[facility] [id number] [place], [place] [address]Ad# [phone] Neutrophils 5.00 K/CU MM Normal 2.0-8.3 [facility] [place] Comment on above: Performed By: #### L 200.99743 ####[facility] [id number] [place] [address]Ph# [phone] Neutrophils/100 WBC Auto (Bld) 64.1 % Normal 45-75 [facility] Comment on above: Performed By: #### L 200.64127 ####[facility] [id number] [place], [place] [address]Wr# [phone] Platelet mean volume (PMV) 11.2 fL Normal 9.4-12.4 [facility] Comment on above: Performed By: #### L 200.98781 ####[facility] [id number] [place], [place] [address]Ay# [phone] Platelets 242 K/CU MM Normal 150-450 [facility] Comment on above: Performed By: #### L 200.78529 ####[facility] [id number] [place], [place] [address]To# [phone] WBC (Leukocytes) 7.7 K/CU MM Normal 4.5-11.0 [facility] Comment on above: Performed By: #### L 200.78094 ####[facility] [id number] [place], [place] [address]Eg# [phone] CHEST PA/AP AND LATERALon [facility] CHEST PA/AP & LATERALOrdering Physician: Summer Torres MD04/04/2017 11:16 AMCHEST PA AND LATERALClinical [...] YOUNG M.D. Signed By: CAS YOUNG M.D. [facility] Iron 91 ug/dL Normal 50-170 [facility] Comment on above: Result Comment: Shey ents treated with metal-binding drugs (e.g.deferoxamine)may have depressed iron values, as chelated iron may notproperly react in the Siemens iron assay. Performed By: #### L 500.51592 ####[facility] [id number] [place], [place] [address]Uq# [phone] Culture, urine Bacteria identified Cx Nom (U) Culture exhibits no growth. [facility] Work Phone: Gram stain for investigation of transfusion reaction Microscopic observation Gram stain Nom (Unsp spec) [facility] Work Phone: No Panel Information SARS-CoV-2 & FLU Antigen (Rapid) [facility] Work Phone: Vital Signs Date Time Vital Sign Value Performing Clinician Faci lity 12-25-2024 11:48-0400 Body height 165.[address] Xiomy Schaffer MD Work Phone: [facility] 12-25-2024 11:48-0400 Body mass index (BMI) [Ratio] 33.4 kg/m2 Dr. Xiomy Schaffer MD Work Phone: [facility] 12-25-2024 11:48-0400 Body temperature 98.1 [degF] Dr. Xiomy Schaffer MD Work Phone: [facility] 12-25-2024 11:48-0400 Body weight 91.[address] Xiomy Schaffer MD Work Phone: [facility] 12-25-2024 11:48-0400 Diastolic blood pressure 84 mm[Hg] Dr. Xiomy Schaffer MD Work Phone: [facility] 12-25-2024 11:48-0400 Heart rate 88 /min Dr. Xiomy Schaffer MD Work Phone: [facility] 12-25-2024 11:48-0400 Respiratory rate 18 /min Dr. Xiomy Schaffer MD Work Phone: [facility] 12-25-2024 11:48-0400 SaO2% (BldA) [Mass fraction] 97 % Dr. Xiomy Schaffer MD Work Phone: [facility] 12-25-2024 11:48-0400 Systolic blood pressure 122 mm[Hg] Dr. Xiomy Schaffer MD Work Phone: [facility] 12-23-2024 08:58-0400 Body temperature 97.9 [degF] Dr. Xiomy Schaffer MD Work Phone: [facility] 12-23-2024 08:58-0400 Diastolic blood pressure 84 mm[Hg] Dr. Xiomy Schaffer MD Work Phone: [facility] 12-23-2024 08:58-0400 Heart rate 91 /min Dr. Xiomy Schaffer MD Work Phone: [facility] 12-23-2024 08:58-0400 SaO2% (BldA) [Mass fraction] 97 % Dr. Xiomy Schaffer MD Work Phone: [facility] 12-23-2024 08:58-0400 Systolic blood pressure 120 mm[Hg] Dr. Xiomy Schaffer MD Work Phone: [facility] 09-14-2024 13:00-0500 Body temperature 98.1 [degF] Dr. Xiomy Schaffer MD Work Phone: [facility] 09-14-2024 13:00-0500 Diastolic blood pressure 74 mm[Hg] Dr. Xiomy Schaffer MD Work Phone: [facility] 09-14-2024 13:00-0500 Heart rate 108 /min Dr. Xiomy Schaffer MD Work Phone: [facility] 09-14-2024 13:00-0500 Respiratory rate 15 /min Dr. Xiomy Schaffer MD Work Phone: [facility] 09-14-2024 13:00-0500 SaO2% (BldA) [Mass fraction] 97 % Dr. Xiomy Schaffer MD Work Phone: [facility] 09-14-2024 13:00-0500 Systolic blood pressure 140 mm[Hg] Dr. Xiomy Schaffer MD Work Phone: [facility] 05-01-2023 12:59-0400 Body height 165.[address] Xiomy Schaffer Work Phone: [facility] 05-01-2023 12:59-0400 Body mass index (BMI) [Ratio] 33.1 kg/m2 Dr. Xiomy Schaffer Work Phone: [facility] 05-01-2023 12:59-0400 Body temperature 97.1 [degF] Dr. Xiomy Schaffer Work Phone: [facility] 05-01-2023 12:59-0400 Body weight 90.[address] Xiomy Schaffer Work Phone: [facility] 05-01-2023 12:59-0400 Diastolic blood pressure 74 mm[Hg] Dr. Xiomy Schaffer Work Phone: [facility] 05-01-2023 12:59-0400 Heart rate 84 /min Dr. Xiomy Schaffer Work Phone: [facility] 05-01-2023 12:59-0400 Respiratory rate 16 /min Dr. Xiomy Schaffer Work Phone: [facility] 05-01-2023 12:59-0400 SaO2% (BldA) [Mass fraction] 96 % Dr. Xiomy Schaffer Work Phone: [facility] 05-01-2023 12:59-0400 Systolic blood pressure 108 mm[Hg] Dr. Xiomy Schaffer Work Phone: [facility] 06-07-2022 13:18-0500 Body height 165.[address] Summer Torres Work Phone: [facility] Work Phone: 06-07-2022 13:18-0500 Body mass index (BMI) [Ratio] 33 kg/m2 Dr. Summer Torres Work Phone: [facility] Work Phone: 06-07-2022 13:18-0500 Body temperature 98.1 [degF] Dr. Summer Torres Work Phone: [facility] Work Phone: 06-07-2022 13:18-0500 Body weight [address] Summer Torres Work Phone: [facility] Work Phone: 06-07-2022 13:18-0500 Diastolic blood pressure 79 mm[Hg] Dr. Summer Torres Work Phone: [facility] Work Phone: 06-07-2022 13:18-0500 Heart rate 110 /min Dr. Summer Torres Work Phone: [facility] Work Phone: 06-07-2022 13:18-0500 Respiratory rate 16 /min Dr. Summer Torres Work Phone: [facility] Work Phone: 06-07-2022 13:18-0500 SaO2% (BldA) [Mass fraction] 96 % Dr. Summer Torres Work Phone: [facility] Work Phone: 06-07-2022 13:18-0500 Systolic blood pressure 124 mm[Hg] Dr. Summer Torres Work Phone: [facility] Work Phone: 06-07-2022 08:16-0500 Body temperature 95.6 [degF] Dr. Summer Torres Work Phone: [facility] Work Phone: 06-07-2022 08:16-0500 Body weight 90.[address] Summer Torres Work Phone: [facility] Work Phone: 06-07-2022 08:16-0500 Diastolic blood pressure 78 mm[Hg] Dr. Summer Torres Work Phone: [facility] Work Phone: 06-07-2022 08:16-0500 Heart rate 110 /min Dr. Summer Torres Work Phone: [facility] Work Phone: 06-07-2022 08:16-0500 Respiratory rate 16 /min Dr. Summer Torres Work Phone: [facility] Work Phone: 06-07-2022 08:16-0500 SaO2% (BldA) [Mass fraction] 97 % Dr. Summer Torres Work Phone: [facility] Work Phone: 06-07-2022 08:16-0500 Systolic blood pressure 116 mm[Hg] Dr. Summer Torres Work Phone: [facility] Work Phone: 05-31-2022 09:29-0500 Body height 165.[address] Summer Torres Work Phone: [facility] Work Phone: 05-31-2022 09:29-0500 Body mass index (BMI) [Ratio] 32.5 kg/m2 Dr. Summer Torres Work Phone: [facility] Work Phone: 05-31-2022 09:29-0500 Body temperature 97.7 [degF] Dr. Summer Torres Work Phone: [facility] Work Phone: 11-08-2022 09:29-0500 Body weight 88.[address] Summer Torres Work Phone: [facility] Work Phone: 05-31-2022 09:29-0500 Diastolic blood pressure 64 mm[Hg] Dr. Summer Torres Work Phone: [facility] Work Phone: 05-31-2022 09:29-0500 Heart rate 111 /min Dr. Summer Torres Work Phone: [facility] Work Phone: 05-31-2022 09:29-0500 Respiratory rate 20 /min Dr. Summer Torres Work Phone: [facility] Work Phone: 05-31-2022 09:29-0500 SaO2% (BldA) [Mass fraction] 97 % Dr. Summer Torres Work Phone: [facility] Work Phone: 05-31-2022 09:29-0500 Systolic blood pressure 130 mm[Hg] Dr. Summer Torres Work Phone: [facility] Work Phone: 05-26-2022 21:25-0400 Diastolic blood pressure 81 mm[Hg] [facility] Work Phone: 05-26-2022 21:25-0400 Heart rate 104 /min [facility] Work Phone: 05-26-2022 21:25-0400 Respiratory rate 16 /min [facility] Work Phone: 05-26-2022 21:25-0400 SaO2% (BldA) [Mass fraction] 96 % [facility] Work Phone: 05-26-2022 21:25-0400 Systolic blood pressure 140 mm[Hg] [facility] Work Phone: 05-26-2022 18:15-0400 Body temperature 97.2 [degF] [facility] Work Phone: 05-26-2022 16:24-0400 Body height 165.1 cm [facility] Work Phone: 05-26-2022 16:24-0400 Body mass index (BMI) [Ratio] 29.9 kg/m2 [facility] Work Phone: 05-26-2022 [id number] Body weight 81.64 kg [facility] Work Phone: 02-28-2022 15:24-0400 Body height 165.1 cm Summer Torres MD Work Phone: [facility] 02-28-2022 15:24-0400 Body temperature 97.3 [degF] Summer Torres MD Work Phone: [facility] 02-28-2022 15:24-0400 Body weight 88 kg Summer Torres MD Work Phone: [facility] 02-28-2022 15:24-0400 Diastolic blood pressure 80 mm[Hg] Summer Torres MD Work Phone: [facility] 02-28-2022 15:24-0400 Heart rate 102 /min Summer Torres MD Work Phone: [facility] 02-28-2022 15:24-0400 Respiratory rate 14 /min Summer Torres MD Work Phone: [facility] 02-28-2022 15:24-0400 SaO2% (BldA) [Mass fraction] 97 % Summer Torres MD Work Phone: [facility] 02-28-2022 15:24-0400 Systolic blood pressure 122 mm[Hg] Summer Torres MD Work Phone: [facility] 08-01-2019 13:45-0500 Body weight 82.56 kg Summer Torres MD Work Phone: [facility] 08-01-2019 13:45-0500 Diastolic blood pressure 80 mm[Hg] Summer Torres MD Work Phone: [facility] 08-01-2019 13:45-0500 Heart rate 78 /min Summer Torres MD Work Phone: [facility] 08-01-2019 13:45-0500 Respiratory rate 16 /min Summer Torres MD Work Phone: [facility] 08-01-2019 13:45-0500 SaO2% (BldA) [Mass fraction] 100 % Summer Torres MD Work Phone: [facility] 08-01-2019 13:45-0500 Systolic blood pressure 140 mm[Hg] Summer Torres MD Work Phone: [facility] Encounters Encounter Date Encounter Type Care Provider Facility Start: 06-04-2025 ambulatory Xiomy Schaffer Facility :[facility] Start: 05-30-2025 End: 05-30-2025 ambulatory Xiomy Schaffer Facility:[facility] [facility] Start: 05-09-2025 Non-patient / Non-visit Dr. Xiomy floyd MD -[facility] Start: 05-09-[address] Xiomy fuentes MD Work Phone: -[facility] Start: 02-03-2025 End: 02-03-[address] Xiomy Schaffer MD Work Phone: -[facility] Start: 02-03-2025 End: 02-03-2025 Patient encounter procedure Bert MALHOTRA -[facility] Work Phone: Start: 02-03-2025 End: 02-03-2025 ambulatory Bert MALHOTRA Facility:[facility] Start: 01-21-2025 Non-patient / Non-visit Dr. Serina rouse MD -[facility] Work Phone: Start: 12-25-2024 End: 12-25-2024 Patient encounter procedure Bert MALHOTRA -[facility] Work Phone: Start: 12-25-2024 End: 12-25-[address] Xiomy Schaffer MD Work Phone: [facility] Work Phone: Start: 12-25-2024 End: 12-25-2024 ambulatory Bert MALHOTRA Facility:[facility] Start: 12-23-2024 End: 12-23-2024 Patient encounter procedure Steve Cash [facility] Work Phone: Start: 12-23-2024 End: 12-23-[address] Xiomy Schaffer MD Work Phone: [facility] Work Phone: Start: 09-14-2024 End: 09-14-2024 Patient encounter procedure Noreen Bhakta MAINTENANCE OF WAY CLERK-C -[facility] Work Phone: Start: 09-14-2024 End: 09-14-2024 ambulatory Noreen Bhakta Facility:[facility] Start: 09-05-2024 Encounter for genera l adult medical examination without abnormal findings Xiomy Schaffer [facility] Start: 08-13-2024 End: 08-13-2024 ambulatory Xiomy [place] Facility:[facility] Start: 07-26-2024 ambulatory Xiomy Sarbjit Facility :[facility] Start: 07-16-2024 End: 07-16-2024 ambulatory Xiomy [place] Facility:[facility] Start: 06-25-2024 End: 06-25-2024 ambulatory Xiomy [place] Facility:[facility] Start: 06-25-2024 End: 06-25-2024 ambulatory Xiomy Sarbjit Facility:[facility] Start: 10-25-2023 End: 10-30-2023 ambulatory STELLA GUERRA MD Facility:[facility] Start: 10-25-2023 End: 10-29-2023 Outreach Lab STELLA GUERRA MD [facility] Start: 05-01-2023 End: 05-01-[address] Xiomy Schaffer Work Phone: [facility] Work Phone: Start: 05-01-2023 End: 05-01-[address] Xiomy Schaffer Work Phone: [facility] Work Phone: Start: 06-07-2022 End: 06-07-2022 Emergency department [facility] Summer Torres [facility] Start: 06-07-[address] Summer Torres Work Phone: [facility] [place] Start: 06-07-2022 End: 06-07-[address] Summer Torres Work Phone: [facility] Start: 05-31-2022 End: 05-31-[address] Summer Torres Work Phone: [facility] Work Phone: Start: 05-31-2022 End: 05-31-[address] Summer Torres Work Phone: [facility] [place] Start: 05-31-2022 End: 05-31-[address] Summer Torres Work Phone: [facility] Start: 05-26-2022 End: 05-26-2022 Emergency department patient visit [facility]Emergency Department Start: 04-12-2022 End: 04-12-2022 ambulatory [facility] Work Phone: Start: 04-12-2022 End: 04-12-2022 Patient encounter procedure [facility]-Outpatient Breast Imaging Start: 03-15-2022 Telephone encounter Summer Torres MD Work Phone: [facility] Comment on above: Patient Update Start: 02-28-2022 End: 02-28-2022 Office outpatient visit 15 minutes Summer Torres MD Work Phone: [facility] Comment on above: Benign essential HTN (Primary Dx); Fibromyalgia; Other iron deficiency anemia Start: 02-25-2022 Chart abstracting Summer Torres MD Work Phone: [facility] Start: 02-21-2022 Refill Summer Byrd MD Work Phone: [facility] Comment on above: Refill Request Start: 12-10-2021 Chart abstracting Summer Torres MD Work Phone: [facility] Start: 01-08-2018 Ambulatory Summer Torres Facilit y:[facility] Start: 04-04-2017 Ambulatory Summer Jennifer Brian Facilit y:[facility] Procedures Date Procedure Procedure Detail Performing Clinician Start: 02-03-2025 Screening mammography Imani Schaffer MD Work Phone: Start: 05-01-[address] Roberto Schaffer Work Phone: Start: 06-07-2022 Computed tomography of abdomen and pelvis with intravenous contrast Dr. Summer Torres Work Phone: Start: 05-26-2022 Plain chest X-ray Start: 04-12-2022 Screening mammography Start: 08-24-2021 Lipid panel Summer Torres MD Work Phone: Start: 04-16-2018 Colonoscopy Summer galeas MD Work Phone: Biopsy of vulva STELLA GUERRA MD Dilation and curettage STEVO GUERRA MD Endometrial ablation STELLA GUERRA MD Investigation of transfusion reaction Dr. Summer Torres Work Phone: Ligation of fallopian tube Kim GUERRA MD Respiratory microbia l culture Dr. Summer Torres Work Phone: SARS-CoV-2 & FLU Ant igen (Rapid) Urine culture Dr. Summer galeas Work Phone: Plan of Treatment Date Care Activity Detail Author Start: 04-16-2028 Colonoscopy COLONOSCOPY [facility] Start: 04-16-2028 COLORECTAL CANCER SCREENING COLORECTAL CANCER SCREENING [facility] Start: 08-24-2026 LIPID SCREEN LIPID SCREEN [facility] Start: 12-25-2024 CBC W Auto Differential panel - Blood [facility] Start: 12-25-2024 Comprehensive metabolic 2000 panel - Serum or Plasma [facility] Start: 12-25-2024 Hemoglobin A1c/Hemoglobin.total in Blood [facility] Start: 02-28-2023 ANNUAL PCP TEAM CHRONIC DISEASE VISIT ANNUAL PCP TEAM CHRONIC DISEASE VISIT [facility] Start: 05-26-2022 End: 05-26-2022 [facility] Work Phone: Start: 03-24-2022 Influenza vaccination INFLUENZA (#1) [facility] Start: 11-23-2021 COVID-19 VACCINE (4 - Booster for Pfizer series) COVID-19 VACCINE (4 - Booster for Pfizer series) [facility] Start: 09-22-2011 SHINGRIX VACCINE (1 of 2) SHINGRIX VACCINE (1 of 2) [facility] Start: 2006 COLOGUARD (FIT-DNA) COLOGUARD (FIT-DNA) [facility] Start: 2006 Colonoscopy COLONOSCOPY [facility] Start: 2006 COLORECTAL CANCER SCREENING COLORECTAL CANCER SCREENING [facility] Start: [address] COLONOGRAPHY [facility] Start: 2006 DIABETES SCREEN DIABETES SCREEN [facility] Start: 2006 FECAL OCCULT BLOOD FECAL OCCULT BLOOD [facility] Start: 2006 LIPID SCREEN LIPID SCREEN [facility] Start: 2006 SIGMOIDOSCOPY SIGMOIDOSCOPY [facility] Start: 2001 Mammography MAMMOGRAM [facility] Start: 09-22-1991 HPV TESTING HPV TESTING [facility] Start: 1982 PAP TESTING PAP TESTING [facility] Start: 1980 Urine microalbumin profile DTAP,TDAP,TD (1 - Tdap) [facility] Start: 09-22-1979 BP CONTROLLED (<130/80) BP CONTROLLED (<130/80) [facility] Start: 09-22-1979 HEPATITIS C SCREENING HEPATITIS C SCREENING [facility] Start: 09-22-1979 HIV SCREENING HIV SCREENING [facility] Start: 1973 Adult depression screening assessment DEPRESSION SCREENING [facility] Start: 1966 COVID-19 VACCINE (#1) COVID-19 VACCINE (#1) [facility] Start: 03-24-1962 COVID-19 VACCINE (#1) COVID-19 VACCINE (#1) [facility] Alanine aminotransfe rase [Enzymatic activity/volume] in Serum or Plasma [facility] Albumin [Mass/volume ] in Serum or Plasma [facility] Alkaline phosphatase [Enzymatic activity/volume] in Serum or Plasma [facility] Anion gap in Serum o r Plasma [facility] Bilirubin, total measurement [facility] BUN/Creatinine ratio [facility] Calcium [Mass/volume ] in Serum or Plasma [facility] Carbon dioxide, tota l [Moles/volume] in Central venous blood [facility] Creatinine [Mass/vol ume] in Serum or Plasma [facility] CT Abdomen and Pelvi s W contrast IV [facility] Work Phone: Erythrocyte mean corpuscular volume determination [facility] Glucose [Mass/volume ] in Serum or Plasma [facility] Hematocrit [Volume Fraction] of Blood [facility] Hemoglobin [Mass/vol ume] in Blood [facility] Leukocytes [#/volume ] in Blood [facility] Mean corpuscular hem oglobin concentration determination [facility] Mean corpuscular hem oglobin determination [facility] Measurement of renal function [facility] MG Breast - bilatera l Screening [facility] Neutrophil count [facility] Neutrophil percent differential count [facility] Patient Education [facility] Work Phone: Patient referral [facility] Work Phone: Platelets [#/volume] in Blood [facility] Potassium measurement [facility] Red blood cell count [facility] Red cell distributio n width determination [facility] Serum chloride measurement [facility] Sodium measurement [facility] Total protein measurement [facility] Urea nitrogen [Mass/ volume] in Serum or Plasma [facility] Immunizations Immunization Date Immunization Notes Care Provider Fa [facility] 05-07-2024 Seasonal, quadrivale nt, recombinant, injectable influenza vaccine, preservative free Dr. Xiomy Schaffer MD Work Phone: [facility] 03-05-[address] Xiomy Schaffer MD Work Phone: [facility] 08-08-2023 influenza, injectabl e, quadrivalent, preservative free Dr. Xiomy Schaffer MD Work Phone: [facility] 03-26-2023 Pneumococcal Vaccine PCV20 (Prevnar 20) Dr. Xiomy Schaffer Work Phone: [facility] 05-05-2022 influenza, injectabl e, quadrivalent, preservative free Dr. Xiomy Schaffer Work Phone: [facility] 05-05-2022 influenza, seasonal, injectable Dr. Summer Torres Work Phone: [facility] Work Phone: 05-05-2022 Seasonal, quadrivale nt, recombinant, injectable influenza vaccine, preservative free Dr. Xiomy Schaffer Work Phone: [facility] 05-05-[address] Summer Torres Work Phone: [facility] 03-22-2022 Covid (Pfizer) Dr. Summer romero Work Phone: [facility] 07-26-2021 Covid (Pfizer) Dr. Summer romero Work Phone: [facility] 05-09-2021 influenza (aIIV4) vaccine, age 65+ yr, quadrivalent, PF (FLUAD QUADRIVALENT) Summer Torres MD Work Phone: [facility] 05-09-2021 influenza, injectabl e, quadrivalent, preservative free Dr. Xiomy Schaffer Work Phone: [facility] 05-09-2021 influenza, seasonal, injectable Dr. Summer Torres Work Phone: [facility] Work Phone: 05-09-2021 Seasonal, quadrivale nt, recombinant, injectable influenza vaccine, preservative free Dr. Xiomy Schaffer Work Phone: [facility] 11-04-2020 Covid (Pfizer) Dr. Summer romero Work Phone: [facility] 10-15-2020 Covid (Pfizer) Dr. Summer romero Work Phone: [facility] 05-07-2020 influenza, injectabl e, quadrivalent, preservative free Dr. Xiomy Schaffer Work Phone: [facility] 05-07-2020 influenza, seasonal, injectable Dr. Summer Torres Work Phone: [facility] Work Phone: 05-07-2020 Seasonal, quadrivale nt, recombinant, injectable influenza vaccine, preservative free Dr. Xiomy Schaffer Work Phone: [facility] 05-01-2019 influenza, injectabl e, quadrivalent, preservative free Dr. Xiomy Schaffer Work Phone: [facility] 05-01-2019 influenza, seasonal, injectable Dr. Summer Torres Work Phone: [facility] Work Phone: 05-01-2019 Seasonal, quadrivale nt, recombinant, injectable influenza vaccine, preservative free Summer Torres MD Work Phone: [facility] 05-12-2018 influenza, injectabl e, quadrivalent, preservative free Summer Torres MD Work Phone: [facility] 05-12-2018 influenza, seasonal, injectable Dr. Summer Torres Work Phone: [facility] Work Phone: 07-06-2017 pneumococcal polysaccharide vaccine, 23 valent Summer Torres MD Work Phone: [facility] 05-09-2017 influenza, injectabl e, quadrivalent, preservative free Summer Torres MD Work Phone: [facility] 05-20-2009 novel influenza-H1N1 -09, preservative-free, injectable Dr. Summer Torres Work Phone: [facility] 04-22-2009 influenza, injectabl e, quadrivalent, preservative free Dr. Xiomy Schaffer Work Phone: [facility] 04-22-2009 influenza, seasonal, injectable Dr. Summer Torres Work Phone: [facility] Work Phone: 05-29-2007 influenza, injectabl e, quadrivalent, preservative free Dr. Xiomy Schaffer Work Phone: [facility] 05-29-2007 influenza, seasonal, injectable Dr. Summer Torres Work Phone: [facility] Work Phone: Payers Date Payer Category Payer Self-pay [id number] 2021 Unknown ANTHEM BLUE ACCE SS PPO [id number] 2021-Present [phone] [address] [place] [address] PPO [id number] 2021 Unknown [id number] 2016 Unknown [id number] 2016 Unknown [id number] 2016 Unknown [id number] 2005 Unknown ANTHEM BLUE CARD PPO OOS [id number] 2005-Present [phone] [address] [place] [address] PPO [id number] 1961 Unknown [id number] Unknown [id number] Unknown [id number] Unknown [id number] Unknown [id number] Unknown [id number] Unknown [id number] Unknown [id number] Unknown [id number] Unknown [id number] Unknown [id number] Unknown [id number] Unknown [id number] Unknown [id number] Social History Date Type Detail Facility Start: 11-23-2020 End: 05-01-2023 Tobacco smoking status ORIS Never smoked tobacco 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 Start: 1960 [facility] Assigned [facility] Start: 02-18-2022 End: 02-28-2022 Exposure to SARS-CoV-2 (event) Not sure [facility] Start: 02-12-2016 End: 05-01-2023 Tobacco smoking status NHIS Unknown if ever smoked [facility] Start: 1960 Sex Assigned At Female W [facility] Sex Female [facility] Mental Status Date Assessment Result Facility 05-26-2022 Cognitive function Level Of Cons ciousness Awake;Alert;Appropriate;Follow s Commands [facility] Work Phone: Clinical Notes 09-07-2020 to 02-03-2025 Note Date & Type Note Facility 02-03-2025 Chief complaint+R margarito for visit Narrative SCREENING February 03, 2025 3:24 pm Referral Order May 09, 2025 1:34pm [facility] Work Phone: 1(754) 386-683406-04-2025 Evaluation note* Diagnosis Onset Date Resolution Status Admit Date Breast cancer screening acute J 2024 11:28am Essential hypertension acute Ju 2024 11:28am Fibromyalgia acute December 25 11:28am LEVY (obstructive sleep apnea) acute December 25, 2024 11:28am Sweats, sweating, excessive acute December 25, 2024 11:28am Vitamin D deficiency acute December 25, 2024 11:28am [facility] Work Phone: 1(458) 437-532606-02-2025 [facility] [address] , [address] [place] [address] OFFICE VISIT Date of Service: 12/23/24 MR#: [id number] Acct: [id number] Name: VIGNESH YOUNG BRIANNE Rep #: [id number] : 1960 Provider: ROSCOE Vega Age/Sex: 64/F Location: [facility] [facility] Status: Signed Intake Vital Signs 06/25/24 08:26 12/23/24 08:58 Height 5 ft 5 in BP 120/84 H Position Sitting Pulse 91 Temp 97.9 F Temp Source Oral Pulse Oximetry (%) 97 Oxygen Delivery Method room air Intake Visit Reasons: POISON KAE Accompanied by: Self Allergies clarithromycin (From Biaxin) Allergy (Verified 12/23/24 08:57) Other Nurse's Note: Patient has Poison Kae that is all over both her arms. Patient states this has been going on for a week. Patient states they are bubbling. 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 Patient states she has used multiple uluk-gco-xtsfyrd topical applications without relief of symptoms. She [...] cooperative Diagnoses Contact dermatitis due to poison kae L23.7 Assessment and Plan Assessment and Plan (1) Contact dermatitis due to poison kae: Status: Acute Plan: Prednisone as prescribed today. [...] PO DAILY 30 tabs 0RF 12/23/24 0910 s ROSCOE MALHOTRA> Date _ Steve MALHOTRA Cosigner Signature: Date (if applicable) CC: ~ [facility]06-02-2025 Progress note Author Steve Cash [facility] Note Date/Time December 23, 2024 9:10a m [facility] [address], [address] [place] [address] OFFICE VISIT Date of Service: 12/23/24 MR#: [id number] Acct: [id number] Name: VIGNESH YOUNG BRIANNE Rep #: [id number] : 1960 Provider: ROSCOE Vega Age/Sex: 64/F Location: [facility] [place] [facility] Status: Signed Intake Vital Signs 06/25/24 08:26 12/23/24 08:58 Height 5 ft 5 in BP 120/84 H Position Sitting Pulse 91 Temp 97.9 F Temp Source Oral Pulse Oximetry (%) 97 Oxygen Delivery Method room air Intake Visit Reasons: POISON KAE Accompanied by: Self Allergies clarithromycin (From Biaxin) Allergy (Verified 12/23/24 08:57) Other Nurse's Note: Patient has Poison Kae that is all over both her arms. Patient states this has been going on for a week. Patient states they are bubbling. 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 Patient states she has used multiple vtky-qor-bigowpu topical applications without relief of symptoms. She [...] cooperative Diagnoses Contact dermatitis due to poison kae L23.7 Assessment and Plan Assessment and Plan (1) Contact dermatitis due to poison kae: Status: Acute Plan: Prednisone as prescribed today. [...] Cosigner Signature: Date (if applicable) CC: ~ [facility] Work Phone: 1(109) 958-832703-25-2025 NotePatient Outreach (FAMMAS) VIGNESH YOUNG ([id number]) 1960 F Date Time Provider Department 10/15/24 SUMMER TORRES FAMMAS During your visit today, we recorded the following information about you: Allergies As of Date: 10/15/2024 Noted Allergy Reaction CLARITHROMYCIN 08/16/2005 16 - Unknown 8 - GI Upset Date Reviewed: 11/18/2008 Reviewed by: Marcy Chen - Reviewed Visit Diagnosis:Encounter for screening mammogram for breast cancer [Z12.31] Order(s):[facility] SCREENING W [facility]ERWIN [[id number]] Order #: [id number] FUTURE Prescriptions as of 11/15/2024 - lansoprazole [...] screening mammogram [Z12.31] 01/08/2018 Encounter Status:Closed by FIDELINA PAYTON on 11/15/24[facility] 09-14-2024 Evaluation note* Diagnosis Onset Date Resolution Status Admit Date Nasal congestion acute September 14, 2024 12:31pm PND (post-nasal drip) acute Feb ruary 2024 12:31pm Rhinorrhea acute September 14, 2024 12:31pm Viral URI with cough acute 2024 12:31pm [facility] Work Phone: 1([phone]) 425-148302-22-2025 Evaluation note* Diagnosis Onset Date Resolution Status Admit Date Nasal congestion acute September 14, 2024 12:31pm PND (post-nasal drip) acute Feb ru2024 12:31pm Rhinorrhea acute September 14, 2024 12:31pm Viral URI with cough acute 2024 12:31pm Breast cancer screening acute J 2024 11:28am Essential hypertension acute 2024 11:28am Fibromyalgia acute December 25 11:28am LEVY (obstructive sleep apnea) acute December 25, 2024 11:28am Sweats, sweating, excessive acute December 25, 2024 11:28am Vitamin D deficiency acute December 25, 2024 11:28am [facility] Work Phone: 1([phone]) [phone] Evaluation + Plan note Future Scheduled Tests Radiology* MA Mammo Screening Bilateral w/ Kerwin 10/25/23 [facility] 08-24-2022 Miscellaneous Notes* Telephone Encounter - Cyndy Cantrell LPN - 03/16/2022 3:11 PM EDT Patient notified of medication changed back to 60 mg Cyndy Cantrell LPN March 16, 2022 3:12 PM * Telephone Encounter - Summer Torres MD - 03/16/2022 2:32 PM EDT Changed back to 60mg qd * Telephone Encounter - Cyndy Cantrell LPN - 03/16/2022 2:24 PM EDT Patient is requesting for Cymbalta to be increased back to the 60 mg Cyndy Cantrell LPN March 16, 2022 2:24 PM * Telephone Encounter - Summer Torres MD - 03/15/2022 3:49 PM EDT [...] 15, 2022 10:31 AM documented in this encounter[facility] History of Present illness Narrative* Summer Torres MD - 02/28/2022 9:58 PM EDT This note was created using [employer]. Subjective Vignesh Young is a 61 year old female who presents today for follow-up for multiple medical problems. See list. Her chronic medical problems are stable. Her blood pressure is under excellent control on her current medicines. Cymbalta is working well for her fibromyalgia symptoms. Her mood has been stable. She reports she would like to wean off of the Cymbalta as her supervisor loading told her that it may be the [...] improvement in vaginal odor. documented in this encounterJ[facility]. [facility] Miscellaneous Notes* Telephone Encounter - Cyndy Cantrell LPN - 02/21/2022 9:42 AM EDT Pending Prescriptions Disp Refills LOSARTAN 100 MG-HYDROCHLOROTHIAZIDE 12.5 MG TABLET 90 tablet 3 Sig: Take 1 tablet by mouth once daily YADIRA: Yes Cyndy Cantrell LPN February 21, 2022 9:42 AM documented in this encounterJ[facility]W. [facility] History of Past illness Narrative* Problem Noted [...] of this encounter (statuses as of 03/01/2022) [facility] History of Past illness Narrative* Problem Noted [...] of this encounter (statuses as of 03/16/2022) [facility] note* Diagnosis Benign essential HTN- Primary Essential hypertension, benign Fibromyalgia Mylagia and myositis, unspecified Other iron deficiency anemia documented in this encounter [facility] noteNo assessment information availableWSelect [facility] Work Phone: Evaluation note* Diagnosis Onset Date Resolution Status Overactive bladder acute Fatigue noneactive Acute sinusitis noneactive Anemia noneactive Elevated liver enzymes nonea ctive [facility] Work Phone: Evaluation note* Diagnosis Onset Date Resolution Status Overactive bladder acute Fatigue noneactive Acute sinusitis noneactive Anemia noneactive Elevated liver enzymes nonea ctive Essential hypertension acute Fibromyalgia acute GERD (gastroesophageal reflux disease) acute Overactive bladder acute Establishing care with new doctor, encounter for noneactive Generalized abdominal pain n oneactive Seborrheic keratosis noneact zack Elevated liver enzymes nonea ctive Viral illness noneactive [facility] Work Phone: Evaluation note* Diagnosis Onset Date Resolution Status Essential hypertension acute Fibromyalgia acute GERD (gastroesophageal reflux disease) acute Overactive bladder acute Chronic fatigue noneactive Urinary frequency noneactive Bilateral low back pain without sciatica noneactive [facility] Work Phone: Hospital course Narrative No data available for this section [facility] Hospital Discharge instructions No data available for this section [facility] Hospital Discharge instructionsAmbulatory Orders* Nutrition Referral Location: None Selected [facility] Work Phone: Progress note No data available for this section [facility] Reason for referral (narrative)No reason for referral information availableMattel [facility] Work Phone: Summary Purpose Family History No [...] No February 12, 2016 11:45am Power of Machine Binder Stripper No February 11 11:45am Advance Directive Response Recorded Date/ Time Living Will No May 26 5:14pm Power of Machine Binder Stripper No May 26, 2022 5:14pm Advance Directive Response Recorded Date/ Time Living Will No May 26 4:14pm Power of Machine Binder Stripper No May 26, 2022 4:14pm Advance Directive Response Recorded Date/ Time Living Will No June 07, 2 022 1:25pm Power of Machine Binder Stripper No June 07, 2022 1:25pm Advance Directive Response Recorded Date/ Time Living Will No June 07, 2 022 2:25pm Power of Machine Binder Stripper No June 07, 2022 2:25pm Chief Complaint and Reason for Visit Chief Complaint SCREENING Chief Complaint SCREENING GENERAL ILLNESS Chief Complaint SCREENING GENERAL ILLNESS CONGESTION/COVID - Reason for Visit Overactive bladder Fatigue Acute sinusitis Anemia Elevated liver enzymes Chief Complaint SCREENING GENERAL ILLNESS 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 EST CARE - PPW HERE ABD PAIN [...] SORE THROAT September 14, 2024 12:31pm POISON KAE December 23, 2024 8:58a m Reason for Visit Admit Date Nasal congestion September 14, 2024 12:31pm PND (post-nasal drip) September 14 12:31pm Rhinorrhea September 14, 2024 12:31pm Viral URI with cough September 14, 2024 12:31pm Chief Complaint Admit Date COUGH, SORE THROAT September 14, 2024 12:31pm POISON KAE December 23, 2024 8:58a m ACUTE MED FU AND SLEEP APNEA FOLLOW UP J [facility] 2024 11:28am Reason for Visit Admit Date [...] D deficiency December 25, 2024 11:2 8am Chief Complaint Admit Date POISON KAE December 23, 2024 8:58a m ACUTE MED FU AND SLEEP APNEA FOLLOW UP J 2024 11:28am SCREENING February 03, 2025 3:24 pm Reason for Visit Admit Date Breast cancer screening December 25, 2024 1 1:28am Essential hypertension December 25, 2024 11 :28am Fibromyalgia December 25, 2024 11:28 am LEVY (obstructive sleep apnea) December 25, 2024 11:28am Sweats, sweating, excessive December 25 11:28am Vitamin D deficiency December 25, 2024 11:2 8am Additional Source Comments INFORMATION SOURCE (unrecogn ized section and content) DATE CREATED AUTHOR 01/17/2018 [facility] [place] DATE CREATED AUTHOR AUTHOR'S ORGANIZ ATION 11/01/2023 [facility] ([place]) DATE CREATED AUTHOR AUTHOR'S ORGANIZ ATION 11/16/2024 [facility] DATE CREATED AUTHOR AUTHOR'S ORGANIZ ATION 06/05/2025 [facility] Source Comments (unrecognize d section and content) In the event this informatio n is protected by the Federal Confidentiality of Alcohol and Drug Abuse Patient Records regulations: The Federal rules restrict any use of the information to criminally investigate or prosecute any alcohol or drug abuse patient.[facility] HospitalIn the event this information is protected by the Federal Confidentiality of Alcohol and Drug Abuse Patient Records regulations: The Federal rules restrict any use of the information to criminally investigate or prosecute any alcohol or drug abuse patient.[facility] HospitalIn the event this information is protected by the Federal Confidentiality of Alcohol and Drug Abuse Patient Records regulations: The Federal rules restrict any use of the information to criminally investigate or prosecute any alcohol or drug abuse patient.[facility] HospitalIn the event this information is protected by the Federal Confidentiality of Alcohol and Drug Abuse Patient Records regulations: The Federal rules restrict any use of the information to criminally investigate or prosecute any alcohol or drug abuse patient.[facility] HospitalIn the event this information is protected by the Federal Confidentiality of Alcohol and Drug Abuse Patient Records regulations: The Federal rules restrict any use of the information to criminally investigate or prosecute any alcohol or drug abuse patient.[facility] Care Teams (unrecognized sec tion and content) Shutdown Coordinator Relationship Specialty Start Date End Date Summer Torres MD PCP - General 10/27/08 Shutdown Coordinator Relationship Specialty Start Date End Date Summer Torres MD PCP - General 10/27/08 Shutdown Coordinator Relationship Specialty Start Date End Date Summer Torres MD PCP - General 10/27/08 Team Status: Active Member Role Status Dates Dr. Summer Torres MD Family Provider Active Dr. Xiomy [...] December 25, 2024 End: December 25, 2024 Bert MALHOTRA, PA Attending Provider Active St art: December 25, 2024 End: December 25, 2024 Team Status: Active Member Role Status Dates Dr. Xiomy Schaffer MD Primary Care Provider Active Start: December 25, 2024 Bert Quiroz PA, PA Attending Provider Active St art: December 25, 2024 Bert Quiroz PA, PA Referring Provider Active St art: December 25, 2024 Team Status: Inactive Member Role Status Dates Dr. Xiomy Schaffer MD Primary Care Provider Active Start: December 25, 2024 End: December 25, 2024 Bert Quiroz PA, PA Attending Provider Active St art: December 25, 2024 End: December 25, 2024 Bert Quiroz PA, PA Referring Provider Active St art: December 25, 2024 End: December 25, 2024 Team Status: Active Member Role/Relationship Status Dates Dr. Xiomy Schaffer MD Primary Care Provider Active Team Status: Inactive Member Role/Relationship Status Dates Dr. Xiomy Schaffer MD Primary Care Provider Active Start: December 23, 2024 End: December 23, 2024 Dr. Xiomy Schaffer MD Referring Provider Active Start: December 23, 2024 End: December 23, 2024 Steve MALHOTRA, PA Attending Provider Active Start: December 23, 2024 End: December 23, 2024 Team Status: Inactive Member Role/Relationship Status Dates Dr. Xiomy Schaffer MD Primary Care Provider Active Start: December 25, 2024 End: December 25, 2024 Dr. Xiomy Schaffer MD Referring Provider Active Start: December 25, 2024 End: December 25, 2024 Bert MALHOTRA, PA Attending Provider Active St art: December 25, 2024 End: December 25, 2024 Team Status: Inactive Member Role/Relationship Status Dates Dr. Xiomy Schaffer MD Primary Care Provider Active Start: December 25, 2024 End: December 25, 2024 Bert Quiroz PA, PA Attending Provider Active St art: December 25, 2024 End: December 25, 2024 Bert Quiroz PA, PA Referring Provider Active St art: December 25, 2024 End: December 25, 2024 Team Status: Inactive Member Role/Relationship Status Dates Dr. Xiomy Schaffer MD Primary Care Provider Active Start: February 03, 2025 End: February 03, 2025 Bert Quiroz PA, PA Attending Provider Active St art: February 03, 2025 End: February 03, 2025 ROSCOE Licona Referring Provider Active St art: February 03, 2025 End: February 03, 2025 Team Status: Active Member Role/Relationship Status Dates Dr. Xiomy Schaffer MD Primary care physician Active Team Status: Inactive Member Role/Relationship Status Dates Dr. Xiomy Schaffer MD Primary care physician Active Start: January 21, 2025 Dr. Serina Woods MD Attending physician Active Start: January 21, 2025 Team Status: Inactive Member Role/Relationship Status Dates Dr. Xiomy Schaffer MD Primary care physician Active Start: February 03, 2025 End: February 03, 2025 ROSCOE Licona Attending physician Active S tart: February 03, 2025 End: February 03, 2025 ROSCOE [place] Referring Provider Active St art: February 03, 2025 End: February 03, 2025 Team Status: Active Member Role/Relationship Status Dates Dr. Xiomy Schaffer MD Primary care physician Active Start: May 09, 2025 Dr. Xiomy Schaffer MD Attending physician Active Start: May 09, 2025 Reason for Visit (unrecogniz ed section and [...] BE BASED ON THE PRIMARY CLINICAL RECORDS. [facility] [employer] [facility]. provides no warranty or guarantee of the accuracy or completeness of information in this document.
[2025-07-23 09:31] LABS: Hematocrit 40.6 % (37-47); Hemoglobin 12.8 g/dL (12.0-15.0); Immature Granulocytes Count 0.060 X10^3/uL (0.0-0.0); Mean Corp Hgb Conc 31.5 g/dL (32-36); Mean Corpuscular Volume 87.5 fL (81-99); Mean Platelet Vol. 10.9 fl (6.2-12.0); NRBC Flagged by Analyzer 0 % (0-5); Platelet Count 271 K/mm3 (150-450); RBC Distribution Width CV 13.2 % (11.6-14.6); RBC Distribution Width SD 42.1 fl (35.1-43.9); Red Blood Count 4.64 M/mm3 (4.2-5.4); White Blood Count 8.4 K/mm3 (4.4-11.0)
[2025-07-23 10:01] LABS: AST(SGOT) 23 U/L (<=31); Alanine Aminotransfer ALT/SGPT 37 U/L (<=34); Albumin, Serum 4.5 g/dL (3.4-4.8); Alkaline Phosphatase 81 U/L (35-104); Anion Gap 12 (7-18); BUN 12 mg/dL (4-19); BUN/Creat Ratio 18.5 RATIO (10-20); Calcium,Total 9.5 mg/dL (7.6-11.0); Carbon Dioxide 24.0 mmol/L (20.0-29.0); Chloride 103 mmol/L (96-106); Cholesterol 193 mg/dL (<=200); Globulin 3.0 g/dL (2.2-4.2); Glucose 177 mg/dL (70-99); Low Density Lipoprotein Calc. 126 mg/dL; Potassium 4.2 mmol/L (3.5-5.1); Triglycerides 109 mg/dL; Very Low Density Lipoprotein 22 mg/dL (5-40); cholesterol:hdl ratio screen 4.07
== END | disposition home or self-care (01) ==
PROVIDERS: PCP Internal Medicine; Referring Provider Physician Assistant; Visit Provider Physician Assistant
DX: M25.521 Pain in right elbow (principal); E11.9 Type 2 diabetes mellitus without complications; I10 Essential (primary) hypertension
CPT/HCPCS: 36415; 73080; 80053; 80061; 83036; 84443; 85025